=== PATIENT | female | born 1955 | race Caucasian/White ===

== ENCOUNTER 2020-02-20 23:33 | Emergency (ER) | payer MEDICARE, SELFPAY ==
[2020-02-20 23:34] VITALS: BP 107/70; PULSE 87; RESP 16; TEMP 36.4; O2SAT 98
[2020-02-21] VITALS: BP 149/72; PULSE 84; RESP 20
--- NOTE | 2020-02-21 00:14 | PC.NURSE ---
Dr. Houser aware pt Taliaferro score rated Moderate Risk. No new orders given at this time.
[2020-02-21 00:26] LABS: Basophils Percent Auto 0.6 % (0.2-1.2); Eosinophils Absolute Auto 0.2 K/mm3 (0-0.3); Eosinophils Percent Auto 3.1 % (0-4.4); Hematocrit 33.6 % (37.0-47.0); Immature Granulocyte Absolute 0.05 K/mm3 (0.00-0.031); Immature Granulocyte Percent A 0.7 % (0-0.5); Lymphocytes Absolute Auto 1.06 K/mm3 (0.9-3.2); Lymphocytes Percent Auto 15.5 % (18.3-44.2); Mean Corpuscular HGB Conc 32.7 g/dl (32-36); Mean Corpuscular Hemoglobin 28.2 pg (26-34); Mean Corpuscular Volume 86.2 fl (80-100); Monocytes Absolute Auto 0.5 K/mm3 (0.1-0.6); Monocytes Percent Auto 7.9 % (2.6-8.5); Neutrophils Absolute Auto 4.9 K/mm3 (1.3-6.7); Neutrophils Percent Auto 72.2 % (45.5-73.1); Platelet Count Result 200 k/mm3 (150-375); Red Cell Distribution Width 13.8 % (11.5-14.5); White Blood Count 6.8 K/mm3 (4.5-10.0)
--- NOTE | 2020-02-21 00:27 | ED.GENADULT ---
HPI - General Adult General Chief complaint: Abdominal Pain Stated complaint: rectal or vaginal bleeding Time Seen by Provider: 02/20/20 23:42 Source: patient and family Mode of arrival: ambulatory Limitations: no limitations History of Present Illness HPI narrative: This patient is a 64 year old female who presents for evaluation of bleeding from an unknown source. Patient reports she was using the restroom, and she noticed bright red blood dripping down her leg when she stood up. She is unsure of the source of bleeding. She takes Xarelto for a history of PE, and her dosage is 10 mg. She denies abdominal pain, nausea, vomiting. She reports around 8 pm tonight she had an episode of diarrhea but she did not see any blood at that time . Her states he thinks she lost alot of blood. Related Data Allergies Allergy/AdvReac Type Severity Reaction Status Date / Time metoclopramide Allergy Unknown Unknown Verified 12/25/19 12:10 Review of Systems Review of Systems: All systems reviewed & are unremarkable except as noted in HPI and below Constitutional: Constitutional: Denies chills and Denies fever(s) Cardiovascular: Cardiovascular: Denies chest pain Respiratory: Respiratory: Denies cough and Denies dyspnea Gastrointestinal: Gastrointestinal: Denies abdominal pain, Reports diarrhea, Denies nausea and Denies vomiting PMFSH Past Medical History Medical History (Updated 02/21/20 @ 01:21 by Chelsea Houser MD) Anxiety Chronic low back pain with sciatica Essential (primary) hypertension History of pulmonary embolus (PE) Mild episode of recurrent major depressive disorder Mild intermittent asthma without complication Mixed hyperlipidemia Type 2 diabetes mellitus without complications Surgical History Surgical History H/O: hysterectomy Family History Family History Other Diabetes mellitus Family history of alcoholism Family history of arthritis Family history of coronary artery disease Family history of kidney disease Family history of malignant neoplasm Family history of mental disorder Hypertension Social History Social History Smoking status: Never smoker Second hand tobacco smoke exposure: No Alcohol intake: never Exam Const: General: no acute distress and alert Nutritional Appearance: obese Orientation/consciousness: patient oriented x3 HENMT: Head: atraumatic Throat: posterior oropharynx normal Eyes: EOM: EOMs intact bilaterally Chest: Chest palpation & inspection: normal inspection of the chest Resp: Effort & Inspection: normal respiratory effort and no retractions Auscultation: clear to auscultation bilaterally Cardio: Rate: regular rate Rhythm: regular rhythm Heart sounds: no murmurs GI: GI Palp: Yes Soft to palpation, No Tenderness to palpation present (GI), No Guarding due to palpation present (GI) and No Rigid due to palpation Rectal Exam: heme negative stool (brown stool no lucie blood) Other: no rectal blood scene : Other: no bleeding seen in vaginal vault Skin: Other: patient has small ulcerations to inner thighs that may have been source of bleeding, no bleeding currently Neuro: General: patient oriented x3 and moves all extremities Course Reevaluation(s) Reevaluation #1: I have discussed with patient and her that she is not actively bleeding no. No blood found vaginally or rectally. No blood in urine. urine was clear and yellow. I reviewed prior labs and her last hemoglobin was 9 so today she is higher Date: 02/21/20 Time: 01:20 Vital Signs Vital signs: Vital Signs Temperature 97.6 F 02/20/20 23:34 Pulse Rate 87 02/20/20 23:34 Respiratory Rate 16 02/20/20 23:34 Blood Pressure 107/70 02/20/20 23:34 Pulse Oximetry 98 02/20/20 23:34 Te
[2020-02-21 00:38] LABS: Alanine Aminotransferase 16 U/L (4-35); Alkaline Phosphatase 127 U/L (38-126); Anion Gap 8 mmol/L (8-16); Aspartate Amino Transferase 20 U/L (14-36); Bilirubin,Total 0.5 mg/dL (0.2-1.3); Blood Urea Nitrogen 7 mg/dL (7-17); Calcium 8.8 mg/dL (8.4-10.2); Carbon Dioxide 26 mmol/L (22-30); Chloride 96 mmol/L (98-107); Estimated Glomerular Filt Rate > 60; Glucose 94 mg/dL (65-105); Potassium 4.3 mmol/L (3.4-5.0); Sodium 130 mmol/L (137-145)
[2020-02-21 00:47] LABS: INR 1.5; Prothrombin Time 17.9 Seconds (11.1-14.7)
[2020-02-21 00:48] LABS: Partial Thromboplastin Time 33.7 SECONDS (22.3-36.8)
[2020-02-21 01:00] VITALS: BP 133/65; PULSE 82; RESP 18; O2SAT 100
[2020-02-21 01:02] LABS: Add Urine Microscopic? YES; Appearance Urine Clear (Clear); Bilirubin Urine Negative (Negative); Blood Urine 1+ (Negative); Color Urine Straw (Yellow); Glucose Urine UA Negative (Negative); Ketones Urine Negative (Negative); Leukocyte Esterase Ur Negative LEU/UL (Negative); Nitrate Urine Negative (Negative); Protein Urine Negative (Negative); RBC Urine 0-2 /hpf (0-2); Specific Grav Ur 1.005 (1.001-1.035); Squamous Epithelial Cell Urine Rare /hpf (Few); Urobilinogen Urine Negative mg/dL (<2.0); WBC Urine 0-3 /hpf
[2020-02-21 01:30] VITALS: BP 132/65; PULSE 80; RESP 18; O2SAT 100
== END 2020-02-21 01:45 | disposition home or self-care (01) ==
PROVIDERS: Emergency Provider General Practice; PCP Family Medicine
DX: L98.9 Disorder of the skin and subcutaneous tissue, unspecified (principal); Z79.01 Long term (current) use of anticoagulants; D64.9 Anemia, unspecified; I10 Essential (primary) hypertension; J45.20 Mild intermittent asthma, uncomplicated; E78.2 Mixed hyperlipidemia; E11.9 Type 2 diabetes mellitus without complications; F41.9 Anxiety disorder, unspecified; F33.9 Major depressive disorder, recurrent, unspecified; Z86.711 Personal history of pulmonary embolism
CPT/HCPCS: 36415; 51701; 80053; 81001; 85025; 85610; 85730; 99284

== ENCOUNTER 2020-02-22 09:43 | Outpatient (CLI) | payer MEDICARE, SELFPAY ==
--- NOTE | ~2020-02-22 | US_ITS ---
EXAMINATION: US venous doppler [facility] DATE: 02/22/2020 10:59 INDICATION: Left lower limb pain. TECHNIQUE: Grayscale ultrasound images without and with compression and Doppler ultrasound images of the left lower extremity veins were obtained. COMPARISON: Ultrasound 08/29/2014 FINDINGS: The visualized portions of left common femoral vein, profunda (deep) femoral vein, femoral vein, popl iteal vein, posterior tibial veins, and greater saphenous vein outflow are patent. There is reflux in left popliteal vein for 1.9 seconds. IMPRESSION: 1. No deep venous thrombosis. 2. Reflux in left popliteal vein. Reviewed, dictated and finalized at location A.
== END 2020-02-22 09:44 | disposition home or self-care (01) ==
PROVIDERS: PCP Family Medicine; Visit Provider Family Medicine
DX: M79.605 Pain in left leg (principal)
CPT/HCPCS: 93971

== ENCOUNTER 2020-06-05 13:44 | Observation (INO) | payer MEDICARE, SELFPAY ==
[2020-06-05] VITALS (7 sets, daily range): BP systolic 144–166; BP diastolic 66–126; PULSE 70–82; RESP 12–20; TEMP 36.2–36.9; O2SAT 98–100
--- NOTE | ~2020-06-05 | US_ITS ---
EXAMINATION: US venous doppler [facility] DATE: 06/06/2020 10:41 INDICATION: Lower limb weakness TECHNIQUE: Grayscale ultrasound images without and with compression and Doppler ultrasound images of the bilateral lower extremity veins were obtained. COMPARISON: None. FINDINGS: The visualized portions of right common femoral vein, profunda (deep) femoral vein, femoral vein, pop liteal vein, posterior tibial veins, peroneal veins, gastrocnemius vein and greater saphenous vein ou tflow are patent. The visualized portions of left common femoral vein, profunda femoral vein, femoral vein, popliteal v ein, posterior tibial veins, peroneal veins, gastrocnemius vein and greater saphenous vein outflow ar e patent. IMPRESSION: 1. No deep venous thrombosis in either lower limb. Reviewed, dictated and finalized at location B. PATIAL DEVELOPER
--- NOTE | ~2020-06-05 | XR_ITS ---
EXAMINATION: XR ankle RT min 3V, XR tibia fibula RT 2V EXAM DATE: 06/05/2020 14:13 INDICATION: Pain, right ankle pain, lateral swelling, fall. Initial encounter. TECHNIQUE: Right ankle frontal, lateral and oblique projections obtained and reviewed. Frontal and la teral projections right tibia and fibula. Comparison is made to prior examination from 03/01/2019. FINDINGS: The right ankle mortise appears intact. Previously seen distal fibular fracture has healed . There are no acute ankle, tibia or fibula fractures or dislocations identified. There is no subcut aneous gas. There is soft tissue swelling over the ankle anterolaterally. There is knee arthroplast y hardware. Small inferior calcaneal spur. 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 IMPRESSION: 1. Right ankle, tibia fibula exam without acute osseous findings. 2. Soft tissue swelling. Reviewed, dictated and finalized at location A. OWS FILLER IMPRESSION: 1. Right ankle, tibia fibula exam without acute osseous findings. 2. Soft tissue swelling.
--- NOTE | 2020-06-05 13:46 | ED.LOWEXIN ---
HPI - Extremity Injury (Lower) General Chief Complaint: Fall Stated Complaint: RLL Time Seen by Provider: 06/05/20 13:46 History of Present Illness HPI Narrative: 64 yo female w/ h/o htn, DM, morbid obesity presents to the ED for ankle pain. She was standing up from the toilet when her leg bent underneath her and she felt her ankle pop. She was nt able to stand or bear weight weight. She required multiple ambulance crews and PD to get her off the ground. She did not hit her head or sustain any other injuries. Related Data Allergies Allergy/AdvReac Type Severity Reaction Status Date / Time metoclopramide Allergy Unknown Unknown Verified 06/03/20 11:30 Review of Systems Review of Systems: All systems reviewed & are unremarkable except as noted in HPI and below Constitutional: Constitutional: Denies fever(s) and Denies weakness Cardiovascular: Cardiovascular: Denies chest pain Respiratory: Respiratory: Denies dyspnea Gastrointestinal: Gastrointestinal: Denies abdominal pain and Denies nausea Genitourinary: Genitourinary: Denies dysuria Musculoskeletal: Musculoskeletal: Denies back pain Neurologic: Denies confusion, Denies numbness and Denies weakness [facility] Past Medical History Medical History (Updated 06/05/20 @ 17:14 by Marshall Howe MD) Anxiety Chronic low back pain with sciatica Essential (primary) hypertension History of pulmonary embolus (PE) Mild episode of recurrent major depressive disorder Mild intermittent asthma without complication Mixed hyperlipidemia Type 2 diabetes mellitus without complications Surgical History Surgical History H/O: hysterectomy Family History Family History Other Diabetes mellitus Family history of alcoholism Family history of arthritis Family history of coronary artery disease Family history of kidney disease Family history of malignant neoplasm Family history of mental disorder Hypertension Social History Social History Smoking status: Never smoker Second hand tobacco smoke exposure: No Alcohol intake: never Exam Const: General: no acute distress and alert Nutritional Appearance: obese morbidly obese Orientation/consciousness: patient oriented x3 HENMT: Head: normal to inspection Resp: Effort & Inspection: normal respiratory effort Auscultation: clear to auscultation bilaterally Cardio: Rate: regular rate GI: GI Palp: Yes Soft to palpation and No Tenderness to palpation present (GI) Skin: General skin exam: normal color Neuro: General: patient oriented x3, moves all extremities, no focal motor deficits and CN's II-XI intact bilaterally Speech: normal speech Extrem: Other: Tenderness over right lateral malleolus. No swelling or deformity. Mild abrasions to toes on right foot. Course Vital Signs Vital signs: Vital Signs Temperature 36.9 C 06/05/20 13:47 Pulse Rate 79 06/05/20 13:47 Respiratory Rate 14 06/05/20 13:47 Blood Pressure 166/126 H 06/05/20 13:47 Pulse Oximetry 99 06/05/20 13:47 Temperature 36.9 C 06/05/20 13:47 Pulse Rate 79 06/05/20 13:47 Respiratory Rate 14 06/05/20 13:47 Blood Pressure 166/126 H 06/05/20 13:47 Pulse Oximetry 99 06/05/20 13:47 MDM - Extremity Injury (Lower) MDM Narrative Medical decision making narrative: No fracture on x-ray. She failed trial of ambulation despite pain meidcation. Differential Diagnosis Differential diagnosis: Likely ankle sprain and strain and ankle fracture Lab Data Result diagrams: 06/05/20 16:57 06/05/20 16:57 Labs: Lab Results 06/05/20 06/05/20 06/05/20 Range/Units 16:57 16:57 16:57 WBC 6.6 (4.5-10.0) K/mm3 RBC 4.48 (4.2-5.4) M/mm3 Hgb 12.5 (12.0-15.0) g/dL Hct 38.8 (37.0-47.0) % MCV 86.6 (80-100)
[2020-06-05] MEDS: MORPHINE SULFATE (*CRX) 2 MG/ML INJ IV PUSH (15:34)
[2020-06-05 17:06] LABS: Basophils Percent Auto 0.5 % (0.2-1.2); Eosinophils Absolute Auto 0.2 K/mm3 (0-0.3); Eosinophils Percent Auto 2.3 % (0-4.4); Hematocrit 38.8 % (37.0-47.0); Hemoglobin 12.5 g/dL (12.0-15.0); Immature Granulocyte Absolute 0.04 K/mm3 (0.00-0.031); Immature Granulocyte Percent A 0.6 % (0-0.5); Lymphocytes Absolute Auto 0.79 K/mm3 (0.9-3.2); Mean Corpuscular HGB Conc 32.2 g/dl (32-36); Mean Corpuscular Hemoglobin 27.9 pg (26-34); Mean Corpuscular Volume 86.6 fl (80-100); Mean Platelet Volume 8.6 fl (7.4-10.4); Monocytes Absolute Auto 0.4 K/mm3 (0.1-0.6); Monocytes Percent Auto 5.4 % (2.6-8.5); Neutrophils Absolute Auto 5.2 K/mm3 (1.3-6.7); Neutrophils Percent Auto 79.2 % (45.5-73.1); Platelet Count Result 178 k/mm3 (150-375); Red Blood Count 4.48 M/mm3 (4.2-5.4); Red Cell Distribution Width 14.1 % (11.5-14.5); White Blood Count 6.6 K/mm3 (4.5-10.0)
[2020-06-05 17:13] LABS: Add Urine Microscopic? YES; Amorphous Sediment Urine Few; Appearance Urine Cloudy (Clear); Bacteria Urine 4+ /hpf; Bilirubin Urine Negative (Negative); Blood Urine 1+ (Negative); Color Urine Yellow (Yellow); Glucose Urine UA Negative (Negative); Ketones Urine Negative (Negative); Leukocyte Esterase Ur 1+ LEU/UL (Negative); Mucus Urine Rare /lpf; Nitrate Urine Negative (Negative); Protein Urine Negative (Negative); RBC Urine 21-50 /hpf (0-2); Specific Grav Ur 1.006 (1.001-1.035); Squamous Epithelial Cell Urine Few /hpf (Few); Urobilinogen Urine Negative mg/dL (<2.0); WBC Urine 31-50 /hpf
[2020-06-05 17:18] LABS: Alanine Aminotransferase 16 U/L (4-35); Albumin Level 4.1 g/dL (3.5-5.1); Alkaline Phosphatase 141 U/L (38-126); Anion Gap 5 mmol/L (8-16); Aspartate Amino Transferase 21 U/L (14-36); Bilirubin,Total 0.7 mg/dL (0.2-1.3); Blood Urea Nitrogen 12 mg/dL (7-17); Calcium 9.1 mg/dL (8.4-10.2); Carbon Dioxide 26 mmol/L (22-30); Chloride 102 mmol/L (98-107); Estimated CRCL calculation 88 ml/min; Estimated Glomerular Filt Rate > 60; Glucose 99 mg/dL (65-105); Potassium 4.7 mmol/L (3.4-5.0); Sodium 133 mmol/L (137-145)
[2020-06-05 17:34] LABS: INR 1.1; Prothrombin Time 15.1 Seconds (11.1-14.7)
[2020-06-05 17:35] LABS: Partial Thromboplastin Time 24.7 SECONDS (22.3-36.8)
--- NOTE | 2020-06-05 17:53 | PCCCNOTE ---
Care Coordination visited with pt and her to discuss possible need for therapy after observation stay. Gave pt list of SNF facilities that accept [employer] insurance. states that was at [facility] when she broke her leg and they would want to return there if she is unable to return home.
--- NOTE | 2020-06-05 19:00 | ADMGEN ---
This patient, Lorraine Mazariegos, was admitted to Medical Room 248-. Patient/family oriented to hospital policies and general routines including ID bracelet, bed and alarms, visiting hours, pain management, procedures, bathroom and other care routines, personal items, smoking policy, room service/diet, and visiting hours. Information on how to activate the Rapid Response Team has been discussed. Patient/Family are encouraged to report perceived risks to care and to ask questions if they do not understand what they are told or what they should do.
--- NOTE | 2020-06-05 20:29 | PM.IMHP ---
H&P: HPI History of Present Illness Date/Time: 06/05/20 20:29 Chief Complaint: fall with right ankle pain Narrative: Lorraine Mazariegos is a 64 year old female who has had at least 2 falls this past month. The patient is morbidly obese. She lives with her . Yesterday the patient went to see her primary care doctor because she had a feeling of a toenail digging into her skin for the past week. She has been wearing a different type of shoe. She now has a Band-Aid to the right great toe to keep it from rubbing. The patient has multiple old green bruises on the left side of her body including the left elbow and left knee. The patient stated that she just has been having difficulty moving and has been having falls. The patient had difficulty getting out of the bathtub the other day and her tried to help her get out of the tub while she was sitting on a chair our chair and she stated that she had on the side of the tub but then fell on the floor. Today the patient was trying to stand up from getting off the toilet when she said she twisted her right ankle and heard a pop. She currently is not able to ambulate on that right ankle it does not appear to be swollen except maybe a trace. The patient is obese and has difficulty ambulating. She states that she does not want to go into a correction and has a walker at home. Bed bound at home but feels like she is bedbound now. The patient would not be able to use crutches but states that she could probably go home and use her walker. Tibia fibula x-ray was read as right ankle tibia fibula exam without acute osseous findings. Soft tissue swelling. Ankle x-ray was read as right ankle tibia fibula exam without acute osseous findings. Soft tissue swelling. The patient does have a history of having a DVT and PEs in the past and is currently on Xarelto. The patient appears to have a UTI. The patient was admitted for observation on the date of service of 06/05/2020. Review of Systems Review of Systems: All systems reviewed & are unremarkable except as noted in HPI and below Constitutional: Constitutional: Reports as per HPI and Reports no additional constitutional complaints Eyes: Eyes: Reports as per HPI and Reports no additional eye complaints ENT: Reports system reviewed and no additional complaints, except as documented and Reports Normal hearing present Cardiovascular: Cardiovascular: Reports no additional cardiovascular complaints Respiratory: Respiratory: Reports no additional respiratory complaints and Reports no additional respiratory complaints Gastrointestinal: Gastrointestinal: Reports as per HPI and Reports no additional gastrointestinal complaints Musculoskeletal: Musculoskeletal: Reports no additional musculoskeletal complaints Integumentary/Breasts: Skin/Breast: Reports system reviewed and no additional complaints, except as docu and Reports as per HPI Neurologic: Reports system reviewed and no additional complaints, except as documented, Reports as per HPI and Reports Normal hearing present Psychiatric: Psychiatric: Reports no additional psychiatric complaints and Reports as per HPI Endocrine: Endocrine: Reports no additional endocrine complaints Hematologic/Lymphatic: Hematologic/Lymphatic: Reports no additional hematologic/lymphatic complaints Allergic/Immunologic: Allergic/Immunologic: Reports no additional allergic/immunologic complaints [facility] Past Medical History Medical History (Updated 06/05/20 @ 21:03 by Janet Sprague NP) Anxiety Chronic low back pain with sciatica Depression Essential (primary) hypertension History of DVT (deep vein thrombosis) History of pulmonary embolus (PE) Mild episode of recurrent major depressive disorder Mild intermittent asthma without complication Mixed hyperlipidemia Presence of IVC filter Surgical History Surgical History (Updated 06/05/20 @ 20:55 by Janet Sprague NP) H/O bariatric surgery X2 H/O: hystere
[2020-06-05] MEDS: GABAPENTIN 300 MG CAPSULE 600 MG PO (21:16)
[2020-06-05] MEDS: TOLNAFTATE 1% POWDER 45 GM BTL 1 APPLIC TOPICAL (21:16)
[2020-06-06] MEDS: HYDROcodone/acetaminophen (*CRX) 5-325 MG TABLET 1 TAB PO (00:34)
[2020-06-06 05:17] VITALS: BP 135/60; PULSE 75; RESP 16; TEMP 36.2; O2SAT 100
[2020-06-06 05:30] LABS: Basophils Percent Auto 0.3 % (0.2-1.2); Eosinophils Absolute Auto 0.2 K/mm3 (0-0.3); Eosinophils Percent Auto 2.5 % (0-4.4); Hematocrit 35.3 % (37.0-47.0); Hemoglobin 11.2 g/dL (12.0-15.0); Immature Granulocyte Absolute 0.03 K/mm3 (0.00-0.031); Immature Granulocyte Percent A 0.5 % (0-0.5); Lymphocytes Absolute Auto 0.87 K/mm3 (0.9-3.2); Lymphocytes Percent Auto 14.5 % (18.3-44.2); Mean Corpuscular HGB Conc 31.7 g/dl (32-36); Mean Corpuscular Hemoglobin 27.5 pg (26-34); Mean Corpuscular Volume 86.5 fl (80-100); Mean Platelet Volume 8.9 fl (7.4-10.4); Monocytes Absolute Auto 0.5 K/mm3 (0.1-0.6); Monocytes Percent Auto 7.5 % (2.6-8.5); Neutrophils Absolute Auto 4.5 K/mm3 (1.3-6.7); Neutrophils Percent Auto 74.7 % (45.5-73.1); Platelet Count Result 177 k/mm3 (150-375); Red Blood Count 4.08 M/mm3 (4.2-5.4); Red Cell Distribution Width 13.9 % (11.5-14.5)
[2020-06-06 05:56] LABS: Alanine Aminotransferase 15 U/L (4-35); Albumin Level 3.6 g/dL (3.5-5.1); Alkaline Phosphatase 127 U/L (38-126); Anion Gap 5 mmol/L (8-16); Aspartate Amino Transferase 21 U/L (14-36); Bilirubin,Total 0.7 mg/dL (0.2-1.3); Blood Urea Nitrogen 13 mg/dL (7-17); Calcium 8.7 mg/dL (8.4-10.2); Carbon Dioxide 28 mmol/L (22-30); Chloride 102 mmol/L (98-107); Estimated CRCL calculation 88 ml/min; Estimated Glomerular Filt Rate > 60; Glucose 101 mg/dL (65-105); Magnesium 1.7 mg/dL (1.6-2.3); Potassium 3.9 mmol/L (3.4-5.0); Sodium 135 mmol/L (137-145)
[2020-06-06 06:08] LABS: Hemoglobin A1C 5.3 % (<5.7)
[2020-06-06] MEDS: GABAPENTIN 300 MG CAPSULE 600 MG PO (08:13)
[2020-06-06] MEDS: ATORVASTATIN 40 MG TABLET PO (08:14)
[2020-06-06] MEDS: DULoxetine HCL 30 MG CAPSULE.DR 90 MG PO (08:14)
[2020-06-06] MEDS: busPIRone HCL 5 MG TABLET 15 MG PO (08:14)
[2020-06-06] MEDS: lisinopriL 10 MG TABLET 30 MG BY MOUTH (08:14)
[2020-06-06] MEDS: PANTOPRAZOLE 40 MG TABLET PO (08:14)
[2020-06-06] MEDS: RIVAROXABAN 10 MG TABLET PO (08:14)
[2020-06-06] MEDS: risperiDONE 1 MG TABLET 4 MG PO (08:14)
[2020-06-06] MEDS: TOLNAFTATE 1% POWDER 45 GM BTL 1 APPLIC TOPICAL (08:15)
[2020-06-06 09:08] LABS: Glucose Point of Care 120 (65-105)
--- NOTE | 2020-06-06 09:12 | PM.CNOR ---
Assessment and Plan Assessment and plan (1) Right ankle sprain: Code(s): S93.401A - Sprain of unspecified ligament of right ankle, initial encounter <WILLIAM Johnston - Last Filed: 06/06/20 12:58> Status: Acute <WILLIAM Johnston - Last Filed: 06/06/20 12:58> Assessment and Plan: Pleasant [age] year old female patient with a history of morbid obesity, hypertension, depression, anxiety, history of DVT, history of PE was admitted to the hospital 06/05/2020 after multiple falls and complains of right ankle pain. Reviewed rotated radiographs showing no acute bony abnormalities. Spoke with patient's nurse who stated patient is able to ambulate however has trouble standing up off the toilet. Right ankle sprain is self-limited. Patient will need a lace-up ankle brace for comfort while ambulating. PT and OT ordered. Weight barring as tolerated. She may follow up as needed at our office. I spoke with Dr. Davila regarding patient. He examined patient, reviewed imaging, and agrees with assessment and plan. Thank you for the consult. <WILLIAM Johnston - Last Filed: 06/06/20 12:58> Additional Plan Patient seen and examined. High grade ankle sprain lateral and medial. Xrays reviewed. No acute fracture. Mild ankle joint degenerative arthritis. Ok to WBAT. Ankle brace for comfort and support as needed. Discussed fall precautions and expectations/ timeline of healing. Follow up as needed only. <Dawood Davila MD - Last Filed: 06/06/20 16:31> History of Present Illness HPI Consult date: 06/06/20 <WILLIAM Johnston - Last Filed: 06/06/20 12:58> 06/06/20 <Dawood Davila MD - Last Filed: 06/06/20 16:31> Requesting physician: Janet Sprague NP <WILLIAM Johnston - Last Filed: 06/06/20 12:58> Consult reason: other <WILLIAM Johnston - Last Filed: 06/06/20 12:58> Chief complaint: Ankle pain ambulatory dysfunction <WILLIAM Johnston - Last Filed: 06/06/20 12:58> Narrative: [age] year old female patient with a history of morbid obesity, hypertension, depression, anxiety, history of DVT, history of PE was admitted to the hospital 06/05/2020 after multiple falls. Patient states she fell in the bathroom and slipped while getting up off the toilet. She fell down to her bottom and felt a pop in her right ankle. She is unable to get up off the floor on her own. She states a week prior to that she fell in the shower. Pain is located at right ankle in the lateral and medial side. Pain is mild and controlled. Prior to injury she typically walks on her own at home. Her PCP did tell her to start using a walker. Patient states her is planning on putting in a shower in the bathroom. She denies chest pain, shortness of breath, abdominal pain, or numbness and tingling in her toes. She states she has knee pain but this is normal for her. She has a history of TKA bilaterally in late in early . She denies hip pain. <WILLIAM Johnston - Last Filed: 06/06/20 12:58> Review of Systems Review of Systems: All systems reviewed & are unremarkable except as noted in HPI and below <WILLIAM Johnston - Last Filed: 06/06/20 12:58> [facility] Past Medical History Medical History: Medical History Anxiety Chronic low back pain with sciatica Depression Essential (primary) hypertension History of DVT (deep vein thrombosis) History of pulmonary embolus (PE) Mild episode of recurrent major depressive disorder Mild intermittent asthma without complication Mixed hyperlipidemia Presence of IVC filter <WILLIAM Johnston - Last Filed: 06/06/20 12:58> Surgical History Surgical History: Surgical History H/O bariatric surgery X2 H/O: hysterectomy History of carpal tunnel release History of tonsillectomy His
--- NOTE | 2020-06-06 09:30 | PCOTNOTE ---
Attempted OT evaluation. Patient receiving an US at this time. Will continue to attempt.
--- NOTE | 2020-06-06 13:13 | PC.NURSE ---
Brace ordered by WILLIAM Kelley. Called to Systems Integration Manager to obtain brace. Information faxed [phone] 06/06/2020.
[2020-06-06 14:25] VITALS: BP 140/93; PULSE 83; RESP 18; TEMP 36.7; O2SAT 100
--- NOTE | 2020-06-06 14:48 | PM.DS ---
DS: Admitting Diagnosis Admitting Diagnosis Admitting Diagnosis: Right ankle sprain DS: Discharge Diagnosis Discharge Diagnosis (1) Acute right ankle pain: Code(s): M25.571 - Pain in right ankle and joints of right foot Status: Acute Assessment and Plan: Discharge Summary (Date of service 06/06/20): Mrs. Mazariegos is a 64 y.o. female with PMH significant for morbid obesity, hypertension, depression, anxiety, history of DVT/PE on chronic anticoagulation who presented to the hospital 06/05/2020 after multiple falls. She reported that she slipped while getting up off the toilet, falling on her bottom, and felt a pop in her right ankle. She was unable to get up off the floor on her own. Pain was located at right ankle in the lateral and medial side. Prior to injury she typically walks on her own at home but her PCP did tell her to start using a walker. She reported no other injuries or pain. She had no LOC or head trauma. Plain films in the emergency department demonstrated no acute ankle, tibia or fibula fractures or dislocations identified. She was admitted to the hospitalist service with orthopedic surgery consultation because the patient was not able to ambulate in the emergency department due to pain. PT/OT were consulted and she was able to ambulate with a walker and transfer. Pain improved significantly and she requested discharge home. Rehab/SNF was discussed but PT/OT felt she could have home health therapy which was her preference. Orthopedic surgery advised a lace-up ankle brace for comfort with ambulating and weight bearing as tolerated. Fall precautions and expectations/ timeline of healing were discussed. She was no longer requiring inpatient care and discharged on 06/06/20 in hemodynamically stable condition. She did have a small 2mm foot wound with no evidence of infection and already had podiatry follow-up scheduled which she was advised to keep. (2) UTI (urinary tract infection): Code(s): N39.0 - Urinary tract infection, site not specified Status: Acute Assessment and Plan: Ruled out. Urine culture suspicious for UTI. She was treated with IV ceftriaxone and discharged on PO cefdinir. Urine culture demonstrated no growth after discharge so I called and notified the patient to stop taking the antibiotic. (3) Frequent falls: Code(s): R29.6 - Repeated falls Status: Acute (4) Mixed hyperlipidemia: Code(s): E78.2 - Mixed hyperlipidemia Status: Acute (5) Essential (primary) hypertension: Code(s): I10 - Essential (primary) hypertension Status: Acute (6) History of pulmonary embolus (PE): Code(s): Z86.711 - Personal history of pulmonary embolism Status: Acute (7) Anxiety: Code(s): F41.9 - Anxiety disorder, unspecified Status: Acute (8) Depression: Code(s): F32.9 - Major depressive disorder, single episode, unspecified Status: Chronic DS: Summary Hospital Course Reason for hospitalization: Right ankle fracture Hospital Course: As above. Status at Discharge Functional status at discharge: uses cane/walker Overall status at discharge: patient is back to baseline Time Spent with Patient Time attestation: Total time spent providing and/or coordinating discharge services: 50 minutes Exam Narrative: Exam Narrative: Vitals at presentation: Temp Pulse Resp BP Pulse Ox 98.4 F 79 14 166/126 H 99 06/05/20 13:47 06/05/20 13:47 06/05/20 13:47 06/05/20 13:47 06/05/20 13:47 Vitals at discharge: Temp Pulse Resp BP Pulse Ox 98.1 F 83 18 140/93 H 100 06/06/20 14:25 06/06/20 14:25 06/06/20 14:25 06/06/20 14:25 06/06/20 14:25 General: Very pleasant
[2020-06-06 19:17] LABS: SARS-CoV-2 RNA PCR Negative
== END 2020-06-06 17:37 | disposition home health service (06) ==
LOC: ANHED 17:14 → ANH3MED 17:55 → ANH2MED 18:58
PROVIDERS: Family Medicine; Nurse Practitioner; Physician Assistant; Admitting Provider Family Medicine; Emergency Provider Emergency Medicine; PCP Family Medicine; Visit Provider Internal Medicine
DX: M25.571 Pain in right ankle and joints of right foot (principal); M79.89 Other specified soft tissue disorders; Z20.822 Contact with and (suspected) exposure to COVID-19; R30.0 Dysuria; R29.6 Repeated falls; R01.1 Cardiac murmur, unspecified; E66.01 Morbid (severe) obesity due to excess calories; F41.8 Other specified anxiety disorders; E78.2 Mixed hyperlipidemia; E11.9 Type 2 diabetes mellitus without complications; I10 Essential (primary) hypertension; Z79.01 Long term (current) use of anticoagulants; Z86.718 Personal history of other venous thrombosis and embolism; Z86.711 Personal history of pulmonary embolism; Z68.43 Body mass index [BMI] 50.0-59.9, adult
CPT/HCPCS: 36415; 73590; 73610; 80053; 81001; 82728; 82948; 83036; 83735; 84443; 85025; 85610; 85730; 87040; 87086; 87088; 93970; 96360; 96374; 96375; 97161; 97165; 99285; A9270; C9803; G0378; J0696; J2270; U0003; U0005

== ENCOUNTER 2020-07-09 13:23 | Outpatient (CLI) | payer MEDICARE, SELFPAY | END 2020-07-09 13:24 | disposition home or self-care (01) | PROVIDERS: PCP Family Medicine | DX: Z23 Encounter for immunization (principal) | CPT/HCPCS: 0001A; 91300 ==

== ENCOUNTER → 2020-07-21 15:33 | Outpatient (CLI) | payer MEDICARE, SELFPAY ==
--- NOTE | ~2020-07-21 | XR_ITS ---
XR ankle RT min 3V DATE: 07/21/2020 15:56 INDICATION: Chronic ulcer TECHNIQUE: 4 views COMPARISON: 06/05/2020 right ankle 03/01/2019 right ankle FINDINGS: There is a soft tissue concavity along the distal lateral right lower leg which may corresp ond to the report of chronic ulcer. There is soft tissue swelling of the right lower leg and ankle. There is periosteal reaction at the site of a former fracture at the lateral malleolus. The findings may be consistent with a repeat fracture at this site versus osteomyelitis. Clinical correlation is a dvised. There is narrowing of the tibiotalar joint since 06/05/2020; joint infection is not excluded. Plantar calcaneal enthesopathy. Diffuse osteopenia. IMPRESSION: Probable soft tissue ulcer along the distal lateral right lower leg Periosteal reaction at the site of a prior lateral malleolar fracture. Refracture and healing is a co nsideration, but osteomyelitis is included in the differential diagnosis Narrowing of the tibiotalar joint since 06/05/2020; joint infection is not excluded. Reviewed, dictated and finalized at location A. IMPRESSION: Probable soft tissue ulcer along the distal lateral right lower leg Periosteal reaction at the site of a prior lateral malleolar fracture. Refractu re and healing is a consideration, but osteomyelitis is included in the differe ntial diagnosis Narrowing of the tibiotalar joint since 06/05/2020; joint infection is not exclu ded.
== END ==
PROVIDERS: Visit Provider Physician Assistant
DX: L97.909 Non-pressure chronic ulcer of unspecified part of unspecified lower leg with unspecified severity (principal); M79.89 Other specified soft tissue disorders
CPT/HCPCS: 73610

== ENCOUNTER 2020-07-30 13:09 | Outpatient (CLI) | payer MEDICARE, SELFPAY | END 2020-07-30 13:10 | disposition home or self-care (01) | LOC: ANHCOVIDVC 13:09 | DX: Z23 Encounter for immunization (principal) | CPT/HCPCS: 0002A; 91300 ==

== ENCOUNTER → 2020-08-01 12:15 | Outpatient (CLI) | payer MEDICARE, SELFPAY ==
--- NOTE | ~2020-08-01 | MR_ITS ---
EXAMINATION: MR ankle RT wo/w con DATE: 08/01/2020 14:06 INDICATION: Pressure ulcer of the right ankle with open wound. TECHNIQUE: Magnetic resonance imaging (MRI) of the right ankle and distal lower leg was performed wit hout and with 20 mL Multihance intravenous contrast. Sequences included axial, sagittal and coronal T 1-weighted FSE and T2-weighted FS FSE, axial T1-weighted FS FSE and postcontrast axial, sagittal and coronal T1-weighted FS FSE . COMPARISON: Radiographs dated 06/05/2020 and 07/21/2020 FINDINGS: There is marrow edema and enhancement at the lateral malleolus distal to a minimally displaced obliqu e fracture of the distal fibula with medial side of the fracture traversing the cortex near the level of the tibiotalar joint line consistent with a Brady type B fracture. Small amount of callus formati on is evident along the posterior and lateral margins of the fracture, better appreciated on prior ra diographs. No evident cortical erosion or geographic loss of T1 fat signal to suggest osteomyelitis. Soft tissue edema and non masslike enhancement surrounding a deep ulceration along the lateral lower leg located approximately 9 cm proximal to the tip of the lateral malleolus which extends deep to the peroneus longus tendon the superficial margin of which appears exposed at the ulceration. The tendon s however appear normal with no tendon tear. There is prominent increased fluid signal and enhancemen t throughout the distal peroneus brevis longus and brevis muscle bellies consistent with myositis. No nonenhancing myonecrosis or abscess. No tenosynovitis along the more distal peroneus brevis longus a nd brevis tendons. The anterior extensor tendons and the medial sided flexor tendons remain normal. The medial and later al stabilizing ligaments of the ankle appear grossly intact although evaluation is limited by some de gree of motion artifact or blurring on essentially all sequences as well as by the larger field of vi ew of imaging and a standard ankle MRI. Moderate tibiotalar osteoarthritis with posterior predominant nonuniform joint space narrowing with mild subarticular edema at the posterior aspect of the tibial plafond. Physiologic amount of fluid in the tibiotalar and subtalar joint spaces. Moderate-sized plan tar calcaneal spur. IMPRESSION: 1. Myositis of the peroneus longus and brevis muscle bellies centered under a deep skin ulceration at the lateral distal lower leg which appears to extend through the periphery of the muscle to contact the peroneus longus tendon. No associated mild necrosis, abscess or tenosynovitis. 2. Healing Brady type B fracture of the distal right fibula with no findings to suggest osteomyelitis . 3. Moderate tibiotalar osteoarthritis. Reviewed, dictated and finalized at location A. IMPRESSION: 1. Myositis of the peroneus longus and brevis muscle bellies centered under a d eep skin ulceration at the lateral distal lower leg which appears to extend thr ough the periphery of the muscle to contact the peroneus longus tendon. No asso ciated mild necrosis, abscess or tenosynovitis. 2. Healing Brady type B fracture of the distal right fibula with no findings to suggest osteomyelitis. 3. Moderate tibiotalar osteoarthritis.
[2020-08-01 13:14] LABS: Estimated Glomerular Filt Rate 50
== END ==
PROVIDERS: PCP Family Medicine; Visit Provider Physician Assistant
DX: L89.504 Pressure ulcer of unspecified ankle, stage 4 (principal); M19.071 Primary osteoarthritis, right ankle and foot
CPT/HCPCS: 73723; A9577

== ENCOUNTER 2020-08-20 10:34 | Inpatient (IN) | payer MEDICARE, SELFPAY ==
[2020-08-20] VITALS (16 sets, daily range): BP systolic 95–141; BP diastolic 47–116; PULSE 96–164; RESP 14–21; TEMP 36.6–36.9; O2SAT 95–100
--- NOTE | ~2020-08-20 | XR_ITS ---
EXAMINATION: XR chest 2V EXAM DATE: 08/20/2020 11:07 INDICATION: Shortness of breath, fast heart rate 5'3'/370 LBS. Unable to move. TECHNIQUE: Frontal and lateral projections of the chest obtained and reviewed. Comparison is made to prior examination from 07/28/2018. FINDINGS: Interval development of mild cardiomegaly. No confluent consolidation, pneumothorax or pleu ral effusion suspected. Bilateral shoulder osteoarthritis. Epigastric surgical clips. IMPRESSION: Cardiomegaly. Reviewed, dictated and finalized at location A. IMPRESSION: Cardiomegaly.
--- NOTE | 2020-08-20 10:48 | ECG_ITS ---
Measurements Intervals [place] Rate: 147 P: [place]: 0 QRS: -34 QRSD: 110 T: 114 QT: 278 QTc: 435 Interpretive Statements ATRIAL FIBRILLATION WITH RAPID VENTRICULAR RESPONSE LEFT AXIS DEVIATION INTRAVENTRICULAR CONDUCTION DELAY VOLTAGE CRITERIA FOR LVH POOR R WAVE PROGRESSION, ANTERIOR LEADS ST-T WAVE ABNORMALITY IN HIGH LATERAL LEADS- CONSIDER ISCHEMIA BASELINE ARTIFACT- I, III, AVR, AVL, AVF ABNORMAL ECG Electronically Signed On 08-20-2020 11:11:19 CDT by Glenroy Ashraf D.O.
--- NOTE | 2020-08-20 10:56 | ED.ARRPALP ---
HPI - Arrhythmia/Palpitations General Chief Complaint: Arrhythmia/Palpitations Stated Complaint: irregular heart rate Time Seen by Provider: 08/20/20 10:52 Source: RN notes reviewed History of Present Illness HPI narrative: Patient presents to emergency department from home for regular heart rate. Patient states she has had feelings of her heart racing for the past 4 days. She states that home health came to her house today and she is being treated for a wound on her right leg and they recommend she come to the ER secondary to her heart arrhythmia. The patient states she is on Xarelto and believes she has a history of an irregular heart rate and is followed by the heart care group she does note mild shortness of breath. She denies any fevers or chills chest pain abdominal pain nausea vomiting or any other symptoms patient is on Xarelto and took it last night Related Data Home Medications Medication Instructions Recorded Confirmed atorvastatin 40 mg PO DAILY 06/05/20 06/05/20 risperidone 4 mg tablet 4 mg PO BID tablet 07/21/20 Allergies Allergy/AdvReac Type Severity Reaction Status Date / Time metoclopramide Allergy Intermediate Unknown Verified 08/20/20 10:53 Review of Systems Review of Systems: Narrative: Gen.: Denies fevers or chills ENT: Denies congestion Respiratory: Reports shortness of breath CV: Reports heart racing GI: Denies abdominal pain nausea, emesis or diarrhea Musculoskeletal: Denies back pain or muscle pain Neuro: Denies numbness, tingling, weakness or focal weakness Skin: Denies rash Except as documented, all other systems reviewed and negative [facility] Past Medical History Medical History Anxiety Chronic low back pain with sciatica Depression Essential (primary) hypertension History of DVT (deep vein thrombosis) History of pulmonary embolus (PE) Mild episode of recurrent major depressive disorder Mild intermittent asthma without complication Mixed hyperlipidemia Presence of IVC filter Surgical History Surgical History H/O bariatric surgery X2 H/O: hysterectomy History of carpal tunnel release History of tonsillectomy History of total knee replacement (TKR) Bilaterally Hx of cholecystectomy Family History Family History Mother Diabetes mellitus Father Heart disease Sibling Blood clot in vein Other Family history of alcoholism Family history of arthritis Family history of coronary artery disease Family history of kidney disease Family history of malignant neoplasm Family history of mental disorder Hypertension Social History Social History Social History: The patient is and lives with her . She has 3 children. She attempted to smoke when she was a teenager but was less than a pack a cigarettes. The patient is a full code but does not want to live on a ventilator and be a vegetable. If the quality of life is no longer there she does not want to live on a ventilator. Her is a durable power attorney law clerk for healthcare. Second hand tobacco smoke exposure: No Alcohol intake: never Substance use: never Gender identity (if verbalized by the patient): Female Spiritual care concerns: No Exam Narrative: Exam Narrative: APPEARANCE: No acute distress, nontoxic, resting in bed EYES: EOMI HEENT: Normocephalic, atraumatic, OMM RESPIRATORY: No respiratory distress Clear to auscultation bilaterally with no rhonchi wheezing or rales. CARDIOVASCULAR: Irregular and tachycardic without murmurs rubs or gallops. ABDOMINAL: Soft, nontender, nondistended, no rebound or guarding MUSCULOSKELETAl: Moves all extremities. No clubbing, cyanosis or edema. NEURO: Awake and alert. Following commands, speech normal, no focal deficits SKIN::
--- NOTE | 2020-08-20 11:02 | PC.NURSE ---
Pt to XY via stretcher at this time.
[2020-08-20 11:04] LABS: Basophils Percent Auto 0.4 % (0.2-1.2); Eosinophils Absolute Auto 0.2 K/mm3 (0-0.3); Eosinophils Percent Auto 3.8 % (0-4.4); Hematocrit 34.9 % (37.0-47.0); Hemoglobin 11.2 g/dL (12.0-15.0); Immature Granulocyte Absolute 0.02 K/mm3 (0.00-0.031); Immature Granulocyte Percent A 0.4 % (0-0.5); Lymphocytes Absolute Auto 0.88 K/mm3 (0.9-3.2); Lymphocytes Percent Auto 16.9 % (18.3-44.2); Mean Corpuscular HGB Conc 32.1 g/dl (32-36); Mean Corpuscular Hemoglobin 27.5 pg (26-34); Mean Corpuscular Volume 85.5 fl (80-100); Mean Platelet Volume 9.1 fl (7.4-10.4); Monocytes Absolute Auto 0.4 K/mm3 (0.1-0.6); Monocytes Percent Auto 6.9 % (2.6-8.5); Neutrophils Absolute Auto 3.7 K/mm3 (1.3-6.7); Neutrophils Percent Auto 71.6 % (45.5-73.1); Platelet Count Result 179 k/mm3 (150-375); Red Blood Count 4.08 M/mm3 (4.2-5.4); Red Cell Distribution Width 14.8 % (11.5-14.5); White Blood Count 5.2 K/mm3 (4.5-10.0)
--- NOTE | 2020-08-20 11:06 | PC.NURSE ---
Pts at bedside providing report, pt is a poor historian.
[2020-08-20] MEDS: dilTIAZem HCl INJ 25 MG/5 ML VIAL 5 MG IV PUSH (11:09)
[2020-08-20 11:14] LABS: INR 1.3; Prothrombin Time 17.1 Seconds (11.1-14.7)
[2020-08-20 11:15] LABS: Partial Thromboplastin Time 32.6 SECONDS (22.3-36.8)
[2020-08-20 11:24] LABS: Anion Gap 4 mmol/L (8-16); Blood Urea Nitrogen 25 mg/dL (7-17); Calcium 8.2 mg/dL (8.4-10.2); Carbon Dioxide 27 mmol/L (22-30); Chloride 96 mmol/L (98-107); Estimated CRCL calculation 58 ml/min; Estimated Glomerular Filt Rate 41; Glucose 148 mg/dL (65-105); Potassium 4.5 mmol/L (3.4-5.0); Sodium 127 mmol/L (137-145)
--- NOTE | 2020-08-20 11:36 | PC.NURSE ---
Per EDP VORB, diltiazem drip increased from 5 mL/hr to 10 mL/hr
[2020-08-20 11:47] LABS: NT Pro B Type Natriuretic Pept 2600 PG/ML (5-100)
--- NOTE | 2020-08-20 12:00 | PC.NURSE ---
Per EDP VORB, pts Diltiazem drip decreased from 10mL/hr to 5mL/hr at this time
[2020-08-20 12:33] LABS: Troponin I 0.594 ng/mL (0.000-0.034)
--- NOTE | 2020-08-20 14:38 | PM.IMHP ---
H&P: HPI History of Present Illness Date/Time: 08/20/20 14:38 this is a 65-year-old female patient who lives at home with her . On 06/06/2020 with acute ankle pain and urinary tract infection. There was no growth in her urine and her antibiotics was stopped. Today the patient came to the emergency room for a fast heart rate. The patient was not sure if she had atrial fibrillation in the past. But she thought that maybe she had an irregular heartbeat in the past. She has been on Xarelto for PE any DVT she does have IVC filter. The patient has not been feeling well since this past Tuesday. The patient be came very weak on Tuesday and felt like she is going to pass out. The patient was not able to walk. Her helped to get the patient moved on Tuesday. The patient refused to go to the emergency room at that time. She has been feeling that his heart racing for at least 4 days now. She has home health that comes and does her wound dressing to her right lower extremity and when they came they found that her heart rate was fast. The patient already is on Xarelto for the DVTs and PEs. Heart rate was noted to be at least 145. The patient has AFib with RVR and was started on a Cardizem drip. She is currently in the 1 teens. Time. However her troponin is 0.59. Her BNP is 2600. Her creatinine is 1.3. Her sodium is 127 is typically anywhere from 130-138. On the date of service of 08/20/2020. Chief Complaint: Fast heart rate Review of Systems Review of Systems: All systems reviewed & are unremarkable except as noted in HPI and below Constitutional: Constitutional: Reports as per HPI and Reports no additional constitutional complaints Eyes: Eyes: Reports as per HPI and Reports no additional eye complaints ENT: Reports system reviewed and no additional complaints, except as documented and Reports Normal hearing present Cardiovascular: Cardiovascular: Reports no additional cardiovascular complaints Respiratory: Respiratory: Reports no additional respiratory complaints and Reports no additional respiratory complaints Gastrointestinal: Gastrointestinal: Reports as per HPI and Reports no additional gastrointestinal complaints Musculoskeletal: Musculoskeletal: Reports no additional musculoskeletal complaints Integumentary/Breasts: Skin/Breast: Reports system reviewed and no additional complaints, except as docu and Reports as per HPI Neurologic: Reports system reviewed and no additional complaints, except as documented, Reports as per HPI and Reports Normal hearing present Psychiatric: Psychiatric: Reports no additional psychiatric complaints and Reports as per HPI Endocrine: Endocrine: Reports no additional endocrine complaints Hematologic/Lymphatic: Hematologic/Lymphatic: Reports no additional hematologic/lymphatic complaints Allergic/Immunologic: Allergic/Immunologic: Reports no additional allergic/immunologic complaints [facility] Past Medical History Medical History (Updated 08/20/20 @ 15:04 by Janet Sprague NP) Anxiety Chronic low back pain with sciatica Chronic wound of extremity Right lower extremity Depression Essential (primary) hypertension History of DVT (deep vein thrombosis) History of pulmonary embolus (PE) Mild episode of recurrent major depressive disorder Mild intermittent asthma without complication Mixed hyperlipidemia Obstructive sleep apnea Intolerant of his CPAP machine Presence of IVC filter Surgical History Surgical History H/O bariatric surgery X2 H/O: hysterectomy History of carpal tunnel release History of tonsillectomy History of total knee replacement (TKR) Bilaterally Hx of cholecystectomy Family History Family History (Updated 08/20/20 @ 14:58 by Janet Sprague NP) Mother Diabetes mellitus Father Heart disease Family history of coronary artery disease Sibling Blood clot in vein Other Family history of alcoholi
[2020-08-20 14:53] LABS: Glucose Point of Care 94 (65-105)
[2020-08-20 16:56] LABS: Troponin I 0.525 ng/mL (0.000-0.034)
--- NOTE | 2020-08-20 17:26 | PM.CNCAR ---
Assessment and Plan Assessment and plan (1) Atrial fibrillation with rapid ventricular response: Code(s): I48.91 - Unspecified atrial fibrillation Status: Acute Assessment and Plan: Patient with new onset of AFib RVR. Mostly asymptomatic, but may have some mild CHF as she has an elevated BNP. Chronic edema. Has multiple risk factors for this including morbid obesity, sleep apnea noncompliant with CPAP, hypertension, possible diabetes Basically asymptomatic so we will aim for rate control and anticoagulation strategy. Increase Cardizem drip to 10 milligrams/hour If she has low blood pressure problems will switch to IV amiodarone. Echocardiogram in the morning Check TSH Increase Xarelto to: 20 mg daily Hold lisinopril because of low blood pressure. (2) Essential (primary) hypertension: Code(s): I10 - Essential (primary) hypertension Status: Acute Assessment and Plan: Blood pressure well controlled. (3) Dependent edema: Code(s): R60.9 - Edema, unspecified Status: Acute Assessment and Plan: Chronic lower extremity edema, no worse than usual. (4) Obstructive sleep apnea: Code(s): G47.33 - Obstructive sleep apnea (adult) (pediatric) Status: Chronic History of Present Illness History of Present Illness Consult date/time: 08/20/20 17:26 Requesting physician: Janet Sprague NP Consult reason: atrial fibrillation Reason For Visit: AFIB WITH RVR Narrative: Date of service: 08/20/2020 Lorraine Mazariegos is a 65-year-old white female whom we were asked to see at the request of the hospitalist for advice and opinion regarding her new onset AFib RVR. The patient's visitng nurse irregular heartbeats last Tuesday and but the patient refused to go to the hospital as she was afraid of the no visit her policy (?I would be out my mind with no visitors.?) Evaluated her and sent her to the emergency room. She was found to be in AFib RVR and started on a Cardizem drip. Patient denies any sensation of palpitations or shortness of breath but Tuesday coming back from religious she had a ?bad spell? where she felt dizzy, it was hard to be breathe, and she felt ?like I was not really there.? This spell lasted for about 4 hours. There has been no chest pain or discomfort. The patient is currently on a Cardizem 5 milligrams/hour; when she was increased to 10 milligrams/hour in the ER her blood pressure declined so Cardizem was decreased back to 5 milligrams/hour. Heart rate is not well-controlled, 120-130s. She also has a history of morbid obesity, FLORINA not compliant with CPAP, DVT and PEs in 2014 when she was seen by Dr. Jordan. She has been on chronic Xarelto; the dose was recently reduced to 10 mg daily. Chronic edema. Hypertension. She does not think she has diabetes even though she has been told by healthcare professionals that she does; she says she can eat whatever she wants with no elevation of blood sugars. No history of thyroid disease. Review of Systems Constitutional: Constitutional: Reports no additional constitutional complaints Eyes: Eyes: Denies blurry vision ENT: Denies epistaxis and Denies nasal discharge Cardiovascular: Cardiovascular: Denies chest pain, Reports diaphoresis, Reports pedal edema, Reports leg edema, Reports lightheadedness (One episode of lightheadedness) and Denies palpitations Comments: Chronic lower extremity edema; currently ?average.? Respiratory: Respiratory: Denies chest congestion, Denies cough, Denies dyspnea and Reports dyspnea on exertion Gastrointestinal: Gastrointestinal: Denies abdominal pain and Reports hematochezia Comments: Had episode of blood in the toilet bowl in April went to the ER, and again about 2 weeks ago. Genitourinary: Genitourinary: Denies hematuria, Denies dysuria and Denies flank pain Musculoskele
[2020-08-20] MEDS: COLLAGENASE OINT 30 GM TUBE 1 APPLIC TOPICAL (18:10)
[2020-08-20] MEDS: TOLNAFTATE 1% POWDER 45 GM BTL 1 APPLIC TOPICAL ×2 (18:11→20:04)
[2020-08-20] MEDS: GABAPENTIN 300 MG CAPSULE 600 MG PO (18:11)
[2020-08-20 19:24] LABS: Troponin I 0.468 ng/mL (0.000-0.034)
[2020-08-20] MEDS: risperiDONE 1 MG TABLET 4 MG PO (20:04)
[2020-08-20 20:41] LABS: Thyroid Stimulating Hormone Reflex 0.972 uIU/mL (0.465-4.68)
[2020-08-20] MEDS: AMIODARONE 150 MG/D5W 100 ML 150 MG/100 ML BAG 600 MG IV CONT (21:41)
[2020-08-20] MEDS: AMIODARONE 360 MG/D5W 200 ML 360 MG/200 ML BAG 33.33 MG IV CONT (21:51)
[2020-08-20] MEDS: diphenhydrAMINE HCl CAP 25 MG CAPSULE PO (22:07)
[2020-08-21] VITALS (21 sets, daily range): BP systolic 100–142; BP diastolic 49–95; PULSE 53–137; RESP 12–18; TEMP 36.1–36.9; O2SAT 92–100
--- NOTE | 2020-08-21 | ECHO_ITS ---
Patient Info Name: Lorraine Mazariegos Age: 65 years : 1955 Gender: Female Ht: 63 in Wt: 368 lbs BSA: 2.84 m2 HR: 115 bpm BP: 128 / 59 mmHg Technical Quality: Good Exam Date: 08/21/2020 7:51 AM Exam Location: [facility] Patient Status: Inpatient Admit Date: 08/20/2020 Staff Ordering Physician: Janet Sprague NP Live Games Dealer: John Tang RDCS, RT Attending Provider: Brock Salvador MD Referring Physician: Darcie POTTER; Exam Type: CA echo doppler color flow Study Info Indications R06.02 - Shortness of breath Complete two-dimensional, color flow and Doppler transthoracic echocardiogram is performed. Strain analysis performed. Summary 1. Complete two-dimensional, color flow and Doppler transthoracic echocardiogram is performed. 2. Left ventricular systolic function is mildly reduced, estimated at 50%. 3. There is mildly increased left ventricular wall thickness. 4. The left ventricular diastolic function is abnormal. 5. There is mild aortic valve sclerosis. 6. There is mild aortic valve regurgitation. 7. There is mild mitral valve regurgitation. 8. There is moderate mitral valve calcification. 9. There is mild tricuspid valve regurgitation. 10. Moderate pulmonary hypertension, estimated pulmonary arterial systolic pressure is 52 mmHg. Left Ventricle Left ventricular chamber dimension is normal. Left ventricular systolic function is mildly reduced, estimated at 50%. There is mildly increased left ventricular wall thickness. Left ventricular septal wall motion is normal. The left ventricular diastolic function is abnormal. Global longitudinal strain is abnormal at -9 %. Right Ventricle Right ventricular chamber dimension is normal. Right ventricular systolic function is normal. Left Atria Left atrial chamber dimension is normal. Right Atria Right atrial chamber dimension is normal. Atrial Septum Intact interatrial septum visualized by color flow imaging. Aortic Valve The aortic valve is trileaflet. There is mild aortic valve sclerosis. There is no aortic valve stenosis. There is mild aortic valve regurgitation. Pulmonic Valve The pulmonic valve is normal. There is no pulmonic valve stenosis. There is no pulmonic regurgitation. Mitral Valve The mitral valve has normal leaflets. There is no mitral valve stenosis. There is mild mitral valve regurgitation. There is moderate mitral valve calcification. Tricuspid Valve The tricuspid valve leaflets are normal. There is no significant tricuspid valve stenosis. There is mild tricuspid valve regurgitation. Moderate pulmonary hypertension, estimated pulmonary arterial systolic pressure is 52 mmHg. Pericardium/Pleural The pericardium appears normal. There is no pericardial effusion. Inferior Vena Cava Dilated inferior vena cava with <50% collapse upon inspiration consistent with elevated right atrial pressure, 15 mmHg. Aorta The aortic root size at the sinus of Valsalva is normal. The prox ascending aorta size is normal. Left Ventricular Outflow Tract Name Value Normal LVOT 2D LVOT Diameter 2.0 cm LVOT Doppler
[2020-08-21] MEDS: AMIODARONE 360 MG/D5W 200 ML 360 MG/200 ML BAG 16.67 MG IV CONT ×2 (03:18→15:31)
[2020-08-21 04:49] LABS: Basophils Percent Auto 0.2 % (0.2-1.2); Eosinophils Absolute Auto 0.2 K/mm3 (0-0.3); Eosinophils Percent Auto 3.6 % (0-4.4); Hematocrit 29.2 % (37.0-47.0); Hemoglobin 9.5 g/dL (12.0-15.0); Immature Granulocyte Absolute 0.01 K/mm3 (0.00-0.031); Immature Granulocyte Percent A 0.2 % (0-0.5); Lymphocytes Absolute Auto 0.87 K/mm3 (0.9-3.2); Lymphocytes Percent Auto 20.8 % (18.3-44.2); Mean Corpuscular HGB Conc 32.5 g/dl (32-36); Mean Corpuscular Hemoglobin 27.2 pg (26-34); Mean Corpuscular Volume 83.7 fl (80-100); Mean Platelet Volume 9.3 fl (7.4-10.4); Monocytes Absolute Auto 0.3 K/mm3 (0.1-0.6); Monocytes Percent Auto 7.9 % (2.6-8.5); Neutrophils Absolute Auto 2.8 K/mm3 (1.3-6.7); Neutrophils Percent Auto 67.3 % (45.5-73.1); Platelet Count Result 158 k/mm3 (150-375); Red Blood Count 3.49 M/mm3 (4.2-5.4); Red Cell Distribution Width 14.8 % (11.5-14.5); White Blood Count 4.2 K/mm3 (4.5-10.0)
[2020-08-21 05:13] LABS: Anion Gap 3 mmol/L (8-16); Blood Urea Nitrogen 19 mg/dL (7-17); Calcium 8.4 mg/dL (8.4-10.2); Carbon Dioxide 29 mmol/L (22-30); Chloride 98 mmol/L (98-107); Estimated CRCL calculation 68 ml/min; Estimated Glomerular Filt Rate 50; Glucose 103 mg/dL (65-105); Potassium 4.8 mmol/L (3.4-5.0); Sodium 130 mmol/L (137-145)
[2020-08-21] MEDS: COLLAGENASE OINT 30 GM TUBE 1 APPLIC TOPICAL (08:39)
[2020-08-21] MEDS: TOLNAFTATE 1% POWDER 45 GM BTL 1 APPLIC TOPICAL ×3 (08:39→21:36)
[2020-08-21] MEDS: RIVAROXABAN 10 MG TABLET 20 MG PO (08:40)
[2020-08-21] MEDS: risperiDONE 1 MG TABLET 4 MG PO ×2 (08:40→21:36)
[2020-08-21] MEDS: PANTOPRAZOLE 40 MG TABLET PO (08:41)
[2020-08-21] MEDS: GABAPENTIN 300 MG CAPSULE 600 MG PO ×3 (08:42→17:08)
[2020-08-21] MEDS: ATORVASTATIN 40 MG TABLET PO (08:42)
[2020-08-21] MEDS: METOPROLOL TARTRATE 25 MG TABLET PO ×2 (11:17→17:08)
--- NOTE | 2020-08-21 11:40 | PCOTNOTE ---
Attempted OT evaluation, but RN advised to come back later as patient's heart rate is currently high. RN reported that she just gave her some medication for it. Will attempt again this afternoon.
--- NOTE | 2020-08-21 13:29 | PM.IMPN ---
Progress Note: A&P Assessment and Plan (1) Atrial fibrillation with rapid ventricular response: Code(s): I48.91 - Unspecified atrial fibrillation Status: Acute Assessment and Plan: The patient is on a Cardizem drip. Cardiology has been consulted. The patient is already on Xarelto for DVTs and PEs. I thought I ordered an echo the last time that she was admitted but I could not find the results. So I ordered another echo. Patient's heart rate is in the 1 teens at this time. 08/21/20 13:29 patient is 65-year-old female morbidly obese presented emergency department with a complaint palpitation however see denies any history of atrial fibrillation and on Xarelto for anticoagulation for history PE and DVT, patient has a chronic leg wound and was treated by home health and was recommended the patient come to emergency department for further evaluation of her arrhythmia, upon arrival patient was in atrial fibrillation with RVR at the rate of 145 patient was started on diltiazem drip patient was seen by rn mds coordinator plan is to continue monitor and trend her heart rate a chest diltiazem as needed and if by her blood pressure is soft may switch over to amiodarone, patient is a poor historian, patient states is feeling better denies any complaint of chest pain shortness of breath palpitation fever or chills, her TSH is normal, her cardiac echo is normal with ejection fraction of 50%, patient clinically stable, will continue to monitor will have a PT OT evaluate the patient further recommendation to follow. (2) Elevated troponin: Code(s): R77.8 - Other specified abnormalities of plasma proteins Status: Acute Assessment and Plan: Could be related to the AFib with RVR. Will continue to trend. Most likely demand ischemia due to atrial fibrillation with RVR unlikely acute coronary syndrome (3) Chronic wound of extremity: Status: Chronic Assessment and Plan: I did consult wound care services for further evaluation of wound. (4) Obstructive sleep apnea: Code(s): G47.33 - Obstructive sleep apnea (adult) (pediatric) Status: Chronic Assessment and Plan: Patient intolerant of his CPAP (5) Depression: Code(s): F32.9 - Major depressive disorder, single episode, unspecified Status: Chronic Assessment and Plan: Continue with BuSpar (6) Mixed hyperlipidemia: Code(s): E78.2 - Mixed hyperlipidemia Status: Acute Assessment and Plan: Continue with atorvastatin (7) History of pulmonary embolus (PE): Code(s): Z86.711 - Personal history of pulmonary embolism Status: Acute Assessment and Plan: The patient has a IVC filter. Patient has had a history of PE and DVTs. (8) Anxiety: Code(s): F41.9 - Anxiety disorder, unspecified Status: Acute Assessment and Plan: Continue with BuSpar and duloxetine. Or so verify her home medications. Subjective Date/time seen: 08/21/20 13:29 patient is 65-year-old female morbidly obese presented emergency department with a complaint palpitation however see denies any history of atrial fibrillation and on Xarelto for anticoagulation for history PE and DVT, patient has a chronic leg wound and was treated by home health and was recommended the patient come to emergency department for further evaluation of her arrhythmia, upon arrival patient was in atrial fibrillation with RVR at the rate of 145 patient was started on diltiazem drip patient was seen by rn mds coordinator plan is to continue monitor and trend her heart rate a chest diltiazem as needed and if by her blood pressure is soft may switch over to amiodarone, patient is a poor historian, patient states is feeling better denies any complaint of chest pain shortness of breath palpitation fever or chills, her TSH is normal, her cardiac echo is normal with ejection fraction of 50%, patient clinically stable, will continue to monitor will have a PT OT eval
[2020-08-21 15:49] LABS: Hemoglobin A1C 5.7 % (<5.7)
[2020-08-21] MEDS: AMIODARONE 150 MG/D5W 100 ML 150 MG/100 ML BAG 600 MG IV CONT (21:35)
[2020-08-21] MEDS: diphenhydrAMINE HCl CAP 25 MG CAPSULE PO (21:39)
[2020-08-22] VITALS (25 sets, daily range): BP systolic 105–135; BP diastolic 41–76; PULSE 54–120; RESP 18–22; TEMP 36.1–36.6; O2SAT 96–100; BMI 60.8
[2020-08-22] MEDS: METOPROLOL TARTRATE 25 MG TABLET PO ×5 (00:12→23:08)
[2020-08-22] MEDS: AMIODARONE 360 MG/D5W 200 ML 360 MG/200 ML BAG 16.67 MG IV CONT (03:51)
[2020-08-22 08:27] LABS: Hematocrit 30.6 % (37.0-47.0); Hemoglobin 9.9 g/dL (12.0-15.0); Mean Corpuscular HGB Conc 32.4 g/dl (32-36); Mean Corpuscular Hemoglobin 27.5 pg (26-34); Platelet Count Result 146 k/mm3 (150-375); Red Cell Distribution Width 14.9 % (11.5-14.5); White Blood Count 3.7 K/mm3 (4.5-10.0)
[2020-08-22] MEDS: GABAPENTIN 300 MG CAPSULE 600 MG PO ×3 (08:27→17:08)
[2020-08-22] MEDS: ATORVASTATIN 40 MG TABLET PO (08:27)
[2020-08-22] MEDS: PANTOPRAZOLE 40 MG TABLET PO (08:28)
[2020-08-22] MEDS: busPIRone HCL 5 MG TABLET 15 MG PO ×2 (08:28→23:08)
[2020-08-22] MEDS: risperiDONE 1 MG TABLET 4 MG PO ×2 (08:28→20:45)
[2020-08-22] MEDS: RIVAROXABAN 10 MG TABLET 20 MG PO (08:29)
[2020-08-22 08:36] LABS: Anion Gap 3 mmol/L (8-16); Blood Urea Nitrogen 16 mg/dL (7-17); Carbon Dioxide 30 mmol/L (22-30); Chloride 98 mmol/L (98-107); Estimated CRCL calculation 71 ml/min; Estimated Glomerular Filt Rate 55; Glucose 112 mg/dL (65-105); Magnesium 1.7 mg/dL (1.6-2.3); Potassium 5.2 mmol/L (3.4-5.0); Sodium 131 mmol/L (137-145)
--- NOTE | 2020-08-22 09:44 | PM.PNCARD ---
Progress Note: A&P Additional Plan 65-year-old lady with: Atrial fibrillation almost certainly the result of obesity obstructive sleep apnea which is not being treated. Rate control and anticoagulation strategy is being pursued. Today I will shift her from intravenous to oral amiodarone at a dosage of 400 mg q.12 hours. The plan of course will be to taper this either during the hospitalization or obviously as an outpatient subsequent to discharge. Systemic anticoagulation of course is been initiated. Consider discharge over the weekend if her heart rate control is reasonable on this regimen. Wojciech Negron MD [facility] Subjective Date/time seen: Date of service: 08/22/20 09:44 Interval history: 65-year-old white female with: Atrial fibrillation of uncertain chronicity being managed with rate control and anticoagulation. Regimen of metoprolol and amiodarone has been initiated yesterday. Heart rate control is reasonable today. She is hemodynamically stable and appears to be asymptomatic of the arrhythmia otherwise. Likely this is driven by morbid obesity and untreated obstructive sleep apnea. Exam Const: General: comfortable and no acute distress Other: Morbidly obese lady supine in bed watching television appears to be essentially comfortable and free of complaints HENMT: Mouth: Yes moist mucous membranes Eyes: Sclera: sclerae normal Neck: Neck: supple Resp: Other: Breath sounds are clear anteriorly patient was not seated for posterior auscultation Cardio: Rhythm: abnormal rhythm irregularly irregular GI: GI Palp: Yes Soft to palpation Auscultation: normal bowel sounds Extrem: General: normal to inspection Other: Very obese mild bilateral pitting edema Objective Data Vital Signs Vital Signs: Vital Signs - 24 hr 08/21/20 10:00 08/21/20 11:17 08/21/20 12:00 Temperature 36.4 C L Pulse Rate 119 H 137 H 117 H Respiratory Rate 12 Blood Pressure 139/95 H 142/88 H Pulse Oximetry 92 08/21/20 14:00 08/21/20 15:31 08/21/20 16:00 Temperature 36.1 C L Pulse Rate 114 H 100 87 Respiratory Rate 12 Blood Pressure 120/49 L Pulse Oximetry 92 08/21/20 17:08 08/21/20 18:00 08/21/20 19:39 Temperature 36.9 C Pulse Rate 104 H 121 H 88 Respiratory Rate 12 Blood Pressure 127/63 Pulse Oximetry 93 08/21/20 20:00 08/21/20 20:10 08/21/20 21:35 Temperature Pulse Rate 115 H 104 H Respiratory Rate Blood Pressure Pulse Oximetry 93 97 08/21/20 22:00 08/21/20 23:42 08/22/20 00:00 Temperature 36.6 C Pulse Rate 86 111 H 104 H Respiratory Rate 18 Blood Pressure 136/86 Pulse Oximetry 98 98 08/22/20 00:12 08/22/20 02:00 08/22/20 03:31 Temperature Pulse Rate 90 100 92 Respiratory Rate Blood Pressure Pulse Oximetry 08/22/20 03:51 08/22/20 03:59 08/22/20 04:00 Temperature 36.6 C Pulse Rate 92 86 95 Respiratory Rate 20 Blood Pressure 114/76 Pulse Oximetry 96 96 08/22/20 06:00 08/22/20 06:10 Temperature Pulse Rate 107 H 98 Respiratory Rate Blood Pressure Pulse Oximetry Intake/Output Intake/Output: Intake & Output 08/19/20 08/20/20 08/21/20 08/22/20 23:59 23:59 23:59 23:59 Intake Total 1020 520 Output Total 400 1500 400 Balance -400 -480 120 Meds/Results Medications: Active Medications Generic Name Dose Route Start Last Admin Trade Name Freq PRN Reason Stop Dose Admin Hydrocodone Bitart/Acetaminophen 1 tab 08/20/20 16:32 Hydrocodone/Acetaminophen (*Crx) 10-325 Mg Tablet PO Q6H PRN Pain (Scale Score 4-6) Amiodarone HCl 400 mg 08/22/20 09:45 Amiodarone Hcl 200 Mg Tablet PO Q12H JAYDEN Atorvastatin Calcium 40 mg 08/21/20 09:00 08/22/20 08:27 Atorvastatin 40 Mg Tablet PO 40 mg DAILY JAYDEN Administration Buspirone HCl 15 mg 08/20/20 16:32 08/22/20 08:28 Buspirone Hcl 5 Mg Tablet PO 15 mg BID PRN Administration anxiety Collagenase 1 applic
[2020-08-22] MEDS: AMIODARONE HCL 200 MG TABLET 400 MG PO ×2 (10:13→20:45)
[2020-08-22] MEDS: COLLAGENASE OINT 30 GM TUBE 1 APPLIC TOPICAL (12:34)
[2020-08-22] MEDS: TOLNAFTATE 1% POWDER 45 GM BTL 1 APPLIC TOPICAL ×3 (12:34→20:45)
--- NOTE | 2020-08-22 13:37 | PM.IMPN ---
Progress Note: A&P Assessment and Plan (1) Atrial fibrillation with rapid ventricular response: Code(s): I48.91 - Unspecified atrial fibrillation Status: Acute Assessment and Plan: The patient is on a Cardizem drip. Cardiology has been consulted. The patient is already on Xarelto for DVTs and PEs. I thought I ordered an echo the last time that she was admitted but I could not find the results. So I ordered another echo. Patient's heart rate is in the 1 teens at this time. 08/22/20 13:37 08/21 patient is 65-year-old female morbidly obese presented emergency department with a complaint palpitation however see denies any history of atrial fibrillation and on Xarelto for anticoagulation for history PE and DVT, patient has a chronic leg wound and was treated by home health and was recommended the patient come to emergency department for further evaluation of her arrhythmia, upon arrival patient was in atrial fibrillation with RVR at the rate of 145 patient was started on diltiazem drip patient was seen by underwater welder plan is to continue monitor and trend her heart rate a chest diltiazem as needed and if by her blood pressure is soft may switch over to amiodarone, patient is a poor historian, patient states is feeling better denies any complaint of chest pain shortness of breath palpitation fever or chills, her TSH is normal, her cardiac echo is normal with ejection fraction of 50%, patient clinically stable, will continue to monitor will have a PT OT evaluate the patient further recommendation to follow. 08/22 patient with new onset atrial fibrillation was seen by underwater welder and started on amiodarone drip patient rate is trending and today underwater welder switch her over to oral amiodarone 400 mg twice a day and will continue to monitor patient is being anticoagulated with Xarelto, underwater welder suspect her poorly-controlled sleep apnea and morbid obesity is causing atrial fibrillation recommending to closely monitor was sleep apnea, patient has CPAP at home but she has not been using it, will have respiratory therapy place the patient on CPAP with home settings and may titrate as needed. will consult pulmonolgist for further recommendation. (2) Elevated troponin: Code(s): R77.8 - Other specified abnormalities of plasma proteins Status: Acute Assessment and Plan: Could be related to the AFib with RVR. Will continue to trend. Most likely demand ischemia due to atrial fibrillation with RVR unlikely acute coronary syndrome (3) Chronic wound of extremity: Status: Chronic Assessment and Plan: I did consult wound care services for further evaluation of wound. (4) Obstructive sleep apnea: Code(s): G47.33 - Obstructive sleep apnea (adult) (pediatric) Status: Chronic Assessment and Plan: Patient intolerant of his CPAP (5) Depression: Code(s): F32.9 - Major depressive disorder, single episode, unspecified Status: Chronic Assessment and Plan: Continue with BuSpar (6) Mixed hyperlipidemia: Code(s): E78.2 - Mixed hyperlipidemia Status: Acute Assessment and Plan: Continue with atorvastatin (7) History of pulmonary embolus (PE): Code(s): Z86.711 - Personal history of pulmonary embolism Status: Acute Assessment and Plan: The patient has a IVC filter. Patient has had a history of PE and DVTs. (8) Anxiety: Code(s): F41.9 - Anxiety disorder, unspecified Status: Acute Assessment and Plan: Continue with BuSpar and duloxetine. Or so verify her home medications. Subjective Date/time seen: 08/22/20 13:37 08/21 patient is 65-year-old female morbidly obese presented emergency department with a complaint palpitation however see denies any history of atrial fibrillation and on Xarelto for anticoagulation for history PE and DVT, patient has a chronic leg wound and was treated by home health and was recommended the patient co
--- NOTE | 2020-08-22 16:14 | PM.CNPUL ---
Assessment and Plan Assessment and plan (1) Obstructive sleep apnea: Code(s): G47.33 - Obstructive sleep apnea (adult) (pediatric) Status: Chronic Assessment and Plan: Patient carries diagnosis of obstructive sleep apnea since 2004. I do not have any of the sleep studies in my possession. Patient wore her current machine from [id number] and has not worn her CPAP 9 since then. Patient has daytime hypersomnia peripheral edema an elephant an evidence of pulmonary artery hypertension by echocardiogram with an estimated pressure of 52. Patient's bicarb is elevated at 30 and I will check a ABG to assess for hypercarbia. If hypercarbic may require BiPAP for obesity hypoventilation syndrome. Spoke with respiratory and they do not feel home machine is safe to use and will place on hospital machine with full face mask CPAP 9. I do not know if 9 will adequately treat her FLORINA so I will order overnight apnea link on room air to assess for hypoxemia on CPAP 9. Patient will need new CPAP titration as an outpatient. Will follow with you. History of Present Illness History of Present Illness Consult date: 08/22/20 Requesting physician: Penelope Walls MD Reason for consult: obstructive sleep apnea Chief complaint: AFIB WITH RVR Narrative: This is a 65-year-old woman with a history of morbid obesity, obstructive sleep apnea diagnosed in 2004, PEs status post IVC filter and currently on Xarelto depression chronic back pain presented on the hospital on 08/20/2020 with shortness of breath and atrial fibrillation with rapid ventricular response. Patient was treated with IV diltiazem and has been converted to an p.o. amiodarone at this point. Once patient's heart rate improved her breathing status stabilized and she no longer had any shortness of breath. Prior to admission patient denied any fever, chills, rigors, phlegm production, hemoptysis. Patient did state that she has a cough occurring 2 to 3 times a day and this is unchanged for her. Regarding her obstructive sleep apnea the patient and her tell me she was diagnosed in 2004 with a sleep study and she wore her 1st machine for about 5 years. Patient then was given a 2nd machine in 2009 and she still has this machine and the has brought that machine in. The patient does not know her settings but when I turn the machine on it says CPAP 9. Patient wore this current machine from 2009 till 2016 when she had an episode of water but getting blown in her nose and then she stopped wearing the machine because it scared her. When the patient did wear her machine she said she felt better, slept better, woke up more refreshed and had more energy. Currently patient does have daytime hypersomnia her says she snores very loudly and wakes herself up with gasps and she currently sleeps in a recliner. Patient has gained 30 lb in the last 6 months. Patient denies morning headaches. At baseline patient states she can walk only 20 ft but this is because of severe back pain and not because of dyspnea on exertion. Patient has never smoked cigarettes. Patient has it been exposed to secondhand smoke from her father. Patient denies marijuana, vaping, illicit drug use. 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 Patient was admitted 08/20 and had a serum bicarb of 27 and she has never had a high bicarbonate in her previous labs dating back to 10/06/2018 in which her bicarb was 27. Patient had a blood gas on 09/28/2018 that does not show hypercarbia her pH is 7.40/43/76 on room air. Patient had an echocardiogram this admission on 08/20/2020 that demonstrates LV function mildly reduced at 50%, left ventricular diastolic function is abnormal, mild aortic sclerosis, mild aortic regurgitation, mild mitral valve regurgitation moderate mitral valve calcification moderate pulmonary hypertension with an estimated pulmonary arterial systolic
[2020-08-22 18:08] LABS: Base Excess ABG 0.8 mEq/l (+/-2.0); Fractional Inspired Oxygen 21 %; HCO3 ABG 24.9 mEq/l (22.0-26.0); Oxygen Content ABG 14.9 %vol (16.0-22.0); Oxygen Saturation ABG 97.2 % (95.0-100.0); Oxyhemoglobin 95.9 % THb (90.0-100.0); PCO2 ABG 37.9 mmHg (35.0-45.0); PO2 ABG 90.3 mmHg (80.0-100.0); pH ABG 7.435 (7.350-7.450)
[2020-08-22 18:10] LABS: Device ROOM AIR; Site Drawn LEFT BRACHIAL
[2020-08-22] MEDS: diphenhydrAMINE HCl CAP 25 MG CAPSULE PO (20:45)
[2020-08-23] VITALS (11 sets, daily range): BP systolic 116–139; BP diastolic 81–96; PULSE 93–128; RESP 14–20; TEMP 36.1–36.8; O2SAT 96–99
[2020-08-23] MEDS: METOPROLOL TARTRATE 25 MG TABLET PO ×2 (06:09→11:02)
[2020-08-23 06:51] LABS: Anion Gap 2 mmol/L (8-16); Blood Urea Nitrogen 14 mg/dL (7-17); Calcium 9.2 mg/dL (8.4-10.2); Carbon Dioxide 31 mmol/L (22-30); Chloride 96 mmol/L (98-107); Estimated CRCL calculation 71 ml/min; Estimated Glomerular Filt Rate 55; Glucose 121 mg/dL (65-105); Magnesium 1.5 mg/dL (1.6-2.3); Potassium 4.7 mmol/L (3.4-5.0); Sodium 129 mmol/L (137-145)
[2020-08-23] MEDS: RIVAROXABAN 10 MG TABLET 20 MG PO (08:42)
[2020-08-23] MEDS: AMIODARONE HCL 200 MG TABLET 400 MG PO (08:42)
[2020-08-23] MEDS: PANTOPRAZOLE 40 MG TABLET PO (08:42)
[2020-08-23] MEDS: ATORVASTATIN 40 MG TABLET PO (08:43)
[2020-08-23] MEDS: GABAPENTIN 300 MG CAPSULE 600 MG PO (08:43)
[2020-08-23] MEDS: risperiDONE 1 MG TABLET 4 MG PO (08:43)
[2020-08-23] MEDS: COLLAGENASE OINT 30 GM TUBE 1 APPLIC TOPICAL (10:18)
--- NOTE | 2020-08-23 10:53 | PM.PNPUL ---
Progress Note: A&P Assessment and Plan (1) Obstructive sleep apnea: Code(s): G47.33 - Obstructive sleep apnea (adult) (pediatric) Status: Chronic Assessment and Plan: Sleep well last night with 9 cm H20. ABG was normal and no signs of OHS. Needs outpatient CPAP titration study. I will order an outpatient CPAP titration study. f/u in our office after study to dicuss and further manage (2) Atrial fibrillation with rapid ventricular response: Code(s): I48.91 - Unspecified atrial fibrillation Status: Acute Subjective Date/time seen: 08/23/20 10:53 Interval history: Sleep well last night with 9 cm H20. ABG was normal and no signs of OHS. Needs outpatient CPAP titration study. Review of Systems Review of Systems: All systems reviewed & are unremarkable except as noted in HPI and below Exam Const: General: cooperative, healthy appearing and no acute distress; No in distress, lethargic or patient obtunded Nutritional Appearance: obese morbidly obese Orientation/consciousness: oriented to person, oriented to place and oriented to time HENMT: Head: normal to inspection Ears: hearing grossly normal bilaterally Mouth: Yes Normal oral and palatal mucosa present Throat: tonsils absent Eyes: General: appearance normal, both eyes and all related structures Neck: Neck: normal visual inspection Chest: Chest palpation & inspection: normal inspection of the chest Resp: Effort & Inspection: normal respiratory effort, able to speak in complete sentences and no cough Auscultation: clear to auscultation bilaterally, no crackles, no rales, no rhonchi and no wheezes Cardio: Jugular venous distension: no JVD Rhythm: abnormal rhythm GI: Inspection: normal to inspection Skin: General skin exam: normal color Neuro: General: oriented to person, oriented to place and oriented to time Extrem: General: normal to inspection and edema Psych: Appearance: grossly normal Objective Data Vital Signs Vital Signs: Vital Signs - 24 hr 08/22/20 12:00 08/22/20 12:45 08/22/20 14:00 Temperature 36.1 C L Pulse Rate 54 L 115 H 120 H Respiratory Rate 22 H Blood Pressure 110/41 L Pulse Oximetry 100 08/22/20 16:00 08/22/20 17:08 08/22/20 18:00 Temperature 36.1 C L Pulse Rate 107 H 102 H 96 Respiratory Rate 18 Blood Pressure 125/74 Pulse Oximetry 96 08/22/20 20:00 08/22/20 20:45 08/22/20 22:00 Temperature 36.6 C Pulse Rate 120 H 113 H 111 H Respiratory Rate 18 Blood Pressure 133/75 Pulse Oximetry 99 08/22/20 23:07 08/22/20 23:08 08/22/20 23:30 Temperature 36.1 C L Pulse Rate 110 H 109 H 110 H Respiratory Rate 18 18 Blood Pressure 105/55 L Pulse Oximetry 98 98 98 08/22/20 23:45 08/23/20 00:00 08/23/20 02:00 Temperature Pulse Rate 108 H 93 98 Respiratory Rate Blood Pressure Pulse Oximetry 98 08/23/20 04:00 08/23/20 04:20 08/23/20 06:00 Temperature 36.1 C L Pulse Rate 109 H 99 107 H Respiratory Rate 20 Blood Pressure 137/81 Pulse Oximetry 96 97 08/23/20 06:09 08/23/20 08:00 08/23/20 08:42 Temperature 36.4 C L Pulse Rate 107 H 122 H 122 H Respiratory Rate 18 Blood Pressure 139/96 H Pulse Oximetry 98 08/23/20 09:17 Temperature Pulse Rate 128 H Respiratory Rate Blood Pressure Pulse Oximetry Intake/Output Intake/Output: Intake & Output 08/20/20 08/21/20 08/22/20 08/23/20 23:59 23:59 23:59 23:59 Intake Total 1020 1520 640 Output Total 400 2375 751 0342 Balance -400 -480 570 -760 Meds/Results Medications: Active Medications Generic Name Dose Route Start Last Admin Trade Name Freq PRN Reason Stop Dose Admin Hydrocodone Bitart/Acetaminophen 1 tab 08/20/20 16:32 Hydrocodone/Acetaminophen (*Crx) 10-325 Mg Tablet PO Q6H PRN Pain (Scale Score 4-6) Amiodarone HCl 400 mg 08/22/20 09:45 08/23/20 08:42 Amiodarone Hcl 200 Mg Tablet PO 400 mg Q12HR JAYDEN Administration Shan
--- NOTE | 2020-08-23 12:58 | PM.PNCARD ---
Progress Note: A&P Assessment and Plan (1) Atrial fibrillation with rapid ventricular response: Code(s): I48.91 - Unspecified atrial fibrillation Status: Acute Assessment and Plan: Patient with new onset of AFib RVR. Mostly asymptomatic, but may have some mild CHF as she has an elevated BNP. Chronic edema. Has multiple risk factors for this including morbid obesity, sleep apnea noncompliant with CPAP, hypertension, possible diabetes Basically asymptomatic and very sedentary so we will aim for rate control and anticoagulation strategy. Increased Xarelto to: 20 mg daily Held lisinopril because of low blood pressure. Change metoprolol for From 25 mg q.6 hours 2: Metoprolol succinate 100 mg q.d. Tolerating amiodarone 400 mg b.i.d.. Heart rate is adequately controlled for now. Okay for discharge when okay with the hospitalist. Will arrange for outpatient follow-up. (2) Essential (primary) hypertension: Code(s): I10 - Essential (primary) hypertension Status: Acute Assessment and Plan: Blood pressure well controlled. (3) Dependent edema: Code(s): R60.9 - Edema, unspecified Status: Acute Assessment and Plan: Chronic lower extremity edema, no worse than usual. Subjective Date/time seen: 08/23/20 12:58 Interval history: 65-year-old white female with: Atrial fibrillation of uncertain chronicity being managed with rate control and anticoagulation. Regimen of metoprolol and amiodarone has been initiated. Heart rate control is reasonable today. She is hemodynamically stable and appears to be asymptomatic of the arrhythmia otherwise. Likely this is driven by morbid obesity and untreated obstructive sleep apnea. 08/22/2020: IV amiodarone change to p.o. Echo showed EF 50%, LVH, diastolic dysfxn, mild valve dz, moderate pulm HTN. Date of service 08/23/2020: Up in chair, at bedside, no new problems. No shortness of breath, palpitations or nausea. Tolerated CPAP last night. Telemetry shows AFib, heart rate 100-115 beats per minute. Review of Systems Constitutional: Constitutional: Reports fatigue ENT: Denies nasal congestion Cardiovascular: Cardiovascular: Denies chest pain, Reports pedal edema, Reports leg edema and Denies palpitations Respiratory: Respiratory: Denies dyspnea Gastrointestinal: Gastrointestinal: Denies abdominal pain and Denies nausea Genitourinary: Genitourinary: Denies hematuria Musculoskeletal: Musculoskeletal: Reports no additional musculoskeletal complaints Integumentary/Breasts: Skin/Breast: Denies rash Neurologic: Reports system reviewed and no additional complaints, except as documented Psychiatric: Psychiatric: Reports no additional psychiatric complaints Exam Narrative: Exam Narrative: Sitting up in a chair, no distress, has been at the bedside. Const: General: comfortable and no acute distress HENMT: Mouth: Yes moist mucous membranes Eyes: EOM: EOMs intact bilaterally Neck: Neck: supple Resp: Effort & Inspection: normal respiratory effort Auscultation: clear to auscultation bilaterally Cardio: Rhythm: abnormal rhythm irregularly irregular GI: Inspection: distended GI Palp: Yes Soft to palpation Other: Obese abdomen Skin: General skin exam: normal color Wounds: wounds noted (Right lower extremity wound wrapped with clean bandage) Neuro: Cognition (Neuro): normal cognition Speech: normal speech Extrem: General: edema Other: [id number] lower extremity edema Psych: Affect: No normal affect (Flat affect) Objective Data Vital Signs Vital Signs: Vital Signs - 24 hr 08/22/20 14:00 08/22/20 16:00 08/22/20 17:08 Temperature 96.9 F L Pulse Rate 120 H 107 H 102 H Respiratory Rate 18 Blood Pressure 125/74 Pulse Oximetry 96 08/22/20 18:00 08/22/20 20:00 08/22/20 20:45 T
--- NOTE | 2020-08-23 13:35 | PM.DS ---
DS: Admitting Diagnosis Admitting Diagnosis Admitting Diagnosis: Chief Complaint: Fast heart rate DS: Discharge Diagnosis Discharge Diagnosis (1) Atrial fibrillation with rapid ventricular response: Code(s): I48.91 - Unspecified atrial fibrillation Status: Acute Assessment and Plan: The patient is on a Cardizem drip. Cardiology has been consulted. The patient is already on Xarelto for DVTs and PEs. I thought I ordered an echo the last time that she was admitted but I could not find the results. So I ordered another echo. Patient's heart rate is in the 1 teens at this time. 08/22/20 13:37 08/21 patient is 65-year-old female morbidly obese presented emergency department with a complaint palpitation however see denies any history of atrial fibrillation and on Xarelto for anticoagulation for history PE and DVT, patient has a chronic leg wound and was treated by home health and was recommended the patient come to emergency department for further evaluation of her arrhythmia, upon arrival patient was in atrial fibrillation with RVR at the rate of 145 patient was started on diltiazem drip patient was seen by driver recruiter plan is to continue monitor and trend her heart rate a chest diltiazem as needed and if by her blood pressure is soft may switch over to amiodarone, patient is a poor historian, patient states is feeling better denies any complaint of chest pain shortness of breath palpitation fever or chills, her TSH is normal, her cardiac echo is normal with ejection fraction of 50%, patient clinically stable, will continue to monitor will have a PT OT evaluate the patient further recommendation to follow. 08/22 patient with new onset atrial fibrillation was seen by driver recruiter and started on amiodarone drip patient rate is trending and today driver recruiter switch her over to oral amiodarone 400 mg twice a day and will continue to monitor patient is being anticoagulated with Xarelto, driver recruiter suspect her poorly-controlled sleep apnea and morbid obesity is causing atrial fibrillation recommending to closely monitor was sleep apnea, patient has CPAP at home but she has not been using it, will have respiratory therapy place the patient on CPAP with home settings and may titrate as needed. will consult pulmonolgist for further recommendation. (2) Elevated troponin: Code(s): R77.8 - Other specified abnormalities of plasma proteins Status: Acute Assessment and Plan: Could be related to the AFib with RVR. Will continue to trend. Most likely demand ischemia due to atrial fibrillation with RVR unlikely acute coronary syndrome (3) Chronic wound of extremity: Status: Chronic Assessment and Plan: I did consult wound care services for further evaluation of wound. (4) Obstructive sleep apnea: Code(s): G47.33 - Obstructive sleep apnea (adult) (pediatric) Status: Chronic Assessment and Plan: Patient intolerant of his CPAP (5) Depression: Code(s): F32.9 - Major depressive disorder, single episode, unspecified Status: Chronic Assessment and Plan: Continue with BuSpar (6) Mixed hyperlipidemia: Code(s): E78.2 - Mixed hyperlipidemia Status: Acute Assessment and Plan: Continue with atorvastatin (7) History of pulmonary embolus (PE): Code(s): Z86.711 - Personal history of pulmonary embolism Status: Acute Assessment and Plan: The patient has a IVC filter. Patient has had a history of PE and DVTs. (8) Anxiety: Code(s): F41.9 - Anxiety disorder, unspecified Status: Acute Assessment and Plan: Continue with BuSpar and duloxetine. Or so verify her home medications. DS: Summary Hospital Course Reason for hospitalization: this is a 65-year-old female patient who lives at home with her . On 06/06/2020 with acute ankle pain and urinary tract infection. There was no growth in her urine and her antibiotics was stopp
--- NOTE | 2020-08-24 12:47 | ADMGEN ---
This patient, Lorraine Mazariegos, was admitted to IMU Room 207-01 08/20/20 at 1350. Patient/family oriented to hospital policies and general routines including ID bracelet, bed and alarms, visiting hours, pain management, procedures, bathroom and other care routines, personal items, smoking policy, room service/diet, and visiting hours. Information on how to activate the Rapid Response Team has been discussed. Patient/Family are encouraged to report perceived risks to care and to ask questions if they do not understand what they are told or what they should do.
== END 2020-08-23 14:24 | disposition home health service (06) | DRG 309 ==
LOC: ANHED 11:30 → ANHIMU 13:00
PROVIDERS: Internal Medicine Cardiovascular Disease; Internal Medicine Pulmonary Disease; Admitting Provider Internal Medicine; Emergency Provider Emergency Medicine; PCP Family Medicine; Visit Provider Family Medicine
DX: I48.91 Unspecified atrial fibrillation (principal); Z68.44 Body mass index [BMI] 60.0-69.9, adult; I24.8 Other forms of acute ischemic heart disease; L97.919 Non-pressure chronic ulcer of unspecified part of right lower leg with unspecified severity; I10 Essential (primary) hypertension; E78.2 Mixed hyperlipidemia; F41.9 Anxiety disorder, unspecified; F32.9 Major depressive disorder, single episode, unspecified; G47.33 Obstructive sleep apnea (adult) (pediatric); J45.20 Mild intermittent asthma, uncomplicated; Z96.653 Presence of artificial knee joint, bilateral; E66.01 Morbid (severe) obesity due to excess calories; Z86.718 Personal history of other venous thrombosis and embolism; Z86.711 Personal history of pulmonary embolism; Z90.710 Acquired absence of both cervix and uterus; Z90.49 Acquired absence of other specified parts of digestive tract; Z79.01 Long term (current) use of anticoagulants
CPT/HCPCS: 36415; 36600; 71046; 80048; 82805; 82948; 83036; 83735; 83880; 84443; 84484; 85025; 85027; 85610; 85730; 93005; 93306; 94660; 94762; 96365; 96366; 96367; 97110; 97116; 97161; 97165; 97530; 99285; A9270; G0378; J0282

== ENCOUNTER 2020-10-28 07:15 | Outpatient (RCR) | payer MEDICARE, SELFPAY ==
[2020-07-31 11:48] VITALS: BMI 58.6
--- NOTE | 2020-09-02 17:35 | WPDWOUNDNOTE ---
Wound Care Note Date/Time: 09/02/20 17:35 Assessment and Plan Assessment and plan (1) Pressure ulcer of right leg, stage 3: Code(s): L89.893 - Pressure ulcer of other site, stage 3 Status: Acute Additional Plan Continue Santyl and visits to the wound clinic. Dr to see in one month. Exam Narrative: Exam Narrative: Quiet, morbidly obese lady in a wheel chair in the wound center with her . Scheduled visit a month since I first saw her in the office and referred her to the Wound Center. The ulcer is a non diabetic pressure ulcer on the lateral lower leg. No erythema. or drainage. she says she is ambulatory short distances. The ulcer has been treated with Santyl and is full granulated and improved. It measures 1.7 x 1.6 x 0.4 cm. She does not have generalized edema. Skin: Full body images: 1. Extrem: Ankle/foot/toe images: 1.
--- NOTE | 2020-10-28 12:43 | WPDWOUNDNOTE ---
Wound Care Note Date/Time: 10/28/20 12:43 Pt in Wound Center with her . She is morbidly obese with Atrial fibrillation. The ulcer on her right postero-lateral leg below the calf. It is closed today. No pain. She cannot reach it for self care. Cause is not known. Seems to be related to a varicosity. Measures approx 3 cm.and is elevated. Assessment and Plan Assessment and plan (1) Pressure ulcer of right leg, stage 3: Code(s): L89.893 - Pressure ulcer of other site, stage 3 Status: Acute Assessment and Plan: Healed. Will F/U in my office in a month to evaluate the possibility of removing it, to be replaced by a full thickness skin graft.
== END 2020-10-29 23:59 | disposition home or self-care (01) ==
LOC: ANHWOC 07:15
PROVIDERS: PCP Family Medicine; Visit Provider Plastic Surgery
DX: L89.893 Pressure ulcer of other site, stage 3 (principal)
CPT/HCPCS: 99212; 99213; G0463

== ENCOUNTER 2020-11-04 11:23 | Emergency (ER) | payer MEDICARE, SELFPAY ==
[2020-11-04 11:27] VITALS: BP 110/78; PULSE 82; RESP 18; TEMP 36.6; O2SAT 100
--- NOTE | 2020-11-04 11:31 | ECG_ITS ---
Measurements Intervals [place] Rate: 67 P: 32 NE: 260 QRS: -37 QRSD: 117 T: -33 QT: 384 QTc: 408 Interpretive Statements ATRIAL FIBRILLATION LEFT AXIS DEVIATION INTRAVENTRICULAR CONDUCTION DELAY VOLTAGE CRITERIA FOR LVH POOR R WAVE PROGRESSION, ANTERIOR LEADS BASELINE ARTIFACT- I, II, III, AVR, AVL, AVF, V2-V6 ABNORMAL ECG Electronically Signed On 11-04-2020 11:56:29 CDT by Glenroy Ashraf D.O.
--- NOTE | 2020-11-04 11:35 | ED.WOUNDLAC ---
HPI - Wound/Laceration General Chief Complaint: Wound/Laceration Stated Complaint: BLEEDING WOUND R ANKLE Source: family and RN notes reviewed Mode of arrival: EMS Limitations: no limitations History of Present Illness HPI narrative: This is a 65 year old female with history of PE on chronic anticoagulation who presents for evaluation a bleeding right ankle wound. Patient's states patient's wound started bleeding last night but he was able to stop the bleeding. This morning he states patient's wound started bleeding when she went to the restroom today. He was unable to stop bleeding after 15 minutes so he called EMS. EMS applied a bandage and her bleeding has resolved. Patient takes Xarelto for history of pulmonary emboli. She denies any other bleeding issues. She does reports weakness, but she denies chest pain, sob, nausea, vomiting. Related Data Home Medications Medication Instructions Recorded Confirmed atorvastatin 40 mg PO DAILY 06/05/20 08/20/20 diphenhydramine HCl 25 mg PO HS PRN 08/20/20 08/20/20 gabapentin 600 mg PO TID 08/20/20 08/20/20 lisinopril 30 mg PO DAILY 08/20/20 08/20/20 Allergies Allergy/AdvReac Type Severity Reaction Status Date / Time metoclopramide Allergy Intermediate Hives Verified 11/04/20 11:32 Review of Systems Review of Systems: All systems reviewed & are unremarkable except as noted in HPI and below PMFSH Past Medical History Medical History Anxiety Chronic low back pain with sciatica Chronic wound of extremity Right lower extremity Depression Essential (primary) hypertension History of DVT (deep vein thrombosis) 2014 History of pulmonary embolus (PE) 2014 Mild episode of recurrent major depressive disorder Mild intermittent asthma without complication Mixed hyperlipidemia Obstructive sleep apnea Intolerant of his CPAP machine Paroxysmal A-fib Presence of IVC filter Surgical History Surgical History H/O bariatric surgery X2 H/O: hysterectomy History of carpal tunnel release History of tonsillectomy History of total knee replacement (TKR) Bilaterally Hx of cholecystectomy Family History Family History Mother Diabetes mellitus age 51 Father Heart disease of a [place] age 55 Family history of coronary artery disease Sibling Blood clot in vein Other Family history of alcoholism Family history of arthritis Family history of kidney disease Family history of malignant neoplasm Family history of mental disorder Hypertension Social History Social History Social History: The patient is and lives with her . She has 3 children. She attempted to smoke when she was a teenager but was less than a pack a cigarettes. The patient is a full code but does not want to live on a ventilator and be a vegetable. If the quality of life is no longer there she does not want to live on a ventilator. Her is a durable power district attorney for healthcare. Smoking status: Never smoker Second hand tobacco smoke exposure: No Alcohol intake: never Substance use: never Gender identity (if verbalized by the patient): Female Spiritual care concerns: No Exam Const: General: no acute distress and alert Nutritional Appearance: obese Orientation/consciousness: patient oriented x3 Eyes: EOM: EOMs intact bilaterally Resp: Effort & Inspection: normal respiratory effort and no retractions Auscultation: clear to auscultation bilaterally Cardio: Rate: regular rate Rhythm: regular rhythm Heart sounds: no murmurs GI: GI Palp: Yes Soft to palpation, No Tenderness to palpation present (GI) and No Guarding due to palpation present (GI) Auscultation: normal bowel sounds Neuro: General: kam
[2020-11-04 12:06] LABS: Basophils Percent Auto 0.7 % (0.2-1.2); Eosinophils Absolute Auto 0.2 K/mm3 (0-0.3); Eosinophils Percent Auto 4.6 % (0-4.4); Hematocrit 37.8 % (37.0-47.0); Hemoglobin 11.5 g/dL (12.0-15.0); Immature Granulocyte Absolute 0.03 K/mm3 (0.00-0.031); Immature Granulocyte Percent A 0.7 % (0-0.5); Lymphocytes Absolute Auto 0.89 K/mm3 (0.9-3.2); Lymphocytes Percent Auto 19.7 % (18.3-44.2); Mean Corpuscular HGB Conc 30.4 g/dl (32-36); Mean Corpuscular Hemoglobin 25.7 pg (26-34); Mean Corpuscular Volume 84.4 fl (80-100); Mean Platelet Volume 8.7 fl (7.4-10.4); Monocytes Absolute Auto 0.3 K/mm3 (0.1-0.6); Monocytes Percent Auto 6.4 % (2.6-8.5); Neutrophils Absolute Auto 3.1 K/mm3 (1.3-6.7); Neutrophils Percent Auto 67.9 % (45.5-73.1); Platelet Count Result 176 k/mm3 (150-375); Red Blood Count 4.48 M/mm3 (4.2-5.4); Red Cell Distribution Width 15.9 % (11.5-14.5); White Blood Count 4.5 K/mm3 (4.5-10.0)
[2020-11-04 12:17] LABS: Alanine Aminotransferase 12 U/L (4-35); Albumin Level 4.1 g/dL (3.5-5.1); Alkaline Phosphatase 101 U/L (38-126); Anion Gap 6 mmol/L (8-16); Aspartate Amino Transferase 22 U/L (14-36); Bilirubin,Total 0.3 mg/dL (0.2-1.3); Blood Urea Nitrogen 16 mg/dL (7-17); Calcium 9.1 mg/dL (8.4-10.2); Carbon Dioxide 32 mmol/L (22-30); Chloride 100 mmol/L (98-107); Estimated Glomerular Filt Rate 50; Glucose 138 mg/dL (65-105); Potassium 4.8 mmol/L (3.4-5.0); Sodium 138 mmol/L (137-145)
[2020-11-04 12:22] LABS: INR 1.8; Partial Thromboplastin Time 31.9 SECONDS (22.3-36.8); Prothrombin Time 21.7 Seconds (11.1-14.7)
[2020-11-04 13:02] LABS: Add Urine Microscopic? YES; Appearance Urine Turbid (Clear); Bacteria Urine 1+ /hpf; Bilirubin Urine Negative (Negative); Blood Urine 2+ (Negative); Color Urine Yellow (Yellow); Glucose Urine UA Negative (Negative); Ketones Urine Negative (Negative); Leukocyte Esterase Ur 2+ LEU/UL (Negative); Nitrate Urine Negative (Negative); Protein Urine Negative (Negative); Specific Grav Ur 1.005 (1.001-1.035); Squamous Epithelial Cell Urine Occasional /hpf (Few)
[2020-11-04 13:21] VITALS: BP 124/74; PULSE 65; RESP 17; O2SAT 100
[2020-11-04 14:16] VITALS: BP 152/93; PULSE 57; RESP 18; O2SAT 100
== END 2020-11-04 14:17 | disposition home or self-care (01) ==
PROVIDERS: Emergency Provider General Practice; PCP Family Medicine
DX: I83.891 Varicose veins of right lower extremity with other complications (principal); N39.0 Urinary tract infection, site not specified; Z79.01 Long term (current) use of anticoagulants; I48.0 Paroxysmal atrial fibrillation; I10 Essential (primary) hypertension; J45.20 Mild intermittent asthma, uncomplicated; G47.33 Obstructive sleep apnea (adult) (pediatric); E78.2 Mixed hyperlipidemia; F41.9 Anxiety disorder, unspecified; F32.9 Major depressive disorder, single episode, unspecified; M54.40 Lumbago with sciatica, unspecified side; Z86.718 Personal history of other venous thrombosis and embolism; Z86.711 Personal history of pulmonary embolism
CPT/HCPCS: 36415; 80053; 81001; 85025; 85610; 85730; 87077; 87086; 87088; 87186; 93005; 99283

== ENCOUNTER 2020-11-27 01:54 | Day surgery (SDC) | payer MEDICARE, SELFPAY ==
[2020-11-24 13:42] VITALS: BMI 60.0
[2020-11-27] VITALS (7 sets, daily range): BP systolic 135–142; BP diastolic 75–98; PULSE 65–100; RESP 12–18; TEMP 36.4–36.5; O2SAT 94–100; BMI 56.2
--- NOTE | 2020-11-27 09:28 | WPDHPUPDATE1 ---
History and Physical Update Update Date/Time: 11/27/20 09:28 History and Physical has been reviewed, including an updated exam of the patient. There are NO changes in the patient's condition. Risks, benefits, and alternatives have been discussed and questions answered. Patient agrees to proceed with procedure.
--- NOTE | 2020-11-27 10:52 | WPDANESEPPF ---
Anes - Initial Pre Proc Eval Procedure: Operation Date: 11/27/20 12:30 Proposed Procedures p Excision Varicosity Right Lateral Leg with Full Thicknes Skin Graft - Tu Dumont MD Date/Time: 11/27/20 10:52 Surgeon: Tu Dumont MD Pre Op Diagnosis: bleeding vascular lesion right lateral leg Patient Data Age: 65 Gender: F Height: 1.63 m Weight: 158.8 kg Allergies Allergy/AdvReac Type Severity Reaction Status Date / Time metoclopramide Allergy Intermediate Hives Verified 11/27/20 10:49 Home Medications Medication Instructions Recorded Confirmed Type oxybutynin chloride 10 mg 10 mg PO DAILY #90 tablet 02/25/20 11/24/20 Rx tablet,extended release 24 hr nystatin 100,000 unit/gram topical 1 applic TOPICAL BID #60 g 06/03/20 11/24/20 Rx powder atorvastatin 40 mg PO DAILY 06/05/20 11/24/20 History diphenhydramine HCl 25 mg PO HS PRN 08/20/20 11/24/20 History gabapentin 600 mg PO BID 08/20/20 11/24/20 History metoprolol succinate [Toprol XL] 100 mg PO QAM #30 tablet 08/23/20 11/24/20 Rx levothyroxine 25 mcg tablet 25 mcg PO DAILY #90 tablet 10/24/20 11/24/20 Rx risperidone 4 mg tablet 4 mg PO .HS #90 tablet 10/27/20 11/24/20 Rx hydrocodone 10 mg-acetaminophen 1 tablet PO Q6H PRN #100 tablet 11/18/20 11/24/20 Rx 325 mg tablet amiodarone [Pacerone] 200 mg PO Q12HR 11/24/20 11/24/20 History cholecalciferol (vitamin D3) 50 mcg PO DAILY 11/24/20 11/24/20 History docusate sodium [Stool Softener] 100 mg PO HS 11/24/20 11/24/20 History duloxetine 30 mg PO DAILY 11/24/20 11/24/20 History omeprazole 20 mg PO HS 11/24/20 11/24/20 History pediatric mvfwcrts-dera-ame 1 tablet PO DAILY 11/24/20 11/24/20 History [Complete Multivitamin] rivaroxaban [Xarelto] 20 mg PO QPM 11/24/20 11/24/20 History buspirone 15 mg tablet 15 mg PO BID PRN #60 tablet 11/26/20 Rx Patient hx anesthesia problems: none Family hx anesthesia problems: none PMFSH Past Medical History Medical History Anxiety Chronic low back pain with sciatica Chronic wound of extremity Right lower extremity Depression Essential (primary) hypertension History of DVT (deep vein thrombosis) 2014 History of pulmonary embolus (PE) 2014 Mild episode of recurrent major depressive disorder Mild intermittent asthma without complication Mixed hyperlipidemia Obstructive sleep apnea Intolerant of his CPAP machine Paroxysmal A-fib Presence of IVC filter Surgical History Surgical History H/O bariatric surgery X2 H/O: hysterectomy History of carpal tunnel release History of tonsillectomy History of total knee replacement (TKR) Bilaterally Hx of cholecystectomy Family History Family History Mother Diabetes mellitus age 51 Father Heart disease of a [place] age 55 Family history of coronary artery disease Sibling Blood clot in vein Other Family history of alcoholism Family history of arthritis Family history of kidney disease Family history of malignant neoplasm Family history of mental disorder Hypertension Social History Social History Social History: The patient is and lives with her . She has 3 children. She attempted to smoke when she was a teenager but was less than a pack a cigarettes. The patient is a full code but does not want to live on a ventilator and be a vegetable. If the quality of life is no longer there she does not want to live on a ventilator. Her is a durable power corporate associate attorney for healthcare. Smoking status: Never smoker Second hand tobacco smoke exposure: No Alcohol intake: never Substance use: never Living arrangements: with family Gender identity (if verbalized by the patient): Female Spiritual care concerns: No Anes -
--- NOTE | 2020-11-27 12:30 | SUR.PREOP ---
1230- Notified patient and spouse Chi procedure start time will be delayed. Patient and spouse verbalized understanding.
[2020-11-27] MEDS: LIDO 1%/EPINEPHRINE 1:100,000 20 ML VIAL INFILTRATE (13:15)
[2020-11-27] MEDS: LACTATED RINGERS 1,000 ML 30 ML IV CONT ×2 (14:11→14:49)
[2020-11-27] MEDS: ceFAZolin 3 GM/D5W 100 ML 100 ML IVPB (14:41)
--- NOTE | 2020-11-27 15:08 | PM.OP ---
Procedure Note - Brief Procedure Note - Brief Date of procedure: 11/27/20 Pre-op diagnosis: bleeding vascular lesion right lateral leg Post-op diagnosis: same Procedure performed: 3 cm excision of bleeding vathe scabbed neoplasm on the right lateral leg of the patient was marked in the holding area. She was taken to the operating room and placed supine on the operating table. A time-out was held and confirmed. The site was carefully marked for excision and locally infiltrated with 1% lidocaine with epinephrine. The patient was position on her side exposing the site Reyes the full-thickness skin ellipse was taken into the subcutaneous tissue and sent to pathology with a suture marking at 12:00 p.m. which was superior the pathologist at the tissue for over 40 minutes and reported it to be fully excised but she wanted to wait for permanent sections to determine the final diagnosis. the dimensions were transferred to the thigh and a marking was made for the full-thickness graft excision. This was infiltrated with 1% lidocaine with epinephrine. A split graft was harvested with a 15 blade from the thigh. The underlying tissue was discarded. The wound was closed with intradermal oa Vicryl suture without difficulty and a running 5 0 nylon. The graft was further defatted and inset with 5 0 nylon around the periphery and 5 0 nylon interrupted quilting stitches were placed across the middle portion of the graft. A bulky dressing with Mepilex silver sponge to the graft was applied covered with Coban from the ankle to the knee. The donor site was dressed with Xeroform and Kerlix sponges and a Tegaderm The patient tolerated this procedure well. He was discharged from the operating room in stable condition. She will be discharged home with a prescription for oxycodone 5/325 14. And cephalexin 500 mg t.i.d. 15. She was given IV Ancef 2 g preop. Surgeon: Tu Dumont MD
--- NOTE | 2020-11-27 15:13 | SUR.PHASEI ---
Dr. Lee made aware of A-fib. He said patient has a hx of and if rate is controlled to follow-up with furniture stainer. Patient takes amiodarone and xarelto as well.
--- NOTE | 2020-11-27 15:22 | P.OP_ITS ---
Procedure Note - Detailed Date of Procedure 11/27/20 Pre-op Diagnosis bleeding vascular lesion right lateral leg Post-op Diagnosis same Procedure Performed 3 cm bleeding varicosity of the right lateral leg with full-thickness skin graft 10 sq cm Surgeon Tu Dumont MD Russian Language Professor [place] horn make Anesthesia general Findings healed vascular lesion Description of Procedure the site was marked in the patient's right lateral leg in the holding area. She was taken to the operating room and placed supine on the operating table. She required special positioning and support due to her obesity to allow access to her right lateral leg. the site was then prepped and draped usual fashion. The area was locally infiltrated with 1% lidocaine with epinephrine. The full-thickness ellipse was incised through the skin and the tissue was taken out well into the deep subcutaneous tissue for removal. This appeared to be a clump of varicose veins. The specimen is being sent to pathology for permanent evaluation. Peritenon was left over all structures. Graft was harvested from the right thigh as a full-thickness graft was carefully defatted and inset with 5 0 nylon suture and quilting stitches. The donor site was undermined and closed with intradermal 4-0 Vicryl and glue. A gauze Tegaderm bandage was applied there. On the grafted site Mepilex over was applied a bulky bandage and Coban wrap from the ankle to the knee. Estimated Blood Loss 12 Drains No Packing No Pathology yes Complications No immediate complications Condition stable Disposition PACU
== END 2020-11-27 16:25 | disposition home or self-care (01) ==
PROVIDERS: PCP Family Medicine; Visit Provider Plastic Surgery
PROC: (CPT 15220; principal; 2020-11-27 12:30)
DX: M79.89 Other specified soft tissue disorders (principal); I10 Essential (primary) hypertension; I48.0 Paroxysmal atrial fibrillation; F41.8 Other specified anxiety disorders; G47.33 Obstructive sleep apnea (adult) (pediatric); J45.20 Mild intermittent asthma, uncomplicated; Z86.718 Personal history of other venous thrombosis and embolism; Z86.711 Personal history of pulmonary embolism; Z79.01 Long term (current) use of anticoagulants; E66.01 Morbid (severe) obesity due to excess calories; Z68.43 Body mass index [BMI] 50.0-59.9, adult
CPT/HCPCS: 15220; 11403; 88305; A9270; J0690; J2704; J3010; J7120

== ENCOUNTER 2021-01-08 10:02 | Inpatient (IN) | payer MEDICARE, SELFPAY ==
[2021-01-08] VITALS (55 sets, daily range): BP systolic 84–138; BP diastolic 53–89; PULSE 89–135; RESP 13–23; TEMP 36.3–36.7; O2SAT 87–99; BMI 61.7
--- NOTE | ~2021-01-08 | XR_ITS ---
EXAMINATION: XR abdomen obstructive series DATE: 01/09/2021 15:00 INDICATION: Buddy syndrome. TECHNIQUE: Upright and supine views of the abdomen on 5 radiographs were obtained. COMPARISON: CT abdomen and pelvis 01/08/2021 FINDINGS: The colon is distended and predominantly gas-filled. There is contrast in the rectum. The s mall bowel is normal in caliber. No free intraperitoneal gas. There are surgical changes of the stoma ch. There is a right lower quadrant ventral hernia containing nonobstructed bowel. There is a filter in the inferior vena cava. IMPRESSION: 1. Persistently distended colon, consistent with adynamic ileus. 2. Right lower quadrant ventral hernia containing nonobstructed bowel. Reviewed, dictated and finalized at location A.
--- NOTE | ~2021-01-08 | XR_ITS ---
EXAMINATION: XR enema water soluble DATE: 01/08/2021 17:56 INDICATION: Abdominal pain and distention. TECHNIQUE: A catheter was inserted into the patient's rectum. Contrast was infused by gravity. Fluoro scopic spot images were obtained. Fluoroscopy exposure time was 0.1 minutes. The total number of imag es was 8. COMPARISON: CT abdomen and pelvis 01/08/2021 FINDINGS: The rectosigmoid is dilated. No mass or stricture. IMPRESSION: 1. Dilated rectosigmoid, consistent with adynamic ileus. No mass or stricture. Reviewed, dictated and finalized at location A.
--- NOTE | ~2021-01-08 | NM_ITS ---
EXAMINATION: NM darrian stress w perfusion DATE: 01/16/2021 13:05 INDICATION: Abnormal electrocardiogram. Ventricular tachycardia. TECHNIQUE: Rest images were obtained following intravenous administration of 9 mCi Tc99m tetrofosmin (Myoview). The patient was infused intravenously with Lexiscan (regadenoson). Then, 29 mCi Tc99m tetr ofosmin (Myoview) was administered intravenously, and stress images were obtained. Data was reconstru cted into short axis and horizontal and vertical long axis SPECT images. Gated SPECT images were also obtained. COMPARISON: CT abdomen and pelvis 01/08/2021 FINDINGS: There is a small, mild, fixed perfusion defect involving apical septal segment of left vent ricle, consistent with infarct. No reversible component to suggest ischemia. There is no segmental w all motion abnormality. Left ventricular ejection fraction measures 54%. IMPRESSION: 1. Small area of mild infarct involving apical septal segment of left ventricle. 2. Normal left ventricular ejection fraction measuring 54%. Reviewed, dictated and finalized at location A. IMPRESSION: 1. Small area of mild infarct involving apical septal segment of left ventricle . 2. Normal left ventricular ejection fraction measuring 54%.
--- NOTE | ~2021-01-08 | US_ITS ---
EXAMINATION: US venous doppler LE BI EXAM DATE: 01/14/2021 16:54 INDICATION: venous stasis of LE h/o of DVT. TECHNIQUE: Multiple grayscale, color flow and Doppler images of the lower extremity deep venous syste ms bilaterally were obtained and reviewed. Comparison is made to prior examination from 06/06/2020. FINDINGS: Right side: The right common femoral, femoral and profunda veins demonstrate normal color flow, respi ratory variation, augmentation and compressibility. Compressibility, color flow confirmed within the right popliteal, posterior tibial, peroneal, and greater saphenous veins. Left side: The left common femoral, femoral and profunda veins demonstrate normal color flow, respira tory variation, augmentation and compressibility. Compressibility, color flow confirmed within the l eft popliteal, posterior tibial, peroneal, and greater saphenous veins. IMPRESSION: 1. No lower extremity deep venous thrombosis bilaterally. Reviewed, dictated and finalized at location A.
--- NOTE | ~2021-01-08 | XR_ITS ---
EXAMINATION: XR abdomen/kub 1V DATE: 01/13/2021 08:35 INDICATION: Abdominal distention. TECHNIQUE: A supine view of the abdomen on 2 radiographs was obtained. COMPARISON: Abdomen radiographs 01/09/2021 FINDINGS: The colon is distended and predominantly gas-filled. The small bowel is normal in caliber. There is a right lower quadrant ventral hernia containing nonobstructed bowel. There is a filter in t he inferior vena cava. There are surgical clips in left upper quadrant. IMPRESSION: 1. Persistently distended colon, consistent with adynamic ileus. 2. Right lower quadrant ventral hernia containing nonobstructed bowel. Reviewed, dictated and finalized at location A.
--- NOTE | ~2021-01-08 | US_ITS ---
EXAMINATION: US art doppler w press YENNY BLANCA EXAM DATE: 01/15/2021 11:22 INDICATION: cold feet reduced pulses TECHNIQUE: Segmental pressures and plethysmographic and Doppler waveforms of the brachial and lower e xtremity arteries were obtained. Unable to do thigh pressure is due to body habitus. There is no prio r study for comparison. FINDINGS: Right and left brachial artery pressures of 137 mm Hg and 152 mm Hg, respectively, are concordant (no rmal difference <= 30 mmHg). RIGHT LEG: The ankle-brachial index (JUSTUS) is 1.13 (normal >= 0.9-1). The great toe-brachial index (TBI) is 0.79 (normal >= 0.65). The lower extremity ratios, segmental pressure gradients as follows; Dorsalis pedis: 1.05 (159 mmHg). Posterior tibial: 1.13 (171 mmHg). (Normal gradients <= 20-30 mmHg between adjacent levels on the same leg or the same levels on the two legs). Arterial waveforms are biphasic common femoral, monophasic popliteal, significantly diminished monophasic superficial femoral, posterior tibial and dorsalis ped is. LEFT LEG: The ankle-brachial index (JUSTUS) is 1.07 (normal >= 0.9-1). The great toe-brachial index (TBI) is 0.94 (normal >= 0.65). The lower extremity ratios, segmental pressure gradients as follows; Dorsalis pedis: 1.05 (159 mmHg). Posterior tibial: 1.07 (162 mmHg). (Normal gradients <= 20-30 mmHg between adjacent levels on the same leg or the same levels on the two legs). Arterial waveforms are monophasic superficial femoral and p opliteal, otherwise biphasic. IMPRESSION: 1. Right ankle-brachial index 1.13, normal. 2. Left ankle-brachial index 1.07, normal. Reviewed, dictated and finalized at location A.
--- NOTE | ~2021-01-08 | CT_ITS ---
EXAMINATION: CT abdomen pelvis w con EXAM DATE: 01/08/2021 11:06 INDICATION: Abdominal pain, hypotension. TECHNIQUE: Spiral CT of the abdomen and pelvis was performed following intravenous injection of 100 m L Omnipaque 350. Axial, coronal and sagittal images of the abdomen and pelvis were reviewed. The do se-length product (DLP) for this examination was 1577.83 mGy-cm. The exposure was tailored according to patient size (auto mA exposure control), and iterative reconstruction (ASIR) was used as addition al dose reduction technique. Comparison is made to prior examination from 09/03/2014. FINDINGS: Gastroesophageal surgical changes. Cecum and multiple ileal loops are within a large right lower quadrant hernia. There is no evidence of this is causing obstruction. There is severe gaseous d istention up to 11.5 cm of the entire colon, to the rectosigmoid colon which has some loose appearing stool. There is no discrete obstructing sigmoid mass or volvulus. Mild fat stranding surrounding por tions of the colon, consider toxic megacolon. Mesenteric vasculature enhances normally. There is no f ree intraperitoneal gas, pneumatosis intestinalis or portal venous gas. The spleen, adrenal glands and pancreas are unremarkable. There is a 2 cm liver cyst inferiorly. No c alcified cholelithiasis or biliary dilation. Portal and splenic veins are patent. Kidneys enhance s ymmetrically. There is no hydronephrosis. Several small left renal cyst. Left renal cortical scarrin g with calcification. The uterus is not identified and has likely been surgically resected. The [place] dder is unremarkable. There is no retroperitoneal or pelvic lymphadenopathy. There is moderate sca ttered arteriosclerotic disease. Cardiomegaly. The lung bases are unremarkable. There is chronic L5 spondylolysis with 50% vertebral body anterolisthesis L5 on S1. IMPRESSION: 1. Massive gaseous distention of colon without obstructing sigmoid stricture or mass. Consider toxi c megacolon. Recommend baseline KUB. 2. Large right lower quadrant hernia containing cecum and nonobstructed ileum. 3. Chronic L5 spondylolysis, significant anterolisthesis. 4. Other chronic findings. Reviewed, dictated and finalized at location B. IMPRESSION: 1. Massive gaseous distention of colon without obstructing sigmoid stricture o r mass. Consider toxic megacolon. Recommend baseline KUB. 2. Large right lower quadrant hernia containing cecum and nonobstructed ileum. 3. Chronic L5 spondylolysis, significant anterolisthesis. 4. Other chronic findings.
[2021-01-08 10:30] LABS: Basophils Percent Auto 0.4 % (0.2-1.2); Eosinophils Absolute Auto 0.1 K/mm3 (0-0.3); Eosinophils Percent Auto 1.7 % (0-4.4); Hemoglobin 11.1 g/dL (12.0-15.0); Immature Granulocyte Absolute 0.05 K/mm3 (0.00-0.031); Immature Granulocyte Percent A 0.7 % (0-0.5); Lymphocytes Absolute Auto 0.93 K/mm3 (0.9-3.2); Lymphocytes Percent Auto 12.5 % (18.3-44.2); Mean Corpuscular HGB Conc 30.8 g/dl (32-36); Mean Corpuscular Volume 81.1 fl (80-100); Monocytes Absolute Auto 0.5 K/mm3 (0.1-0.6); Monocytes Percent Auto 7.1 % (2.6-8.5); Neutrophils Absolute Auto 5.8 K/mm3 (1.3-6.7); Neutrophils Percent Auto 77.6 % (45.5-73.1); Platelet Count Result 231 k/mm3 (150-375); Red Blood Count 4.44 M/mm3 (4.2-5.4); Red Cell Distribution Width 15.5 % (11.5-14.5); White Blood Count 7.4 K/mm3 (4.5-10.0)
--- NOTE | 2021-01-08 10:40 | PC.NURSE ---
BP reading 84/74. Tachycardiac on ekg monitor tech with rate between 110-125. Hx of a-fib. WILLIAM alex aware.
[2021-01-08] MEDS: SODIUM CHLORIDE 0.9% IV 1,000 ML 999 ML (10:43)
[2021-01-08 10:46] LABS: Alanine Aminotransferase 14 U/L (4-35); Albumin Level 3.6 g/dL (3.5-5.1); Alkaline Phosphatase 124 U/L (38-126); Anion Gap 16 mmol/L (8-16); Aspartate Amino Transferase 21 U/L (14-36); Bilirubin,Total 0.6 mg/dL (0.2-1.3); Blood Urea Nitrogen 19 mg/dL (7-17); Carbon Dioxide 21 mmol/L (22-30); Chloride 94 mmol/L (98-107); Estimated CRCL calculation 68 ml/min; Estimated Glomerular Filt Rate 55; Glucose 171 mg/dL (65-110); Lipase 17 U/L (23-300); Potassium 4.3 mmol/L (3.4-5.0); Sodium 131 mmol/L (137-145)
--- NOTE | 2021-01-08 10:50 | PC.NURSE ---
PA at bedside for pt assessment.
--- NOTE | 2021-01-08 10:56 | PC.NURSE ---
Pt to CT.
[2021-01-08 13:10] LABS: Add Urine Microscopic? YES; Appearance Urine Clear (Clear); Bilirubin Urine Negative (Negative); Blood Urine Negative (Negative); Color Urine Yellow (Yellow); Glucose Urine UA Negative (Negative); Ketones Urine Negative (Negative); Leukocyte Esterase Ur Negative LEU/UL (Negative); Mucus Urine Rare /lpf; Nitrate Urine Negative (Negative); Protein Urine Negative (Negative); Specific Grav Ur 1.025 (1.001-1.035); Squamous Epithelial Cell Urine Rare /hpf (Few); WBC Urine 0-3 /hpf
[2021-01-08 13:10] LABS: Lactic Acid Reflex 1.5 mmol/L (0.7-2.1)
--- NOTE | 2021-01-08 13:23 | ED.ABDPAIN ---
HPI - Abdominal Pain General Chief Complaint: Abdominal Pain <Liyah Wood PA-C - Last Filed: 01/08/21 13:29> Stated Complaint: Abd Pain <Liyah Wood PA-C - Last Filed: 01/08/21 13:29> Time Seen by Provider: 01/08/21 10:29 <Liyah Wood PA-C - Last Filed: 01/08/21 13:29> Source: patient and family () <Liyah Wood PA-C - Last Filed: 01/08/21 13:29> Limitations: dementia <Liyah Wood PA-C - Last Filed: 01/08/21 13:29> History of Present Illness HPI narrative: Patient with history of dementia and gastroplasty presents with chief complaint of swelling to the abdomen and decreased appetite over the past 2 to 3 days. Patient states she is feeling sharp pains all over her abdomen. Patient denies loss of bowel or bladder function. She states that she has had a bowel movement her last one was this morning with firm pellets however her states that there was also a water-like stool that came out as well. The patient has not had fever, chills, nausea, vomiting. Patient had a gastroplasty performed in 1978 and 1981. Patient also has hernias to her abdomen per her . Patient and her state that they have noticed increased size of her abdomen over the past few days. They deny chest pain, shortness of breath. Patient states she has also noted some increased weakness so she has had some difficulty ambulating. <Liyah Wood PA-C - Last Filed: 01/08/21 13:29> Related Data Home Medications: Home Medications Medication Instructions Recorded Confirmed atorvastatin 40 mg PO DAILY 06/05/20 12/22/20 diphenhydramine HCl 25 mg PO HS PRN 08/20/20 11/24/20 gabapentin 600 mg PO BID 08/20/20 12/22/20 Xarelto 20 mg PO QPM 11/24/20 12/22/20 cholecalciferol (vitamin D3) 50 mcg PO DAILY 11/24/20 12/22/20 docusate sodium [Stool Softener] 100 mg PO HS 11/24/20 12/22/20 omeprazole 20 mg PO HS 11/24/20 12/22/20 pediatric yvpvmeeh-hbuf-qzn 1 tablet PO DAILY 11/24/20 12/18/20 diltiazem HCl 120 mg 120 mg PO DAILY 12/18/20 12/22/20 capsule,extended release 24 hr furosemide 20 mg tablet 20 mg PO QAM 12/18/20 12/22/20 metoprolol succinate 100 mg 200 mg PO QAM tablet 12/18/20 12/22/20 tablet,extended release 24 hr duloxetine 30 mg PO BID 12/22/20 12/22/20 risperidone 4 mg PO BID 12/22/20 12/22/20 <Liyah Wood PA-C - Last Filed: 01/08/21 13:29> Allergies/Adverse Reactions: Allergies Allergy/AdvReac Type Severity Reaction Status Date / Time metoclopramide Allergy Intermediate Hives Verified 01/08/21 10:14 <Liyah Wood PA-C - Last Filed: 01/08/21 13:29> Review of Systems Review of Systems: CONSTITUTIONAL: Reports fatigue denies fever, chills, or sweats. EYES: Denies visual changes, redness, or discharge. ENT: Denies rhinorrhea, congestion, sore throat, or otalgia. CARDIOVASCULAR: Denies chest pain, palpitations, or edema. RESPIRATORY: Denies cough or dyspnea. GASTROINTESTINAL: Reports abdominal pain and swelling denies nausea, vomiting, or diarrhea. GENITOURINARY: Denies dysuria or hematuria. SKIN: Denies rash or itching. MUSCULOSKELETAL: Denies back pain, joint pain, or myalgia. NEUROLOGIC: Reports mild weakness with activity denies headache, numbness, dizziness PSYCHIATRIC: Denies anxiety or depression. <Liyah Wood PA-C - Last Filed: 01/08/21 13:29> [facility] Past Medical History Medical History: Medical History Anxiety Chronic low back pain with sciatica Chronic wound of extremity Right lower extremity Depression Essential (primary) hypertension History of DVT (deep vein thrombosis) 2014 History of pulmonary embolus (PE) 2014 Mild episode of recurrent major depressive disorder Mild intermittent asthma without complication Mixed hyperlipidemia Obstructive sleep apnea Intolerant of his CPAP machine Paroxysmal A-fib Presence of IVC filter <Liyah Wood PA-C - Last Filed:
[2021-01-08] MEDS: SODIUM CHLORIDE 0.9% IV 1,000 ML 999 ML IV CONT (14:43)
--- NOTE | 2021-01-08 16:00 | PC.NURSE ---
Brother is taking wedding band home for patient before being admitted. Gold band removed
--- NOTE | 2021-01-08 16:11 | PM.CNGS ---
Assessment and Plan Assessment and plan (1) Gaseous abdominal distention: Code(s): R14.0 - Abdominal distension (gaseous) Status: Acute Assessment and Plan: CT scan reviewed and discussed with the patient and her in detail. Evidence of severe colonic distention to the level of the sigmoid colon. Unclear etiology. No obvious stricture or mass noted on CT. Will proceed with Hypaque enema and recommend GI consultation. Will keep her NPO for now. Continue IV fluids and analgesics. Will follow with serial abdominal exams and imaging. (2) Chronic anticoagulation: Code(s): Z79.01 - rn long term care (current) use of anticoagulants Status: Acute Assessment and Plan: Hold Xarelto in case of need for surgical intervention. (3) Atrial fibrillation: Code(s): I48.91 - Unspecified atrial fibrillation Status: Acute Assessment and Plan: A.Fib RVR in ER. History of paroxysmal a. fib. HR 120's on my exam. (4) Morbid obesity: Code(s): E66.01 - Morbid (severe) obesity due to excess calories Status: Acute Assessment and Plan: Encouraged lifestyle changes and weight management. Discussed the importance of weight loss considering her multiple medical problems and large ventral hernia. We also discussed the consequences of continued weight gain. Should f/u with PCP regarding options after eventual discharge. (5) Severe pulmonary hypertension: Code(s): I27.20 - Pulmonary hypertension, unspecified Status: Acute Assessment and Plan: Noted on echo 08/2020. (6) Right ventricular systolic dysfunction: Code(s): I51.9 - Heart disease, unspecified Status: Acute Assessment and Plan: Noted on echo 08/2020. Followed by Cardiology as an outpatient. (7) Essential hypertension: Code(s): I10 - Essential (primary) hypertension Status: Acute (8) Presence of IVC filter: Code(s): Z95.828 - Presence of other vascular implants and grafts Status: Chronic Assessment and Plan: 2014 (9) Chronic wound of extremity: Status: Chronic Assessment and Plan: Followed by Dr. Dumont and wound care nurses. Could consider wound care consult while inpatient to continue local wound care and considering she had an appointment with them in the next two weeks. (10) Obstructive sleep apnea: Code(s): G47.33 - Obstructive sleep apnea (adult) (pediatric) Status: Chronic (11) Type 2 diabetes mellitus without complications: Code(s): E11.9 - Type 2 diabetes mellitus without complications Status: Acute Additional Plan I have discussed the patient's case and plan of care with Dr. Mays. Thank you for allowing us to see the patient in consultation and we will continue to follow along with you. History of Present Illness Consult details Consult date: 01/08/21 Reason for consult: other (CT findings of severe colonic distention, possible colonic obstruction) Requesting physician: Liyah Wood PA-C Narrative: This is a 65-year-old morbidly obese female with history of multiple medical problems, who presented to the emergency department with complaints of abdominal pain, bloating, and difficulty with urinating and defecating. Her is at the bedside in the ER and was able to help with providing history. She reportedly has a history of dementia and deals with memory loss. She has been feeling bloated and constipated for about a month. The last 3-4 days, she has not been able to have a normal bowel movement and has had difficulty with urinating. She reportedly would sit on the toilet for an hour and would not be able to have a BM. Only stool coming through would be very small amounts of liquid. No obvious blood in stool. Yesterday, she had more difficulty with urination and felt she was not emptying her bladder. No fever or chills. She has developed worsening abdominal distension and generalized abdominal pain ov
--- NOTE | 2021-01-08 16:30 | PM.IMHP ---
H&P: HPI History of Present Illness Date/Time: 01/08/21 16:30 Chief Complaint: Abdominal pain. Narrative: This is a 65-year-old female with atrial fibrillation, hypertension, hyperlipidemia, sleep apnea, and morbid obesity presented to the emergency department earlier today for evaluation of abdominal pain. Over the last couple of days she has had intermittent, diffuse abdominal discomfort that she has a difficult time describing though she goes on to say that occasionally it feels as though she has significant gas and at time she will have sharp shooting pains. Her abdomen has also become increasingly distended the last couple of days and she has not been able to eat or drink much due to feeling so full and distended. She admits to chronic constipation for which she takes Dulcolax each evening though she typically only has a bowel movement every 4 days or so with the last bowel movement being yesterday morning. She describes passing a small amount of firm, pellet-like stool although it sounds like this morning a small amount of water like stool came out as well. CT of the abdomen and pelvis done on arrival to the emergency department showed massive gaseous distention of the colon without obstructing sigmoid stricture or mass. Her vital signs and lab work were not consistent with toxic megacolon, and she has been admitted for consultation with both GI and surgery. At the time my evaluation she has just returned from Radiology after receiving a Hypaque enema. She has been passing a small amount of gas and feels a bit less distended at this time. She denies fever, chills, sweats, vomiting, and dysuria. She is not having any significant pain at this time. Review of Systems Review of Systems: Twelve systems were reviewed with pertinent positives and negatives as per HPI. She denies fever, chills, and sweats. No recent cold or flu symptoms. No known exposure to those positive for COVID 19. Except as documented, all other systems were reviewed and are negative. COUNTS INCLUDE 234 BEDS AT THE [facility] Past Medical History Medical History Anxiety Atrial fibrillation Chronic anticoagulation Chronic low back pain with sciatica Chronic wound of extremity 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 uDmont for quite some time. Status post excision with full-thickness skin graft on 11/27/2020. Deep venous thrombosis (2014) Dementia Depression Essential hypertension Hypothyroidism Mild episode of recurrent major depressive disorder Mild intermittent asthma without complication Mixed hyperlipidemia Morbid obesity Obstructive sleep apnea Intolerant to CPAP. Pulmonary embolism (2014) Right ventricular systolic dysfunction Severe right ventricular enlargement with [id number] systolic dysfunction noted on echocardiogram dated 08/26/2014. Normal LV size and function with an EF of 65 to 70%. Severe pulmonary hypertension RVSP of 66 mmHg on echocardiogram dated 08/26/2014. Surgical History Surgical History History of appendectomy History of bariatric surgery Gastropexy for obesity in 1978 and 1983. History of bilateral knee replacement History of carpal tunnel release History of cholecystectomy History of colonoscopy with polypectomy History of dilation and curettage (1973) History of hysterectomy (1996) History of left breast biopsy History of tonsillectomy History of tubal ligation (1977) Presence of IVC filter Status post full thickness skin graft (11/27/20) Excision 3 cm bleeding varicosity lesion of the right lateral leg with full-thickness skin graft per Dr. Dumont. Family History Family History Mother Diabetes mellitus age 51 Father Heart disease of a [place] age 55 Family history of coronary artery disease Sibling Blood clot in vein Other Family history of alcoh
--- NOTE | 2021-01-08 16:34 | WPDGICN ---
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 I have discussed the case with surgery. Plan to proceed with Gastrografin lower GI. We will try Dulcolax suppositories. If this fails to encourage bowel action then a colonoscopy for decompression will be performed in the morning. 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 (4) Atrial fibrillation: Code(s): I48.91 - Unspecified atrial fibrillation Status: Acute (5) Ventral hernia: Code(s): K43.9 - Ventral hernia without obstruction or gangrene Status: Acute (6) History of colonoscopy with polypectomy: Code(s): Z98.890 - Other specified postprocedural states; Z86.010 - Personal history of colonic polyps Status: Inactive Assessment and Plan: Patient has history of adenomatous colon polyp removed by colonoscopy in 2013. GI Consult Note Consult date/time: 01/08/21 16:34 HPI: Lorraine Mazariegos is a 65 year old female I am asked to see because of colonic distention. Patient reports vague abdominal pain for several months. Over the last 2 days her abdomen became quite distended. She had difficulty having a bowel movement. Because of discomfort she went to the emergency room where a CT scan was performed. Large colon distention was identified with no specific obstruction. She has a large right abdominal hernia that contains her cecum. Past medical history is significant for atrial fibrillation for which she is on chronic anticoagulation. She has a history of prior appendectomy. Has had knee replacements and a cholecystectomy in the past. Review of Systems Review of Systems: All systems reviewed & are unremarkable except as noted in HPI and below [facility] Past Medical History Medical History (Updated 01/08/21 @ 16:38 by Freddy Esqueda MD) Anxiety Atrial fibrillation Chronic anticoagulation Chronic low back pain with sciatica Chronic wound of extremity 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 Dumont for quite some time. Status post excision with full-thickness skin graft on 11/27/2020. Deep venous thrombosis (2014) Dementia Depression Essential hypertension Hypothyroidism Mild episode of recurrent major depressive disorder Mild intermittent asthma without complication Mixed hyperlipidemia Morbid obesity Obstructive sleep apnea Intolerant to CPAP. Pulmonary embolism (2014) Right ventricular systolic dysfunction Severe right ventricular enlargement with [id number] systolic dysfunction noted on echocardiogram dated 08/26/2014. Normal LV size and function with an EF of 65 to 70%. Severe pulmonary hypertension RVSP of 66 mmHg on echocardiogram dated 08/26/2014. Surgical History Surgical History (Updated 01/08/21 @ 16:39 by Freddy Esqueda MD) History of appendectomy History of bariatric surgery Gastropexy for obesity in 1978 and 1983. History of bilateral knee replacement History of carpal tunnel release History of cholecystectomy History of colonoscopy with polypectomy History of dilation and curettage (1973) History of hysterectomy (1996) History of left breast biopsy History of tonsillectomy History of tubal ligation (1977) Presence of IVC filter Status post full thickness skin graft (11/27/20) Excision 3 cm bleeding varicosity lesion of the right lateral leg with full-thickness skin graft per Dr. Dumont. Family History Family His
[2021-01-08] MEDS: BISACODYL 10 MG SUPPOSITORY RECTAL (17:56)
--- NOTE | 2021-01-08 18:05 | PC.NURSE ---
[id number]elli Keith Admission Note: The patient,Lorraine Mazariegos,65 y/o, was given written information regarding hospital policies, unit procedures and contact persons. Patient's smoking status: .
[2021-01-08] MEDS: METOPROLOL TARTRATE INJ 5 MG/5 ML VIAL IV PUSH (23:01)
[2021-01-09] VITALS (14 sets, daily range): BP systolic 103–136; BP diastolic 68–96; PULSE 108–144; RESP 16–22; TEMP 35.6–36.9; O2SAT 97–100
[2021-01-09] MEDS: LEVOTHYROXINE SODIUM INJ 100 MCG/5 ML VIAL 12.5 MCG IV PUSH (05:36)
[2021-01-09] MEDS: METOPROLOL TARTRATE INJ 5 MG/5 ML VIAL IV PUSH (05:36)
[2021-01-09 05:42] LABS: Hematocrit 34.2 % (37.0-47.0); Hemoglobin 10.5 g/dL (12.0-15.0); Mean Corpuscular HGB Conc 30.7 g/dl (32-36); Mean Corpuscular Hemoglobin 25.3 pg (26-34); Mean Corpuscular Volume 82.4 fl (80-100); Mean Platelet Volume 8.7 fl (7.4-10.4); Platelet Count Result 200 k/mm3 (150-375); Red Blood Count 4.15 M/mm3 (4.2-5.4); Red Cell Distribution Width 15.3 % (11.5-14.5); White Blood Count 5.2 K/mm3 (4.5-10.0)
[2021-01-09 05:43] LABS: Anion Gap 11 mmol/L (8-16); Blood Urea Nitrogen 19 mg/dL (7-17); Calcium 8.8 mg/dL (8.4-10.2); Carbon Dioxide 24 mmol/L (22-30); Chloride 100 mmol/L (98-107); Estimated CRCL calculation 72 ml/min; Estimated Glomerular Filt Rate 55; Glucose 125 mg/dL (65-110); Magnesium 1.8 mg/dL (1.6-2.3); Potassium 3.7 mmol/L (3.4-5.0); Sodium 135 mmol/L (137-145)
[2021-01-09] MEDS: DIGOXIN INJ 250 MCG/ML 2 ML AMP (*BKC) 125 MCG IV PUSH (06:27)
[2021-01-09 07:08] LABS: Hemoglobin A1C 6.2 % (<5.7)
--- NOTE | 2021-01-09 07:28 | ECG_ITS ---
Measurements Intervals [place] Rate: 142 P: SD: 0 QRS: -33 QRSD: 108 T: 141 QT: 303 QTc: 467 Interpretive Statements ATRIAL FIBRILLATION WITH RAPID VENTRICULAR RESPONSE LEFT AXIS DEVIATION POOR R WAVE PROGRESSION, ANTERIOR LEADS ST-T WAVE ABNORMALITY IN HIGH LATERAL LEADS- CONSIDER ISCHEMIA ABNORMAL ECG Electronically Signed On 01-09-2021 7:51:04 CDT by Glenroy Ashraf D.O.
[2021-01-09] MEDS: dilTIAZem HCl INJ 25 MG/5 ML VIAL 10 MG IV PUSH (08:20)
--- NOTE | 2021-01-09 09:06 | WPDGIPROGNO ---
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 Gastrografin enema revealed no obstruction last night. Patient is allergic to Reglan. Plan to try dulcolax suppositories. Cleansing enemas may be of some benefit. Patient is less distended today will defer colonoscopy as this likely is going to add more air at this time. Obstructive series should be performed daily. Will try to defer diet for the immediate future. (2) Ventral hernia: Code(s): K43.9 - Ventral hernia without obstruction or gangrene Status: Acute (3) Dilated bowel: Status: Acute Assessment and Plan: Monitor with daily obstructive series. 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 (5) Atrial fibrillation: Code(s): I48.91 - Unspecified atrial fibrillation Status: Acute (6) Morbid obesity: Code(s): E66.01 - Morbid (severe) obesity due to excess calories Status: Acute Subjective Date/time seen: 01/09/21 09:06 Patient alert this morning reports no recent bowel movement. No nausea or vomiting described. She has less abdominal discomfort this morning. Review of Systems Review of Systems: All systems reviewed & are unremarkable except as noted in HPI and below Exam Narrative: Physical exam reveals patient be alert. Vital signs are stable. HEENT exam reveals no icterus. Lungs are clear. Heart without murmur. Abdomen is obese. At significant tympany is noted abdomen much softer today compared to yesterday. Right lower quadrant hernia noted. Extremities without clubbing cyanosis or edema. Objective Data Vital Signs Vital Signs: Vital Signs - 24 hr 01/08/21 10:15 01/08/21 10:21 01/08/21 10:30 Temperature 97.3 F L Pulse Rate 117 H 121 H Respiratory Rate 18 18 21 H Blood Pressure 117/83 Pulse Oximetry 98 01/08/21 10:31 01/08/21 10:32 01/08/21 10:35 Temperature Pulse Rate 108 H 123 H 131 H Respiratory Rate 20 21 H 20 Blood Pressure 85/56 L Pulse Oximetry 01/08/21 10:39 01/08/21 10:45 01/08/21 10:46 Temperature Pulse Rate 114 H 127 H 122 H Respiratory Rate 20 16 15 Blood Pressure 84/74 L 98/64 L Pulse Oximetry 01/08/21 10:47 01/08/21 11:06 01/08/21 11:15 Temperature Pulse Rate 118 H 103 H 112 H Respiratory Rate 19 13 18 Blood Pressure Pulse Oximetry 01/08/21 11:30 01/08/21 11:45 01/08/21 12:00 Temperature Pulse Rate 122 H 96 131 H Respiratory Rate 19 19 18 Blood Pressure Pulse Oximetry 01/08/21 12:15 01/08/21 12:30 01/08/21 12:31 Temperature Pulse Rate 89 108 H 118 H Respiratory Rate 19 18 18 Blood Pressure 113/68 Pulse Oximetry 01/08/21 12:32 01/08/21 12:45 01/08/21 12:47 Temperature Pulse Rate 124 H 111 H 116 H Respiratory Rate 20 19 13 Blood Pressure 114/76 Pulse Oximetry 97 01/08/21 12:49 01/08/21 13:00 01/08/21 13:02 Temperature Pulse Rate 104 H 122 H 123 H Respiratory Rate 15 19 17 Blood Pressure 114/76 Pulse Oximetry 01/08/21 13:14 01/08/21 13:15 01/08/21 13:16 Temperature Pulse Rate 100 109 H 103 H Respiratory Rate 18 16 20 Blood Pressure 116/61 Pulse Oximetry 01/08/21 13:30 01/08/21 13:32 01/08/21 13:55 Temperature Pulse Rate 93 96 118 H Respiratory Rate 19 18 18 Blood Pressure 104/53 L Pulse Oximetry 01/08/21 14:00 01/08/21 14:08 01/08/21 14:09 Temperature Pulse Rate 120 H 104 H 135 H Respiratory Rate 19 20 20 Blood Pressure Pulse Oximetry 98 01/08/21 14:10 01/08/21 14:11 01/08/21 14:15 Temperature Pulse Rate 108 H 111 H 119 H Respiratory Rate 19 21 H 18 Blood Pressure 108/68 Pulse Oximetry 97 95 01/08/21 14:17
--- NOTE | 2021-01-09 09:46 | PM.PNGS ---
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 Status: Acute Assessment and Plan: HE c no obstruction, +bowel fxn, start clears, cont bowel regimen per GI Subjective Subjective Date/Time Seen: 01/09/21 09:46 feels a little better, +BM last night, +flatus Review of Systems Review of Systems: All systems reviewed & are unremarkable except as noted in HPI and below Exam Const: General: cooperative, comfortable and no acute distress Nutritional Appearance: obese Orientation/consciousness: patient oriented x3 Limitations: no limitations Resp: Effort & Inspection: normal respiratory effort Auscultation: diminished lung sounds Cardio: Rate: regular rate Rhythm: regular rhythm GI: Inspection: normal to inspection and distended GI Palp: Yes Soft to palpation, No Tenderness to palpation present (GI) and Yes Hernia present Other: soft, mod dist, NT Objective Data Vital Signs Vital Signs: Vital Signs - 24 hr 01/08/21 10:15 01/08/21 10:21 01/08/21 10:30 Temperature 36.3 C L Pulse Rate 117 H 121 H Respiratory Rate 18 18 21 H Blood Pressure 117/83 Pulse Oximetry 98 01/08/21 10:31 01/08/21 10:32 01/08/21 10:35 Temperature Pulse Rate 108 H 123 H 131 H Respiratory Rate 20 21 H 20 Blood Pressure 85/56 L Pulse Oximetry 01/08/21 10:39 01/08/21 10:45 01/08/21 10:46 Temperature Pulse Rate 114 H 127 H 122 H Respiratory Rate 20 16 15 Blood Pressure 84/74 L 98/64 L Pulse Oximetry 01/08/21 10:47 01/08/21 11:06 01/08/21 11:15 Temperature Pulse Rate 118 H 103 H 112 H Respiratory Rate 19 13 18 Blood Pressure Pulse Oximetry 01/08/21 11:30 01/08/21 11:45 01/08/21 12:00 Temperature Pulse Rate 122 H 96 131 H Respiratory Rate 19 19 18 Blood Pressure Pulse Oximetry 01/08/21 12:15 01/08/21 12:30 01/08/21 12:31 Temperature Pulse Rate 89 108 H 118 H Respiratory Rate 19 18 18 Blood Pressure 113/68 Pulse Oximetry 01/08/21 12:32 01/08/21 12:45 01/08/21 12:47 Temperature Pulse Rate 124 H 111 H 116 H Respiratory Rate 20 19 13 Blood Pressure 114/76 Pulse Oximetry 97 01/08/21 12:49 01/08/21 13:00 01/08/21 13:02 Temperature Pulse Rate 104 H 122 H 123 H Respiratory Rate 15 19 17 Blood Pressure 114/76 Pulse Oximetry 01/08/21 13:14 01/08/21 13:15 01/08/21 13:16 Temperature Pulse Rate 100 109 H 103 H Respiratory Rate 18 16 20 Blood Pressure 116/61 Pulse Oximetry 01/08/21 13:30 01/08/21 13:32 01/08/21 13:55 Temperature Pulse Rate 93 96 118 H Respiratory Rate 19 18 18 Blood Pressure 104/53 L Pulse Oximetry 01/08/21 14:00 01/08/21 14:08 01/08/21 14:09 Temperature Pulse Rate 120 H 104 H 135 H Respiratory Rate 19 20 20 Blood Pressure Pulse Oximetry 98 01/08/21 14:10 01/08/21 14:11 01/08/21 14:15 Temperature Pulse Rate 108 H 111 H 119 H Respiratory Rate 19 21 H 18 Blood Pressure 108/68 Pulse Oximetry 97 95 01/08/21 14:17 01/08/21 14:30 01/08/21 14:31 Temperature Pulse Rate 117 H 99 117 H Respiratory Rate 17 23 H 22 H Blood Pressure 122/77 117/89 Pulse Oximetry 87 L 01/08/21 14:49 01/08/21 15:00 01/08/21 15:02 Temperature Pulse Rate 119 H 117 H 111 H Respiratory Rate 20 18 19 Blood Pressure 116/67 Pulse Oximetry 01/08/21 15:15 01/08/21 15:17 01/08/21 15:18 Temperature Pulse Rate 112 H 108 H 107 H Respiratory Rate 19 16 15 Blood Pressure 106/56 L Pulse Oximetry 01/08/21 15:28 01/08/21 15:30 01/08/21 15:31 Temperature Pulse Rate 120 H 106 H 126 H Respiratory Rate 21 H 18 14 Blood Pressure 121/88 Pulse Oximetry 97 95 01/08/21 15:48 01/08/21 16:00 01/08/21 16:02 Temperature Pulse Rate 110 H 112 H 118 H Respiratory Rate 20 20 18 Blood Pressure 101/83 Pulse Oximetry 99 94 94 01/08/21 16:38 01/08/21 20:00 01/08/21 20:20 Temperature 36.7 C 3
--- NOTE | 2021-01-09 10:19 | PC.NURSE ---
Patient transferred to room 211, in IMU. All belongings were sent with patient.
--- NOTE | 2021-01-09 10:24 | PC.NURSE ---
This patient, Lorraine Mazariegos, was received from [ [facility] ] on 01/09/21 at [facility]. Patient/family oriented to unit policies and routines
[2021-01-09] MEDS: METOPROLOL TARTRATE 50 MG TAB PO ×2 (14:03→21:21)
--- NOTE | 2021-01-09 14:06 | PM.IMPN ---
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 CT showed massive gaseous distension without obstructing stricture or mass. Gastrografin enema yesterday with no obstruction. Appreciate Gastroenterology and General surgery consultation. She had a small liquid stool today. Advanced to clear liquid diet per General surgery. Proceed with daily obstructive series imaging per GI recommendations. Continue with Dulcolax suppositories. (2) Atrial fibrillation: Code(s): I48.91 - Unspecified atrial fibrillation Status: Acute Assessment and Plan: With rapid ventricular response. Rate elevated up to 140s today. She has been moved to IMU and started on Cardizem drip with 10 mg loading dose. Consultation to cardiology, recommendations are appreciated. Continue xarelto (3) Essential hypertension: Code(s): I10 - Essential (primary) hypertension Status: Acute Assessment and Plan: Blood pressures were reviewed and they were initially soft in the emergency department but have remained stable upon admission. Last BP 122/75. Continue to monitor blood pressure trends closely (4) Anemia: Code(s): D64.9 - Anemia, unspecified Status: Acute Assessment and Plan: Hemoglobin and hematocrit are stable on review of prior labs. Continue to monitor (5) Hypothyroidism: Code(s): E03.9 - Hypothyroidism, unspecified Status: Acute Assessment and Plan: TSH is within normal limits. Transition back to p.o. levothyroxine as she is no longer NPO (6) Chronic anticoagulation: Code(s): Z79.01 - superintendent terminal (current) use of anticoagulants Status: Acute Assessment and Plan: Xarelto initially held in the event surgical intervention may be required. Discussed with Dr. haider, general surgeon and will resume Xarelto at this time as no surgery is indicated. (7) Prediabetes: Code(s): R73.03 - Prediabetes Status: Acute Assessment and Plan: A1c is 6.2. She is not on any medications. Will discuss lifestyle changes including diet and exercise and she should follow-up with her PCP. Subjective Date/time seen: 01/09/21 14:06 Interval history: Date of service: 01/09/2021 Lorraine Mazariegos is a 65-year-old female with a history of atrial fibrillation on chronic anticoagulation, hypertension, hypothyroidism, FLORINA, and several other comorbidities who is seen in follow-up for abdominal pain and distension. She is pretty well today. She is still endorsing abdominal cramping which she rates as 6/10. She feels very bloated. She had a small amount of liquid brown stool today. She is passing gas. She denies nausea, vomiting, fever, or chills. She denies shortness of breath, chest pain, or palpitations. Her heart rate has been very elevated today, though she notes she has not noticed this at all and is feeling at her baseline. Denies headache or body aches. No leg pain or swelling. She tolerated clear liquids today with no issues. Denies dizziness or lightheadedness. Review of Systems Review of Systems: All systems reviewed & are unremarkable except as noted in HPI and below Exam Narrative: Ms Mzaariegos is morbidly obese, well-appearing 65-year-old female who is lying supine in bed. She appears comfortable and is in NARD. Neuro: awake, alert and oriented x4, speech clear, no focal neuro deficits noted HEENMT: normocephalic, atraumatic, EOMI, sclerae anicteric, moist oral mucosa Neck: supple, no lymphadenopathy Respiratory: clear to auscultation anteriorly, nonlabored breathing Cardio: Tachycardic, irregular rhythm Abdomen: Obese, distended, normoactive bowel sounds, firm, nontender to palpation. Large hernia in right lower quadrant that is soft but not able to be reduced. Extremities: n
--- NOTE | 2021-01-09 14:06 | PM.CNCAR ---
Assessment and Plan Assessment and plan (1) Atrial fibrillation with rapid ventricular response: Code(s): I48.91 - Unspecified atrial fibrillation Status: Acute Assessment and Plan: Poorly controlled heart rate secondary to acute illness with Buddy syndrome and temporary discontinuation of AV héctor blocking agents. Agree with IV diltiazem up titrate as BP and heart rate permit. Resume oral rate all if able with starting metoprolol 50 mg p.o. q.8 hours. Will transition to oral diltiazem with heart rate better controlled. Resume systemic anticoagulation for stroke risk reduction when okay with surgery and or GI. Patient is hemodynamically stable and asymptomatic from her atrial fibrillation. Electrolytes stable. Monitor renal function. Discussed with the patient who is in agreement with plan of care. Rate control strategy plan of care. Patient is not currently in decompensated heart failure or hemodynamically unstable at this time. Will observe patient's response to therapy with recommendation to follow. (2) Essential (primary) hypertension: Code(s): I10 - Essential (primary) hypertension Status: Acute Assessment and Plan: BP control. Monitor tolerance with AV héctor blocking agents. Monitor volume status. (3) Severe pulmonary hypertension: Code(s): I27.20 - Pulmonary hypertension, unspecified Status: Acute Assessment and Plan: Secondary to morbid obesity, untreated FLORINA. (4) History of pulmonary embolus (PE): Onset Date: 2014 Code(s): Z86.711 - Personal history of pulmonary embolism Status: Acute Assessment and Plan: Resume systemic anticoagulation (5) Obstructive sleep apnea: Code(s): G47.33 - Obstructive sleep apnea (adult) (pediatric) Status: Chronic Assessment and Plan: Reportedly intolerant to CPAP. (6) Morbid obesity: Code(s): E66.01 - Morbid (severe) obesity due to excess calories Status: Acute Assessment and Plan: Lifestyle modification, weight loss reduction in caloric intake. History of Present Illness History of Present Illness Consult date/time: Date of service: 01/09/21 14:06 Cardiology consultation at the request of Kateryna Henderson PA-C for opinion regarding atrial fibrillation with rapid ventricular response. Requesting physician: Kateryna Henderson PA-C Consult reason: atrial fibrillation Reason For Visit: dilated colon Narrative: Patient is a 65-year-old morbidly obese female with past medical history significant for hypertension, dyslipidemia, FLORINA untreated and atrial fibrillation diagnosed August 2020 on Xarelto, diltiazem, and metoprolol as an outpatient who presented 01/08/2021 with worsening abdominal pain progressive over the preceding couple days. Pain was reported as sharp progressive distension unable to eat or drink. CT abdomen pelvis revealed massive gaseous distention of the colon without obstruction. No clear evidence of toxic megacolon for which GI and surgery of both consulted. Clinical concern for Buddy syndrome with recommendations for conservative management including Hypaque enema. Since admission her oral rate control agents have been held and she has now developed atrial fibrillation with rapid ventricular response with heart rates 130s to 150s. Patient is completely unaware of atrial fibrillation. She denies chest pain, shortness of breath, palpitations. She feels better than she did at admission and denies abdominal pain. She was advanced to clear liquid diet today. Anticoagulation has also been held. She was just started on IV diltiazem 5 milligrams/hour continuous infusion yet her rate remains poorly controlled. Review of Systems Review of Systems: All systems reviewed & are unremarkable except as noted in HPI and below Constitutional: Constitutional: Reports as per HPI, Reports no additional constitutional complaints and Reports fatigue Eyes: Eyes: Rep
[2021-01-09] MEDS: RIVAROXABAN 20 MG TABLET PO (17:37)
[2021-01-09] MEDS: TOLNAFTATE 1% POWDER 45 GM BTL 1 APPLIC TOPICAL (21:21)
[2021-01-10] VITALS (19 sets, daily range): BP systolic 129–150; BP diastolic 76–101; PULSE 93–138; RESP 18–20; TEMP 36.1–37; O2SAT 94–99
[2021-01-10 05:45] LABS: Hematocrit 33.2 % (37.0-47.0); Hemoglobin 10.4 g/dL (12.0-15.0); Mean Corpuscular HGB Conc 31.3 g/dl (32-36); Mean Corpuscular Hemoglobin 25.1 pg (26-34); Mean Corpuscular Volume 80.2 fl (80-100); Mean Platelet Volume 9.3 fl (7.4-10.4); Platelet Count Result 209 k/mm3 (150-375); Red Blood Count 4.14 M/mm3 (4.2-5.4); Red Cell Distribution Width 15.3 % (11.5-14.5); White Blood Count 5.9 K/mm3 (4.5-10.0)
[2021-01-10 06:07] LABS: Anion Gap 7 mmol/L (8-16); Blood Urea Nitrogen 16 mg/dL (7-17); Calcium 8.5 mg/dL (8.4-10.2); Carbon Dioxide 24 mmol/L (22-30); Chloride 100 mmol/L (98-107); Estimated CRCL calculation 89 ml/min; Estimated Glomerular Filt Rate > 60; Glucose 129 mg/dL (65-110); Potassium 3.8 mmol/L (3.4-5.0); Sodium 131 mmol/L (137-145)
[2021-01-10] MEDS: LEVOTHYROXINE SODIUM 25 MCG TABLET PO (06:45)
[2021-01-10] MEDS: METOPROLOL TARTRATE 50 MG TAB PO ×3 (06:45→22:17)
[2021-01-10] MEDS: polyethylene glycoL 3350 17 GM POWD.PACK PO (08:33)
[2021-01-10] MEDS: TOLNAFTATE 1% POWDER 45 GM BTL 1 APPLIC TOPICAL ×2 (08:33→20:52)
--- NOTE | 2021-01-10 09:08 | WPDGIPROGNO ---
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 (4) Atrial fibrillation: Code(s): I48.91 - Unspecified atrial fibrillation Status: Acute Assessment and Plan: cardiology on board (5) Chronic anticoagulation: Code(s): Z79.01 - assisted (current) use of anticoagulants Status: Acute Assessment and Plan: Hold anticoagulation for now. (6) Morbid obesity: Code(s): E66.01 - Morbid (severe) obesity due to excess calories Status: Acute Assessment and Plan: eventually will need weight loss Subjective Date/time seen: 01/10/21 09:08 Interval history: she is having liquid stool after miralax, no major changes, denies nausea or vomiting and she is comfortable Review of Systems Review of Systems: All systems reviewed & are unremarkable except as noted in HPI and below Exam Const: General: comfortable and no acute distress Nutritional Appearance: obese morbidly obese HENMT: General nose exam: Normal nares present Eyes: Sclera: sclerae normal Neck: Neck: supple Resp: Auscultation: clear to auscultation bilaterally Cardio: Rate: regular rate GI: Inspection: distended GI Palp: No Tenderness to palpation present (GI) and No Guarding due to palpation present (GI) Percussion: Yes tympanic to percussion Auscultation: abnormal bowel sounds Other: RLQ hernia, no pain, no rebound, morbid obese Skin: General skin exam: no rashes or lesions noted Neuro: Speech: normal speech Motor exam (neuro): Normal motor muscle tone present throughout Extrem: General: normal to inspection Psych: Mental Status: mental status grossly normal Objective Data Vital Signs Vital Signs: Vital Signs - 24 hr 01/09/21 12:00 01/09/21 13:00 01/09/21 14:03 Temperature 98.4 F Pulse Rate 140 H 123 H 119 H Respiratory Rate 22 H Blood Pressure 122/75 Pulse Oximetry 98 01/09/21 16:00 01/09/21 18:00 01/09/21 20:00 Temperature 96.1 F L 97 F L Pulse Rate 121 H 108 H 128 H Respiratory Rate 18 18 Blood Pressure 103/74 136/96 H Pulse Oximetry 100 98 01/09/21 21:21 01/09/21 21:58 01/10/21 00:00 Temperature 97.1 F L Pulse Rate 118 H 116 H 124 H Respiratory Rate 20 Blood Pressure 136/76 Pulse Oximetry 94 01/10/21 02:00 01/10/21 03:05 01/10/21 04:00 Temperature 96.9 F L Pulse Rate 94 121 H 119 H Respiratory Rate 18 Blood Pressure 140/78 Pulse Oximetry 95 01/10/21 06:00 01/10/21 06:45 01/10/21 08:00 Temperature 98.6 F Pulse Rate 128 H 117 H 112 H Respiratory Rate 20 Blood Pressure 136/99 H Pulse Oximetry 96 Intake/Output Intake/Output: Intake & Output 01/07/21 01/08/21 01/09/21 01/10/21 23:59 23:59 23:59 23:59 Intake Total 2050 772 740 Output Total 400 450 Balance 2050 372 290 Meds/Results Medications: Active Medications Generic Name Dose Route Start Last Admin Trade Name Freq PRN Reason Stop Dose Admin Diltiazem HCl 100 mg in 100 mls @ 5 mls/hr 01/09/21 07:45 01/10/21 03:05 Cardizem 100 Mg/D5w 100 Ml IV CONT 5 mg/hr .Q20H JAYDEN 5 mls/hr Administration 5 MG/HR Levothyroxine Sodium 25 mcg 01/10/21 06:30 01/10/21 06:45 Levothyroxine Sodium 25 Mcg Tablet PO 25 mcg DAILY@0630 JAYDEN Administration Metoprolol Tartrate 50 mg 01/09/21 14:00 01/10/21 06:45 Metoprolol Tartrate 50 Mg Tab PO 50 mg Q8HR JAYDEN Administration Polyeth
--- NOTE | 2021-01-10 11:25 | PM.IMPN ---
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 Gastrografin enema yesterday with no obstruction. Appreciate Gastroenterology and General surgery consultation. Full liquid diet. Advance per General surgery and GI. She had a liquid stool today. Continue with MiraLax and Dulcolax suppository p.r.n. (2) Atrial fibrillation: Code(s): I48.91 - Unspecified atrial fibrillation Status: Acute Assessment and Plan: With rapid ventricular response up to 140s. She was moved to IMU and started on Cardizem drip. She is hemodynamically stable. She has been seen in consultation by cardiology. Continue with Cardizem drip and metoprolol tartrate 50 mg p.o. q8h. Better controlled today with HR in the low 100s. Continue xarelto (3) Essential hypertension: Code(s): I10 - Essential (primary) hypertension Status: Acute Assessment and Plan: Blood pressures were reviewed and they were initially soft in the emergency department but have remained stable upon admission. Last BP 136/99. Continue to monitor blood pressure trends closely (4) Anemia: Code(s): D64.9 - Anemia, unspecified Status: Acute Assessment and Plan: Hemoglobin and hematocrit are stable on review of prior labs. Continue to monitor (5) Hypothyroidism: Code(s): E03.9 - Hypothyroidism, unspecified Status: Acute Assessment and Plan: TSH is within normal limits. Continue p.o. levothyroxine (6) Chronic anticoagulation: Code(s): Z79.01 - intermediate (current) use of anticoagulants Status: Acute Assessment and Plan: Xarelto initially held in the event surgical intervention was required. Discussed with surgery and GI and Xarelto has been resumed as no surgery is indicated at this time. (7) Prediabetes: Code(s): R73.03 - Prediabetes Status: Acute Assessment and Plan: A1c is 6.2. She is not on any medications. Continue to discuss lifestyle changes including diet and exercise and she should follow-up with her PCP. Will provide her with glucometer prior to discharge so she can monitor sugars and record for PCP review. She will be educated on how to perform accuchecks. Subjective Date/time seen: 01/10/21 11:25 Interval history: Date of service: 01/10/2021 Lorraine Mazariegos is a 65-year-old female with a history of atrial fibrillation on chronic anticoagulation, hypertension, hypothyroidism, FLORINA, and several other comorbidities who is seen in follow-up for Buddy syndrome. She is doing well today. She endorses bloating but overall feels improvement. Denies abdominal pain or cramping. She is passing flatus and had some liquid stool this morning. She was able to tolerate a full liquid diet this morning. No nausea or vomiting. She denies shortness of breath, chest pain, or palpitations. No dizziness or lightheadedness. No urinary symptoms. She has no additional concerns at this time. She tells me that she is missing her while she is here the hospital. Review of Systems Review of Systems: All systems reviewed & are unremarkable except as noted in HPI and below Exam Narrative: Ms Mazariegos is morbidly obese, well-appearing 65-year-old female who is lying supine in bed. She appears comfortable and is in NARD. Neuro: awake, alert and oriented x4, speech clear, no focal neuro deficits noted HEENMT: normocephalic, atraumatic, EOMI, sclerae anicteric, moist oral mucosa Neck: supple, no lymphadenopathy Respiratory: clear to auscultation anteriorly, nonlabored breathing Cardio: Regular, irregular rhythm Abdomen: Obese, distended, normoactive bowel sounds, soft, nontender to palpation. Large hernia in right lower quadrant that is soft but not able to be reduced.
--- NOTE | 2021-01-10 12:24 | PM.PNCARD ---
Progress Note: A&P Assessment and Plan (1) Persistent atrial fibrillation: Code(s): I48.19 - Other persistent atrial fibrillation Status: Acute Assessment and Plan: Persistent atrial fibrillation, historically with a difficult to control heart rate. Recently transition from amiodarone to metoprolol plus Cardizem as an outpatient. Heart rate is still not well controlled, will increase Cardizem drip to 10 milligrams/hour. Continue p.o. metoprolol. (2) Chronic anticoagulation: Code(s): Z79.01 - [facility] (current) use of anticoagulants Status: Acute Assessment and Plan: Back on Xarelto 20 mg daily. (3) Gaseous abdominal distention: Code(s): R14.0 - Abdominal distension (gaseous) Status: Acute Assessment and Plan: Tolerating clear liquids. Diarrhea. (4) Essential hypertension: Code(s): I10 - Essential (primary) hypertension Status: Acute Assessment and Plan: Blood pressure controlled (5) Severe pulmonary hypertension: Code(s): I27.20 - Pulmonary hypertension, unspecified Status: Acute Assessment and Plan: Moderate to severe pulmonary hypertension due to sleep apnea and morbid obesity. Do not know whether old pulmonary emboli are contributing. (6) History of pulmonary embolus (PE): Onset Date: 2014 Code(s): Z86.711 - Personal history of pulmonary embolism Status: Acute Assessment and Plan: History of PE in 2015, on chronic anticoagulation. (7) Morbid obesity: Code(s): E66.01 - Morbid (severe) obesity due to excess calories Status: Acute Assessment and Plan: Weak and deconditioned as well. (8) Obstructive sleep apnea: Code(s): G47.33 - Obstructive sleep apnea (adult) (pediatric) Status: Chronic Assessment and Plan: Intolerant to CPAP in the past. Subjective Date/time seen: 01/10/21 12:24 Interval history: Follow-up for atrial fibrillation RVR in the setting of Buddy Syndrome and discontinuation of AV héctor blocking agents since being NPO. H/O chronic a fib, severe pulmonary hypertension, morbid obesity, untreated sleep apnea, remote PE. Date of service 01/10/2021: No palpitations, CP. [place] a little wheezy earlier. Not out of bed. Tele = a fib HR Currently taking metoprolol tartrate 50 mg Q 8, and diltiazem drip 5 milligrams/hour. Echo showed EF 50%, pulmonary artery pressure 52 mmHg. Review of Systems Constitutional: Constitutional: Reports fatigue and Reports weakness ENT: Denies epistaxis Cardiovascular: Cardiovascular: Denies chest pain, Denies pedal edema, Denies leg edema and Denies lightheadedness Respiratory: Respiratory: Denies dyspnea, Denies dyspnea on exertion and Reports wheezing Gastrointestinal: Gastrointestinal: Denies abdominal pain, Reports bloating and Reports diarrhea Genitourinary: Genitourinary: Denies hematuria Musculoskeletal: Musculoskeletal: Denies back pain Integumentary/Breasts: Skin/Breast: Denies wounds Neurologic: Reports confusion Comments: Has some baseline memory loss Psychiatric: Psychiatric: Reports no additional psychiatric complaints Exam Narrative: Morbidly obese WF sitting on wet sheets 2nd watery diarrhea. Const: General: comfortable and no acute distress HENMT: General nose exam: no epistaxis Eyes: EOM: EOMs intact bilaterally Neck: Neck: supple Resp: Effort & Inspection: normal respiratory effort Auscultation: clear to auscultation bilaterally Cardio: Rate: tachycardic Rhythm: abnormal rhythm irregularly irregular Heart sounds: no murmurs GI: Inspection: distended GI Palp: Yes Firmness to palpation present (GI) and No Tenderness to palpation present (GI) Au
[2021-01-10] MEDS: RIVAROXABAN 20 MG TABLET PO (16:24)
[2021-01-11] VITALS (21 sets, daily range): BP systolic 108–149; BP diastolic 79–103; PULSE 66–130; RESP 16–20; TEMP 36.3–36.9; O2SAT 94–100
[2021-01-11 05:35] LABS: Mean Corpuscular HGB Conc 31.4 g/dl (32-36); Mean Corpuscular Hemoglobin 24.9 pg (26-34); Mean Corpuscular Volume 79.4 fl (80-100); Mean Platelet Volume 8.7 fl (7.4-10.4); Platelet Count Result 248 k/mm3 (150-375); Red Blood Count 4.41 M/mm3 (4.2-5.4); Red Cell Distribution Width 15.4 % (11.5-14.5); White Blood Count 6.8 K/mm3 (4.5-10.0)
[2021-01-11 05:45] LABS: Anion Gap 6 mmol/L (8-16); Blood Urea Nitrogen 12 mg/dL (7-17); Calcium 8.7 mg/dL (8.4-10.2); Carbon Dioxide 26 mmol/L (22-30); Chloride 100 mmol/L (98-107); Estimated CRCL calculation 101 ml/min; Estimated Glomerular Filt Rate > 60; Glucose 135 mg/dL (65-110); Potassium 3.5 mmol/L (3.4-5.0); Sodium 132 mmol/L (137-145)
[2021-01-11] MEDS: LEVOTHYROXINE SODIUM 25 MCG TABLET PO (06:27)
[2021-01-11] MEDS: METOPROLOL TARTRATE 50 MG TAB PO ×3 (06:27→20:38)
[2021-01-11] MEDS: TOLNAFTATE 1% POWDER 45 GM BTL 1 APPLIC TOPICAL ×2 (09:00→20:38)
--- NOTE | 2021-01-11 09:42 | PM.PNGS ---
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 Status: Acute Assessment and Plan: Continue stimulation per GI recs Would help to get patient up and active more She would be extremely high risk for surgical intervention given her morbid obesity, pulmonary HTN, and large ventral hernia (2) Ventral hernia: Code(s): K43.9 - Ventral hernia without obstruction or gangrene Status: Acute (3) Atrial fibrillation: Code(s): I48.91 - Unspecified atrial fibrillation Status: Acute (4) Morbid obesity: Code(s): E66.01 - Morbid (severe) obesity due to excess calories Status: Acute (5) Severe pulmonary hypertension: Code(s): I27.20 - Pulmonary hypertension, unspecified Status: Acute Subjective Subjective Date/Time Seen: 01/11/21 09:42 Interval history: Patient still distended but no nausea or vomiting. Bowels moving. Not ambulating at all since being admitted. Exam GI: Inspection: distended GI Palp: No Tenderness to palpation present (GI) and No Guarding due to palpation present (GI) Objective Data Vital Signs Vital Signs: Vital Signs - 24 hr 01/10/21 10:00 01/10/21 12:00 01/10/21 14:00 Temperature 37.0 C Pulse Rate 110 H 93 132 H Respiratory Rate 20 Blood Pressure 129/82 Pulse Oximetry 95 01/10/21 15:00 01/10/21 16:00 01/10/21 16:19 Temperature 37.0 C Pulse Rate 118 H 138 H 118 H Respiratory Rate 20 Blood Pressure 150/101 H Pulse Oximetry 99 01/10/21 18:00 01/10/21 19:46 01/10/21 20:00 Temperature 36.1 C L Pulse Rate 125 H 95 105 H Respiratory Rate 20 20 Blood Pressure 136/87 Pulse Oximetry 96 96 01/10/21 22:00 01/10/21 22:17 01/10/21 23:50 Temperature 36.6 C Pulse Rate 117 H 116 H 106 H Respiratory Rate 20 Blood Pressure 134/89 Pulse Oximetry 96 01/11/21 00:00 01/11/21 01:59 01/11/21 02:27 Temperature Pulse Rate 99 105 H 105 H Respiratory Rate 20 Blood Pressure 134/89 Pulse Oximetry 96 01/11/21 04:00 01/11/21 06:00 01/11/21 06:27 Temperature 36.9 C Pulse Rate 127 H 101 H 107 H Respiratory Rate 20 Blood Pressure 108/79 Pulse Oximetry 96 01/11/21 07:52 Temperature 36.4 C Pulse Rate 101 H Respiratory Rate 18 Blood Pressure 127/93 H Pulse Oximetry 96 Intake/Output Intake/Output: Intake & Output 01/08/21 01/09/21 01/10/21 01/11/21 23:59 23:59 23:59 23:59 Intake Total 2050 772 1435 470 Output Total 400 450 700 Balance 2049 372 985 -230 Meds/Results Medications: Active Medications Generic Name Dose Route Start Last Admin Trade Name Freq PRN Reason Stop Dose Admin Bisacodyl 10 mg 01/10/21 09:53 Bisacodyl 10 Mg Suppository RECTAL QAM PRN Constipation Diltiazem HCl 100 mg in 100 mls @ 10 mls/hr 01/09/21 07:45 01/11/21 02:27 Cardizem 100 Mg/D5w 100 Ml IV CONT 10 mg/hr .Q10H JAYDEN 10 mls/hr Administration 10 MG/HR Levothyroxine Sodium 25 mcg 01/10/21 06:30 01/11/21 06:27 Levothyroxine Sodium 25 Mcg Tablet PO 25 mcg DAILY@0630 JAYDEN Administration Metoprolol Tartrate 50 mg 01/09/21 14:00 01/11/21 06:27 Metoprolol Tartrate 50 Mg Tab PO 50 mg Q8HR JAYDEN Administration Polyethylene Glycol 17 gm 01/10/21 09:00 01/10/21 08:33 Polyethylene Glycol 3350 17 Gm Powd.Pack PO 17 gm QAM JAYDEN Administration Rivaroxaban 20 mg 01/09/21 18:00 01/10/21 16:24 Rivaroxaban 20 Mg Tablet PO 20 mg QPM JAYDEN Administration Tolnaftate 1 applic 01/09/21 09:00 01/11/21 09:00 Tolnaftate 1% Powder 45 Gm Btl TOPICAL 1 applic Q12HR JAYDEN Administration Radiology Results: ITS Impressions Abdomen/Pelvis CT 01/08/21 11:12 IMPRESSION: 1. Massive gaseous distention of colon without obstructing sigmoid stricture or mass. Consider toxic megacolon. Recommend baseline KUB. 2. Large right lower quadrant hernia containing cecum and nonobstructe
--- NOTE | 2021-01-11 11:24 | WPDGIPROGNO ---
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 Status: Acute Assessment and Plan: continue with medical management- supp and ok to give miralax as needed, abdomen still distended but no nausea or pain encourage to have liquid diet, still poor appetite surgery on board but will be high risk for surgical intervention given several comorbidities and morbid obesity also needs to be more active and participate with PT (2) Ventral hernia: Code(s): K43.9 - Ventral hernia without obstruction or gangrene Status: Acute Assessment and Plan: no pain, unchanged (3) Dilated bowel: Status: Acute (4) Atrial fibrillation: Code(s): I48.91 - Unspecified atrial fibrillation Status: Acute Assessment and Plan: cardiology on board (5) Chronic anticoagulation: Code(s): Z79.01 - [facility] (current) use of anticoagulants Status: Acute Assessment and Plan: ok to use xarelto, no plan for surgical or endoscopic intervention (6) Morbid obesity: Code(s): E66.01 - Morbid (severe) obesity due to excess calories Status: Acute Assessment and Plan: eventually will need weight loss Subjective Date/time seen: 01/11/21 11:24 Interval history: she is feeling better, RN and patient say that had 3 BM's yesterday and one today, patient requesting to have miralax as needed instead. Still poor appetite but denies abdominal pain or nausea Review of Systems Review of Systems: All systems reviewed & are unremarkable except as noted in HPI and below Exam Const: General: comfortable and no acute distress Nutritional Appearance: obese morbidly obese HENMT: General nose exam: Normal nares present Eyes: Sclera: sclerae normal Neck: Neck: supple Resp: Auscultation: clear to auscultation bilaterally Cardio: Rate: regular rate GI: Inspection: distended GI Palp: No Tenderness to palpation present (GI) and No Guarding due to palpation present (GI) Percussion: Yes tympanic to percussion Auscultation: abnormal bowel sounds Other: large RLQ hernia, no pain, no rebound, morbid obese Skin: General skin exam: no rashes or lesions noted Neuro: Speech: normal speech Motor exam (neuro): Normal motor muscle tone present throughout Extrem: General: normal to inspection Psych: Mental Status: mental status grossly normal Objective Data Vital Signs Vital Signs: Vital Signs - 24 hr 01/10/21 12:00 01/10/21 14:00 01/10/21 15:00 Temperature 98.6 F Pulse Rate 93 132 H 118 H Respiratory Rate 20 Blood Pressure 129/82 Pulse Oximetry 95 01/10/21 16:00 01/10/21 16:19 01/10/21 18:00 Temperature 98.6 F Pulse Rate 138 H 118 H 125 H Respiratory Rate 20 Blood Pressure 150/101 H Pulse Oximetry 99 01/10/21 19:46 01/10/21 20:00 01/10/21 22:00 Temperature 97 F L Pulse Rate 95 105 H 117 H Respiratory Rate 20 20 Blood Pressure 136/87 Pulse Oximetry 96 96 01/10/21 22:17 01/10/21 23:50 01/11/21 00:00 Temperature 98 F Pulse Rate 116 H 106 H 99 Respiratory Rate 20 20 Blood Pressure 134/89 Pulse Oximetry 96 96 01/11/21 01:59 01/11/21 02:27 01/11/21 04:00 Temperature 98.4 F Pulse Rate 105 H 105 H 127 H Respiratory Rate 20 Blood Pressure 134/89 108/79 Pulse Oximetry 96 01/11/21 06:00 01/11/21 06:27 01/11/21 07:52 Temperature 97.6 F Pulse Rate 101 H 107 H 101 H Respiratory Rate 18 Blood Pressure 127/93 H Pulse Oximetry 96 Intake/Output Intake/Output: Intake & Output 01/08/21 01/09/21 01/10/21 01/11/21 23:59 23:59 23:59 23:59 Intake Total 2050 772 1435 470 Output Total 400 450 700 Balance 2050 372 985 -230 Meds/Results Medications: Active Medications Generic Name Dose Route Start Last Admin Trade Name Freq PRN Reason Stop Dose Admin Bisacodyl 10 mg 01/10/21 09:53 Bisacodyl 10 Mg Suppository RECTAL QAM PRN Con
--- NOTE | 2021-01-11 11:25 | PM.PNCARD ---
Progress Note: A&P Assessment and Plan (1) Persistent atrial fibrillation: Code(s): I48.19 - Other persistent atrial fibrillation Status: Acute Assessment and Plan: Persistent atrial fibrillation, historically with a difficult to control heart rate. Recently transitioned from amiodarone to metoprolol plus Cardizem as an outpatient. Heart rate is better on Cardizem drip to 10 milligrams/hour. Will try changing Cardizem to p.o. Continue p.o. metoprolol. Increase the patient's activity. Patient agrees to sit up in a chair (2) Chronic anticoagulation: Code(s): Z79.01 - residential (current) use of anticoagulants Status: Acute Assessment and Plan: Back on Xarelto 20 mg daily. (3) Gaseous abdominal distention: Code(s): R14.0 - Abdominal distension (gaseous) Status: Acute Assessment and Plan: Tolerating clear liquids. Diarrhea. (4) Essential hypertension: Code(s): I10 - Essential (primary) hypertension Status: Acute Assessment and Plan: Blood pressure controlled (5) Severe pulmonary hypertension: Code(s): I27.20 - Pulmonary hypertension, unspecified Status: Acute Assessment and Plan: Moderate to severe pulmonary hypertension due to sleep apnea and morbid obesity. Do not know whether old pulmonary emboli are contributing. (6) History of pulmonary embolus (PE): Onset Date: 2014 Code(s): Z86.711 - Personal history of pulmonary embolism Status: Acute Assessment and Plan: History of PE in 2015, on chronic anticoagulation. (7) Morbid obesity: Code(s): E66.01 - Morbid (severe) obesity due to excess calories Status: Acute Assessment and Plan: Weak and deconditioned as well. (8) Obstructive sleep apnea: Code(s): G47.33 - Obstructive sleep apnea (adult) (pediatric) Status: Chronic Assessment and Plan: Intolerant to CPAP in the past. Subjective Date/time seen: 01/11/21 11:25 Interval history: Follow-up for atrial fibrillation RVR in the setting of Buddy Syndrome and discontinuation of AV héctor blocking agents since being NPO. H/O chronic a fib, severe pulmonary hypertension, morbid obesity, untreated sleep apnea, remote PE. Date of service 01/10/2021: No palpitations, CP. [place] a little wheezy earlier. Not out of bed. Tele = a fib HR Currently taking metoprolol tartrate 50 mg Q 8, and diltiazem drip 5 milligrams/hour. Echo showed EF 50%, pulmonary artery pressure 52 mmHg. Cardizem drip increased to 10 milligrams/hour to control AFib. Date of service 01/11/2021: Not much appetite, no shortness of breath or palpitations. Still with diarrhea. Has not yet been out of bed. Telemetry shows AFib rate 85-110. Review of Systems Constitutional: Constitutional: Reports fatigue and Reports weakness Eyes: Eyes: Reports no additional eye complaints ENT: Denies epistaxis Cardiovascular: Cardiovascular: Denies chest pain, Denies pedal edema, Denies leg edema and Denies lightheadedness Respiratory: Respiratory: Denies cough, Denies dyspnea and Denies dyspnea on exertion Gastrointestinal: Gastrointestinal: Denies abdominal pain, Reports bloating, Reports diarrhea and Reports nausea Genitourinary: Genitourinary: Denies hematuria Musculoskeletal: Musculoskeletal: Denies back pain Integumentary/Breasts: Skin/Breast: Denies rash Neurologic: Reports system reviewed and no additional complaints, except as documented Psychiatric: Psychiatric: Reports no additional psychiatric complaints Exam Narrative: Morbidly obese WF no distress Const: General: comfortable, no acute distress and confusion Orientation/consciousness: confusion HENMT: General n
--- NOTE | 2021-01-11 13:07 | PM.IMPN ---
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 Gastrografin enema yesterday with no obstruction. Appreciate Gastroenterology and General surgery consultation. Full liquid diet. Advance per General surgery and GI. She is having loose stools. Continue with MiraLax and Dulcolax suppository prn. Increase mobility. (2) Atrial fibrillation: Code(s): I48.91 - Unspecified atrial fibrillation Status: Acute Assessment and Plan: With rapid ventricular response up to 140s. She was moved to IMU and started on Cardizem drip. She is hemodynamically stable. She has been seen in consultation by cardiology. Continue with Cardizem drip increased to 10 mg/hr and metoprolol tartrate 50 mg p.o. q8h. Continue xarelto. Appreciate cardiology recommendations. (3) Essential hypertension: Code(s): I10 - Essential (primary) hypertension Status: Acute Assessment and Plan: Blood pressures were reviewed and they were initially soft in the emergency department but have remained stable since admission. Last BP 128/81. Continue to monitor blood pressure trends (4) Anemia: Code(s): D64.9 - Anemia, unspecified Status: Acute Assessment and Plan: Hemoglobin and hematocrit are stable on review of prior labs. Continue to monitor (5) Hypothyroidism: Code(s): E03.9 - Hypothyroidism, unspecified Status: Acute Assessment and Plan: TSH is within normal limits. Continue p.o. 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 Discussed with surgery and GI and Xarelto has been resumed as no surgery is indicated at this time. (7) Prediabetes: Code(s): R73.03 - Prediabetes Status: Acute Assessment and Plan: A1c is 6.2. She is not on any medications. Continue to discuss lifestyle changes including diet and exercise and she should follow-up with her PCP. Will provide her with glucometer prior to discharge so she can monitor sugars and record for PCP review. She will be educated on how to perform accuchecks. Subjective Date/time seen: 01/11/21 13:07 Interval history: Date of service: 01/11/2021 Lorraine Mazariegos is a 65-year-old female with a history of atrial fibrillation on chronic anticoagulation, hypertension, hypothyroidism, FLORINA, and several other comorbidities who is seen in follow-up for Allison syndrome. She is doing well today. She denies abdominal pain. Feels less bloated today. Still with loose stools. No nausea or vomiting. Tolerating full liquids but she has very poor appetite. She feels tired today. She has not been getting up to ambulate and this was encouraged. Review of Systems Review of Systems: All systems reviewed & are unremarkable except as noted in HPI and below Exam Narrative: Ms Mazariegos is morbidly obese, well-appearing 65-year-old female who is lying supine in bed. She appears comfortable and is in NARD. Neuro: awake, alert and oriented x4, speech clear, no focal neuro deficits noted HEENMT: normocephalic, atraumatic, EOMI, sclerae anicteric, moist oral mucosa Neck: supple, no lymphadenopathy Respiratory: clear to auscultation anteriorly, nonlabored breathing Cardio: tachycardic, irregularly irregular rhythm Abdomen: Obese, distended, normoactive bowel sounds, soft, nontender to palpation. Large hernia in right lower quadrant that is soft but not able to be reduced. Extremities: no edema, erythema, or tenderness to palpation, DP pulses 2+ bilaterally. Bunions of bilateral feet left > right Skin: no rashes or lesions, warm and dry Psych: appropriate mood and
[2021-01-11] MEDS: dilTIAZem HCL 30 MG TABLET 90 MG PO ×2 (14:37→20:38)
[2021-01-11] MEDS: RIVAROXABAN 20 MG TABLET PO (18:03)
[2021-01-12] VITALS (17 sets, daily range): BP systolic 127–148; BP diastolic 70–93; PULSE 77–125; RESP 16–24; TEMP 36.3–36.9; O2SAT 97–99
[2021-01-12 05:33] LABS: Hematocrit 36.7 % (37.0-47.0)
[2021-01-12 05:59] LABS: Anion Gap 8 mmol/L (8-16); Blood Urea Nitrogen 13 mg/dL (7-17); Calcium 8.7 mg/dL (8.4-10.2); Carbon Dioxide 23 mmol/L (22-30); Chloride 102 mmol/L (98-107); Estimated CRCL calculation 100 ml/min; Estimated Glomerular Filt Rate > 60; Glucose 123 mg/dL (65-110); Potassium 4.5 mmol/L (3.4-5.0); Sodium 133 mmol/L (137-145)
[2021-01-12] MEDS: LEVOTHYROXINE SODIUM 25 MCG TABLET PO (06:28)
[2021-01-12] MEDS: METOPROLOL TARTRATE 50 MG TAB PO ×2 (06:28→12:29)
[2021-01-12] MEDS: dilTIAZem HCL 30 MG TABLET 90 MG PO ×3 (06:28→22:16)
--- NOTE | 2021-01-12 10:21 | WPDGIPROGNO ---
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 Status: Acute Assessment and Plan: continue with medical management- supp and ok to give miralax as needed- she is having loose stools and thinks that abdomen is less distended will repeat KUB tomorrow poor appetite surgery on board but will be high risk for surgical intervention given several comorbidities and morbid obesity encourage to be more active and participate with PT Dr Esqueda will return tomorrow (2) Ventral hernia: Code(s): K43.9 - Ventral hernia without obstruction or gangrene Status: Acute Assessment and Plan: no pain, unchanged (3) Dilated bowel: Status: Acute Assessment and Plan: medical management kub in am (4) Atrial fibrillation: Code(s): I48.91 - Unspecified atrial fibrillation Status: Acute Assessment and Plan: cardiology on board (5) Chronic anticoagulation: 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 Still poor appetite but denies nausea Review of Systems Review of Systems: All systems reviewed & are unremarkable except as noted in HPI and below Exam Const: General: comfortable and no acute distress Nutritional Appearance: obese morbidly obese HENMT: General nose exam: Normal nares present Eyes: Sclera: sclerae normal Neck: Neck: supple Resp: Auscultation: clear to auscultation bilaterally Cardio: Rhythm: abnormal rhythm irregularly irregular GI: Inspection: distended GI Palp: No Tenderness to palpation present (GI) and No Guarding due to palpation present (GI) Percussion: Yes tympanic to percussion Auscultation: abnormal bowel sounds Other: large RLQ hernia, no pain, no rebound, morbid obese Skin: General skin exam: no rashes or lesions noted Neuro: Speech: normal speech Motor exam (neuro): Normal motor muscle tone present throughout Extrem: General: normal to inspection Psych: Mental Status: mental status grossly normal Objective Data Vital Signs Vital Signs: Vital Signs - 24 hr 01/11/21 11:57 01/11/21 12:00 01/11/21 14:00 Temperature 98.2 F Pulse Rate 66 117 H 110 H Respiratory Rate 20 Blood Pressure 128/81 Pulse Oximetry 94 01/11/21 14:37 01/11/21 16:00 01/11/21 18:00 Temperature 98.5 F Pulse Rate 130 H 111 H 100 Respiratory Rate 18 Blood Pressure 144/103 H Pulse Oximetry 100 01/11/21 19:29 01/11/21 20:00 01/11/21 20:38 Temperature 97.3 F L Pulse Rate 105 H 106 H 123 H Respiratory Rate 18 18 Blood Pressure 133/85 Pulse Oximetry 97 97 01/11/21 22:00 01/11/21 23:42 01/11/21 23:51 Temperature Pulse Rate 112 H 89 89 Respiratory Rate 16 16 Blood Pressure 149/80 H Pulse Oximetry 98 98 01/12/21 00:00 01/12/21 02:00 01/12/21 03:52 Temperature 97.4 F L Pulse Rate 87 84 110 H Respiratory Rate 16 Blood Pressure 129/70 Pulse Oximetry 98 01/12/21 04:00 01/12/21 06:00 01/12/21 06:28 Temperature Pulse Rate 101 H 94 122 H Respiratory Rate 16 Blood Pressure Pulse Oximetry 98 Intake/Output Intake/Output: Intake & Output 01/09/21 01/10/21 01/11/21 01/12/21 23:59 23:59 23:59 23:59 Intake Total 772 1435 1240 300 Output Total 400 450 700 700 Balance 372 985 540 -400 Meds/Results Medications: Active Medications Generic Name Dose Route Start Last Admin Trade Name Freq PRN Reason Stop Dose Admin Bisacodyl 10 mg 01/10/21 09:
--- NOTE | 2021-01-12 10:32 | PM.IMPN ---
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 Gastrografin enema also with no obstruction. Appreciate Gastroenterology and General surgery consultation. Full liquid diet. Advance per General surgery and GI. She is having loose stools. Continue with MiraLax and Dulcolax suppository prn. Increase mobility. Repeat KUB tomorrow. (2) Atrial fibrillation: Code(s): I48.91 - Unspecified atrial fibrillation Status: Acute Assessment and Plan: With rapid ventricular response up to 140s. She was moved to IMU and started on Cardizem drip. She is hemodynamically stable. She has been seen in consultation by cardiology. Cardizem drip has been discontinued and she has been transitioned to PO cardizem 90 mg q8h. Continue metoprolol tartrate 50 mg p.o. q8h. Continue xarelto. Appreciate cardiology recommendations. Monitor on telemetry (3) Essential hypertension: Code(s): I10 - Essential (primary) hypertension Status: Acute Assessment and Plan: Blood pressures were reviewed and they were initially soft in the emergency department but have remained stable since admission. Last BP 129/70. Continue to monitor blood pressure trends with above medications. (4) Anemia: Code(s): D64.9 - Anemia, unspecified Status: Acute Assessment and Plan: Hemoglobin and hematocrit are stable on review of prior labs. Continue to monitor (5) Hypothyroidism: Code(s): E03.9 - Hypothyroidism, unspecified Status: Acute Assessment and Plan: TSH is within normal limits. Continue p.o. 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 Discussed with surgery and GI and Xarelto has been resumed as no surgery is indicated at this time. (7) Prediabetes: Code(s): R73.03 - Prediabetes Status: Acute Assessment and Plan: A1c is 6.2. She is not on any medications. Continue to discuss lifestyle changes including diet and exercise and she should follow-up with her PCP. Will provide her with glucometer prior to discharge so she can monitor sugars and record for PCP review. She will be educated on how to perform accuchecks. Subjective Date/time seen: 01/12/21 10:32 Interval history: Date of service: 01/12/2021 Lorraine Mazariegos is a 65-year-old female with a history of atrial fibrillation on chronic anticoagulation, hypertension, hypothyroidism, FLORINA, and several other comorbidities who is seen in follow-up for Buddy syndrome and atrial fibrillation rapid ventricular response. She is doing pretty well today. She denies abdominal pain or distension. She does report that her abdomen has been ?gurgling? he home today. She had a loose bowel movement this morning. She had a few bites of yogurt this morning, overall seems to still have pretty decreased p.o. intake. Denies nausea, vomiting, fever, chills. She still has not been up from bed but was about to get and walk with therapy using a walker. She is laying completely flat and notes this causes her to feel a little short of breath as she typically does not lay in this position. She has back discomfort if she sits at an incline. She also felt she may be having occasional wheezing but was not able to elaborate on this. Review of Systems Review of Systems: All systems reviewed & are unremarkable except as noted in HPI and below Exam Narrative: Ms Mazariegos is morbidly obese, well-appearing 65-year-old female who is lying supine in bed. She appears comfortable and is in NARD. Neuro: awake, alert and oriented x4, speech clear, no focal neuro deficits note
[2021-01-12] MEDS: TOLNAFTATE 1% POWDER 45 GM BTL 1 APPLIC TOPICAL ×2 (12:30→22:16)
--- NOTE | 2021-01-12 18:02 | PM.PNCARD ---
Progress Note: A&P Assessment and Plan (1) Persistent atrial fibrillation: Code(s): I48.19 - Other persistent atrial fibrillation Status: Acute Assessment and Plan: Persistent atrial fibrillation, historically with a difficult to control heart rate. Recently transitioned from amiodarone to metoprolol plus Cardizem as an outpatient. Reasonable heart rate control with metoprolol and Cardizem but will increase metoprolol a little further because of the V-tach. Increase the patient's activity. Patient agrees to sit up in a chair (2) Nonsustained ventricular tachycardia: Code(s): I47.2 - Ventricular tachycardia Status: Acute Assessment and Plan: Appears worse today. Check potassium and magnesium this afternoon anddaily. Increase metoprolol to 100 mg BID. (3) Chronic anticoagulation: Code(s): Z79.01 - residential (current) use of anticoagulants Status: Acute Assessment and Plan: Back on Xarelto 20 mg daily. (4) Gaseous abdominal distention: Code(s): R14.0 - Abdominal distension (gaseous) Status: Acute Assessment and Plan: Tolerating clear liquids. Diarrhea. (5) Essential hypertension: Code(s): I10 - Essential (primary) hypertension Status: Acute Assessment and Plan: Blood pressure controlled (6) Severe pulmonary hypertension: Code(s): I27.20 - Pulmonary hypertension, unspecified Status: Acute Assessment and Plan: Moderate to severe pulmonary hypertension due to sleep apnea and morbid obesity. Do not know whether old pulmonary emboli are contributing. (7) History of pulmonary embolus (PE): Onset Date: 2014 Code(s): Z86.711 - Personal history of pulmonary embolism Status: Acute Assessment and Plan: History of PE in 2015, on chronic anticoagulation. (8) Morbid obesity: Code(s): E66.01 - Morbid (severe) obesity due to excess calories Status: Acute Assessment and Plan: Weak and deconditioned as well. (9) Obstructive sleep apnea: Code(s): G47.33 - Obstructive sleep apnea (adult) (pediatric) Status: Chronic Assessment and Plan: Intolerant to CPAP in the past. 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 H/O chronic a fib, severe pulmonary hypertension, morbid obesity, untreated sleep apnea, remote PE. 01/10/2021: No palpitations, CP. [place] a little wheezy earlier. Not out of bed. Tele = a fib HR Currently taking metoprolol tartrate 50 mg Q 8, and diltiazem drip 5 milligrams/hour. Echo showed EF 50%, pulmonary artery pressure 52 mmHg. Cardizem drip increased to 10 milligrams/hour to control AFib. 01/11/2021: Not much appetite, no shortness of breath or palpitations. Still with diarrhea. Has not yet been out of bed. Telemetry shows AFib rate 85-110. Changed Cardizem from IV to p.o.. Date of service 01/11/2021: Telemetry is showing AFib rate 70-110 with frequent PVCs and frequent nonsustained V-tach of 3-5 beats. No chest pain or shortness of breath. Still has a lot of diarrhea. The nurses did get her up in a chair today which was quite difficult as the patient cannot bear her weight, needing a lift. Patient hopes she does not need to go to rehab, says she can not walk back and forth to the bathroom by herself. Review of Systems Constitutional: Constitutional: Reports weakness Eyes: Eyes: Reports no additional eye complaints ENT: Denies epistaxis Cardiovascular: Cardiovascular: Denies chest pain, Denies pedal edema, Denies leg e
[2021-01-12] MEDS: RIVAROXABAN 20 MG TABLET PO (18:35)
[2021-01-12 20:05] LABS: Potassium 3.4 mmol/L (3.4-5.0)
[2021-01-12] MEDS: METOPROLOL TARTRATE 50 MG TAB 100 MG PO (22:15)
[2021-01-13] VITALS (19 sets, daily range): BP systolic 120–148; BP diastolic 64–93; PULSE 63–116; RESP 20–24; TEMP 36.4–36.9; O2SAT 90–100
[2021-01-13 05:07] LABS: Hematocrit 41.1 % (37.0-47.0); Hemoglobin 12.7 g/dL (12.0-15.0)
[2021-01-13 05:19] LABS: Anion Gap 7 mmol/L (8-16); Blood Urea Nitrogen 11 mg/dL (7-17); Calcium 9.1 mg/dL (8.4-10.2); Carbon Dioxide 27 mmol/L (22-30); Chloride 102 mmol/L (98-107); Estimated CRCL calculation 87 ml/min; Estimated Glomerular Filt Rate > 60; Glucose 126 mg/dL (65-110); Magnesium 2.1 mg/dL (1.6-2.3); Potassium 3.6 mmol/L (3.4-5.0); Sodium 136 mmol/L (137-145)
[2021-01-13] MEDS: dilTIAZem HCL 30 MG TABLET 90 MG PO ×3 (06:32→20:53)
[2021-01-13] MEDS: LEVOTHYROXINE SODIUM 25 MCG TABLET PO (06:33)
--- NOTE | 2021-01-13 07:22 | WPDGIPROGNO ---
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 Okay to continue the MiraLax. Dulcolax suppositories will continue. Appears to be improving clinically. Increasing her activity would probably help bowel function. She has very limited mobility and will need physical therapy. (2) Dilated bowel: Status: Acute Assessment and Plan: Patient with dilated bowel on previous x-rays. Repeat KUB today. Follow with intermittent x-rays. (3) Ventral hernia: Code(s): K43.9 - Ventral hernia without obstruction or gangrene Status: Acute Assessment and Plan: Very large ventral hernia. Surgery following. She would be high risk because of her obesity. 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 (6) Morbid obesity: Code(s): E66.01 - Morbid (severe) obesity due to excess calories Status: Acute Assessment and Plan: Weight loss will need to be addressed. She is encouraged to monitor weight as therapy progresses. Subjective Date/time seen: 01/13/21 07:22 Patient alert comfortable lying in bed. His only been out of bed once during hospital stay. States she is passing loose stools. Tolerating liquid diet. Review of Systems Review of Systems: All systems reviewed & are unremarkable except as noted in HPI and below Exam Narrative: On physical exam patient is alert comfortable at rest vital signs are stable. Lying in bed. Lungs are clear. Abdomen is obese. Softer than when last exam in. Bowel sounds are present. Large hernia evident. Objective Data Vital Signs Vital Signs: Vital Signs - 24 hr 01/12/21 08:00 01/12/21 10:00 01/12/21 12:00 Temperature 97.8 F Pulse Rate 82 83 100 Respiratory Rate 20 Blood Pressure 144/93 H Pulse Oximetry 99 01/12/21 12:29 01/12/21 14:00 01/12/21 16:00 Temperature 98.4 F Pulse Rate 125 H 101 H 93 Respiratory Rate 24 H Blood Pressure 132/84 Pulse Oximetry 97 01/12/21 18:00 01/12/21 20:00 01/12/21 22:00 Temperature 97.8 F Pulse Rate 83 107 H 114 H Respiratory Rate 20 Blood Pressure 127/83 Pulse Oximetry 97 01/12/21 22:15 01/12/21 23:37 01/13/21 00:00 Temperature 97.6 F Pulse Rate 114 H 107 H 68 Respiratory Rate 20 20 Blood Pressure 148/84 H Pulse Oximetry 97 97 01/13/21 02:00 01/13/21 04:00 Temperature 97.8 F Pulse Rate 68 78 Respiratory Rate 20 Blood Pressure 120/76 Pulse Oximetry 96 Intake/Output Intake/Output: Intake & Output 01/10/21 01/11/21 01/12/21 01/13/21 23:59 23:59 23:59 23:59 Intake Total 1435 1240 1160 Output Total 303 628 5462 400 Balance 985 540 -640 -400 Meds/Results Medications: Active Medications Generic Name Dose Route Start Last Admin Trade Name Freq PRN Reason Stop Dose Admin Bisacodyl 10 mg 01/10/21 09:53 Bisacodyl 10 Mg Suppository RECTAL QAM PRN Constipation Diltiazem HCl 90 mg 01/11/21 14:00 01/13/21 06:32 Diltiazem Hcl 30 Mg Tablet PO 90 mg Q8HR JAYDEN Administration Levothyroxine Sodium 25 mcg 01/10/21 06:30 01/13/21 06:33 Levothyroxine Sodium 25 Mcg Tablet PO 25 mcg DAILY@0630 JAYDEN Administration Metoprolol Tartrate 100 mg 01/12/21 21:00 01/12/21 22:15 Metoprolol Tartrate 50 Mg Tab PO 100 mg Q12HR JAYDEN Administration Polyethylene Glycol 17 gm 01/11/21 11:24 Polyethylene Glycol 3350 17 Gm Powd.Pack PO QAM PRN Constipation Rivaroxaban 20 mg 01/09/21 18:00 01/12/21 18:35 Rivaroxaban 20 Mg Tablet PO 20 mg QPM JAYDEN Administration Tolnaftate 1 applic 01/09/21 0
[2021-01-13] MEDS: METOPROLOL TARTRATE 50 MG TAB 100 MG PO ×2 (09:31→20:52)
[2021-01-13] MEDS: TOLNAFTATE 1% POWDER 45 GM BTL 1 APPLIC TOPICAL ×2 (09:32→20:52)
--- NOTE | 2021-01-13 13:03 | PM.PNGS ---
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 Status: Acute Assessment and Plan: slowly improving, cont bowel reg per GI, ADAT (2) Ventral hernia: Code(s): K43.9 - Ventral hernia without obstruction or gangrene Status: Acute Assessment and Plan: non obstructing, given multiple comorbid conditions pt is poor surgical candidate Subjective Subjective Date/Time Seen: 01/13/21 13:03 feels ok, no pain, +bowel fxn, still distended although improved, raul FLD Review of Systems Review of Systems: All systems reviewed & are unremarkable except as noted in HPI and below Exam Const: General: cooperative, comfortable and no acute distress Nutritional Appearance: obese Orientation/consciousness: patient oriented x3 Resp: Effort & Inspection: normal respiratory effort Auscultation: diminished lung sounds Cardio: Rate: regular rate Rhythm: regular rhythm GI: Inspection: normal to inspection, distended and incision GI Palp: Yes Soft to palpation, No Tenderness to palpation present (GI) and Yes Hernia present Other: soft, mod dist, NT, large RLQ incisional hernia Objective Data Vital Signs Vital Signs: Vital Signs - 24 hr 01/12/21 14:00 01/12/21 16:00 01/12/21 18:00 Temperature 36.9 C Pulse Rate 101 H 93 83 Respiratory Rate 24 H Blood Pressure 132/84 Pulse Oximetry 97 01/12/21 20:00 01/12/21 22:00 01/12/21 22:15 Temperature 36.6 C Pulse Rate 107 H 114 H 114 H Respiratory Rate 20 Blood Pressure 127/83 Pulse Oximetry 97 01/12/21 23:37 01/13/21 00:00 01/13/21 02:00 Temperature 36.4 C Pulse Rate 107 H 68 68 Respiratory Rate 20 20 Blood Pressure 148/84 H Pulse Oximetry 97 97 01/13/21 04:00 01/13/21 06:00 01/13/21 08:00 Temperature 36.6 C Pulse Rate 78 90 85 Respiratory Rate 20 Blood Pressure 120/76 Pulse Oximetry 96 01/13/21 08:36 01/13/21 09:03 01/13/21 09:31 Temperature 36.8 C Pulse Rate 114 H 100 Respiratory Rate 24 H Blood Pressure 141/86 H Pulse Oximetry 98 90 01/13/21 10:00 01/13/21 12:28 Temperature 36.9 C Pulse Rate 93 79 Respiratory Rate 22 H Blood Pressure 148/88 H Pulse Oximetry 100 Intake/Output Intake/Output: Intake & Output 01/10/21 01/11/21 01/12/21 01/13/21 23:59 23:59 23:59 23:59 Intake Total 1435 1240 1160 120 Output Total 572 417 3719 400 Balance 985 540 -640 -280 Meds/Results Medications: Active Medications Generic Name Dose Route Start Last Admin Trade Name Freq PRN Reason Stop Dose Admin Bisacodyl 10 mg 01/10/21 09:53 Bisacodyl 10 Mg Suppository RECTAL QAM PRN Constipation Diltiazem HCl 90 mg 01/11/21 14:00 01/13/21 06:32 Diltiazem Hcl 30 Mg Tablet PO 90 mg Q8HR JAYDEN Administration Levothyroxine Sodium 25 mcg 01/10/21 06:30 01/13/21 06:33 Levothyroxine Sodium 25 Mcg Tablet PO 25 mcg DAILY@0630 JAYDEN Administration Metoprolol Tartrate 100 mg 01/12/21 21:00 01/13/21 09:31 Metoprolol Tartrate 50 Mg Tab PO 100 mg Q12HR JAYDEN Administration Polyethylene Glycol 17 gm 01/11/21 11:24 Polyethylene Glycol 3350 17 Gm Powd.Pack PO QAM PRN Constipation Rivaroxaban 20 mg 01/09/21 18:00 01/12/21 18:35 Rivaroxaban 20 Mg Tablet PO 20 mg QPM JAYDEN Administration Tolnaftate 1 applic 01/09/21 09:00 01/13/21 09:32 Tolnaftate 1% Powder 45 Gm Btl TOPICAL 1 applic Q12HR JAYDEN Administration Radiology Results: ITS Impressions Abdomen/Pelvis CT 01/08/21 11:12 IMPRESSION: 1. Massive gaseous distention of colon without obstructing sigmoid stricture or mass. Consider toxic megacolon. Recommend baseline KUB. 2. Large right lower quadrant hernia containing cecum and nonobstructed ileum. 3. Chronic L5 spondylolysis, significant anterolisthesis. 4. Other chronic findings. Enema w/Water Soluble 01/08/21 17:58 IMPRESSION: 1. Dilated rectosig
--- NOTE | 2021-01-13 17:16 | PM.IMPN ---
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 Gastrografin enema also with no obstruction. Appreciate Gastroenterology and General surgery consultation. Full liquid diet. Advance per General surgery and GI. She is having loose stools. Continue with MiraLax and Dulcolax suppository prn. Increase mobility. Repeat KUB today with persistently dilated colon consistent with adynamic ileus potassium 3.6 will give 40 of potassium Magnesium is 2.1 adequate (2) Atrial fibrillation: Code(s): I48.91 - Unspecified atrial fibrillation Status: Acute Assessment and Plan: With rapid ventricular response up to 140s. She was moved to IMU and started on Cardizem drip. She is hemodynamically stable. She has been seen in consultation by cardiology. Cardizem drip has been discontinued and she has been transitioned to PO cardizem 90 mg q8h. Continue metoprolol tartrate 50 mg p.o. q8h. Continue xarelto. Appreciate cardiology recommendations. Monitor on telemetry (3) Essential hypertension: Code(s): I10 - Essential (primary) hypertension Status: Acute Assessment and Plan: Blood pressures were reviewed and they were initially soft in the emergency department but have remained stable since admission. Last BP 129/70. Continue to monitor blood pressure trends with above medications. (4) Anemia: Code(s): D64.9 - Anemia, unspecified Status: Acute Assessment and Plan: Hemoglobin and hematocrit are stable on review of prior labs. Continue to monitor (5) Hypothyroidism: Code(s): E03.9 - Hypothyroidism, unspecified Status: Acute Assessment and Plan: TSH is within normal limits. Continue p.o. 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 Discussed with surgery and GI and Xarelto has been resumed as no surgery is indicated at this time. (7) Prediabetes: Code(s): R73.03 - Prediabetes Status: Acute Assessment and Plan: A1c is 6.2. She is not on any medications. Continue to discuss lifestyle changes including diet and exercise and she should follow-up with her PCP. Will provide her with glucometer prior to discharge so she can monitor sugars and record for PCP review. She will be educated on how to perform accuchecks. Subjective Date/time seen: 01/13/21 17:16 Interval history: feels okay. Still feels a little bloated but much better. She denies any abdominal pain no nausea vomiting tolerating full liquid diet. Review of Systems Review of Systems: All systems reviewed & are unremarkable except as noted in HPI and below Exam Narrative: General comfortable not in acute distress Neuro: awake, alert and oriented x4, speech clear, no focal neuro deficits noted HEENMT: normocephalic, atraumatic, EOMI, sclerae anicteric, moist oral mucosa Neck: supple, no lymphadenopathy Respiratory: clear to auscultation bilaterally without crackes, rhonchi, or wheezes, nonlabored breathing Cardio: regular rate, irregularly irregular rhythm Abdomen: Obese, distended, normoactive bowel sounds, soft, nontender to palpation. Large hernia in right lower quadrant that is soft but not able to be reduced. Extremities: no edema, erythema, or tenderness to palpation, DP pulses 2+ bilaterally. Bunions of bilateral feet left > right Skin: no rashes or lesions, warm and dry Psych: appropriate mood and affect, judgment and insight intact Objective Data Vital Signs Vital Signs: Vital Signs - 24 hr 01/12/21 18:00 01/12/21 20:00 01/12/21 22:00 Temperature 97.8 F Pulse Rate 83 107 H 114
--- NOTE | 2021-01-13 17:31 | PM.PNCARD ---
Progress Note: A&P Assessment and Plan (1) Persistent atrial fibrillation: Code(s): I48.19 - Other persistent atrial fibrillation Status: Acute Assessment and Plan: Persistent atrial fibrillation, historically with a difficult to control heart rate. Good heart rate control with metoprolol 100 mg b.i.d. and Cardizem 90 mg q8H, but will reduce the cardizem a bit 2nd to the pauses, to 180 mg qd tmr. (2) Nonsustained ventricular tachycardia: Code(s): I47.2 - Ventricular tachycardia Status: Acute Assessment and Plan: Borderline hypokalemic, will add Kcl 20 mEq daily. Check potassium and magnesium daily. Increase metoprolol to 100 mg BID. 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 (4) Gaseous abdominal distention: Code(s): R14.0 - Abdominal distension (gaseous) Status: Acute Assessment and Plan: Tolerating liquids. Diarrhea. (5) Essential hypertension: Code(s): I10 - Essential (primary) hypertension Status: Acute Assessment and Plan: Blood pressure controlled (6) Severe pulmonary hypertension: Code(s): I27.20 - Pulmonary hypertension, unspecified Status: Acute Assessment and Plan: Moderate to severe pulmonary hypertension due to sleep apnea and morbid obesity. Do not know whether old pulmonary emboli are contributing. (7) History of pulmonary embolus (PE): Onset Date: 2014 Code(s): Z86.711 - Personal history of pulmonary embolism Status: Acute Assessment and Plan: History of PE in 2015, on chronic anticoagulation. (8) Morbid obesity: Code(s): E66.01 - Morbid (severe) obesity due to excess calories Status: Acute Assessment and Plan: Weak and deconditioned as well. (9) Obstructive sleep apnea: Code(s): G47.33 - Obstructive sleep apnea (adult) (pediatric) Status: Chronic Assessment and Plan: Intolerant to CPAP in the past. Subjective Date/time seen: 01/13/21 17:31 Interval history: Follow-up for atrial fibrillation RVR in the setting of [place] Syndrome and discontinuation of AV héctor blocking agents since being NPO. H/O chronic a fib, severe pulmonary hypertension, morbid obesity, untreated sleep apnea, remote PE. 01/10/2021: No palpitations, CP. [place] a little wheezy earlier. Not out of bed. Tele = a fib HR Currently taking metoprolol tartrate 50 mg Q 8, and diltiazem drip 5 milligrams/hour. Echo showed EF 50%, pulmonary artery pressure 52 mmHg. Cardizem drip increased to 10 milligrams/hour to control AFib. 01/11/2021: Not much appetite, no shortness of breath or palpitations. Still with diarrhea. Has not yet been out of bed. Telemetry shows AFib rate 85-110. Changed Cardizem from IV to p.o.. 01/12/2021: Telemetry is showing AFib rate 70-110 with frequent PVCs and frequent nonsustained V-tach of 3-5 beats. No chest pain or shortness of breath. Still has a lot of diarrhea. The nurses did get her up in a chair today which was quite difficult as the patient cannot bear her weight, needing a lift. Patient hopes she does not need to go to rehab, says she can not walk back and forth to the bathroom by herself. Increase metoprolol from 50 mg q.8 hours to: 100 mg b.i.d.. Date of service 01/13/2021: Up in a chair, tolerating liquids, mild abdominal pain at times. No shortness of breath or chest pain. Telemetry shows AFib rate controlled, 70-110 but some pauses of 2.2-2.5 seconds. Continues to have some PVCs and nonsustained V-tach of 3-5 beats. Review of Systems Constitutional
[2021-01-13] MEDS: POTASSIUM CHLORIDE 20 MEQ PACKET (FOR LIQUID) 40 MEQ PO (17:51)
[2021-01-13] MEDS: RIVAROXABAN 20 MG TABLET PO (17:51)
[2021-01-14] VITALS (15 sets, daily range): BP systolic 132–145; BP diastolic 75–93; PULSE 68–123; RESP 18–22; TEMP 36.3–36.8; O2SAT 96–100
[2021-01-14 05:35] LABS: Anion Gap 6 mmol/L (8-16); Blood Urea Nitrogen 11 mg/dL (7-17); Calcium 8.7 mg/dL (8.4-10.2); Carbon Dioxide 25 mmol/L (22-30); Chloride 103 mmol/L (98-107); Estimated CRCL calculation 87 ml/min; Estimated Glomerular Filt Rate > 60; Glucose 124 mg/dL (65-110); Magnesium 1.9 mg/dL (1.6-2.3); Potassium 3.8 mmol/L (3.4-5.0); Sodium 134 mmol/L (137-145)
[2021-01-14 06:06] LABS: Basophils Absolute Auto 0.1 K/mm3 (0.0-0.1); Basophils Percent Auto 0.9 % (0.2-1.2); Eosinophils Absolute Auto 0.4 K/mm3 (0-0.3); Eosinophils Percent Auto 4.4 % (0-4.4); Hematocrit 37.5 % (37.0-47.0); Hemoglobin 11.6 g/dL (12.0-15.0); Immature Granulocyte Absolute 0.16 K/mm3 (0.00-0.031); Lymphocytes Absolute Auto 1.09 K/mm3 (0.9-3.2); Lymphocytes Percent Auto 13.6 % (18.3-44.2); Mean Corpuscular HGB Conc 30.9 g/dl (32-36); Mean Corpuscular Hemoglobin 24.5 pg (26-34); Mean Corpuscular Volume 79.1 fl (80-100); Mean Platelet Volume 8.8 fl (7.4-10.4); Monocytes Absolute Auto 0.6 K/mm3 (0.1-0.6); Monocytes Percent Auto 7.8 % (2.6-8.5); Neutrophils Absolute Auto 5.7 K/mm3 (1.3-6.7); Neutrophils Percent Auto 71.3 % (45.5-73.1); Platelet Count Result 269 k/mm3 (150-375); Red Blood Count 4.74 M/mm3 (4.2-5.4); Red Cell Distribution Width 15.5 % (11.5-14.5)
[2021-01-14] MEDS: LEVOTHYROXINE SODIUM 25 MCG TABLET PO (06:13)
[2021-01-14] MEDS: POTASSIUM CHLORIDE 20 MEQ TABLET.ER PO (09:21)
[2021-01-14] MEDS: dilTIAZem HCL CD 180 MG CAP.ER.24H PO (09:22)
[2021-01-14] MEDS: METOPROLOL TARTRATE 50 MG TAB 100 MG PO ×2 (09:23→20:56)
[2021-01-14] MEDS: TOLNAFTATE 1% POWDER 45 GM BTL 1 APPLIC TOPICAL ×2 (09:24→20:58)
--- NOTE | 2021-01-14 10:31 | PM.PNGS ---
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 Status: Acute Assessment and Plan: better, cont current bowel reg, soft diet (2) Ventral hernia: Code(s): K43.9 - Ventral hernia without obstruction or gangrene Status: Acute Assessment and Plan: exam improved, no s/s obstruction Subjective Subjective Date/Time Seen: 01/14/21 10:31 feels good, large BM overnight, no pain Review of Systems Review of Systems: All systems reviewed & are unremarkable except as noted in HPI and below Exam Const: General: cooperative, comfortable and no acute distress Nutritional Appearance: obese Orientation/consciousness: patient oriented x3 Resp: Effort & Inspection: normal respiratory effort Auscultation: diminished lung sounds Cardio: Rate: regular rate Rhythm: regular rhythm GI: Inspection: distended and incision GI Palp: Yes Soft to palpation, No Tenderness to palpation present (GI) and No Guarding due to palpation present (GI) Other: soft, decreased dist, NT Objective Data Vital Signs Vital Signs: Vital Signs - 24 hr 01/13/21 12:00 01/13/21 12:28 01/13/21 14:00 Temperature 36.9 C Pulse Rate 76 79 102 H Respiratory Rate 22 H Blood Pressure 148/88 H Pulse Oximetry 100 01/13/21 16:00 01/13/21 17:07 01/13/21 18:00 Temperature 36.8 C Pulse Rate 88 63 90 Respiratory Rate 22 H Blood Pressure 132/79 Pulse Oximetry 99 01/13/21 20:00 01/13/21 20:52 01/13/21 22:00 Temperature 36.4 C Pulse Rate 90 84 95 Respiratory Rate 20 Blood Pressure 142/93 H Pulse Oximetry 97 01/13/21 23:45 01/14/21 00:00 01/14/21 02:00 Temperature 36.4 C Pulse Rate 90 79 86 Respiratory Rate 20 20 Blood Pressure 140/64 Pulse Oximetry 97 97 01/14/21 04:00 01/14/21 06:00 01/14/21 08:46 Temperature 36.6 C 36.6 C Pulse Rate 81 91 123 H Respiratory Rate 18 21 H Blood Pressure 141/93 H 145/88 H Pulse Oximetry 96 98 01/14/21 09:23 Temperature Pulse Rate 95 Respiratory Rate Blood Pressure Pulse Oximetry Intake/Output Intake/Output: Intake & Output 01/11/21 01/12/21 01/13/21 01/14/21 23:59 23:59 23:59 23:59 Intake Total 1240 1160 740 200 Output Total 700 1800 700 600 Balance 540 -640 40 -400 Meds/Results Medications: Active Medications Generic Name Dose Route Start Last Admin Trade Name Freq PRN Reason Stop Dose Admin Bisacodyl 10 mg 01/10/21 09:53 Bisacodyl 10 Mg Suppository RECTAL QAM PRN Constipation Diltiazem HCl 180 mg 01/14/21 09:00 01/14/21 09:22 Diltiazem Hcl Cd 180 Mg Cap.Er.24h PO 180 mg QAM JAYDEN Administration Levothyroxine Sodium 25 mcg 01/10/21 06:30 01/14/21 06:13 Levothyroxine Sodium 25 Mcg Tablet PO 25 mcg DAILY@0630 JAYDEN Administration Metoprolol Tartrate 100 mg 01/12/21 21:00 01/14/21 09:23 Metoprolol Tartrate 50 Mg Tab PO 100 mg Q12HR JAYDEN Administration Polyethylene Glycol 17 gm 01/11/21 11:24 Polyethylene Glycol 3350 17 Gm Powd.Pack PO QAM PRN Constipation Potassium Chloride 20 meq 01/14/21 08:00 01/14/21 09:21 Potassium Chloride 20 Meq Tablet.Er PO 20 meq DAILY@0800 JAYDEN Administration Rivaroxaban 20 mg 01/09/21 18:00 01/13/21 17:51 Rivaroxaban 20 Mg Tablet PO 20 mg QPM JAYDEN Administration Tolnaftate 1 applic 01/09/21 09:00 01/14/21 09:24 Tolnaftate 1% Powder 45 Gm Btl TOPICAL 1 applic Q12HR JAYDEN Administration Radiology Results: ITS Impressions Abdomen/Pelvis CT 01/08/21 11:12 IMPRESSION: 1. Massive gaseous distention of colon without obstructing sigmoid stricture or mass. Consider toxic megacolon. Recommend baseline KUB. 2. Large right lower quadrant hernia containing cecum and nonobstructed ileum. 3. Chronic L5 spondylolysis, significant anterolisthesis. 4. Other chronic findings. Enema w/Water Soluble 01/08/21 17:58 IMPRESSION: 1. Dila
--- NOTE | 2021-01-14 11:14 | PM.IMPN ---
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 Continue p.o. 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 Gastrografin enema also with no obstruction. Appreciate Gastroenterology and General surgery consultation. Full liquid diet. Advance per General surgery and GI. She is having loose stools. Continue with MiraLax and Dulcolax suppository prn. Increase mobility. Repeat KUB today with persistently dilated colon consistent with adynamic ileus potassium 3.6 will give 40 of potassium Magnesium is 2.1 adequate With rapid ventricular response up to 140s. She was moved to IMU and started on Cardizem drip. She is hemodynamically stable. She has been seen in consultation by cardiology. Cardizem drip has been discontinued and she has been transitioned to PO cardizem 90 mg q8h. Continue metoprolol tartrate 50 mg p.o. q8h. Continue xarelto. Appreciate cardiology recommendations. Monitor on telemetry Blood pressures were reviewed and they were initially soft in the emergency department but have remained stable since admission. Last BP 129/70. Continue to monitor blood pressure trends with above medications. Hemoglobin and hematocrit are stable on review of prior labs. Continue to monitor Xarelto initially held in the event surgical intervention was required. Discussed with surgery and GI and Xarelto has been resumed as no surgery is indicated at this time. A1c is 6.2. She is not on any medications. Continue to discuss lifestyle changes including diet and exercise and she should follow-up with her PCP. Will provide her with glucometer prior to discharge so she can monitor sugars and record for PCP review. She will be educated on how to perform accuchecks. 01/15/12 [place] syndrome is resolving patient has been placed on soft and bite size diet by surgery Heart rate now controlled, cardiology following Lab values reviewed Blood pressure near goal feet purple today and cool to touch LE US ordered arterial and venous in light of h/o DVT Continue supportive therapy Anticipate discharge soon Subjective Date/time seen: 01/14/21 11:14 Patient doing okay sitting up in recliner she reports last BM yesterday is passing gas is tolerating food would like to go home but is not feeling ready yet. Exam Narrative: General comfortable not in acute distress Neuro: awake, alert and oriented x3, speech clear, no focal neuro deficits noted HEENMT: normocephalic, atraumatic, EOMI, sclera anicteric, moist oral mucosa Respiratory: clear to auscultation bilaterally without crackes, rhonchi, or wheezes, nonlabored breathing Cardio: regular rate, irregularly irregular rhythm Abdomen: Obese, distended, normoactive bowel sounds, soft, nontender to palpation. Large hernia in right lower quadrant that is soft And reducible Extremities: no edema, erythema, or tenderness to palpation, toes appear to be dusky in color and feet cool to touch Bunions of bilateral feet left > right Skin: no rashes or lesions, warm and dry Psych: appropriate mood and affect, judgment and insight intact Objective Data Vital Signs Vital Signs: Vital Signs - 24 hr 01/13/21 12:00 01/13/21 12:28 01/13/21 14:00 [place]
--- NOTE | 2021-01-14 11:52 | WPDGIPROGNO ---
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 It appears as though Buddy syndrome is improving. Will start daily laxative use. Advance diet as tolerated. Agree with increasing mobility. His this likely contributes to good bowel function. (2) Dilated bowel: Status: Acute Assessment and Plan: Bowel less dilated on follow-up exams. Continue daily laxative use. (3) Ventral hernia: Code(s): K43.9 - Ventral hernia without obstruction or gangrene Status: Acute Assessment and Plan: Surgery following because of the hernia. She appears to be at high surgical risk given her morbid obesity. (4) Persistent atrial fibrillation: Code(s): I48.19 - Other persistent atrial fibrillation Status: Acute (5) Anxiety: Code(s): F41.9 - Anxiety disorder, unspecified Status: Acute Subjective Date/time seen: 01/14/21 11:52 Patient alert appears anxious this morning. Reports she had a bowel movement yesterday. Abdomen is less distended and more comfortable. Review of Systems Review of Systems: All systems reviewed & are unremarkable except as noted in HPI and below Exam Narrative: On physical exam patient is morbidly obese. Lungs are clear. Heart without murmur. Abdomen soft large right ventral hernia evident. Bowel sounds are present no tenderness less tympany today. Objective Data Vital Signs Vital Signs: Vital Signs - 24 hr 01/13/21 12:00 01/13/21 12:28 01/13/21 14:00 Temperature 98.4 F Pulse Rate 76 79 102 H Respiratory Rate 22 H Blood Pressure 148/88 H Pulse Oximetry 100 01/13/21 16:00 01/13/21 17:07 01/13/21 18:00 Temperature 98.2 F Pulse Rate 88 63 90 Respiratory Rate 22 H Blood Pressure 132/79 Pulse Oximetry 99 01/13/21 20:00 01/13/21 20:52 01/13/21 22:00 Temperature 97.6 F Pulse Rate 90 84 95 Respiratory Rate 20 Blood Pressure 142/93 H Pulse Oximetry 97 01/13/21 23:45 01/14/21 00:00 01/14/21 02:00 Temperature 97.6 F Pulse Rate 90 79 86 Respiratory Rate 20 20 Blood Pressure 140/64 Pulse Oximetry 97 97 01/14/21 04:00 01/14/21 06:00 01/14/21 08:46 Temperature 97.8 F 97.8 F Pulse Rate 81 91 123 H Respiratory Rate 18 21 H Blood Pressure 141/93 H 145/88 H Pulse Oximetry 96 98 01/14/21 09:23 Temperature Pulse Rate 95 Respiratory Rate Blood Pressure Pulse Oximetry Intake/Output Intake/Output: Intake & Output 01/11/21 01/12/21 01/13/21 01/14/21 23:59 23:59 23:59 23:59 Intake Total 1240 1160 740 200 Output Total 700 1800 700 600 Balance 540 -640 40 -400 Meds/Results Medications: Active Medications Generic Name Dose Route Start Last Admin Trade Name Freq PRN Reason Stop Dose Admin Bisacodyl 10 mg 01/10/21 09:53 Bisacodyl 10 Mg Suppository RECTAL QAM PRN Constipation Diltiazem HCl 180 mg 01/14/21 09:00 01/14/21 09:22 Diltiazem Hcl Cd 180 Mg Cap.Er.24h PO 180 mg QAM JAYDEN Administration Levothyroxine Sodium 25 mcg 01/10/21 06:30 01/14/21 06:13 Levothyroxine Sodium 25 Mcg Tablet PO 25 mcg DAILY@0630 JAYDEN Administration Metoprolol Tartrate 100 mg 01/12/21 21:00 01/14/21 09:23 Metoprolol Tartrate 50 Mg Tab PO 100 mg Q12HR JAYDEN Administration Polyethylene Glycol 17 gm 01/11/21 11:24 Polyethylene Glycol 3350 17 Gm Powd.Pack PO QAM PRN Constipation Potassium Chloride 20 meq 01/14/21 08:00 01/14/21 09:21 Potassium Chloride 20 Meq Tablet.Er PO 20 meq DAILY@0800 JAYDEN Administration Rivaroxaban 20 mg 01/09/21 18:00 01/13/21 17:51 Rivaroxaban 20 Mg Tablet PO 20 mg QPM JAYDEN Administration Tolnaftate 1 applic 01/09/21 09:00 01/14/21 09:24 Tolnaftate 1% Powder 45 Gm Btl TOPICAL 1 applic Q12HR JAYDEN Administration Radiology Results: ITS Impres
--- NOTE | 2021-01-14 16:51 | PM.PNCARD ---
Progress Note: A&P Assessment and Plan (1) Persistent atrial fibrillation: Code(s): I48.19 - Other persistent atrial fibrillation Status: Acute Assessment and Plan: Persistent atrial fibrillation, historically with a difficult to control heart rate. Reasonable heart rate control with metoprolol 100 mg b.i.d. and Cardizem 180 mg daily. (2) Nonsustained ventricular tachycardia: Code(s): I47.2 - Ventricular tachycardia Status: Acute Assessment and Plan: Added Kcl 20 mEq daily 4 borderline hypokalemia. EF is 50% so low risk for sustained ventricular tachycardia. VT is asymptomatic.. Check potassium and magnesium daily. Increased metoprolol to 100 mg BID. 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 (4) Gaseous abdominal distention: Code(s): R14.0 - Abdominal distension (gaseous) Status: Acute Assessment and Plan: Tolerating solids now. Does appear improved with less bloating. (5) Essential hypertension: Code(s): I10 - Essential (primary) hypertension Status: Acute Assessment and Plan: Blood pressure controlled (6) Severe pulmonary hypertension: Code(s): I27.20 - Pulmonary hypertension, unspecified Status: Acute Assessment and Plan: Moderate to severe pulmonary hypertension due to sleep apnea and morbid obesity. Do not know whether old pulmonary emboli are contributing. (7) History of pulmonary embolus (PE): Onset Date: 2014 Code(s): Z86.711 - Personal history of pulmonary embolism Status: Acute Assessment and Plan: History of PE in 2015, on chronic anticoagulation. (8) Morbid obesity: Code(s): E66.01 - Morbid (severe) obesity due to excess calories Status: Acute Assessment and Plan: Weak and deconditioned as well. (9) Obstructive sleep apnea: Code(s): G47.33 - Obstructive sleep apnea (adult) (pediatric) Status: Chronic Assessment and Plan: Intolerant to CPAP in the past. Subjective Date/time seen: 01/14/21 16:51 Interval history: Follow-up for atrial fibrillation RVR in the setting of Buddy Syndrome and discontinuation of AV héctor blocking agents since being NPO. H/O chronic a fib, severe pulmonary hypertension, morbid obesity, untreated sleep apnea, remote PE. 01/10/2021: No palpitations, CP. [place] a little wheezy earlier. Not out of bed. Tele = a fib HR Currently taking metoprolol tartrate 50 mg Q 8, and diltiazem drip 5 milligrams/hour. Echo showed EF 50%, pulmonary artery pressure 52 mmHg. Cardizem drip increased to 10 milligrams/hour to control AFib. 01/11/2021: Not much appetite, no shortness of breath or palpitations. Still with diarrhea. Has not yet been out of bed. Telemetry shows AFib rate 85-110. Changed Cardizem from IV to p.o.. 01/12/2021: Telemetry is showing AFib rate 70-110 with frequent PVCs and frequent nonsustained V-tach of 3-5 beats. No chest pain or shortness of breath. Still has a lot of diarrhea. The nurses did get her up in a chair today which was quite difficult as the patient cannot bear her weight, needing a lift. Patient hopes she does not need to go to rehab, says she can not walk back and forth to the bathroom by herself. Increase metoprolol from 50 mg q.8 hours to: 100 mg b.i.d.. Date of service 01/13/2021: Up in a chair, tolerating liquids, mild abdominal pain at times. No shortness of breath or chest pain. Telemetry shows AFib rate controlled, 70-110 but some pauses of 2.2-2.5 seconds. Continues to have some PVCs and nonsustained V-t
[2021-01-14] MEDS: RIVAROXABAN 20 MG TABLET PO (18:12)
[2021-01-14] MEDS: AMIODARONE 150 MG/D5W 100 ML 150 MG/100 ML BAG 600 MG IV CONT (20:49)
[2021-01-14 20:54] LABS: Anion Gap 7 mmol/L (8-16); Blood Urea Nitrogen 14 mg/dL (7-17); Carbon Dioxide 27 mmol/L (22-30); Chloride 100 mmol/L (98-107); Estimated CRCL calculation 71 ml/min; Estimated Glomerular Filt Rate 55; Glucose 133 mg/dL (65-110); Magnesium 1.8 mg/dL (1.6-2.3); Potassium 3.9 mmol/L (3.4-5.0); Sodium 134 mmol/L (137-145)
[2021-01-14] MEDS: AMIODARONE 360 MG/D5W 200 ML 360 MG/200 ML BAG 33.33 MG IV CONT (20:56)
[2021-01-14] MEDS: MAGNESIUM SULF 1 GM/D5W 100 ML 1 GM/100 ML BAG IVPB (22:38)
[2021-01-15] VITALS (21 sets, daily range): BP systolic 123–148; BP diastolic 71–99; PULSE 66–118; RESP 18–24; TEMP 36.6–37.1; O2SAT 96–100; BMI 60.1
[2021-01-15] MEDS: AMIODARONE 360 MG/D5W 200 ML 360 MG/200 ML BAG 16.67 MG IV CONT ×2 (04:20→16:36)
[2021-01-15] MEDS: LEVOTHYROXINE SODIUM 25 MCG TABLET PO (05:37)
[2021-01-15 06:10] LABS: Basophils Absolute Auto 0.1 K/mm3 (0.0-0.1); Basophils Percent Auto 0.7 % (0.2-1.2); Eosinophils Absolute Auto 0.3 K/mm3 (0-0.3); Eosinophils Percent Auto 4.2 % (0-4.4); Hematocrit 36.4 % (37.0-47.0); Hemoglobin 11.2 g/dL (12.0-15.0); Immature Granulocyte Percent A 2.7 % (0-0.5); Lymphocytes Absolute Auto 1.28 K/mm3 (0.9-3.2); Lymphocytes Percent Auto 17.4 % (18.3-44.2); Mean Corpuscular HGB Conc 30.8 g/dl (32-36); Mean Corpuscular Hemoglobin 24.8 pg (26-34); Mean Corpuscular Volume 80.7 fl (80-100); Mean Platelet Volume 8.8 fl (7.4-10.4); Monocytes Absolute Auto 0.5 K/mm3 (0.1-0.6); Monocytes Percent Auto 6.4 % (2.6-8.5); Neutrophils Percent Auto 68.6 % (45.5-73.1); Platelet Count Result 242 k/mm3 (150-375); Red Blood Count 4.51 M/mm3 (4.2-5.4); Red Cell Distribution Width 15.7 % (11.5-14.5); White Blood Count 7.3 K/mm3 (4.5-10.0)
[2021-01-15 06:53] LABS: Anion Gap 6 mmol/L (8-16); Blood Urea Nitrogen 13 mg/dL (7-17); Calcium 8.9 mg/dL (8.4-10.2); Carbon Dioxide 27 mmol/L (22-30); Chloride 100 mmol/L (98-107); Estimated CRCL calculation 78 ml/min; Estimated Glomerular Filt Rate > 60; Glucose 130 mg/dL (65-110); Magnesium 2.1 mg/dL (1.6-2.3); Potassium 4.1 mmol/L (3.4-5.0); Sodium 133 mmol/L (137-145)
--- NOTE | 2021-01-15 08:56 | PM.PNGS ---
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 Status: Acute Assessment and Plan: resolving, raul diet, +bowel fxn, exam improved, no acute surgical issues, will sign off, call c ?s, issues (2) Ventral hernia: Code(s): K43.9 - Ventral hernia without obstruction or gangrene Status: Acute Assessment and Plan: poor surgical candidate, large hernia not causing any acute issues Subjective Subjective Date/Time Seen: 01/15/21 08:56 feels better today, reports BMs are normalizing, raul soft diet Review of Systems Review of Systems: All systems reviewed & are unremarkable except as noted in HPI and below Exam Const: General: cooperative, no acute distress, alert, awake and Physically active Nutritional Appearance: obese Orientation/consciousness: patient oriented x3 Resp: Effort & Inspection: normal respiratory effort Auscultation: diminished lung sounds Cardio: Rate: regular rate Rhythm: regular rhythm GI: Inspection: normal to inspection, distended and incision GI Palp: Yes Soft to palpation, No Tenderness to palpation present (GI), No Guarding due to palpation present (GI) and No Rigid due to palpation Other: soft, decreased dist, NT, RLQ hernia reducible Objective Data Vital Signs Vital Signs: Vital Signs - 24 hr 01/14/21 09:23 01/14/21 12:00 01/14/21 12:20 Temperature 36.3 C L Pulse Rate 95 83 74 Respiratory Rate 22 H Blood Pressure 142/91 H Pulse Oximetry 99 01/14/21 16:58 01/14/21 20:00 01/14/21 20:49 Temperature 36.8 C 36.7 C Pulse Rate 68 123 H 120 H Respiratory Rate 20 18 Blood Pressure 132/85 144/75 H Pulse Oximetry 99 96 01/14/21 20:56 01/14/21 22:00 01/14/21 23:46 Temperature 36.6 C Pulse Rate 118 H 97 96 Respiratory Rate 20 Blood Pressure 134/89 Pulse Oximetry 100 01/15/21 00:00 01/15/21 02:00 01/15/21 04:00 Temperature 36.6 C Pulse Rate 78 92 92 Respiratory Rate 20 20 Blood Pressure 148/88 H Pulse Oximetry 100 97 01/15/21 04:20 01/15/21 06:00 Temperature Pulse Rate 88 109 H Respiratory Rate Blood Pressure Pulse Oximetry Intake/Output Intake/Output: Intake & Output 01/12/21 01/13/21 01/14/21 01/15/21 23:59 23:59 23:59 23:59 Intake Total 1160 740 860 300 Output Total 1800 745 888 7442 Balance -640 46 -02 -0455 Meds/Results Medications: Active Medications Generic Name Dose Route Start Last Admin Trade Name Freq PRN Reason Stop Dose Admin Bisacodyl 10 mg 01/10/21 09:53 Bisacodyl 10 Mg Suppository RECTAL QAM PRN Constipation Diltiazem HCl 180 mg 01/14/21 09:00 01/14/21 09:22 Diltiazem Hcl Cd 180 Mg Cap.Er.24h PO 180 mg QAM JAYDEN Administration Levothyroxine Sodium 25 mcg 01/10/21 06:30 01/15/21 05:37 Levothyroxine Sodium 25 Mcg Tablet PO 25 mcg DAILY@0630 JAYDEN Administration Metoprolol Tartrate 100 mg 01/12/21 21:00 01/14/21 20:56 Metoprolol Tartrate 50 Mg Tab PO 100 mg Q12HR JAYDEN Administration Polyethylene Glycol 17 gm 01/11/21 11:24 Polyethylene Glycol 3350 17 Gm Powd.Pack PO QAM PRN Constipation Polyethylene Glycol 17 gm 01/15/21 09:00 Polyethylene Glycol 3350 17 Gm Powd.Pack PO QAM JAYDEN Potassium Chloride 20 meq 01/14/21 08:00 01/14/21 09:21 Potassium Chloride 20 Meq Tablet.Er PO 20 meq DAILY@0800 JAYDEN Administration Rivaroxaban 20 mg 01/09/21 18:00 01/14/21 18:12 Rivaroxaban 20 Mg Tablet PO 20 mg QPM JAYDEN Administration Tolnaftate 1 applic 01/09/21 09:00 01/14/21 20:58 Tolnaftate 1% Powder 45 Gm Btl TOPICAL 1 applic Q12HR JAYDEN Administration Radiology Results: ITS Impressions Abdomen/Pelvis CT 01/08/21 11:12 IMPRESSION: 1. Massive gaseous distention of colon without obstructing sigmoid stricture or mass. Consider toxic megacolon. Recommend baseline KUB. 2. Large right lower quadrant hernia containing cecum
[2021-01-15] MEDS: polyethylene glycoL 3350 17 GM POWD.PACK PO (09:39)
[2021-01-15] MEDS: METOPROLOL TARTRATE 50 MG TAB 100 MG PO ×2 (09:39→21:13)
[2021-01-15] MEDS: POTASSIUM CHLORIDE 20 MEQ TABLET.ER PO (09:40)
[2021-01-15] MEDS: dilTIAZem HCL CD 180 MG CAP.ER.24H PO (09:40)
[2021-01-15] MEDS: TOLNAFTATE 1% POWDER 45 GM BTL 1 APPLIC TOPICAL ×2 (09:41→21:14)
--- NOTE | 2021-01-15 11:46 | WPDGIPROGNO ---
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 Suggest laxatives on a routine basis. Ambulation as tolerated. No additional GI workup necessary. (2) Ventral hernia: Code(s): K43.9 - Ventral hernia without obstruction or gangrene Status: Acute Assessment and Plan: Ventral hernia noted this is quite large. Currently causing no problems. Surgery is aware and following. She would be a very high surgical risk for repair of this lesion. (3) Persistent atrial fibrillation: Code(s): I48.19 - Other persistent atrial fibrillation Status: Acute Subjective Date/time seen: 01/15/21 11:46 patient improving. Tolerating diet. Passing stools. Starting to ambulate with assistance. Review of Systems Review of Systems: All systems reviewed & are unremarkable except as noted in HPI and below Exam Narrative: On exam patient is alert comfortable at rest. Sitting in chair. HEENT exam reveals no icterus. Lungs are clear. Heart without murmur. Abdomen obese soft nontender large ventral hernia evident. Objective Data Vital Signs Vital Signs: Vital Signs - 24 hr 01/14/21 12:00 01/14/21 12:20 01/14/21 16:58 Temperature 97.4 F L 98.3 F Pulse Rate 83 74 68 Respiratory Rate 22 H 20 Blood Pressure 142/91 H 132/85 Pulse Oximetry 99 99 01/14/21 20:00 01/14/21 20:49 01/14/21 20:56 Temperature 98.0 F Pulse Rate 123 H 120 H 118 H Respiratory Rate 18 Blood Pressure 144/75 H Pulse Oximetry 96 01/14/21 22:00 01/14/21 23:46 01/15/21 00:00 Temperature 97.8 F Pulse Rate 97 96 78 Respiratory Rate 20 20 Blood Pressure 134/89 Pulse Oximetry 100 100 01/15/21 02:00 01/15/21 04:00 01/15/21 04:20 Temperature 97.8 F Pulse Rate 92 92 88 Respiratory Rate 20 Blood Pressure 148/88 H Pulse Oximetry 97 01/15/21 06:00 01/15/21 09:39 Temperature 97.8 F Pulse Rate 109 H 66 Respiratory Rate 20 Blood Pressure 137/87 Pulse Oximetry 99 Intake/Output Intake/Output: Intake & Output 01/12/21 01/13/21 01/14/21 01/15/21 23:59 23:59 23:59 23:59 Intake Total 1160 740 860 540 Output Total 1800 478 403 5988 Balance -640 05 -38 -168 Meds/Results Medications: Active Medications Generic Name Dose Route Start Last Admin Trade Name Freq PRN Reason Stop Dose Admin Bisacodyl 10 mg 01/10/21 09:53 Bisacodyl 10 Mg Suppository RECTAL QAM PRN Constipation Diltiazem HCl 180 mg 01/14/21 09:00 01/15/21 09:40 Diltiazem Hcl Cd 180 Mg Cap.Er.24h PO 180 mg QAM JAYDEN Administration Levothyroxine Sodium 25 mcg 01/10/21 06:30 01/15/21 05:37 Levothyroxine Sodium 25 Mcg Tablet PO 25 mcg DAILY@0630 JAYDEN Administration Metoprolol Tartrate 100 mg 01/12/21 21:00 01/15/21 09:39 Metoprolol Tartrate 50 Mg Tab PO 100 mg Q12HR JAYDEN Administration Polyethylene Glycol 17 gm 01/11/21 11:24 Polyethylene Glycol 3350 17 Gm Powd.Pack PO QAM PRN Constipation Polyethylene Glycol 17 gm 01/15/21 09:00 01/15/21 09:39 Polyethylene Glycol 3350 17 Gm Powd.Pack PO 17 gm QAM JAYDEN Administration Potassium Chloride 20 meq 01/14/21 08:00 01/15/21 09:40 Potassium Chloride 20 Meq Tablet.Er PO 20 meq DAILY@0800 JAYDEN Administration Rivaroxaban 20 mg 01/09/21 18:00 01/14/21 18:12 Rivaroxaban 20 Mg Tablet PO 20 mg QPM JAYDEN Administration Tolnaftate 1 applic 01/09/21 09:00 01/15/21 09:41 Tolnaftate 1% Powder 45 Gm Btl TOPICAL 1 applic Q12HR JAYDEN Administration Radiology Results: ITS Impressions Abdomen/Pelvis CT 01/08/21 11:12 IMPRESSION: 1. Massive gaseous distention of colon without obstructing sigmoid stricture or mass. Consider toxic megacolon. Recommend baseline KUB. 2. Large right lower quadrant hernia containing cecum and nonobstructed ileum. 3. Ch
--- NOTE | 2021-01-15 13:12 | PM.IMPN ---
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 Continue p.o. 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 Gastrografin enema also with no obstruction. Appreciate Gastroenterology and General surgery consultation. Full liquid diet. Advance per General surgery and GI. She is having loose stools. Continue with MiraLax and Dulcolax suppository prn. Increase mobility. Repeat KUB today with persistently dilated colon consistent with adynamic ileus potassium 3.6 will give 40 of potassium Magnesium is 2.1 adequate With rapid ventricular response up to 140s. She was moved to IMU and started on Cardizem drip. She is hemodynamically stable. She has been seen in consultation by cardiology. Cardizem drip has been discontinued and she has been transitioned to PO cardizem 90 mg q8h. Continue metoprolol tartrate 50 mg p.o. q8h. Continue xarelto. Appreciate cardiology recommendations. Monitor on telemetry Blood pressures were reviewed and they were initially soft in the emergency department but have remained stable since admission. Last BP 129/70. Continue to monitor blood pressure trends with above medications. Hemoglobin and hematocrit are stable on review of prior labs. Continue to monitor Xarelto initially held in the event surgical intervention was required. Discussed with surgery and GI and Xarelto has been resumed as no surgery is indicated at this time. A1c is 6.2. She is not on any medications. Continue to discuss lifestyle changes including diet and exercise and she should follow-up with her PCP. Will provide her with glucometer prior to discharge so she can monitor sugars and record for PCP review. She will be educated on how to perform accuchecks. 01/14/21 [place] syndrome is resolving patient has been placed on soft and bite size diet by surgery Heart rate now controlled, cardiology following Lab values reviewed Blood pressure near goal feet purple today and cool to touch LE US ordered arterial and venous in light of h/o DVT Continue supportive therapy Anticipate discharge soon 01/15/2021 Appears to be doing better Tolerating food Ambulating with assistance Patient with normal ankle-brachial index and venous Doppler ultrasound Anticipate discharge home with home health care in 24-48 hours Subjective Date/time seen: 01/15/21 13:12 Patient doing okay reports a strong desire to go home. She is advised that she is not cleared by all services for discharge home yet however it will likely be soon. No BM today positive flatus tolerating ground diet up to chair and ambulated. Exam Narrative: General comfortable not in acute distress morbidly obese Neuro: awake, alert and oriented x3, speech clear, no focal neuro deficits noted HEENMT: normocephalic, atraumatic, EOMI, sclera anicteric, moist oral mucosa Respiratory: clear to auscultation bilaterally without crackes, rhonchi, or wheezes, nonlabored breathing Cardio: irregularly irregular rhythm Abdomen: Obese, distended, normoactive bowel sounds, soft, nontender to palpation. Large hernia in right lower quadrant that is soft And reducible Extremities: no edema, erythema, or tenderness to palpation, bilateral lower extrem
--- NOTE | 2021-01-15 15:36 | PM.PNCARD ---
Progress Note: A&P Assessment and Plan (1) Persistent atrial fibrillation: Code(s): I48.19 - Other persistent atrial fibrillation Status: Acute Assessment and Plan: Persistent atrial fibrillation, historically with a difficult to control heart rate. Reasonable heart rate control with metoprolol 100 mg b.i.d. and Cardizem 180 mg daily. (2) Nonsustained ventricular tachycardia: Code(s): I47.2 - Ventricular tachycardia Status: Acute Assessment and Plan: Added Kcl 20 mEq daily 4 borderline hypokalemia. Required amio bolus and drip last evening d/t increased frequency of VT. Remains asymptomatic with VT Repeat echo to assess EF. Recommend lexiscan nuclear stress test tomorrow. Check potassium and magnesium daily. Increased metoprolol to 100 mg BID. (3) Chronic anticoagulation: Code(s): Z79.01 - [facility] (current) use of anticoagulants Status: Acute Assessment and Plan: Back on Xarelto 20 mg daily. (4) Gaseous abdominal distention: Code(s): R14.0 - Abdominal distension (gaseous) Status: Acute Assessment and Plan: Tolerating solids now. Does appear improved with less bloating. (5) Essential hypertension: Code(s): I10 - Essential (primary) hypertension Status: Acute Assessment and Plan: Blood pressure controlled (6) Severe pulmonary hypertension: Code(s): I27.20 - Pulmonary hypertension, unspecified Status: Acute Assessment and Plan: Moderate to severe pulmonary hypertension due to sleep apnea and morbid obesity. Do not know whether old pulmonary emboli are contributing. (7) History of pulmonary embolus (PE): Onset Date: 2014 Code(s): Z86.711 - Personal history of pulmonary embolism Status: Acute Assessment and Plan: History of PE in 2015, on chronic anticoagulation. (8) Morbid obesity: Code(s): E66.01 - Morbid (severe) obesity due to excess calories Status: Acute Assessment and Plan: Weak and deconditioned as well. (9) Obstructive sleep apnea: Code(s): G47.33 - Obstructive sleep apnea (adult) (pediatric) Status: Chronic Assessment and Plan: Intolerant to CPAP in the past. Subjective Date/time seen: 01/15/21 15:36 Interval history: Follow-up for atrial fibrillation RVR in the setting of [place] Syndrome and discontinuation of AV héctor blocking agents since being NPO. H/O chronic a fib, severe pulmonary hypertension, morbid obesity, untreated sleep apnea, remote PE. 01/10/2021: No palpitations, CP. [place] a little wheezy earlier. Not out of bed. Tele = a fib HR Currently taking metoprolol tartrate 50 mg Q 8, and diltiazem drip 5 milligrams/hour. Echo showed EF 50%, pulmonary artery pressure 52 mmHg. Cardizem drip increased to 10 milligrams/hour to control AFib. 01/11/2021: Not much appetite, no shortness of breath or palpitations. Still with diarrhea. Has not yet been out of bed. Telemetry shows AFib rate 85-110. Changed Cardizem from IV to p.o.. 01/12/2021: Telemetry is showing AFib rate 70-110 with frequent PVCs and frequent nonsustained V-tach of 3-5 beats. No chest pain or shortness of breath. Still has a lot of diarrhea. The nurses did get her up in a chair today which was quite difficult as the patient cannot bear her weight, needing a lift. Patient hopes she does not need to go to rehab, says she can not walk back and forth to the bathroom by herself. Increase metoprolol from 50 mg q.8 hours to: 100 mg b.i.d.. Date of service 01/13/2021: Up in a chair, tolerating liquids, mild abdominal pain at times. No shortness of breath or chest pain. Telemetry shows AFib rate controll
--- NOTE | 2021-01-15 15:57 | PC.NURSE ---
On 01/15/21, the student, [Tameka ], provided care and completed [facility] documentation on this patient. I have reviewed the student's documentation and agree with the findings.
[2021-01-15] MEDS: SILVERGEL (ELTA) 45 ML 1 APPLIC TOPICAL (16:35)
[2021-01-15] MEDS: RIVAROXABAN 20 MG TABLET PO (17:59)
[2021-01-16] VITALS (16 sets, daily range): BP systolic 115–148; BP diastolic 81–96; PULSE 80–120; RESP 18–22; TEMP 36.4–36.8; O2SAT 97–100
--- NOTE | 2021-01-16 | EST_ITS ---
Patient Info Name: Lorraine Mazariegos Age: 65 years : 1955 Gender: Female Ht: 63 in Wt: 339 lbs BSA: 2.72 m2 Exam Date: 01/16/2021 11:37 AM Exam Location: [facility] Stress Patient Status: Inpatient Admit Date: 01/08/2021 Staff Ordering Physician: Tania Cote Attending Provider: Penelope Walls MD Exercise Technologist: Sandi Mohr RDCS Exercise Physician: Wojciech Negron MD Exam Type: CA stress darrian w NM Study Info Indications I47.2 - Ventricular tachycardia A regadenoson stress test was performed. Summary 1. Atrial fibrillation with rapid ventricular response, left axis deviation and poor R-wave progression. 2. No abnormal ST/T wave changes with exercise. 3. Persistent atrial fibrillation. 4. Clinically and electrocardiographically unremarkable Lexiscan stress test. 5. Myocardial perfusion imaging exam to be reported by Radiology with attention to significant obesity. Protocol: Lexiscan Stress ECG Details Stage: REST Duration (min): 4 min : 48 sec HR (bpm): 109 SBP (mmHg): --- DBP (mmHg): --- Stage: REST Duration (min): 7 min : 46 sec HR (bpm): 112 SBP (mmHg): 147 DBP (mmHg): 99 Stage: REST Duration (min): 10 min : 26 sec HR (bpm): 101 SBP (mmHg): 147 DBP (mmHg): 99 Stage: STAGE 1 Duration (min): 0 min : 59 sec HR (bpm): 120 SBP (mmHg): 167 DBP (mmHg): 100 Stage: RECOVERY Duration (min): 1 min : 0 sec HR (bpm): 114 SBP (mmHg): 158 DBP (mmHg): 98 Stage: RECOVERY Duration (min): 2 min : 0 sec HR (bpm): 109 SBP (mmHg): 158 DBP (mmHg): 98 Stage: RECOVERY Duration (min): 3 min : 0 sec HR (bpm): 110 SBP (mmHg): 166 DBP (mmHg): 99 Stage: RECOVERY Duration (min): 3 min : 14 sec HR (bpm): 113 SBP (mmHg): 166 DBP (mmHg): 99 Rest HR: 101 bpm Peak HR: 127 bpm Rest Sys BP: 147 mmHg Peak Sys BP: 167 mmHg Max Pred HR: 153 bpm % Max Pred HR: 83 % Target HR: 130 bpm Max RPP: 21,209 bpm*mmHg BP Response: Normal blood pressure response Termination Reason: Completed protocol Cardiac Symptoms: None Total Time: 1 min : 0 sec Rest Kiran BP: 99 mmHg Peak Kiran BP: 100 mmHg Total Dose: 0.4 mg Resting ECG Atrial fibrillation with rapid ventricular response, left axis deviation and poor R-wave progression. Stress ECG No abnormal ST/T wave changes with exercise. Arrhythmias Persistent atrial fibrillation. Report Signatures
--- NOTE | 2021-01-16 | ECHO_ITS ---
Patient Info Name: Lorraine Mazariegos Age: 65 years : 1955 Gender: Female Ht: 63 in Wt: 339 lbs BSA: 2.72 m2 HR: 129 bpm BP: 142 / 91 mmHg Heart Rhythm: Atrial Fibrillation Exam Date: 01/16/2021 8:43 AM Exam Location: [facility] Patient Status: Inpatient Admit Date: 01/08/2021 Staff Ordering Physician: Tania Cote Digital Media Associate: John Tang RDCS, RT Attending Provider: Penelope Walls MD Referring Physician: Kera FERRER; Exam Type: CA echo doppler color flow Study Info Indications I47.2 - Ventricular tachycardia Complete two-dimensional, color flow and Doppler transthoracic echocardiogram is performed. Summary 1. Complete two-dimensional, color flow and Doppler transthoracic echocardiogram is performed. 2. Technically challenging exam because of patient obesity. 3. Normal left ventricular systolic function with no obvious wall motion abnormalities. 4. Significantly calcified mitral valve annular. 5. Mild MR. 6. Sclerotic aortic valve which is not significantly stenotic. 7. No significant TR jet seen, as such difficult to comment on pulmonary artery pressure. Report Signatures
[2021-01-16 05:13] LABS: Basophils Absolute Auto 0.1 K/mm3 (0.0-0.1); Basophils Percent Auto 0.6 % (0.2-1.2); Eosinophils Absolute Auto 0.3 K/mm3 (0-0.3); Eosinophils Percent Auto 3.5 % (0-4.4); Hematocrit 36.3 % (37.0-47.0); Hemoglobin 11.2 g/dL (12.0-15.0); Immature Granulocyte Absolute 0.27 K/mm3 (0.00-0.031); Immature Granulocyte Percent A 3.5 % (0-0.5); Lymphocytes Absolute Auto 1.27 K/mm3 (0.9-3.2); Lymphocytes Percent Auto 16.3 % (18.3-44.2); Mean Corpuscular HGB Conc 30.9 g/dl (32-36); Mean Corpuscular Hemoglobin 24.9 pg (26-34); Mean Corpuscular Volume 80.7 fl (80-100); Mean Platelet Volume 8.7 fl (7.4-10.4); Monocytes Absolute Auto 0.6 K/mm3 (0.1-0.6); Monocytes Percent Auto 7.7 % (2.6-8.5); Neutrophils Absolute Auto 5.3 K/mm3 (1.3-6.7); Neutrophils Percent Auto 68.4 % (45.5-73.1); Platelet Count Result 252 k/mm3 (150-375); Red Cell Distribution Width 15.9 % (11.5-14.5); White Blood Count 7.8 K/mm3 (4.5-10.0)
[2021-01-16 05:24] LABS: Alanine Aminotransferase 13 U/L (4-35); Albumin Level 3.4 g/dL (3.5-5.1); Alkaline Phosphatase 119 U/L (38-126); Anion Gap 6 mmol/L (8-16); Aspartate Amino Transferase 17 U/L (14-36); Bilirubin,Total 0.5 mg/dL (0.2-1.3); Blood Urea Nitrogen 11 mg/dL (7-17); Calcium 8.7 mg/dL (8.4-10.2); Carbon Dioxide 27 mmol/L (22-30); Chloride 101 mmol/L (98-107); Estimated CRCL calculation 87 ml/min; Estimated Glomerular Filt Rate > 60; Glucose 130 mg/dL (65-110); Magnesium 1.9 mg/dL (1.6-2.3); Potassium 4.1 mmol/L (3.4-5.0); Sodium 134 mmol/L (137-145)
[2021-01-16] MEDS: LEVOTHYROXINE SODIUM 25 MCG TABLET PO (05:39)
[2021-01-16] MEDS: METOPROLOL TARTRATE 50 MG TAB 100 MG PO (08:35)
[2021-01-16] MEDS: dilTIAZem HCL CD 180 MG CAP.ER.24H PO (08:36)
[2021-01-16] MEDS: POTASSIUM CHLORIDE 20 MEQ TABLET.ER PO (08:37)
[2021-01-16] MEDS: polyethylene glycoL 3350 17 GM POWD.PACK PO (08:37)
--- NOTE | 2021-01-16 10:59 | PCPTNOTE ---
Attempted to see patient for PT, however unable due to patient out of room for testing.
--- NOTE | 2021-01-16 17:04 | PM.PNCARD ---
Progress Note: A&P Assessment and Plan (1) Persistent atrial fibrillation: Code(s): I48.19 - Other persistent atrial fibrillation Status: Acute Assessment and Plan: Persistent atrial fibrillation, historically with a difficult to control heart rate. Rate control strategy with Cardizem 180 mg daily and metoprolol. Increased to 125mg b.i.d today to hopefully achieve better rate control. (2) Nonsustained ventricular tachycardia: Code(s): I47.2 - Ventricular tachycardia Status: Acute Assessment and Plan: Added Kcl 20 mEq daily 4 borderline hypokalemia. Required amio bolus and drip on 01/15 d/t increased frequency of VT. Remains asymptomatic with VT. Now off amiodarone. Continues to have frequent, short runs of NSVT Check potassium and magnesium daily. Increased metoprolol to 125 mg BID. Lexiscan stress test did not show any evidence of reversible ischemia. Fixed defect. (3) Chronic anticoagulation: Code(s): Z79.01 - long-term (current) use of anticoagulants Status: Acute Assessment and Plan: Back on Xarelto 20 mg daily. (4) Gaseous abdominal distention: Code(s): R14.0 - Abdominal distension (gaseous) Status: Acute Assessment and Plan: Tolerating solids now. Does appear improved with less bloating. (5) Essential hypertension: Code(s): I10 - Essential (primary) hypertension Status: Acute Assessment and Plan: Blood pressure controlled (6) Severe pulmonary hypertension: Code(s): I27.20 - Pulmonary hypertension, unspecified Status: Acute Assessment and Plan: Moderate to severe pulmonary hypertension due to sleep apnea and morbid obesity. Do not know whether old pulmonary emboli are contributing. (7) History of pulmonary embolus (PE): Onset Date: 2014 Code(s): Z86.711 - Personal history of pulmonary embolism Status: Acute Assessment and Plan: History of PE in 2015, on chronic anticoagulation. (8) Morbid obesity: Code(s): E66.01 - Morbid (severe) obesity due to excess calories Status: Acute Assessment and Plan: Weak and deconditioned as well. (9) Obstructive sleep apnea: Code(s): G47.33 - Obstructive sleep apnea (adult) (pediatric) Status: Chronic Assessment and Plan: Intolerant to CPAP in the past. Subjective Date/time seen: 01/16/21 17:04 Interval history: Follow-up for atrial fibrillation RVR in the setting of [place] Syndrome and discontinuation of AV héctor blocking agents since being NPO. H/O chronic a fib, severe pulmonary hypertension, morbid obesity, untreated sleep apnea, remote PE. 01/10/2021: No palpitations, CP. [place] a little wheezy earlier. Not out of bed. Tele = a fib HR Currently taking metoprolol tartrate 50 mg Q 8, and diltiazem drip 5 milligrams/hour. Echo showed EF 50%, pulmonary artery pressure 52 mmHg. Cardizem drip increased to 10 milligrams/hour to control AFib. 01/11/2021: Not much appetite, no shortness of breath or palpitations. Still with diarrhea. Has not yet been out of bed. Telemetry shows AFib rate 85-110. Changed Cardizem from IV to p.o.. 01/12/2021: Telemetry is showing AFib rate 70-110 with frequent PVCs and frequent nonsustained V-tach of 3-5 beats. No chest pain or shortness of breath. Still has a lot of diarrhea. The nurses did get her up in a chair today which was quite difficult as the patient cannot bear her weight, needing a lift. Patient hopes she does not need to go to rehab, says she can not walk back and forth to the bathroom by herself. Increase metoprolol from 50 mg q.8 hours to: 100 mg b.i.d.. Date of service 01/13/2021: Up in a chair,
[2021-01-16] MEDS: TOLNAFTATE 1% POWDER 45 GM BTL 1 APPLIC TOPICAL ×2 (17:22→21:01)
[2021-01-16] MEDS: SILVERGEL (ELTA) 45 ML 1 APPLIC TOPICAL (17:22)
[2021-01-16] MEDS: RIVAROXABAN 20 MG TABLET PO (17:22)
--- NOTE | 2021-01-16 18:20 | PM.IMPN ---
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 Continue p.o. 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 Gastrografin enema also with no obstruction. Appreciate Gastroenterology and General surgery consultation. Full liquid diet. Advance per General surgery and GI. She is having loose stools. Continue with MiraLax and Dulcolax suppository prn. Increase mobility. Repeat KUB today with persistently dilated colon consistent with adynamic ileus potassium 3.6 will give 40 of potassium Magnesium is 2.1 adequate With rapid ventricular response up to 140s. She was moved to IMU and started on Cardizem drip. She is hemodynamically stable. She has been seen in consultation by cardiology. Cardizem drip has been discontinued and she has been transitioned to PO cardizem 90 mg q8h. Continue metoprolol tartrate 50 mg p.o. q8h. Continue xarelto. Appreciate cardiology recommendations. Monitor on telemetry Blood pressures were reviewed and they were initially soft in the emergency department but have remained stable since admission. Last BP 129/70. Continue to monitor blood pressure trends with above medications. Hemoglobin and hematocrit are stable on review of prior labs. Continue to monitor Xarelto initially held in the event surgical intervention was required. Discussed with surgery and GI and Xarelto has been resumed as no surgery is indicated at this time. A1c is 6.2. She is not on any medications. Continue to discuss lifestyle changes including diet and exercise and she should follow-up with her PCP. Will provide her with glucometer prior to discharge so she can monitor sugars and record for PCP review. She will be educated on how to perform accuchecks. 01/14/21 Buddy syndrome is resolving patient has been placed on soft and bite size diet by surgery Heart rate now controlled, cardiology following Lab values reviewed Blood pressure near goal feet purple today and cool to touch LE US ordered arterial and venous in light of h/o DVT Continue supportive therapy Anticipate discharge soon 01/15/2021 Appears to be doing better Tolerating food Ambulating with assistance Patient with normal ankle-brachial index and venous Doppler ultrasound Anticipate discharge home with home health care in 24-48 hours 01/16/21 per cardio Persistent atrial fibrillation, historically with a difficult to control heart rate. Cardizem 180 mg daily and metoprolol. Increased to 125mg b.i.d today to hopefully achieve better rate control. lexiscan w perfusion defect remain hospitalized for improved rate control cardiology recs appreciated Subjective Date/time seen: 01/16/21 18:20 doing ok no complaints wants to go home Exam Narrative: General comfortable not in acute distress morbidly obese Neuro: awake, alert and oriented x3, speech clear, no focal neuro deficits noted HEENMT: normocephalic, atraumatic, EOMI, sclera anicteric, moist oral mucosa Respiratory: clear to auscultation bilaterally without crackes, rhonchi, or wheezes, nonlabored breathing Cardio: irregularly irregular rhythm Abdomen: Obese, distended, normoactive bowel sounds, soft, nontender to palpation. Large hernia in right lower q
[2021-01-16] MEDS: METOPROLOL TARTRATE 25 MG TABLET 125 MG PO (20:55)
[2021-01-17] VITALS (9 sets, daily range): BP systolic 122–149; BP diastolic 73–102; PULSE 77–115; RESP 13–22; TEMP 36.7–36.9; O2SAT 97–100
--- NOTE | 2021-01-17 03:55 | PC.NURSE ---
This patient, Lorraine Mazariegos, was received from [[facility] ] on 01/17/21 at 0330. Patient/family oriented to unit policies and routines. Received report from DERRICK Ugarte
[2021-01-17] MEDS: LEVOTHYROXINE SODIUM 25 MCG TABLET PO (06:11)
[2021-01-17] MEDS: METOPROLOL TARTRATE 25 MG TABLET 125 MG PO (08:14)
[2021-01-17] MEDS: dilTIAZem HCL CD 180 MG CAP.ER.24H PO (08:15)
[2021-01-17] MEDS: polyethylene glycoL 3350 17 GM POWD.PACK PO (08:15)
[2021-01-17] MEDS: POTASSIUM CHLORIDE 20 MEQ TABLET.ER PO (08:15)
[2021-01-17] MEDS: SILVERGEL (ELTA) 45 ML 1 APPLIC TOPICAL (08:16)
[2021-01-17] MEDS: TOLNAFTATE 1% POWDER 45 GM BTL 1 APPLIC TOPICAL (08:16)
--- NOTE | 2021-01-17 10:16 | WPDGIPROGNO ---
Progress Note: A&P Assessment and Plan (1) Ventral hernia: Code(s): K43.9 - Ventral hernia without obstruction or gangrene Status: Acute Assessment and Plan: Ventral hernia quite large but clinically no obstruction. Surgery is seen patient. Will defer management to surgical service. She has significant surgical risk and current says conservative therapy is appropriate. (2) Dilated bowel: Status: Acute Assessment and Plan: Dilated bowel has improved with laxatives. (3) [place]'s syndrome: Code(s): K59.81 - Buddy syndrome Status: Acute Assessment and Plan: Buddy syndrome appears resolved. Plan to maintain patient laxatives on a daily basis. (4) Chronic anticoagulation: Code(s): Z79.01 - skilled nursing (current) use of anticoagulants Status: Acute Assessment and Plan: No contraindication to anticoagulation at present if necessary via GI service. (5) Persistent atrial fibrillation: Code(s): I48.19 - Other persistent atrial fibrillation Status: Acute Assessment and Plan: Cardiac dysrhythmia atrial fibrillation and possible runs of V-tach have kept patient in the hospital will defer this to primary care cardiology service. Subjective Date/time seen: 01/17/21 10:16 Patient remains hospitalized. Currently tolerating diet. Nursing service is getting patient out of bed with increased ambulation. She reports having had bowel movements. Remains in the hospital because of cardiac dysrhythmia. Currently anxious to go home. Review of Systems Review of Systems: All systems reviewed & are unremarkable except as noted in HPI and below Exam Narrative: Physical exam reveals patient be alert. Currently sit in a bedside chair. Vital signs stable. HEENT exam reveals no icterus. Lungs are clear to auscultation and percussion. Heart is without murmur. Abdomen is obese. Large ventral hernia evident. Bowel sounds are present. Extremities without cyanosis or edema. Objective Data Vital Signs Vital Signs: Vital Signs - 24 hr 01/16/21 12:00 01/16/21 14:00 01/16/21 16:00 Temperature 97.9 F 98.2 F Pulse Rate 106 H 83 107 H Respiratory Rate 18 20 Blood Pressure 134/88 135/82 Pulse Oximetry 100 100 01/16/21 18:00 01/16/21 20:00 01/16/21 20:55 Temperature 97.9 F Pulse Rate 100 120 H 115 H Respiratory Rate 22 H Blood Pressure 141/91 H Pulse Oximetry 99 01/16/21 22:00 01/16/21 23:41 01/17/21 00:00 Temperature 97.5 F L Pulse Rate 95 80 99 Respiratory Rate 22 H Blood Pressure 148/96 H Pulse Oximetry 100 100 01/17/21 03:40 01/17/21 06:00 01/17/21 08:00 Temperature 98.1 F 98.4 F Pulse Rate 92 103 H 103 H Respiratory Rate 22 H 18 Blood Pressure 122/78 149/73 H Pulse Oximetry 98 97 01/17/21 08:14 01/17/21 08:15 01/17/21 10:00 Temperature Pulse Rate 115 H 103 H 77 Respiratory Rate Blood Pressure Pulse Oximetry Intake/Output Intake/Output: Intake & Output 01/14/21 01/15/21 01/16/21 01/17/21 23:59 23:59 23:59 23:59 Intake Total 860 1240 1000 360 Output Total 875 8598 300 625 [facility] [phone] Meds/Results Medications: Active Medications Generic Name Dose Route Start Last Admin Trade Name Freq PRN Reason Stop Dose Admin Bisacodyl 10 mg 01/10/21 09:53 Bisacodyl 10 Mg Suppository RECTAL QAM PRN Constipation Diltiazem HCl 180 mg 01/14/21 09:00 01/17/21 08:15 Diltiazem Hcl Cd 180 Mg Cap.Er.24h PO 180 mg QAM JAYDEN Administration Levothyroxine Sodium 25 mcg 01/10/21 06:30 01/17/21 06:11 Levothyroxine Sodium 25 Mcg Tablet PO 25 mcg DAILY@0630 JAYDEN Administration Metoprolol Tartrate 125 mg 01/16/21 21:00 01/17/21 08:14 Metoprolol Tartrate 25 Mg Tablet PO 125 mg Q12HR JAYDEN Administration Polyethylene Glycol 17 gm 01/11/21 11:24 Polyethylene Glycol 3350 17 Gm Powd.Pack PO QAM PRN Constipation P
--- NOTE | 2021-01-17 13:45 | PM.PNCARD ---
Progress Note: A&P Assessment and Plan (1) Persistent atrial fibrillation: Code(s): I48.19 - Other persistent atrial fibrillation Status: Acute Assessment and Plan: Persistent atrial fibrillation, historically with a difficult to control heart rate fair control generally in the 90s at rest up to the 120 to 130s with activity.. Rate control strategy with Cardizem 180 mg daily and metoprolol. At discharge, increased metoprolol tartrate to 150mg b.i.d. Check BMP in one week. Resume Lasix 20 mg daily and continue potassium chloride supplementation. Stable at this time. Follow-up with Dr. Rome as outpatient in 2 weeks in our office. Call Tuesday morning for appointment. (2) Nonsustained ventricular tachycardia: Code(s): I47.2 - Ventricular tachycardia Status: Acute Assessment and Plan: Added Kcl 20 mEq daily 4 borderline hypokalemia. Required amio bolus and drip on 01/15 d/t increased frequency of VT. Remains asymptomatic with VT. Now off amiodarone. No recurrent nonsustained or sustained VT. Check potassium and magnesium daily. Increase metoprolol to 150 mg p.o. b.i.d.. Lexiscan stress test did not show any evidence of reversible ischemia. Fixed defect. EF preserved without wall motion abnormality. 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 (4) Gaseous abdominal distention: Code(s): R14.0 - Abdominal distension (gaseous) Status: Acute Assessment and Plan: Tolerating solids now. Does appear improved with less bloating. (5) Essential hypertension: Code(s): I10 - Essential (primary) hypertension Status: Acute Assessment and Plan: Blood pressure controlled (6) Severe pulmonary hypertension: Code(s): I27.20 - Pulmonary hypertension, unspecified Status: Acute Assessment and Plan: Moderate to severe pulmonary hypertension due to sleep apnea and morbid obesity. Do not know whether old pulmonary emboli are contributing. (7) History of pulmonary embolus (PE): Onset Date: 2014 Code(s): Z86.711 - Personal history of pulmonary embolism Status: Acute Assessment and Plan: History of PE in 2015, on chronic anticoagulation. (8) Morbid obesity: Code(s): E66.01 - Morbid (severe) obesity due to excess calories Status: Acute Assessment and Plan: Weak and deconditioned as well. (9) Obstructive sleep apnea: Code(s): G47.33 - Obstructive sleep apnea (adult) (pediatric) Status: Chronic Assessment and Plan: Intolerant to CPAP in the past. Subjective Date/time seen: Date of service: 01/17/21 13:45 Follow-up for atrial fibrillation with rapid ventricular response No complaints overnight. No recurrent nonsustained or sustained ventricular tachycardia on telemetry. AFib persists with variable heart rate more rapid when active 120 to 130s generally in the 90s at rest. Denies palpitation, dizziness, lightheadedness. No significant chest pain. Patient wants to be discharged home. Review of Systems Review of Systems: All systems reviewed & are unremarkable except as noted in HPI and below Constitutional: Constitutional: Reports as per HPI, Reports no additional constitutional complaints and Denies weakness Eyes: Eyes: Reports as per HPI and Reports no additional eye complaints ENT: Reports system reviewed and no additional complaints, except as documented, Reports as per HPI, Denies epistaxis and Denies nasal congestion Cardiovascular: Cardiovascular: Reports as per HPI, Reports no additional cardiovascular
--- NOTE | 2021-01-17 13:59 | PM.DS ---
DS: Admitting Diagnosis Discharge Date 01/17/21 Admitting Diagnosis (1) Abdominal pain: Code(s): R10.9 - Unspecified abdominal pain Status: Acute Assessment and Plan: (2) Gaseous abdominal distention: Code(s): R14.0 - Abdominal distension (gaseous) Status: Acute Assessment and Plan: (3) Atrial fibrillation: Code(s): I48.91 - Unspecified atrial fibrillation Status: Acute Assessment and Plan: (4) Essential hypertension: Code(s): I10 - Essential (primary) hypertension Status: Acute Assessment and Plan: (5) Anemia: Code(s): D64.9 - Anemia, unspecified Status: Acute Assessment and Plan: (6) Hypothyroidism: Code(s): E03.9 - Hypothyroidism, unspecified Status: Acute Assessment and Plan: (7) Chronic anticoagulation: Code(s): 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 Continue p.o. levothyroxine (6) Chronic anticoagulation: Code(s): Z79.01 - alf (current) use of anticoagulants Status: Acute (7) Prediabetes: Code(s): R73.03 - Prediabetes Status: Acute DS: Summary Hospital Course Reason for hospitalization: Abdominal Pain Hospital Course: 01/08/21 Related to gaseous distension of the colon, etiology of which is not entirely clear. No obvious obstruction noted on CT. She has just returned from a Hypaque enema with results pending. IV Ofirmev available if needed. She received 2 L of normal saline emergency department in at this time I will hold on scheduling any further fluids to avoid over-hydration. As detailed above. GI and surgery have been consulted and their recommendations are appreciated. Continue NPO status. Rates are currently in the low 100s at the time my evaluation. As she is NPO her diltiazem and metoprolol are currently on hold. For now I will schedule IV Lopressor 5 mg q.6 hours for rate control. Xarelto on hold in case of need for surgical intervention. Blood pressures were reviewed and they were initially soft in the emergency department however that may very well have been due to cuff size and placement. Blood pressures have been stable since that time. Monitor closely as she is NPO. Hemoglobin and hematocrit are stable and will be monitored. Levothyroxine will be changed to IV while NPO. Xarelto currently on hold in case there is need for surgical intervention 01/09/21 Findings consistent with pseudo-obstruction. CT showed massive gaseous distension without obstructing stricture or mass. Gastrografin enema yesterday with no obstruction. Appreciate Gastroenterology and General surgery consultation. She had a small liquid stool today. Advanced to clear liquid diet per General surgery. Proceed with daily obstructive series imaging per GI recommendations. Continue with Dulcolax suppositories. With rapid ventricular response. Rate elevated up to 140s today. She has been moved to IMU and started on Cardizem drip with 10 mg loading dose. Consultation to cardiology, recommendations are appreciated. Continue xarelto Blood pressures were reviewed and they were initially soft in the emergency department but have remained stable upon admission. Last BP 122/75. Continue to monitor blood pressure trends closely Hemoglobin and hematocrit are stable on review of
--- NOTE | 2021-01-17 14:41 | PC.NURSE ---
Pt requested that I call her to go over discharge papers because she feels she wont understand them . to be called, Winifred MEZA to verify.
== END 2021-01-17 15:30 | disposition home health service (06) | DRG 392 ==
LOC: ANHED 15:04 → ANH3MED 16:41 → ANHIMU 01-09 13:00 → ANHCPC 01-17 10:43 → ANH3MED 01-19 15:32 → ANHCPC 01-19 15:32 → ANHIMU 01-19 15:32
PROVIDERS: Internal Medicine; Internal Medicine Cardiovascular Disease; Physician Assistant; Admitting Provider Family Medicine; Emergency Provider Emergency Medicine; PCP Family Medicine; Visit Provider Hospitalist
DX: K59.81 Ogilvie syndrome (principal); Z68.43 Body mass index [BMI] 50.0-59.9, adult; I48.19 Other persistent atrial fibrillation; I47.2 Ventricular tachycardia; I49.3 Ventricular premature depolarization; D64.9 Anemia, unspecified; I10 Essential (primary) hypertension; R14.0 Abdominal distension (gaseous); E03.9 Hypothyroidism, unspecified; R73.03 Prediabetes; F03.90 Unspecified dementia, unspecified severity, without behavioral disturbance, psychotic disturbance, mood disturbance, and anxiety; F41.9 Anxiety disorder, unspecified; E78.2 Mixed hyperlipidemia; G47.33 Obstructive sleep apnea (adult) (pediatric); J45.20 Mild intermittent asthma, uncomplicated; K43.9 Ventral hernia without obstruction or gangrene; F32.9 Major depressive disorder, single episode, unspecified; L89.899 Pressure ulcer of other site, unspecified stage; I51.9 Heart disease, unspecified; I27.20 Pulmonary hypertension, unspecified; E66.01 Morbid (severe) obesity due to excess calories; Z96.653 Presence of artificial knee joint, bilateral; Z86.718 Personal history of other venous thrombosis and embolism; Z79.01 Long term (current) use of anticoagulants; Z86.711 Personal history of pulmonary embolism; Z90.710 Acquired absence of both cervix and uterus; Z90.49 Acquired absence of other specified parts of digestive tract; Z98.84 Bariatric surgery status; Z95.828 Presence of other vascular implants and grafts
CPT/HCPCS: 36415; 51701; 74018; 74019; 74177; 74270; 78452; 80048; 80053; 81001; 83036; 83605; 83690; 83735; 84132; 84443; 85014; 85018; 85025; 85027; 87040; 93005; 93017; 93306; 93923; 93970; 96361; 96365; 97110; 97116; 97162; 97165; 97530; 99285; A9270; A9502; J0282; J1160; J2543; J2785; J3475; J7030; Q9967

== ENCOUNTER 2021-01-23 14:21 | Emergency (ER) | payer MEDICARE, SELFPAY ==
[2021-01-23] VITALS (7 sets, daily range): BP systolic 107–134; BP diastolic 73–113; PULSE 76–96; RESP 15–20; TEMP 36.8; O2SAT 96–99
--- NOTE | ~2021-01-23 | XR_ITS ---
EXAMINATION: XR chest 1V portable INDICATION: Generalized weakness, hypertension TECHNIQUE: Portable AP chest at 1601 hours COMPARISON: 08/20/2020 FINDINGS: The lungs are free of acute opacities. There is no pleural effusion or pneumothorax. The ia rdia mediastinal silhouette is normal for technique. 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 Surgical clips are noted in the left upper quadrant. IMPRESSION: 1. No acute cardiopulmonary abnormality. Reviewed, dictated and finalized at location A.
--- NOTE | ~2021-01-23 | CT_ITS ---
EXAMINATION: CT brain wo con DATE: 01/23/2021 17:28 INDICATION: Abnormal arm movement. Paresis. TECHNIQUE: Computed tomography (CT) of the head was performed without intravenous contrast. The mA wa s adjusted according to patient size. Iterative reconstruction technique was employed. Exam dose: 60 5.33 mGy-cm total exam DLP. COMPARISON: 04/10/2017 CT brain FINDINGS: Bilateral carotid siphon internal carotid artery calcifications. No intracranial mass lesion or hemor rhage or cerebrovascular accident. No midline shift or mass effect. Normal ventricular size. No subdu ral or epidural hematoma. No fracture or interval bone destruction of the cranial vault. Stable small lucency of the mid fronta l bone, unchanged since 04/10/2017. Bilateral hyperostosis frontalis interna. Included paranasal sinuses and mastoid air cells are normally developed and aerated. IMPRESSION: No acute intracranial abnormality or significant change since 04/10/2017 Reviewed, dictated and finalized at Location [facility]. Reviewed, dictated and finalized at location A.
--- NOTE | 2021-01-23 14:33 | ECG_ITS ---
Measurements Intervals [place] Rate: 83 P: MI: 0 QRS: -60 QRSD: 118 T: 121 QT: 355 QTc: 417 Interpretive Statements ATRIAL FIBRILLATION LEFT AXIS DEVIATION INTRAVENTRICULAR CONDUCTION DELAY LEFT VENTRICULAR HYPERTROPHY WITH ST-T CHANGE CANNOT RULE OUT SEPTAL INFARCT, AGE INDETERMINATE BASELINE ARTIFACT- I, II, III, AVR, AVL, AVF, V1, V3-V6 ABNORMAL ECG Electronically Signed On 01-23-2021 15:53:56 CDT by Glenroy Ashraf D.O.
--- NOTE | 2021-01-23 16:12 | ED.GENADULT ---
HPI - General Adult General Chief complaint: Weakness Stated complaint: low blood pressure Time Seen by Provider: 01/23/21 15:26 Source: patient, RN notes reviewed and old records reviewed Mode of arrival: EMS Limitations: dementia History of Present Illness HPI narrative: This is 65 year old female with multiple medical problems who presents for evaluation of possible low blood pressure. Patient was released from the hospital a few days ago . Her states today she was having difficulty pulling her pants up because she is having abnormal limb jerking. He states she has had this intermittently for at least 1 year. He also states they were unable to filler picker patient's pulse ox on her finger and they were told her blood pressure was low. He reports her blood pressure was 80s. Patient denies any complaints. She denies chest pain, shortness of breath, abdominal pain, nausea, vomiting. She reports having normal bowel movement today. Related Data Home Medications Medication Instructions Recorded Confirmed atorvastatin 40 mg PO DAILY 06/05/20 01/08/21 diphenhydramine HCl 25 mg PO HS PRN 08/20/20 01/08/21 gabapentin 600 mg PO BID 08/20/20 01/08/21 Xarelto 20 mg PO QPM 11/24/20 01/08/21 cholecalciferol (vitamin D3) 50 mcg PO DAILY 11/24/20 01/08/21 docusate sodium [Stool Softener] 100 mg PO HS PRN 11/24/20 01/08/21 omeprazole 20 mg PO HS 11/24/20 01/08/21 pediatric itgwodon-fvrm-krx 1 tablet PO DAILY 11/24/20 01/08/21 furosemide 20 mg tablet 20 mg PO QAM 12/18/20 01/08/21 duloxetine 60 mg PO DAILY 12/22/20 01/08/21 risperidone 4 mg PO HS 12/22/20 01/08/21 Allergies Allergy/AdvReac Type Severity Reaction Status Date / Time metoclopramide Allergy Intermediate Hives Verified 01/08/21 10:14 Review of Systems Review of Systems: All systems reviewed & are unremarkable except as noted in HPI and below PMFSH Past Medical History Medical History (Updated 01/23/21 @ 18:22 by Chelsea Houser MD) Anxiety Atrial fibrillation Chronic anticoagulation Chronic low back pain with sciatica Chronic wound of extremity 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 Dumont for quite some time. Status post excision with full-thickness skin graft on 11/27/2020. Deep venous thrombosis (2014) Dementia Depression Essential hypertension Hypothyroidism Mild episode of recurrent major depressive disorder Mild intermittent asthma without complication Mixed hyperlipidemia Morbid obesity Obstructive sleep apnea Intolerant to CPAP. Persistent atrial fibrillation Pulmonary embolism (2014) Right ventricular systolic dysfunction Severe right ventricular enlargement with ysdk-sh-cgwsogcu systolic dysfunction noted on echocardiogram dated 08/26/2014. Normal LV size and function with an EF of 65 to 70%. Severe pulmonary hypertension RVSP of 66 mmHg on echocardiogram dated 08/26/2014. Surgical History Surgical History History of appendectomy History of bariatric surgery Gastropexy for obesity in 1978 and 1983. History of bilateral knee replacement History of carpal tunnel release History of cholecystectomy History of colonoscopy with polypectomy History of dilation and curettage (1973) History of hysterectomy (1996) History of left breast biopsy History of tonsillectomy History of tubal ligation (1977) Presence of IVC filter Status post full thickness skin graft (11/27/20) Excision 3 cm bleeding varicosity lesion of the right lateral leg with full-thickness skin graft per Dr. Dumont. Family History Family History Mother Diabetes mellitus age 51 Father Heart disease of a CT age 55 Family history of coronary artery disease Sibling Blood clot in vein Other Family history of alcoholism Family history of arthritis Family history of kidney disease Family history of malignant ne
[2021-01-23 16:36] LABS: Basophils Percent Auto 0.4 % (0.2-1.2); Eosinophils Absolute Auto 0.2 K/mm3 (0-0.3); Eosinophils Percent Auto 2.7 % (0-4.4); Hematocrit 37.8 % (37.0-47.0); Hemoglobin 11.1 g/dL (12.0-15.0); Immature Granulocyte Absolute 0.05 K/mm3 (0.00-0.031); Immature Granulocyte Percent A 0.7 % (0-0.5); Lymphocytes Absolute Auto 1.25 K/mm3 (0.9-3.2); Lymphocytes Percent Auto 16.8 % (18.3-44.2); Mean Corpuscular HGB Conc 29.4 g/dl (32-36); Mean Corpuscular Hemoglobin 24.5 pg (26-34); Mean Corpuscular Volume 83.4 fl (80-100); Monocytes Absolute Auto 0.5 K/mm3 (0.1-0.6); Monocytes Percent Auto 6.6 % (2.6-8.5); Neutrophils Absolute Auto 5.4 K/mm3 (1.3-6.7); Neutrophils Percent Auto 72.8 % (45.5-73.1); Platelet Count Result 246 k/mm3 (150-375); Red Blood Count 4.53 M/mm3 (4.2-5.4); Red Cell Distribution Width 16.3 % (11.5-14.5); White Blood Count 7.4 K/mm3 (4.5-10.0)
[2021-01-23 16:48] LABS: Lactic Acid Reflex 1.1 mmol/L (0.7-2.1)
[2021-01-23 16:50] LABS: Alanine Aminotransferase 11 U/L (4-35); Albumin Level 3.5 g/dL (3.5-5.1); Alkaline Phosphatase 127 U/L (38-126); Anion Gap 5 mmol/L (8-16); Aspartate Amino Transferase 28 U/L (14-36); Bilirubin,Total 0.4 mg/dL (0.2-1.3); Blood Urea Nitrogen 15 mg/dL (7-17); Calcium 8.7 mg/dL (8.4-10.2); Carbon Dioxide 30 mmol/L (22-30); Chloride 100 mmol/L (98-107); Estimated CRCL calculation 71 ml/min; Estimated Glomerular Filt Rate 55; Glucose 99 mg/dL (65-110); Potassium 4.3 mmol/L (3.4-5.0); Sodium 135 mmol/L (137-145)
[2021-01-23 16:50] LABS: Add Urine Microscopic? NO; Appearance Urine Clear (Clear); Bilirubin Urine Negative (Negative); Blood Urine Negative (Negative); Color Urine Yellow (Yellow); Glucose Urine UA Negative (Negative); Ketones Urine Negative (Negative); Leukocyte Esterase Ur Negative LEU/UL (Negative); Nitrate Urine Negative (Negative); Protein Urine Negative (Negative); Specific Grav Ur 1.009 (1.001-1.035); Urobilinogen Urine Negative mg/dL (<2.0)
[2021-01-23 16:53] LABS: INR 1.7; Partial Thromboplastin Time 33.2 SECONDS (22.3-36.8); Prothrombin Time 19.7 Seconds (11.1-14.7)
[2021-01-23 17:12] LABS: Hypochromasia 1+ (NORMAL); Ovalocytes 1+ (NORMAL); Platelet Estimate Adequate (Adequate)
== END 2021-01-23 18:52 | disposition home or self-care (01) ==
PROVIDERS: Emergency Provider General Practice; PCP Family Medicine
DX: I48.20 Chronic atrial fibrillation, unspecified (principal); F41.9 Anxiety disorder, unspecified; F03.90 Unspecified dementia, unspecified severity, without behavioral disturbance, psychotic disturbance, mood disturbance, and anxiety; F32.9 Major depressive disorder, single episode, unspecified; I10 Essential (primary) hypertension; E03.9 Hypothyroidism, unspecified; E78.2 Mixed hyperlipidemia; E66.01 Morbid (severe) obesity due to excess calories; G47.33 Obstructive sleep apnea (adult) (pediatric); Z86.718 Personal history of other venous thrombosis and embolism; Z79.01 Long term (current) use of anticoagulants; Z86.711 Personal history of pulmonary embolism; Z90.89 Acquired absence of other organs; Z98.84 Bariatric surgery status; Z90.49 Acquired absence of other specified parts of digestive tract; Z90.710 Acquired absence of both cervix and uterus; Z98.51 Tubal ligation status
CPT/HCPCS: 36415; 70450; 71045; 80053; 81003; 83605; 83735; 85025; 85610; 85730; 93005; 99284

== ENCOUNTER 2021-01-26 07:12 | Outpatient (RCR) | payer MEDICARE, SELFPAY ==
--- NOTE | 2021-02-23 12:40 | PCWOUND ---
WOCN NOTE Patient's spouse left voicemail to cancel appointment due to patient's inability to get into a car.
== END 2021-03-22 23:59 | disposition home or self-care (01) ==
LOC: ANHWOC 07:12
PROVIDERS: PCP Family Medicine; Visit Provider Plastic Surgery
DX: Z48.817 Encounter for surgical aftercare following surgery on the skin and subcutaneous tissue (principal); Z94.5 Skin transplant status
CPT/HCPCS: 99212; 99213; G0463

== ENCOUNTER 2021-01-28 12:36 | Observation (INO) | payer MEDICARE, SELFPAY ==
--- NOTE | ~2021-01-28 | XR_ITS ---
EXAMINATION: XR abdomen/kub 1V DATE: 01/29/2021 01:59 INDICATION: Abdominal distention. TECHNIQUE: A supine view of the abdomen on 2 radiographs was obtained. COMPARISON: CT abdomen and pelvis 01/08/2021 FINDINGS: There is gaseous distention of the colon. There is a ventral hernia in right lower quadrant containing bowel. The small bowel is normal in caliber. There are surgical clips in the area of the stomach. There is a filter in the inferior vena cava. IMPRESSION: 1. Persistently distended colon, consistent with adynamic ileus. 2. Right lower quadrant ventral hernia containing bowel. Reviewed, dictated and finalized at location A.
[2021-01-28 12:39] VITALS: BP 103/84; PULSE 79; RESP 20; TEMP 36.1; O2SAT 99
--- NOTE | 2021-01-28 13:21 | ECG_ITS ---
Measurements Intervals [place] Rate: 82 P: MN: 0 QRS: -33 QRSD: 117 T: 66 QT: 378 QTc: 442 Interpretive Statements ATRIAL FIBRILLATION LEFT AXIS DEVIATION INTRAVENTRICULAR CONDUCTION DELAY DELAYED PRECORDIAL R/S TRANSITION BORDERLINE ST-T WAVE ABNORMALITY- HIGH LATERAL LEADS BASELINE ARTIFACT- I, II, III, AVR, AVL, AVF ABNORMAL ECG Electronically Signed On 01-28-2021 13:45:49 CDT by Glenroy Ashraf D.O.
[2021-01-28 14:04] LABS: Basophils Percent Auto 0.3 % (0.2-1.2); Eosinophils Absolute Auto 0.1 K/mm3 (0-0.3); Eosinophils Percent Auto 1.3 % (0-4.4); Hematocrit 38.4 % (37.0-47.0); Hemoglobin 11.6 g/dL (12.0-15.0); Immature Granulocyte Absolute 0.04 K/mm3 (0.00-0.031); Immature Granulocyte Percent A 0.6 % (0-0.5); Lymphocytes Absolute Auto 0.76 K/mm3 (0.9-3.2); Lymphocytes Percent Auto 11.2 % (18.3-44.2); Mean Corpuscular HGB Conc 30.2 g/dl (32-36); Mean Corpuscular Volume 82.8 fl (80-100); Monocytes Absolute Auto 0.4 K/mm3 (0.1-0.6); Monocytes Percent Auto 5.7 % (2.6-8.5); Neutrophils Absolute Auto 5.5 K/mm3 (1.3-6.7); Neutrophils Percent Auto 80.9 % (45.5-73.1); Platelet Count Result 207 k/mm3 (150-375); Red Blood Count 4.64 M/mm3 (4.2-5.4); White Blood Count 6.8 K/mm3 (4.5-10.0)
[2021-01-28 14:19] LABS: Alanine Aminotransferase 11 U/L (4-35); Albumin Level 4.2 g/dL (3.5-5.1); Alkaline Phosphatase 160 U/L (38-126); Anion Gap 10 mmol/L (8-16); Aspartate Amino Transferase 15 U/L (14-36); Bilirubin,Total 0.6 mg/dL (0.2-1.3); Blood Urea Nitrogen 14 mg/dL (7-17); Calcium 9.6 mg/dL (8.4-10.2); Carbon Dioxide 30 mmol/L (22-30); Chloride 99 mmol/L (98-107); Estimated CRCL calculation 71 ml/min; Estimated Glomerular Filt Rate 55; Glucose 124 mg/dL (65-110); Potassium 4.6 mmol/L (3.4-5.0); Sodium 139 mmol/L (137-145)
[2021-01-28 14:53] LABS: Add Urine Microscopic? YES; Appearance Urine Cloudy (Clear); Bacteria Urine Trace /hpf; Bilirubin Urine Negative (Negative); Blood Urine 3+ (Negative); Color Urine Yellow (Yellow); Glucose Urine UA Negative (Negative); Ketones Urine Negative (Negative); Leukocyte Esterase Ur 3+ LEU/UL (Negative); Mucus Urine Rare /lpf; Nitrate Urine Positive (Negative); Protein Urine 1+ mg/dL (Negative); Specific Grav Ur 1.006 (1.001-1.035); Urobilinogen Urine Negative mg/dL (<2.0); WBC Urine >75 /hpf
--- NOTE | 2021-01-28 15:08 | PCCCNOTE ---
Patient requesting information regarding temporary SNF placement and Home Health. Pt not being admitted. Provided general information. Provided information about requesting Home Health referral from primary physician
--- NOTE | 2021-01-28 16:13 | ED.GENADULT ---
HPI - General Adult General Chief complaint: Weakness <JIM Roca Last Filed: 01/28/21 16:19> Stated complaint: WEAKNESS,TWITCHING <JIM Roca Last Filed: 01/28/21 16:19> Time Seen by Provider: 01/28/21 13:12 <JIM Roca Last Filed: 01/28/21 16:19> Source: patient and RN notes reviewed <JIM Roca Last Filed: 01/28/21 16:19> Mode of arrival: ambulatory <JIM Roca Last Filed: 01/28/21 16:19> Limitations: no limitations <JIM Roca Last Filed: 01/28/21 16:19> History of Present Illness HPI narrative: Patient is a 65-year-old who presents to emergency department for evaluation of weakness and tremors patient has had similar occurrences in the past she lives at home with her the on arrival notes that he is unable to care for her that she can get around minimally patient uses a walker but has had progressively more difficulty with getting around and performing daily activities attributed to weakness patient on arrival denying any pain denies injury or trauma <JIM Roca Last Filed: 01/28/21 16:19> Related Data Home medications: Home Medications Medication Instructions Recorded Confirmed atorvastatin 40 mg PO DAILY 06/05/20 01/08/21 diphenhydramine HCl 25 mg PO HS PRN 08/20/20 01/08/21 gabapentin 600 mg PO BID 08/20/20 01/08/21 Xarelto 20 mg PO QPM 11/24/20 01/08/21 cholecalciferol (vitamin D3) 50 mcg PO DAILY 11/24/20 01/08/21 docusate sodium [Stool Softener] 100 mg PO HS PRN 11/24/20 01/08/21 omeprazole 20 mg PO HS 11/24/20 01/08/21 pediatric jpgxuoxd-ufhx-mcz 1 tablet PO DAILY 11/24/20 01/08/21 furosemide 20 mg tablet 20 mg PO QAM 12/18/20 01/08/21 duloxetine 60 mg PO DAILY 12/22/20 01/08/21 risperidone 4 mg PO HS 12/22/20 01/08/21 <Lenny Coelho PA-C - Last Filed: 01/28/21 16:19> Allergies/adverse reactions: Allergies Allergy/AdvReac Type Severity Reaction Status Date / Time metoclopramide Allergy Intermediate Hives Verified 01/08/21 10:14 <Lenny Coelho PA-C - Last Filed: 01/28/21 16:19> Review of Systems Review of Systems: All systems reviewed & are unremarkable except as noted in HPI and below <Lenny Coelho PA-C - Last Filed: 01/28/21 16:19> [facility] Past Medical History Medical History: Medical History Anxiety Atrial fibrillation Chronic anticoagulation Chronic low back pain with sciatica Chronic wound of extremity 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 Dumont for quite some time. Status post excision with full-thickness skin graft on 11/27/2020. Deep venous thrombosis (2014) Dementia Depression Essential hypertension Hypothyroidism Mild episode of recurrent major depressive disorder Mild intermittent asthma without complication Mixed hyperlipidemia Morbid obesity Obstructive sleep apnea Intolerant to CPAP. Persistent atrial fibrillation Pulmonary embolism (2014) Right ventricular systolic dysfunction Severe right ventricular enlargement with lnjz-fe-wxrhuurv systolic dysfunction noted on echocardiogram dated 08/26/2014. Normal LV size and function with an EF of 65 to 70%. Severe pulmonary hypertension RVSP of 66 mmHg on echocardiogram dated 08/26/2014. <Lenny Coelho PA-C - Last Filed: 01/28/21 16:19> Surgical History Surgical History: Surgical History History of appendectomy History of bariatric surgery Gastropexy for obesity in 1978 and 1983. History of bilateral knee replacement History of carpal tunnel release History of cholecystectomy History of colonoscopy with polypectomy History of dilation and curettage (1973) History of hysterectomy (1996) History of left breast biopsy History of tonsillectomy History of tubal ligation (1977) Presence of IVC filter Status pos
[2021-01-28 17:02] VITALS: BP 132/90; PULSE 86; RESP 15; O2SAT 99
--- NOTE | 2021-01-28 17:48 | PCCCNOTE ---
Possible SNF placement. Clinicals faxed to [facility] per patient's request. Informed of 14 day isolation period.
--- NOTE | 2021-01-28 19:30 | PM.IMHP ---
H&P: HPI History of Present Illness Date/Time: 01/28/21 19:30 Chief Complaint: Weakness. Narrative: This is a pleasant 65-year-old female with atrial fibrillation long-term anticoagulation, hypertension, hyperlipidemia, sleep apnea, and morbid obesity presented to the emergency department earlier today via EMS from home with reports of weakness. She is known to myself and the hospitalist service with a recent admission between 01/08 and 01/17/2021 at which time she presented with abdominal pain found to have gaseous distension of the colon presumed to be Buddy syndrome. She was seen in consultation by both GI and surgery regarding Carson syndrome and a large ventral hernia with recommendations to continue daily laxative use and supportive care she is a poor surgical candidate. With regards to her bowels she had less distension was having several stools a day with improvement in her abdominal pain by day of discharge. She was also seen in consultation by [facility] cardiology as she was having runs of nonsustained ventricular tachycardia requiring amiodarone bolus and drip for a period of time and her metoprolol was eventually increased. She has remained in persistent atrial fibrillation. Lexiscan stress showed no evidence of reversible ischemia and a fixed defect. The patient was anxious to return home and declined rehab placement and she was reportedly ambulating with a walker on discharge. Unfortunately she has gotten progressively more weak and she is having difficulties getting up and about. She has been having frequent watery, brown loose stools which she attributes to the MiraLax that she has been taking daily though she has noticed the last day or so that she has not had as much in the way of output. She has been feeling lightheaded when standing up and does not feel safe ambulating, and fact [facility] sent her to the emergency department several days ago and today due to low blood pressures. The patient now realizes that she needs extra help and believes that she will probably need rehab before returning home. Currently she has no complaints. She has no significant abdominal pain but she believes that her abdomen is once again distended. Appetite has been okay. She denies nausea and vomiting. She has not had fever, chills, or sweats. No dysuria but she has had some frequency and incontinence. Review of Systems Review of Systems: Twelve systems were reviewed with pertinent positives and negatives as per HPI. She denies cold and flu symptoms. No sick contacts. No known exposure to COVID-19. She does not use her CPAP at nighttime. She reports hypersomnolence and falls asleep frequently during the day. At time she has snoring respirations volume talking to her although she is awake it seems that her the size of her neck causes obstruction even while awake. She has short-term memory loss and reportedly has been diagnosed with dementia. She has not had palpitations or pleuritic pain. Except as documented, all other systems were reviewed and are negative. [facility] Past Medical History Medical History (Updated 01/29/21 @ 01:32 by Ilda Rodgers PA-C) Abnormal stress test (01/2021) Lexiscan stress showed no reversible ischemia and a fixed defect. 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 Dumont for quite some time. Status post excision with full-thickness skin graft on 11/27/2020. Deep venous thrombosis (2014) Dementia Depression Essential hypertension Hypothyroidism Mild episode of recurrent major depressive disorder Mild intermittent asthma without complication Mixed hyperlipidemia Morbid obesity Obstructive sleep apnea Intolerant to CPAP. Persistent atrial fibrillation Prediabetes Hemoglobin A1c was 6.2% on 01/09/2021. Pulmonary embolism (2014) Right ventricular systolic dysfunction Severe right ventricular enlargeme
--- NOTE | 2021-01-28 20:20 | ADMGEN ---
This patient, Lorraine Mazariegos, was admitted to Medical Room 347-. Patient/family oriented to hospital policies and general routines including ID bracelet, bed and alarms, visiting hours, pain management, procedures, bathroom and other care routines, personal items, smoking policy, room service/diet, and visiting hours. Information on how to activate the Rapid Response Team has been discussed. Patient/Family are encouraged to report perceived risks to care and to ask questions if they do not understand what they are told or what they should do.
[2021-01-28] MEDS: LACTATED RINGERS 1,000 ML 75 ML IV CONT (20:52)
[2021-01-28] MEDS: FAMOTIDINE 20 MG/2 ML VIAL IV PUSH (20:53)
[2021-01-28 21:39] VITALS: BP 104/84; PULSE 75; RESP 18; TEMP 36.2; O2SAT 100; BMI 58.5
[2021-01-29 05:02] VITALS: BP 135/90; PULSE 74; RESP 18; TEMP 36.5; O2SAT 92
[2021-01-29] MEDS: LEVOTHYROXINE SODIUM 25 MCG TABLET PO (05:58)
[2021-01-29 07:03] LABS: Hematocrit 35.6 % (37.0-47.0); Hemoglobin 10.8 g/dL (12.0-15.0); Mean Corpuscular HGB Conc 30.3 g/dl (32-36); Mean Corpuscular Hemoglobin 24.8 pg (26-34); Mean Corpuscular Volume 81.8 fl (80-100); Mean Platelet Volume 9.1 fl (7.4-10.4); Platelet Count Result 190 k/mm3 (150-375); Red Blood Count 4.35 M/mm3 (4.2-5.4); Red Cell Distribution Width 15.9 % (11.5-14.5); White Blood Count 5.5 K/mm3 (4.5-10.0)
[2021-01-29 07:14] LABS: Anion Gap 11 mmol/L (8-16); Blood Urea Nitrogen 12 mg/dL (7-17); Calcium 8.7 mg/dL (8.4-10.2); Carbon Dioxide 25 mmol/L (22-30); Chloride 100 mmol/L (98-107); Estimated CRCL calculation 86 ml/min; Estimated Glomerular Filt Rate > 60; Glucose 112 mg/dL (65-110); Potassium 3.8 mmol/L (3.4-5.0); Sodium 136 mmol/L (137-145)
[2021-01-29] MEDS: busPIRone HCL 5 MG TABLET 15 MG PO (08:20)
[2021-01-29] MEDS: DULoxetine HCL 30 MG CAPSULE.DR 60 MG PO (08:20)
[2021-01-29] MEDS: dilTIAZem HCL CD 180 MG CAP.ER.24H PO (08:20)
[2021-01-29] MEDS: CHOLECALCIFEROL 1,000 UNITS TABLET 2000 UNITS PO (08:20)
[2021-01-29] MEDS: PANTOPRAZOLE 40 MG TABLET PO (08:20)
[2021-01-29 08:21] VITALS: PULSE 87
[2021-01-29] MEDS: ATORVASTATIN 40 MG TABLET PO (08:21)
[2021-01-29] MEDS: GABAPENTIN 300 MG CAPSULE 600 MG PO ×2 (08:21→17:01)
[2021-01-29] MEDS: METOPROLOL TARTRATE 50 MG TAB 150 MG PO ×2 (08:21→21:27)
[2021-01-29] MEDS: TOLNAFTATE 1% POWDER 45 GM BTL 1 APPLIC TOPICAL ×2 (08:21→21:29)
[2021-01-29] MEDS: FUROSEMIDE 20 MG TABLET PO (08:21)
[2021-01-29] MEDS: POTASSIUM CHLORIDE 20 MEQ TABLET.ER PO (08:21)
[2021-01-29] MEDS: MULTIVITS W-FE,MIN CHEWABLE TABLET 1 TABLET PO (08:21)
[2021-01-29] MEDS: HYDROcodone/acetaminophen (*CRX) 10-325 MG TABLET 1 TAB PO (08:52)
[2021-01-29] MEDS: FAMOTIDINE 20 MG/2 ML VIAL IV PUSH ×2 (10:11→21:27)
[2021-01-29 15:08] VITALS: BP 124/89; PULSE 84; RESP 16; TEMP 36.4; O2SAT 100
[2021-01-29] MEDS: RIVAROXABAN 20 MG TABLET PO (17:01)
--- NOTE | 2021-01-29 17:12 | PM.IMPN ---
Progress Note: A&P Assessment and Plan (1) Generalized weakness: Code(s): R53.1 - Weakness Status: Acute Assessment and Plan: Secondary to deconditioning, morbid obesity, recent hospitalization, and urinary tract infection. PT/OT consulted. rehab placement if not intermediate. (2) Urinary tract infection: Code(s): N39.0 - Urinary tract infection, site not specified Status: Acute Assessment and Plan: Continue ceftriaxone urine culture grew Gram-negative bacilli Will wait for sensitivities Continue ceftriaxone (3) Abdominal distension: Code(s): R14.0 - Abdominal distension (gaseous) Status: Acute Assessment and Plan: Abdomen once again seems distended with high-pitched tinkling bowel sounds. KUB 1. Persistently distended colon, consistent with adynamic ileus. 2. Right lower quadrant ventral hernia containing bowel. Continue MiraLax. PT OT (4) Persistent atrial fibrillation: Code(s): I48.19 - Other persistent atrial fibrillation Status: Acute Assessment and Plan: Rate controlled. Continue metoprolol. Trend heart rate Adjust medications as needed (5) Chronic anticoagulation: Code(s): Z79.01 - longterm (current) use of anticoagulants Status: Acute Assessment and Plan: Continue Xarelto for stroke prophylaxis given atrial fibrillation. (6) Morbid obesity: Code(s): E66.01 - Morbid (severe) obesity due to excess calories Status: Acute Assessment and Plan: BMI is 60 Patient needs lifestyle modifications with education Dietitian consult Education about diet choices Time Spent With Patient Time with patient: Greater than 35 minutes Subjective Date/time seen: 01/29/21 17:12 Interval history: Patient is a 65-year-old female past medical history of anxiety, hyperlipidemia, GERD, hypertension who presented to the ED with increased weakness. Patient states that she feels good today she does feels weak and in her knees mostly. She also complained that she is able to sleep better however she is having these dreams that wake her up and she can not fall back asleep. She denies chest pain, shortness of breath, nausea, vomiting, fevers, sweats, chills. Review of Systems Review of Systems: All systems reviewed & are unremarkable except as noted in HPI and below Exam Const: General: cooperative, healthy appearing, comfortable, no acute distress, well developed, alert, awake and ill appearing Nutritional Appearance: well nourished, obese and overweight Orientation/consciousness: oriented to person, oriented to place, oriented to time and patient oriented x3 Limitations: no limitations HENMT: Head: normal to inspection Ears: hearing grossly normal bilaterally General nose exam: Normal external nose present Mouth: Yes Normal oral and palatal mucosa present, Yes lip normal and Yes tongue normal Teeth and gingiva: abnormal tooth and associated gingiva and poor dentition Eyes: General: appearance normal, both eyes and all related structures Neck: Neck: normal visual inspection, full ROM, trachea midline and supple Chest: Chest palpation & inspection: normal inspection of the chest Resp: Effort & Inspection: normal respiratory effort and able to speak in complete sentences Auscultation: clear to auscultation bilaterally Cardio: Jugular venous distension: no JVD Rate: regular rate Rhythm: regular rhythm Heart sounds: S1 normal heart sound present and S2 normal heart sound present Peripheral pulses: Peripheral pulses 2+ throughout GI: Inspection: normal to inspection GI Palp: Yes Soft to palpation and No Tenderness to palpation present (GI) Auscultation: normal bowel sounds Skin: General skin exam: normal color and no rashes or lesions noted Lesions: no lesions Rashes: no rashes Trauma: no lacerations or abrasions Wounds: no wounds Hair: normal Nails: normal Neuro:
[2021-01-29 20:59] VITALS: BP 130/90; PULSE 103; RESP 14; TEMP 36.5; O2SAT 97
[2021-01-29 21:27] VITALS: PULSE 101
[2021-01-29] MEDS: risperiDONE 1 MG TABLET 4 MG PO (21:27)
[2021-01-30] VITALS (8 sets, daily range): BP systolic 123–138; BP diastolic 77–91; PULSE 77–106; RESP 18–22; TEMP 36.6–36.7; O2SAT 95–100
[2021-01-30] MEDS: LEVOTHYROXINE SODIUM 25 MCG TABLET PO (05:34)
[2021-01-30 06:27] LABS: Basophils Percent Auto 0.7 % (0.2-1.2); Eosinophils Absolute Auto 0.2 K/mm3 (0-0.3); Eosinophils Percent Auto 3.6 % (0-4.4); Hematocrit 39.5 % (37.0-47.0); Hemoglobin 11.9 g/dL (12.0-15.0); Immature Granulocyte Absolute 0.04 K/mm3 (0.00-0.031); Immature Granulocyte Percent A 0.7 % (0-0.5); Lymphocytes Absolute Auto 1.12 K/mm3 (0.9-3.2); Lymphocytes Percent Auto 20.1 % (18.3-44.2); Mean Corpuscular HGB Conc 30.1 g/dl (32-36); Mean Corpuscular Hemoglobin 25.1 pg (26-34); Mean Corpuscular Volume 83.3 fl (80-100); Mean Platelet Volume 8.9 fl (7.4-10.4); Monocytes Absolute Auto 0.4 K/mm3 (0.1-0.6); Monocytes Percent Auto 6.3 % (2.6-8.5); Neutrophils Absolute Auto 3.8 K/mm3 (1.3-6.7); Neutrophils Percent Auto 68.6 % (45.5-73.1); Platelet Count Result 201 k/mm3 (150-375); Red Blood Count 4.74 M/mm3 (4.2-5.4); Red Cell Distribution Width 16.2 % (11.5-14.5); White Blood Count 5.6 K/mm3 (4.5-10.0)
[2021-01-30 06:54] LABS: Alanine Aminotransferase 15 U/L (4-35); Albumin Level 4.2 g/dL (3.5-5.1); Alkaline Phosphatase 159 U/L (38-126); Anion Gap 13 mmol/L (8-16); Aspartate Amino Transferase 17 U/L (14-36); Bilirubin,Total 0.6 mg/dL (0.2-1.3); Blood Urea Nitrogen 10 mg/dL (7-17); Calcium 9.5 mg/dL (8.4-10.2); Carbon Dioxide 28 mmol/L (22-30); Chloride 98 mmol/L (98-107); Estimated CRCL calculation 86 ml/min; Estimated Glomerular Filt Rate > 60; Glucose 118 mg/dL (65-110); Potassium 3.6 mmol/L (3.4-5.0); Sodium 139 mmol/L (137-145)
[2021-01-30] MEDS: POTASSIUM CHLORIDE 20 MEQ TABLET.ER PO (09:11)
[2021-01-30] MEDS: FUROSEMIDE 20 MG TABLET PO (09:11)
[2021-01-30] MEDS: ATORVASTATIN 40 MG TABLET PO (09:11)
[2021-01-30] MEDS: PANTOPRAZOLE 40 MG TABLET PO (09:11)
[2021-01-30] MEDS: busPIRone HCL 5 MG TABLET 15 MG PO (09:11)
[2021-01-30] MEDS: GABAPENTIN 300 MG CAPSULE 600 MG PO ×2 (09:11→17:06)
[2021-01-30] MEDS: MULTIVITS W-FE,MIN CHEWABLE TABLET 1 TABLET PO (09:11)
[2021-01-30] MEDS: DULoxetine HCL 30 MG CAPSULE.DR 60 MG PO (09:12)
[2021-01-30] MEDS: CHOLECALCIFEROL 1,000 UNITS TABLET 2000 UNITS PO (09:12)
[2021-01-30] MEDS: TOLNAFTATE 1% POWDER 45 GM BTL 1 APPLIC TOPICAL ×2 (09:12→20:18)
[2021-01-30] MEDS: dilTIAZem HCL CD 180 MG CAP.ER.24H PO (09:12)
[2021-01-30] MEDS: METOPROLOL TARTRATE 50 MG TAB 150 MG PO ×2 (09:12→20:17)
[2021-01-30] MEDS: ALBUTEROL SULFATE NEB 2.5 MG/0.5 ML INH INHALATION ×2 (10:44→21:04)
--- NOTE | 2021-01-30 10:45 | PCDIET ---
Dietitian consult for morbid obesity. Spoke with WILLIAM Giles today. Patient is not alert. Education not appropriate today. RD will try again for education when appropriate.
[2021-01-30 10:57] LABS: Alveolar/Arterial O2 Gradient 23.8 mmHg; Base Excess ABG 2.7 mEq/l (+/-2.0); Fractional Inspired Oxygen 21 %; HCO3 ABG 26.8 mEq/l (22.0-26.0); Oxygen Content ABG 15.5 %vol (16.0-22.0); Oxygen Saturation ABG 96.1 % (95.0-100.0); PCO2 ABG 39.6 mmHg (35.0-45.0); PO2 ABG 78.5 mmHg (80.0-100.0); PO2 FiO2 Ratio Arterial Blood 3.74 %; Total Hemoglobin 11.7 g/dL (12.0-18.0); pH ABG 7.449 (7.350-7.450)
[2021-01-30 10:58] LABS: Device ROOM AIR; Modified Allen's Test Pass; Site Drawn LEFT RADIAL
--- NOTE | 2021-01-30 14:26 | P.PNIM_ITS ---
Progress Note: A&P Assessment and Plan (1) Generalized weakness: Code(s): R53.1 - Weakness Status: Acute Assessment and Plan: * Secondary to deconditioning, morbid obesity, recent hospitalization, and urinary tract infection. * PT/OT consulted. * rehab placement if not longterm. (2) Urinary tract infection: Code(s): N39.0 - Urinary tract infection, site not specified Status: Acute Assessment and Plan: * Continue ceftriaxone * urine culture grew Org 1 = Klebsiella pnemoniae, Org 2 = Pseudomonas aeruginosa * Monitor output * Bladder scan x1 (3) Abdominal distension: Code(s): R14.0 - Abdominal distension (gaseous) Status: Acute Assessment and Plan: * Abdomen once again seems distended with high-pitched tinkling bowel sounds. * KUB 1. Persistently distended colon, consistent with adynamic ileus. 2. Right lower quadrant ventral hernia containing bowel. * Continue MiraLax. * Bisacodyl suppository x1 * PT OT (4) Persistent atrial fibrillation: Code(s): I48.19 - Other persistent atrial fibrillation Status: Acute Assessment and Plan: * Rate controlled. * Continue metoprolol. * Trend heart rate * Adjust medications as needed (5) Chronic anticoagulation: Code(s): Z79.01 - alf (current) use of anticoagulants Status: Acute Assessment and Plan: * Continue Xarelto for stroke prophylaxis given atrial fibrillation. (6) Morbid obesity: Code(s): E66.01 - Morbid (severe) obesity due to excess calories Status: Acute Assessment and Plan: * BMI is 60 * Patient needs lifestyle modifications with education * Dietitian consult * Education about diet choices (7) Discharge planning issues: Code(s): Z02.9 - Encounter for administrative examinations, unspecified Status: Acute Assessment and Plan: * Patient needs a rehab * Insurance authorization pending * Patient was to [facility] * Acceptance to [facility] pending. Time Spent With Patient Time with patient: Greater than 35 minutes Subjective Date/time seen: 01/30/21 14:26 Interval history: Patient is a 65-year-old female who presented to the ED with increased weakness. Patient seems a little bit more drowsy and fatigued today with audible wheezes. She states that she is just tired and that she has not slept all night. She has no complaints of chest pain, shortness of breath nausea, vomiting, diarrhea, sweats, fevers, chills. Patient also denies abdominal pain even though her stomach is distended. ABGs were drawn which were normal across the board. Will give patient suppository. Review of Systems Review of Systems: All systems reviewed & are unremarkable except as noted in HPI and below Exam Const: General: cooperative, healthy appearing, comfortable, no acute distress, well developed, alert, awake, lethargic and tired appearing Nutritional Appearance: well nourished, obese and overweight Orientation/consciousness: oriented to person, oriented to place, oriented to time and patient oriented x3 Limitations: no limitations HENMT: Head: normal to inspection Ears: hearing grossly normal bilaterally General nose exam: Normal external nose present Mouth: Yes Normal oral and palatal mucosa present, Yes lip normal and Yes tongue normal Teeth and gingiva: abnormal tooth and associated gingiva and poor dentition
--- NOTE | 2021-01-30 14:26 | PM.IMPN ---
Progress Note: A&P Assessment and Plan (1) Generalized weakness: Code(s): R53.1 - Weakness Status: Acute Assessment and Plan: Secondary to deconditioning, morbid obesity, recent hospitalization, and urinary tract infection. PT/OT consulted. rehab placement if not [facility]. (2) Urinary tract infection: Code(s): N39.0 - Urinary tract infection, site not specified Status: Acute Assessment and Plan: Continue ceftriaxone urine culture grew Org 1 = Klebsiella pnemoniae, Org 2 = Pseudomonas aeruginosa Monitor output Bladder scan x1 (3) Abdominal distension: Code(s): R14.0 - Abdominal distension (gaseous) Status: Acute Assessment and Plan: Abdomen once again seems distended with high-pitched tinkling bowel sounds. KUB 1. Persistently distended colon, consistent with adynamic ileus. 2. Right lower quadrant ventral hernia containing bowel. Continue MiraLax. Bisacodyl suppository x1 PT OT (4) Persistent atrial fibrillation: Code(s): I48.19 - Other persistent atrial fibrillation Status: Acute Assessment and Plan: Rate controlled. Continue metoprolol. 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 (6) Morbid obesity: Code(s): E66.01 - Morbid (severe) obesity due to excess calories Status: Acute Assessment and Plan: BMI is 60 Patient needs lifestyle modifications with education Dietitian consult Education about diet choices (7) Discharge planning issues: Code(s): Z02.9 - Encounter for administrative examinations, unspecified Status: Acute Assessment and Plan: Patient needs a rehab Insurance authorization pending Patient was to [facility] Acceptance to [facility] pending. Time Spent With Patient Time with patient: Greater than 35 minutes Subjective Date/time seen: 01/30/21 14:26 Interval history: Patient is a 65-year-old female who presented to the ED with increased weakness. Patient seems a little bit more drowsy and fatigued today with audible wheezes. She states that she is just tired and that she has not slept all night. She has no complaints of chest pain, shortness of breath nausea, vomiting, diarrhea, sweats, fevers, chills. Patient also denies abdominal pain even though her stomach is distended. ABGs were drawn which were normal across the board. Will give patient suppository. Review of Systems Review of Systems: All systems reviewed & are unremarkable except as noted in HPI and below Exam Const: General: cooperative, healthy appearing, comfortable, no acute distress, well developed, alert, awake, lethargic and tired appearing Nutritional Appearance: well nourished, obese and overweight Orientation/consciousness: oriented to person, oriented to place, oriented to time and patient oriented x3 Limitations: no limitations HENMT: Head: normal to inspection Ears: hearing grossly normal bilaterally General nose exam: Normal external nose present Mouth: Yes Normal oral and palatal mucosa present, Yes lip normal and Yes tongue normal Teeth and gingiva: abnormal tooth and associated gingiva and poor dentition Eyes: General: appearance normal, both eyes and all related structures Neck: Neck: normal visual inspection, full ROM, trachea midline and supple Chest: Chest palpation & inspection: normal inspection of the chest Resp: Effort & Inspection: normal respiratory effort and able to speak in complete sentences Auscultation: clear to auscultation bilaterally Cardio: Jugular venous distension: no JVD Rate: regular rate Rhythm: regular rhythm Heart sounds: S1 normal heart sound present and S2 normal heart sound pr
[2021-01-30] MEDS: BISACODYL 10 MG SUPPOSITORY RECTAL (17:05)
[2021-01-30] MEDS: RIVAROXABAN 20 MG TABLET PO (17:06)
[2021-01-30] MEDS: SILVERGEL (ELTA) 45 ML 1 APPLIC TOPICAL (19:25)
[2021-01-30] MEDS: risperiDONE 1 MG TABLET 4 MG PO (20:17)
[2021-01-31 05:18] VITALS: BP 125/78; PULSE 98; RESP 20; TEMP 36.8; O2SAT 98
[2021-01-31 05:58] LABS: Basophils Percent Auto 0.4 % (0.2-1.2); Eosinophils Absolute Auto 0.2 K/mm3 (0-0.3); Eosinophils Percent Auto 3.8 % (0-4.4); Hematocrit 34.4 % (37.0-47.0); Hemoglobin 10.7 g/dL (12.0-15.0); Immature Granulocyte Absolute 0.04 K/mm3 (0.00-0.031); Immature Granulocyte Percent A 0.8 % (0-0.5); Lymphocytes Absolute Auto 0.84 K/mm3 (0.9-3.2); Lymphocytes Percent Auto 17.6 % (18.3-44.2); Mean Corpuscular HGB Conc 31.1 g/dl (32-36); Mean Corpuscular Hemoglobin 24.5 pg (26-34); Mean Corpuscular Volume 78.7 fl (80-100); Mean Platelet Volume 8.7 fl (7.4-10.4); Monocytes Absolute Auto 0.4 K/mm3 (0.1-0.6); Monocytes Percent Auto 8.6 % (2.6-8.5); Neutrophils Absolute Auto 3.3 K/mm3 (1.3-6.7); Neutrophils Percent Auto 68.8 % (45.5-73.1); Platelet Count Result 195 k/mm3 (150-375); Red Blood Count 4.37 M/mm3 (4.2-5.4); Red Cell Distribution Width 16.2 % (11.5-14.5); White Blood Count 4.8 K/mm3 (4.5-10.0)
[2021-01-31 06:13] LABS: Alanine Aminotransferase 10 U/L (4-35); Albumin Level 3.4 g/dL (3.5-5.1); Alkaline Phosphatase 124 U/L (38-126); Anion Gap 7 mmol/L (8-16); Aspartate Amino Transferase 15 U/L (14-36); Bilirubin,Total 0.5 mg/dL (0.2-1.3); Blood Urea Nitrogen 10 mg/dL (7-17); Calcium 8.8 mg/dL (8.4-10.2); Carbon Dioxide 29 mmol/L (22-30); Chloride 101 mmol/L (98-107); Estimated CRCL calculation 77 ml/min; Estimated Glomerular Filt Rate > 60; Glucose 128 mg/dL (65-110); Magnesium 1.7 mg/dL (1.6-2.3); Potassium 3.6 mmol/L (3.4-5.0); Sodium 137 mmol/L (137-145)
[2021-01-31] MEDS: LEVOTHYROXINE SODIUM 25 MCG TABLET PO (06:13)
[2021-01-31 09:12] VITALS: PULSE 98
[2021-01-31] MEDS: POTASSIUM CHLORIDE 20 MEQ TABLET.ER PO (09:12)
[2021-01-31] MEDS: dilTIAZem HCL CD 180 MG CAP.ER.24H PO (09:12)
[2021-01-31] MEDS: MULTIVITS W-FE,MIN CHEWABLE TABLET 1 TABLET PO (09:12)
[2021-01-31] MEDS: CHOLECALCIFEROL 1,000 UNITS TABLET 2000 UNITS PO (09:12)
[2021-01-31] MEDS: FUROSEMIDE 20 MG TABLET PO (09:12)
[2021-01-31] MEDS: busPIRone HCL 5 MG TABLET 15 MG PO (09:12)
[2021-01-31] MEDS: PANTOPRAZOLE 40 MG TABLET PO (09:12)
[2021-01-31] MEDS: DULoxetine HCL 30 MG CAPSULE.DR 60 MG PO (09:12)
[2021-01-31] MEDS: METOPROLOL TARTRATE 50 MG TAB 150 MG PO ×2 (09:12→20:43)
[2021-01-31] MEDS: ATORVASTATIN 40 MG TABLET PO (09:12)
[2021-01-31] MEDS: GABAPENTIN 300 MG CAPSULE 600 MG PO ×2 (09:12→17:36)
[2021-01-31] MEDS: TOLNAFTATE 1% POWDER 45 GM BTL 1 APPLIC TOPICAL ×2 (09:13→20:44)
[2021-01-31] MEDS: SILVERGEL (ELTA) 45 ML 1 APPLIC TOPICAL (09:13)
--- NOTE | 2021-01-31 12:58 | P.PNIM_ITS ---
Progress Note: A&P Assessment and Plan (1) Generalized weakness: Code(s): R53.1 - Weakness Status: Acute Assessment and Plan: * Secondary to deconditioning, morbid obesity, recent hospitalization, and urinary tract infection. * PT/OT consulted. * rehab placement if not [facility] * [facility] accepted, waiting for insurance auth * Probably DC tuesday (2) Urinary tract infection: Code(s): N39.0 - Urinary tract infection, site not specified Status: Acute Assessment and Plan: * Continue ceftriaxone * urine culture grew Org 1 = Klebsiella pnemoniae, Org 2 = Pseudomonas aeruginosa * Monitor output * Bladder scan x1 (3) Abdominal distension: Code(s): R14.0 - Abdominal distension (gaseous) Status: Acute Assessment and Plan: * Abdomen once again seems distended with high-pitched tinkling bowel sounds. * KUB 1. Persistently distended colon, consistent with adynamic ileus. 2. Right lower quadrant ventral hernia containing bowel. * Continue MiraLax. * Bisacodyl suppository x1 * PT OT (4) Persistent atrial fibrillation: Code(s): I48.19 - Other persistent atrial fibrillation Status: Acute Assessment and Plan: * Rate controlled. * Continue metoprolol. 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 (6) Morbid obesity: Code(s): E66.01 - Morbid (severe) obesity due to excess calories Status: Acute Assessment and Plan: * BMI is 60 * Patient needs lifestyle modifications with education * Dietitian consult * Education about diet choices (7) Discharge planning issues: Code(s): Z02.9 - Encounter for administrative examinations, unspecified Status: Acute Assessment and Plan: * Patient needs a rehab * Insurance authorization pending * Patient was to [facility] * Acceptance to [facility] pending. Subjective Date/time seen: 01/31/21 12:15 Review of Systems Review of Systems: All systems reviewed & are unremarkable except as noted in HPI and below Exam Const: General: cooperative, healthy appearing, comfortable, no acute distress, well developed, alert, awake, lethargic and tired appearing Nutritional Appearance: well nourished, obese and overweight Orientation/consciousness: oriented to person, oriented to place, oriented to time, patient oriented x3 and lethargic Limitations: no limitations HENMT: Head: normal to inspection Ears: hearing grossly normal bilaterally General nose exam: Normal external nose present Mouth: Yes Normal oral and palatal mucosa present, Yes lip normal and Yes tongue normal Teeth and gingiva: abnormal tooth and associated gingiva and poor dentition Eyes: General: appearance normal, both eyes and all related structures Neck: Neck: normal visual inspection, full ROM, trachea midline and supple Chest: Chest palpation & inspection: normal inspection of the chest Resp: Effort & Inspection: normal respiratory effort and able to speak in complete sentences Auscultation: clear to auscultation bilaterally Cardio: Jugular venous distension: no JVD Rate: regular rate Rhythm: regular rhythm Heart sounds: S1 nor
--- NOTE | 2021-01-31 12:58 | PM.IMPN ---
Progress Note: A&P Assessment and Plan (1) Generalized weakness: Code(s): R53.1 - Weakness Status: Acute Assessment and Plan: Secondary to deconditioning, morbid obesity, recent hospitalization, and urinary tract infection. PT/OT consulted. rehab placement if not halfway [facility] accepted, waiting for insurance auth Probably DC tuesday (2) Urinary tract infection: Code(s): N39.0 - Urinary tract infection, site not specified Status: Acute Assessment and Plan: Continue ceftriaxone urine culture grew Org 1 = Klebsiella pnemoniae, Org 2 = Pseudomonas aeruginosa Monitor output Bladder scan x1 (3) Abdominal distension: Code(s): R14.0 - Abdominal distension (gaseous) Status: Acute Assessment and Plan: Abdomen once again seems distended with high-pitched tinkling bowel sounds. KUB 1. Persistently distended colon, consistent with adynamic ileus. 2. Right lower quadrant ventral hernia containing bowel. Continue MiraLax. Bisacodyl suppository x1 PT OT (4) Persistent atrial fibrillation: Code(s): I48.19 - Other persistent atrial fibrillation Status: Acute Assessment and Plan: Rate controlled. Continue metoprolol. 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 (6) Morbid obesity: Code(s): E66.01 - Morbid (severe) obesity due to excess calories Status: Acute Assessment and Plan: BMI is 60 Patient needs lifestyle modifications with education Dietitian consult Education about diet choices (7) Discharge planning issues: Code(s): Z02.9 - Encounter for administrative examinations, unspecified Status: Acute Assessment and Plan: Patient needs a rehab Insurance authorization pending Patient was to [facility] Acceptance to [facility] pending. Subjective Date/time seen: 01/31/21 12:15 Review of Systems Review of Systems: All systems reviewed & are unremarkable except as noted in HPI and below Exam Const: General: cooperative, healthy appearing, comfortable, no acute distress, well developed, alert, awake, lethargic and tired appearing Nutritional Appearance: well nourished, obese and overweight Orientation/consciousness: oriented to person, oriented to place, oriented to time, patient oriented x3 and lethargic Limitations: no limitations HENMT: Head: normal to inspection Ears: hearing grossly normal bilaterally General nose exam: Normal external nose present Mouth: Yes Normal oral and palatal mucosa present, Yes lip normal and Yes tongue normal Teeth and gingiva: abnormal tooth and associated gingiva and poor dentition Eyes: General: appearance normal, both eyes and all related structures Neck: Neck: normal visual inspection, full ROM, trachea midline and supple Chest: Chest palpation & inspection: normal inspection of the chest Resp: Effort & Inspection: normal respiratory effort and able to speak in complete sentences Auscultation: clear to auscultation bilaterally Cardio: Jugular venous distension: no JVD Rate: regular rate Rhythm: regular rhythm Heart sounds: S1 normal heart sound present and S2 normal heart sound present Peripheral pulses: Peripheral pulses 2+ throughout GI: Inspection: normal to inspection Auscultation: normal bowel sounds Skin: General skin exam: normal color and no rashes or lesions noted Lesions: no lesions Rashes: no rashes Trauma: no lacerations or abrasions Wounds: no wounds Hair: normal Nails: normal Neuro: General: oriented to person, oriented to place, oriented to time, patient oriented x3, moves all extremities and Normal light touch and pain sensation Speech: normal speech G
[2021-01-31 14:00] VITALS: PULSE 90; RESP 20; TEMP 36.1; O2SAT 99
[2021-01-31] MEDS: RIVAROXABAN 20 MG TABLET PO (17:36)
[2021-01-31 20:43] VITALS: PULSE 68
[2021-01-31] MEDS: risperiDONE 1 MG TABLET 4 MG PO (20:44)
[2021-01-31 21:02] VITALS: BP 132/81; PULSE 68; RESP 18; TEMP 37; O2SAT 100
[2021-02-01 05:59] LABS: Basophils Percent Auto 0.6 % (0.2-1.2); Eosinophils Absolute Auto 0.2 K/mm3 (0-0.3); Eosinophils Percent Auto 4.4 % (0-4.4); Hematocrit 35.1 % (37.0-47.0); Hemoglobin 10.9 g/dL (12.0-15.0); Immature Granulocyte Absolute 0.03 K/mm3 (0.00-0.031); Immature Granulocyte Percent A 0.6 % (0-0.5); Lymphocytes Absolute Auto 1.37 K/mm3 (0.9-3.2); Lymphocytes Percent Auto 27.4 % (18.3-44.2); Mean Corpuscular HGB Conc 31.1 g/dl (32-36); Mean Corpuscular Hemoglobin 24.4 pg (26-34); Mean Corpuscular Volume 78.7 fl (80-100); Mean Platelet Volume 8.9 fl (7.4-10.4); Monocytes Absolute Auto 0.5 K/mm3 (0.1-0.6); Monocytes Percent Auto 9.2 % (2.6-8.5); Neutrophils Absolute Auto 2.9 K/mm3 (1.3-6.7); Neutrophils Percent Auto 57.8 % (45.5-73.1); Platelet Count Result 196 k/mm3 (150-375); Red Blood Count 4.46 M/mm3 (4.2-5.4); Red Cell Distribution Width 16.2 % (11.5-14.5)
[2021-02-01 06:00] VITALS: BP 112/80; PULSE 60; RESP 20; TEMP 36.9; O2SAT 98
[2021-02-01 06:12] LABS: Alanine Aminotransferase 9 U/L (4-35); Albumin Level 3.3 g/dL (3.5-5.1); Alkaline Phosphatase 123 U/L (38-126); Anion Gap 8 mmol/L (8-16); Aspartate Amino Transferase 13 U/L (14-36); Bilirubin,Total 0.3 mg/dL (0.2-1.3); Blood Urea Nitrogen 13 mg/dL (7-17); Calcium 9.1 mg/dL (8.4-10.2); Carbon Dioxide 27 mmol/L (22-30); Chloride 101 mmol/L (98-107); Estimated CRCL calculation 70 ml/min; Estimated Glomerular Filt Rate 55; Glucose 122 mg/dL (65-110); Magnesium 1.8 mg/dL (1.6-2.3); Potassium 3.4 mmol/L (3.4-5.0); Sodium 136 mmol/L (137-145)
[2021-02-01] MEDS: LEVOTHYROXINE SODIUM 25 MCG TABLET PO (06:26)
[2021-02-01 08:54] VITALS: PULSE 78
[2021-02-01] MEDS: GABAPENTIN 300 MG CAPSULE 600 MG PO ×2 (08:54→17:56)
[2021-02-01] MEDS: METOPROLOL TARTRATE 50 MG TAB 150 MG PO ×2 (08:54→21:30)
[2021-02-01] MEDS: busPIRone HCL 5 MG TABLET 15 MG PO (08:54)
[2021-02-01] MEDS: CHOLECALCIFEROL 1,000 UNITS TABLET 2000 UNITS PO (08:54)
[2021-02-01] MEDS: ATORVASTATIN 40 MG TABLET PO (08:54)
[2021-02-01] MEDS: FUROSEMIDE 20 MG TABLET PO (08:54)
[2021-02-01] MEDS: dilTIAZem HCL CD 180 MG CAP.ER.24H PO (08:54)
[2021-02-01] MEDS: MULTIVITS W-FE,MIN CHEWABLE TABLET 1 TABLET PO (08:54)
[2021-02-01] MEDS: POTASSIUM CHLORIDE 20 MEQ TABLET.ER PO (08:54)
[2021-02-01] MEDS: PANTOPRAZOLE 40 MG TABLET PO (08:54)
[2021-02-01] MEDS: DULoxetine HCL 30 MG CAPSULE.DR 60 MG PO (08:54)
[2021-02-01] MEDS: SILVERGEL (ELTA) 45 ML 1 APPLIC TOPICAL (09:39)
[2021-02-01] MEDS: TOLNAFTATE 1% POWDER 45 GM BTL 1 APPLIC TOPICAL ×2 (09:39→21:31)
--- NOTE | 2021-02-01 13:26 | P.PNIM_ITS ---
Progress Note: A&P Assessment and Plan (1) Generalized weakness: Code(s): R53.1 - Weakness Status: Acute Assessment and Plan: * Secondary to deconditioning, morbid obesity, recent hospitalization, and urinary tract infection. * PT/OT consulted. * rehab placement if not senior living * [facility] accepted, waiting for insurance auth * Probably DC tuesday (2) Urinary tract infection: Code(s): N39.0 - Urinary tract infection, site not specified Status: Acute Assessment and Plan: * Continue ceftriaxone day 4 * urine culture grew Org 1 = Klebsiella pnemoniae, Org 2 = Pseudomonas aeruginosa * Monitor output * Bladder scan x1 (3) Abdominal distension: Code(s): R14.0 - Abdominal distension (gaseous) Status: Acute Assessment and Plan: * Seems to be resolved at this time * Abdomen once again seems distended with high-pitched tinkling bowel sounds. * KUB 1. Persistently distended colon, consistent with adynamic ileus. 2. Right lower quadrant ventral hernia containing bowel. * Continue MiraLax. * Bisacodyl suppository x1 * PT OT (4) Persistent atrial fibrillation: Code(s): I48.19 - Other persistent atrial fibrillation Status: Acute Assessment and Plan: * Rate controlled. * Continue metoprolol. * Trend heart rate * Adjust medications as needed (5) Chronic anticoagulation: Code(s): Z79.01 - alf (current) use of anticoagulants Status: Acute Assessment and Plan: * Continue Xarelto for stroke prophylaxis given atrial fibrillation. (6) Morbid obesity: Code(s): E66.01 - Morbid (severe) obesity due to excess calories Status: Acute Assessment and Plan: * BMI is 60 * Patient needs lifestyle modifications with education * Dietitian consult * Education about diet choices (7) Discharge planning issues: Code(s): Z02.9 - Encounter for administrative examinations, unspecified Status: Acute Assessment and Plan: * Patient needs a rehab * Insurance authorization pending * Patient was to [facility] * Acceptance to [facility] pending. Time Spent With Patient Time with patient: Greater than 35 minutes Subjective Date/time seen: 02/01/21 13:26 Interval history: Patient is a 65-year-old woman who is here for increased weakness. Patient looks good again today. She is sitting in the chair eating her lunch. Patient has no complaints currently. Abdomen is soft and round with no pain nausea or vomiting. Patient denies chest pain, shortness of breath, fevers, sweats, chills. Insurance authorization has not been through [facility]. Patient will probably be discharged tomorrow. Review of Systems Review of Systems: All systems reviewed & are unremarkable except as noted in HPI and below Exam Const: General: cooperative, healthy appearing, comfortable, no acute distress, well developed, alert, awake and Physically active Nutritional Appearance: well nourished, obese and overweight Orientation/consciousness: oriented to person, oriented to place, oriented to time and patient oriented x3 Limitations: no limitations HENMT: Head: normal to inspection Ears: hearing grossly normal bilaterally General nose exam: Normal external nose present Mouth: Yes Normal oral and palatal mucosa present, Yes lip normal and Yes tongue normal Teeth and gingiva: abnormal tooth and associated gingiva and poo
--- NOTE | 2021-02-01 13:26 | PM.IMPN ---
Progress Note: A&P Assessment and Plan (1) Generalized weakness: Code(s): R53.1 - Weakness Status: Acute Assessment and Plan: Secondary to deconditioning, morbid obesity, recent hospitalization, and urinary tract infection. PT/OT consulted. rehab placement if not snf [facility] accepted, waiting for insurance auth Probably DC tuesday (2) Urinary tract infection: Code(s): N39.0 - Urinary tract infection, site not specified Status: Acute Assessment and Plan: Continue ceftriaxone day 4 urine culture grew Org 1 = Klebsiella pnemoniae, Org 2 = Pseudomonas aeruginosa Monitor output Bladder scan x1 (3) Abdominal distension: Code(s): R14.0 - Abdominal distension (gaseous) Status: Acute Assessment and Plan: Seems to be resolved at this time Abdomen once again seems distended with high-pitched tinkling bowel sounds. KUB 1. Persistently distended colon, consistent with adynamic ileus. 2. Right lower quadrant ventral hernia containing bowel. Continue MiraLax. Bisacodyl suppository x1 PT OT (4) Persistent atrial fibrillation: Code(s): I48.19 - Other persistent atrial fibrillation Status: Acute Assessment and Plan: Rate controlled. Continue metoprolol. 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 (6) Morbid obesity: Code(s): E66.01 - Morbid (severe) obesity due to excess calories Status: Acute Assessment and Plan: BMI is 60 Patient needs lifestyle modifications with education Dietitian consult Education about diet choices (7) Discharge planning issues: Code(s): Z02.9 - Encounter for administrative examinations, unspecified Status: Acute Assessment and Plan: Patient needs a rehab Insurance authorization pending Patient was to [facility] Acceptance to [facility] pending. Time Spent With Patient Time with patient: Greater than 35 minutes Subjective Date/time seen: 02/01/21 13:26 Interval history: Patient is a 65-year-old woman who is here for increased weakness. Patient looks good again today. She is sitting in the chair eating her lunch. Patient has no complaints currently. Abdomen is soft and round with no pain nausea or vomiting. Patient denies chest pain, shortness of breath, fevers, sweats, chills. Insurance authorization has not been through [facility]. Patient will probably be discharged tomorrow. Review of Systems Review of Systems: All systems reviewed & are unremarkable except as noted in HPI and below Exam Const: General: cooperative, healthy appearing, comfortable, no acute distress, well developed, alert, awake and Physically active Nutritional Appearance: well nourished, obese and overweight Orientation/consciousness: oriented to person, oriented to place, oriented to time and patient oriented x3 Limitations: no limitations HENMT: Head: normal to inspection Ears: hearing grossly normal bilaterally General nose exam: Normal external nose present Mouth: Yes Normal oral and palatal mucosa present, Yes lip normal and Yes tongue normal Teeth and gingiva: abnormal tooth and associated gingiva and poor dentition Eyes: General: appearance normal, both eyes and all related structures Neck: Neck: normal visual inspection, full ROM, trachea midline and supple Chest: Chest palpation & inspection: normal inspection of the chest Resp: Effort & Inspection: normal respiratory effort and able to speak in complete sentences Auscultation: clear to auscultation bilaterally Cardio: Jugular venous distension: no JVD Rate: regular rate Rhythm: regular rhythm Heart sounds: S1 normal heart sound present and S2 normal
[2021-02-01 14:00] VITALS: BP 107/69; PULSE 72; RESP 22; TEMP 35.1; O2SAT 99
[2021-02-01] MEDS: BISACODYL 10 MG SUPPOSITORY RECTAL (17:56)
[2021-02-01] MEDS: RIVAROXABAN 20 MG TABLET PO (17:56)
[2021-02-01 20:45] VITALS: BP 117/81; PULSE 107; RESP 18; TEMP 36.9; O2SAT 100
[2021-02-01 21:30] VITALS: PULSE 107
[2021-02-01] MEDS: risperiDONE 1 MG TABLET 4 MG PO (21:31)
[2021-02-02 06:00] VITALS: BP 135/84; PULSE 83; RESP 18; TEMP 36.9; O2SAT 98
[2021-02-02] MEDS: LEVOTHYROXINE SODIUM 25 MCG TABLET PO (06:22)
[2021-02-02] MEDS: POTASSIUM CHLORIDE 20 MEQ TABLET.ER PO (08:42)
[2021-02-02] MEDS: ATORVASTATIN 40 MG TABLET PO (08:42)
[2021-02-02 08:43] VITALS: PULSE 92
[2021-02-02] MEDS: DULoxetine HCL 30 MG CAPSULE.DR 60 MG PO (08:43)
[2021-02-02] MEDS: FUROSEMIDE 20 MG TABLET PO (08:43)
[2021-02-02] MEDS: CHOLECALCIFEROL 1,000 UNITS TABLET 2000 UNITS PO (08:43)
[2021-02-02] MEDS: METOPROLOL TARTRATE 50 MG TAB 150 MG PO ×2 (08:43→20:29)
[2021-02-02] MEDS: MULTIVITS W-FE,MIN CHEWABLE TABLET 1 TABLET PO (08:43)
[2021-02-02] MEDS: dilTIAZem HCL CD 180 MG CAP.ER.24H PO (08:43)
[2021-02-02] MEDS: PANTOPRAZOLE 40 MG TABLET PO (08:43)
[2021-02-02] MEDS: GABAPENTIN 300 MG CAPSULE 600 MG PO ×2 (08:43→16:22)
[2021-02-02] MEDS: TOLNAFTATE 1% POWDER 45 GM BTL 1 APPLIC TOPICAL ×2 (09:00→20:30)
[2021-02-02] MEDS: HYDROcodone/acetaminophen (*CRX) 10-325 MG TABLET 1 TAB PO (09:01)
[2021-02-02] MEDS: SILVERGEL (ELTA) 45 ML 1 APPLIC TOPICAL (09:01)
--- NOTE | 2021-02-02 11:48 | PCDIET ---
Nutrition consult for obesity. See Nutritional Teaching Intervention. Thank you for the consult.
--- NOTE | 2021-02-02 16:19 | P.PNIM_ITS ---
Progress Note: A&P Assessment and Plan (1) Generalized weakness: Code(s): R53.1 - Weakness Status: Acute Assessment and Plan: * Secondary to deconditioning, morbid obesity, recent hospitalization, and urinary tract infection. * PT/OT consulted. * rehab placement if not nursing home * [facility] accepted rehab was approved by insurance company after peer to peer (2) Urinary tract infection: Code(s): N39.0 - Urinary tract infection, site not specified Status: Acute Assessment and Plan: * Continue ceftriaxone day 5 * urine culture grew Org 1 = Klebsiella pnemoniae, Org 2 = Pseudomonas aeruginosa * Susceptibilities show ceftriaxone is okay for Klebsiella however it does not cover the Pseudomonas * patient will need 3 days of levofloxacillin for dual coverage. * Monitor output * Bladder scan x1 (3) Abdominal distension: Code(s): R14.0 - Abdominal distension (gaseous) Status: Acute Assessment and Plan: * Seems to be resolved at this time * Abdomen once again seems distended with high-pitched tinkling bowel sounds. * KUB 1. Persistently distended colon, consistent with adynamic ileus. 2. Right lower quadrant ventral hernia containing bowel. * Continue MiraLax. * Bisacodyl suppository x1 * PT OT (4) Persistent atrial fibrillation: Code(s): I48.19 - Other persistent atrial fibrillation Status: Acute Assessment and Plan: * Rate controlled. * Continue metoprolol. 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 (6) Morbid obesity: Code(s): E66.01 - Morbid (severe) obesity due to excess calories Status: Acute Assessment and Plan: * BMI is 60 * Patient needs lifestyle modifications with education * Dietitian consult * Education about diet choices (7) Discharge planning issues: Code(s): Z02.9 - Encounter for administrative examinations, unspecified Status: Acute Assessment and Plan: * Patient needs a rehab * Insurance authorization approved * Patient was to [facility] * [facility] Accepted patient * awaiting [facility] to except the insurance authorization Subjective Date/time seen: 02/02/21 16:19 Interval history: Patient is a 65-year-old female who is here for UTI and generalized weakness. Patient has been awaiting discharge and has been on IV Rocephin the past 5 days. Patient was noted to have Pseudomonas aeruginosa and Klebsiella pneumonia in her cultures. Patient has no signs or symptoms of UTI at this time. Patient denies fevers sweats or chills. Patient also denies nausea, vomiting, abdominal pain or any other symptoms. Patient is also aware when she has to urinate and has been able to walk to the bathroom when she has to go. This patient has been dischargeable for couple days. Had appeared a peer to peer with the insurance company that has agreed to let the patient go to rehab for 1 week and will follow-up after. Did follow-up with the patient and let her know that she needs to work really hard in rehab which she agreed and said she understood. If patient was unable to discharge today it is due to [facility] who is claiming they did not get the insurance authorization. Review of Sy
--- NOTE | 2021-02-02 16:19 | PM.IMPN ---
Progress Note: A&P Assessment and Plan (1) Generalized weakness: Code(s): R53.1 - Weakness Status: Acute Assessment and Plan: Secondary to deconditioning, morbid obesity, recent hospitalization, and urinary tract infection. PT/OT consulted. rehab placement if not [facility] accepted rehab was approved by insurance company after peer to peer (2) Urinary tract infection: Code(s): N39.0 - Urinary tract infection, site not specified Status: Acute Assessment and Plan: Continue ceftriaxone day 5 urine culture grew Org 1 = Klebsiella pnemoniae, Org 2 = Pseudomonas aeruginosa Susceptibilities show ceftriaxone is okay for Klebsiella however it does not cover the Pseudomonas patient will need 3 days of levofloxacillin for dual coverage. Monitor output Bladder scan x1 (3) Abdominal distension: Code(s): R14.0 - Abdominal distension (gaseous) Status: Acute Assessment and Plan: Seems to be resolved at this time Abdomen once again seems distended with high-pitched tinkling bowel sounds. KUB 1. Persistently distended colon, consistent with adynamic ileus. 2. Right lower quadrant ventral hernia containing bowel. Continue MiraLax. Bisacodyl suppository x1 PT OT (4) Persistent atrial fibrillation: Code(s): I48.19 - Other persistent atrial fibrillation Status: Acute Assessment and Plan: Rate controlled. Continue metoprolol. Trend heart rate Adjust medications as needed (5) Chronic anticoagulation: Code(s): Z79.01 - half-way (current) use of anticoagulants Status: Acute Assessment and Plan: Continue Xarelto for stroke prophylaxis given atrial fibrillation. (6) Morbid obesity: Code(s): E66.01 - Morbid (severe) obesity due to excess calories Status: Acute Assessment and Plan: BMI is 60 Patient needs lifestyle modifications with education Dietitian consult Education about diet choices (7) Discharge planning issues: Code(s): Z02.9 - Encounter for administrative examinations, unspecified Status: Acute Assessment and Plan: Patient needs a rehab Insurance authorization approved Patient was to [facility] Accepted patient awaiting [facility] to except the insurance authorization Subjective Date/time seen: 02/02/21 16:19 Interval history: Patient is a 65-year-old female who is here for UTI and generalized weakness. Patient has been awaiting discharge and has been on IV Rocephin the past 5 days. Patient was noted to have Pseudomonas aeruginosa and Klebsiella pneumonia in her cultures. Patient has no signs or symptoms of UTI at this time. Patient denies fevers sweats or chills. Patient also denies nausea, vomiting, abdominal pain or any other symptoms. Patient is also aware when she has to urinate and has been able to walk to the bathroom when she has to go. This patient has been dischargeable for couple days. Had appeared a peer to peer with the insurance company that has agreed to let the patient go to rehab for 1 week and will follow-up after. Did follow-up with the patient and let her know that she needs to work really hard in rehab which she agreed and said she understood. If patient was unable to discharge today it is due to [facility] who is claiming they did not get the insurance authorization. Review of Systems Review of Systems: All systems reviewed & are unremarkable except as noted in HPI and below Exam Const: General: cooperative, healthy appearing, comfortable, no acute distress, well developed, alert, awake and Physically active Nutritional Appearance: well nourished, obese and overweight Orientation/consciousness: oriented to person, oriented to place, oriented to time and patient oriented x3 Limitations: no limitations HENMT: Head: normal to inspection
[2021-02-02 16:24] VITALS: BP 96/51; PULSE 76; RESP 16; TEMP 36.5; O2SAT 100
[2021-02-02] MEDS: RIVAROXABAN 20 MG TABLET PO (17:11)
[2021-02-02 20:00] VITALS: PULSE 68; RESP 16; O2SAT 100
[2021-02-02 20:29] VITALS: PULSE 68
[2021-02-02] MEDS: risperiDONE 1 MG TABLET 4 MG PO (20:29)
[2021-02-02 21:03] VITALS: BP 126/68; PULSE 68; RESP 16; TEMP 36.4; O2SAT 100
[2021-02-03 06:00] VITALS: BP 111/67; PULSE 65; RESP 18; TEMP 36.4; O2SAT 98
[2021-02-03] MEDS: LEVOTHYROXINE SODIUM 25 MCG TABLET PO (06:00)
--- NOTE | 2021-02-03 07:59 | PM.DS ---
DS: Admitting Diagnosis Discharge Date date of service 02/02/2021 at 1500 Admitting Diagnosis UTI and weakness DS: Discharge Diagnosis Discharge Diagnosis (1) Generalized weakness: Code(s): R53.1 - Weakness Status: Acute Assessment and Plan: Secondary to deconditioning, morbid obesity, recent hospitalization, and urinary tract infection. PT/OT consulted. rehab placement if not [facility] accepted, waiting for insurance auth Probably DC tuesday rehab was approved by insurance company after peer to peer (2) Urinary tract infection: Code(s): N39.0 - Urinary tract infection, site not specified Status: Acute Assessment and Plan: Continue ceftriaxone day 4 urine culture grew Org 1 = Klebsiella pnemoniae, Org 2 = Pseudomonas aeruginosa Monitor output Bladder scan x1 (3) Abdominal distension: Code(s): R14.0 - Abdominal distension (gaseous) Status: Acute Assessment and Plan: Seems to be resolved at this time Abdomen once again seems distended with high-pitched tinkling bowel sounds. KUB 1. Persistently distended colon, consistent with adynamic ileus. 2. Right lower quadrant ventral hernia containing bowel. Continue MiraLax. Bisacodyl suppository x1 PT OT (4) Persistent atrial fibrillation: Code(s): I48.19 - Other persistent atrial fibrillation Status: Acute Assessment and Plan: Rate controlled. Continue metoprolol. 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 (6) Morbid obesity: Code(s): E66.01 - Morbid (severe) obesity due to excess calories Status: Acute Assessment and Plan: BMI is 60 Patient needs lifestyle modifications with education Dietitian consult Education about diet choices (7) Discharge planning issues: Code(s): Z02.9 - Encounter for administrative examinations, unspecified Status: Acute Assessment and Plan: Patient needs a rehab Insurance authorization pending Patient was to [facility] Acceptance to [facility] pending. DS: Summary Hospital Course Hospital Course: patient is a 65-year-old female with past medical history chronic AFib, hypertension, and frequent UTIs who presented to the ED after recent admission for generalized weakness and a UTI. Patient has been treated with IV Rocephin for five days. urine culture showed Klebsiella pneumonia and Pseudomonas aeruginosa. Patient will need 3 days of levofloxacin upon discharge due to the Cipro not being susceptible to Pseudomonas. Labs have been stable throughout the visit with a white count of 5-6. Chemistries also remained stable throughout the visit with a discharging BUN and creatinine 13 and 1 along with all electrolytes sodium 136, potassium 3.4, chloride 101, magnesium 1.8. Patient has been doing really well since Tuesday however authorization from insurance has been delayed. Patient at admission was incontinent and is doing better and is able to tell when she has to go to the bathroom. She has no true symptomatology at this time. She also has been able to walk to the bathroom and get on the toilet she just needs help getting back and forth when it comes to getting up off the chair or bed or toilet to her transfer. Abdominal distension was also been a very small problem however patient denies and has denied abdominal pain, nausea, vomiting, constipation, diarrhea and this was treated with PRN laxatives. However patient has been diagnosed with a pseudo ilius. Patient is eager to get to rehab today she states she feels great and has no complaints. Abdomen seems a bit distended, treat with laxatives. Status at Discharge Functional status at d
--- NOTE | 2021-02-03 07:59 | P.DS_ITS ---
DS: Admitting Diagnosis Discharge Date date of service 02/02/2021 at 1500 Admitting Diagnosis UTI and weakness DS: Discharge Diagnosis Discharge Diagnosis (1) Generalized weakness: Code(s): R53.1 - Weakness Status: Acute Assessment and Plan: * Secondary to deconditioning, morbid obesity, recent hospitalization, and urinary tract infection. * PT/OT consulted. * rehab placement if not group home * [facility] accepted, waiting for insurance auth * Probably DC tuesday rehab was approved by insurance company after peer to peer (2) Urinary tract infection: Code(s): N39.0 - Urinary tract infection, site not specified Status: Acute Assessment and Plan: * Continue ceftriaxone day 4 * urine culture grew Org 1 = Klebsiella pnemoniae, Org 2 = Pseudomonas aeruginosa * Monitor output * Bladder scan x1 (3) Abdominal distension: Code(s): R14.0 - Abdominal distension (gaseous) Status: Acute Assessment and Plan: * Seems to be resolved at this time * Abdomen once again seems distended with high-pitched tinkling bowel sounds. * KUB 1. Persistently distended colon, consistent with adynamic ileus. 2. Right lower quadrant ventral hernia containing bowel. * Continue MiraLax. * Bisacodyl suppository x1 * PT OT (4) Persistent atrial fibrillation: Code(s): I48.19 - Other persistent atrial fibrillation Status: Acute Assessment and Plan: * Rate controlled. * Continue metoprolol. 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 (6) Morbid obesity: Code(s): E66.01 - Morbid (severe) obesity due to excess calories Status: Acute Assessment and Plan: * BMI is 60 * Patient needs lifestyle modifications with education * Dietitian consult * Education about diet choices (7) Discharge planning issues: Code(s): Z02.9 - Encounter for administrative examinations, unspecified Status: Acute Assessment and Plan: * Patient needs a rehab * Insurance authorization pending * Patient was to [facility] * Acceptance to [facility] pending. DS: Summary Hospital Course Hospital Course: patient is a 65-year-old female with past medical history chronic AFib, hypertension, and frequent UTIs who presented to the ED after recent admission for generalized weakness and a UTI. Patient has been treated with IV Rocephin for five days. urine culture showed Klebsiella pneumonia and Pseudomonas aeruginosa. Patient will need 3 days of levofloxacin upon discharge due to the Cipro not being susceptible to Pseudomonas. Labs have been stable throughout the visit with a white count of 5-6. Chemistries also remained stable throughout the visit with a discharging BUN and creatinine 13 and 1 along with all electrolytes sodium 136, potassium 3.4, chloride 101, magnesium 1.8. Patient has been doing really well since Tuesday however authorization from insurance has been delayed. Patient at admission was incontinent and is doing better and is able to tell when she has to go to the bathroom. She has no true symptomatology at this time. She also has been able to walk to the bathroom and get on the toilet she just needs help getting back and forth when it comes to getting up off the chair or bed or toilet to her
[2021-02-03] MEDS: levoFLOXacin 250 MG TABLET PO (09:04)
[2021-02-03] MEDS: DULoxetine HCL 30 MG CAPSULE.DR 60 MG PO (09:04)
[2021-02-03] MEDS: GABAPENTIN 300 MG CAPSULE 600 MG PO (09:05)
[2021-02-03] MEDS: FUROSEMIDE 20 MG TABLET PO (09:06)
[2021-02-03] MEDS: ATORVASTATIN 40 MG TABLET PO (09:06)
[2021-02-03] MEDS: MULTIVITS W-FE,MIN CHEWABLE TABLET 1 TABLET PO (09:06)
[2021-02-03] MEDS: PANTOPRAZOLE 40 MG TABLET PO (09:06)
[2021-02-03] MEDS: POTASSIUM CHLORIDE 20 MEQ TABLET.ER PO (09:06)
[2021-02-03] MEDS: busPIRone HCL 5 MG TABLET 15 MG PO (09:06)
[2021-02-03 09:07] VITALS: PULSE 65
[2021-02-03] MEDS: dilTIAZem HCL CD 180 MG CAP.ER.24H PO (09:07)
[2021-02-03] MEDS: CHOLECALCIFEROL 1,000 UNITS TABLET 2000 UNITS PO (09:07)
[2021-02-03] MEDS: METOPROLOL TARTRATE 50 MG TAB 150 MG PO (09:07)
[2021-02-03 11:21] LABS: EDCOVIDSCREEN Negative (Negative)
[2021-02-03] MEDS: SILVERGEL (ELTA) 45 ML 1 APPLIC TOPICAL (12:04)
[2021-02-03] MEDS: TOLNAFTATE 1% POWDER 45 GM BTL 1 APPLIC TOPICAL (12:04)
== END 2021-02-03 13:04 ==
LOC: ANHED 16:19 → ANH3MED 19:02
PROVIDERS: Emergency Medicine Emergency Medical Services; Nurse Practitioner; Physician Assistant; Admitting Provider Internal Medicine; Emergency Provider General Practice; PCP Family Medicine; Visit Provider Physician Assistant
DX: N39.0 Urinary tract infection, site not specified (principal); B96.1 Klebsiella pneumoniae [K. pneumoniae] as the cause of diseases classified elsewhere; B96.5 Pseudomonas (aeruginosa) (mallei) (pseudomallei) as the cause of diseases classified elsewhere; R53.1 Weakness; R14.0 Abdominal distension (gaseous); E66.01 Morbid (severe) obesity due to excess calories; E78.5 Hyperlipidemia, unspecified; F41.9 Anxiety disorder, unspecified; I48.19 Other persistent atrial fibrillation; I10 Essential (primary) hypertension; K21.9 Gastro-esophageal reflux disease without esophagitis; K43.9 Ventral hernia without obstruction or gangrene; Z20.822 Contact with and (suspected) exposure to COVID-19; Z79.01 Long term (current) use of anticoagulants; Z68.43 Body mass index [BMI] 50.0-59.9, adult
CPT/HCPCS: 36415; 36600; 74018; 80048; 80053; 81001; 82805; 83735; 85025; 85027; 87077; 87086; 87186; 87426; 93005; 94640; 94762; 96361; 96365; 96366; 96375; 96376; 97110; 97161; 97165; 97530; 97535; 99285; A9270; C9803; G0378; J0696; J7120

== ENCOUNTER 2021-02-19 13:45 | Outpatient (NON) | payer MEDICARE, SELFPAY ==
[2021-02-19 15:38] LABS: Add Urine Microscopic? YES; Appearance Urine Clear (Clear); Bilirubin Urine Negative (Negative); Blood Urine Negative (Negative); Color Urine Yellow (Yellow); Glucose Urine UA Negative (Negative); Ketones Urine Negative (Negative); Leukocyte Esterase Ur Trace LEU/UL (Negative); Mucus Urine Rare /lpf; Nitrate Urine Negative (Negative); Protein Urine Negative (Negative); Specific Grav Ur 1.008 (1.001-1.035); Squamous Epithelial Cell Urine Rare /hpf (Few); Urobilinogen Urine Negative mg/dL (<2.0)
== END 2021-02-19 13:46 | disposition home or self-care (01) ==
PROVIDERS: PCP Family Medicine; Visit Provider Physician Assistant
DX: N39.0 Urinary tract infection, site not specified (principal)
CPT/HCPCS: 81001

== ENCOUNTER 2021-02-24 14:16 | Outpatient (NON) | payer MEDICARE, SELFPAY | END 2021-02-24 14:17 | disposition home or self-care (01) | PROVIDERS: PCP Family Medicine; Visit Provider Family Medicine | DX: R39.9 Unspecified symptoms and signs involving the genitourinary system (principal) | CPT/HCPCS: 87077; 87086; 87088; 87186 ==

== ENCOUNTER 2021-02-25 09:17 | Inpatient (IN) | payer MEDICARE, SELFPAY ==
--- NOTE | ~2021-02-25 | CT_ITS ---
EXAMINATION: CT brain wo con DATE: 02/25/2021 10:41 INDICATION: Trauma with increasing weakness post fall TECHNIQUE: Computed tomography (CT) of the head was performed without intravenous contrast. Sagittal and coronal reconstructions were performed. The mA was adjusted according to patient size. Iterative reconstruction technique was employed. The dose-length product was 605.33 mGy-cm. COMPARISON: head CT dated 01/23/2021 FINDINGS: No fracture. No acute intracranial hemorrhage, acute infarction or abnormal extra axial fluid collect ion. Ventricles are normal and symmetric. No mass/mass effect. Mucous retention cyst in the left maxi llary sinus. The orbits, paranasal sinuses and mastoid air cells are normal. Intracranial calcified c erebral atherosclerosis is noted. IMPRESSION: 1. No fracture or acute intracranial process. Reviewed, dictated and finalized at location A.
--- NOTE | ~2021-02-25 | XR_ITS ---
EXAMINATION: XR chest 1V portable DATE: 02/25/2021 09:53 INDICATION: Generalized body weakness. TECHNIQUE: A single frontal view of the chest was obtained on 2 radiographs. COMPARISON: Chest single view 01/23/2021, 08/26/2014, CT abdomen and pelvis 01/08/2021 FINDINGS: There is no pneumonia, pleural effusion, or pneumothorax. Cardiomegaly is noted. There are surgical clips in the area of the stomach. There is a sclerotic lesion in proximal left humerus that is stable from 08/26/2014, likely an enchondroma or osteonecrosis. IMPRESSION: 1. Cardiomegaly. Reviewed, dictated and finalized at location A. IMPRESSION: 1. Cardiomegaly.
[2021-02-25 09:21] VITALS: BP 105/76; PULSE 93; RESP 15; TEMP 36.8; O2SAT 96
--- NOTE | 2021-02-25 09:38 | ECG_ITS ---
Measurements Intervals Mcdougal Rate: 81 P: NC: 0 QRS: -32 QRSD: 107 T: 35 QT: 403 QTc: 470 Interpretive Statements ATRIAL FIBRILLATION LEFT AXIS DEVIATION LEFT VENTRICULAR HYPERTROPHY WITH ST-T CHANGE POOR R WAVE PROGRESSION, ANTERIOR LEADS BORDERLINE ST-T WAVE ABNORMALITY- INF/HIGH LAT LEADS BASELINE ARTIFACT- I, II, III, AVR, AVL, AVF, V1-V6 ABNORMAL ECG Electronically Signed On 02-25-2021 10:09:20 CDT by Glenroy Ashraf D.O.
[2021-02-25 10:20] LABS: Basophils Percent Auto 0.5 % (0.2-1.2); Eosinophils Absolute Auto 0.2 K/mm3 (0-0.3); Eosinophils Percent Auto 3.1 % (0-4.4); Hematocrit 37.7 % (37.0-47.0); Hemoglobin 11.8 g/dL (12.0-15.0); Immature Granulocyte Absolute 0.03 K/mm3 (0.00-0.031); Immature Granulocyte Percent A 0.5 % (0-0.5); Lymphocytes Absolute Auto 0.66 K/mm3 (0.9-3.2); Lymphocytes Percent Auto 10.9 % (18.3-44.2); Mean Corpuscular HGB Conc 31.3 g/dl (32-36); Mean Corpuscular Hemoglobin 24.9 pg (26-34); Mean Corpuscular Volume 79.5 fl (80-100); Mean Platelet Volume 9.4 fl (7.4-10.4); Monocytes Absolute Auto 0.4 K/mm3 (0.1-0.6); Monocytes Percent Auto 6.4 % (2.6-8.5); Neutrophils Absolute Auto 4.8 K/mm3 (1.3-6.7); Neutrophils Percent Auto 78.6 % (45.5-73.1); Platelet Count Result 191 k/mm3 (150-375); Red Blood Count 4.74 M/mm3 (4.2-5.4); Red Cell Distribution Width 17.4 % (11.5-14.5); White Blood Count 6.1 K/mm3 (4.5-10.0)
[2021-02-25 10:35] LABS: Lactic Acid Reflex 1.9 mmol/L (0.7-2.1)
[2021-02-25 10:36] LABS: Alanine Aminotransferase 14 U/L (4-35); Albumin Level 3.9 g/dL (3.5-5.1); Alkaline Phosphatase 123 U/L (38-126); Anion Gap 10 mmol/L (8-16); Aspartate Amino Transferase 17 U/L (14-36); Bilirubin,Total 0.7 mg/dL (0.2-1.3); Blood Urea Nitrogen 16 mg/dL (7-17); Calcium 9.3 mg/dL (8.4-10.2); Carbon Dioxide 29 mmol/L (22-30); Chloride 96 mmol/L (98-107); Estimated CRCL calculation 66 ml/min; Estimated Glomerular Filt Rate 55; Glucose 146 mg/dL (65-110); Magnesium 1.8 mg/dL (1.6-2.3); Potassium 4.3 mmol/L (3.4-5.0); Sodium 135 mmol/L (137-145)
[2021-02-25 10:40] LABS: INR 2.3; Prothrombin Time 24.7 Seconds (11.1-14.7)
[2021-02-25 10:41] LABS: Partial Thromboplastin Time 37.6 SECONDS (22.3-36.8)
[2021-02-25 10:45] LABS: NT Pro B Type Natriuretic Pept 3540 pg/mL (5-100)
[2021-02-25 11:00] VITALS: BP 110/87; PULSE 88; RESP 17; O2SAT 100
[2021-02-25 11:10] LABS: Add Urine Microscopic? YES; Appearance Urine Cloudy (Clear); Bilirubin Urine Negative (Negative); Blood Urine 2+ (Negative); Color Urine Amber (Yellow); Glucose Urine UA Negative (Negative); Ketones Urine Negative (Negative); Leukocyte Esterase Ur 3+ LEU/UL (Negative); Nitrate Urine Positive (Negative); Protein Urine 1+ mg/dL (Negative); Specific Grav Ur 1.012 (1.001-1.035); Urobilinogen Urine Negative mg/dL (<2.0); WBC Urine >75 /hpf
--- NOTE | 2021-02-25 11:31 | PC.NURSE ---
Pt is a difficult to obtain IV access. Contacted Maya to come to pts room
[2021-02-25] MEDS: FUROSEMIDE INJ 40 MG/4 ML VIAL IV PUSH (11:49)
[2021-02-25 13:00] VITALS: BP 164/96; PULSE 87; RESP 18; O2SAT 96
--- NOTE | 2021-02-25 13:27 | ED.GENADULT ---
HPI - General Adult General Chief complaint: Weakness <JIM Roca Last Filed: 02/25/21 13:32> Stated complaint: WEAK KNEES <JIM Roca Last Filed: 02/25/21 13:32> Source: patient, family, EMS, RN notes reviewed and old records reviewed <JIM Roca Last Filed: 02/25/21 13:32> Mode of arrival: EMS <JIM Roca Last Filed: 02/25/21 13:32> Limitations: no limitations <JIM Roca Last Filed: 02/25/21 13:32> History of Present Illness HPI narrative: Patient is a 65-year-old female who presents to emergency department for evaluation of having fallen out of her chair today was unable to get up EMS presented brought her in due to her weakness and inability to care for herself she had recently been placed in half-way has returned home but is unable to care for herself her lives with her and cares for her but also has comorbidities. Patient presents morbidly obese she has no complaints upon arrival denies hitting her head syncope loss of consciousness notes that she has been compliant with her medication <JIM Roca Last Filed: 02/25/21 13:32> Related Data Home medications: Home Medications Medication Instructions Recorded Confirmed atorvastatin 40 mg PO DAILY 06/05/20 01/28/21 diphenhydramine HCl 25 mg PO HS PRN 08/20/20 01/28/21 gabapentin 600 mg PO BID 08/20/20 01/28/21 Xarelto 20 mg PO QPM 11/24/20 01/28/21 cholecalciferol (vitamin D3) 50 mcg PO DAILY 11/24/20 01/28/21 docusate sodium [Stool Softener] 100 mg PO HS PRN 11/24/20 01/28/21 omeprazole 20 mg PO DAILY 11/24/20 01/28/21 pediatric [id number]-raws-obx 1 tablet PO DAILY 11/24/20 01/28/21 furosemide 20 mg tablet 20 mg PO QAM 12/18/20 01/28/21 duloxetine 60 mg PO DAILY 12/22/20 01/28/21 risperidone 4 mg PO HS 12/22/20 01/28/21 <Lenny Coelho PA-C - Last Filed: 02/25/21 13:32> Allergies/adverse reactions: Allergies Allergy/AdvReac Type Severity Reaction Status Date / Time metoclopramide Allergy Intermediate Hives Verified 01/28/21 20:56 <Lenny Coelho PA-C - Last Filed: 02/25/21 13:32> Review of Systems Review of Systems: All systems reviewed & are unremarkable except as noted in HPI and below <Lenyn Coelho PA-C - Last Filed: 02/25/21 13:32> [facility] Past Medical History Medical History: Medical History Abnormal stress test (01/2021) Lexiscan stress showed no reversible ischemia and a fixed defect. 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 Dumont for quite some time. Status post excision with full-thickness skin graft on 11/27/2020. Deep venous thrombosis (2014) Dementia Depression Essential hypertension Hypothyroidism Mild episode of recurrent major depressive disorder Mild intermittent asthma without complication Mixed hyperlipidemia Morbid obesity Obstructive sleep apnea Intolerant to CPAP. Persistent atrial fibrillation Prediabetes Hemoglobin A1c was 6.2% on 01/09/2021. Pulmonary embolism (2014) Right ventricular systolic dysfunction Severe right ventricular enlargement with [id number] systolic dysfunction noted on echocardiogram dated 08/26/2014. Normal LV size and function with an EF of 65 to 70%. Severe pulmonary hypertension RVSP of 66 mmHg on echocardiogram dated 08/26/2014. <Lenny Coelho PA-C - Last Filed: 02/25/21 13:32> Surgical History Surgical History: Surgical History History of appendectomy History of bariatric surgery Gastropexy for obesity in 1978 and 1983. History of bilateral knee replacement History of carpal tunnel release History of cholecystectomy History of colonoscopy with polypectomy History of dilation and curet
--- NOTE | 2021-02-25 14:00 | PM.IMHP ---
H&P: HPI History of Present Illness Date/Time: 02/25/21 14:00 Chief Complaint: Weakness. Narrative: This is a 65-year-old female with atrial fibrillation on long-term anticoagulation, hypertension, hyperlipidemia, sleep apnea, and morbid obesity presented to the emergency department earlier today via EMS from home with reports of weakness. She is known to myself and the hospitalist service with 2 recent admissions last month, most recently with generalized weakness attributed to underlying urinary tract infection as well chronic debility. She was discharged to [facility] for rehab on 02/03/2021 and they discharged her home on 02/13/2021. The patient and her appealed her discharge and an forestry contractor did a peer to peer review of her chart and agreed that she would benefit from continued rehabilitation although that has not yet been arranged as reportedly they are having difficulties approving it through her insurance. Her is her primary data management engineer as she is pretty dependent on him for most activities of daily living. This morning she had to use the restroom and she used her lift chair in order to position herself near her Rollator however she was unable to stand and she essentially rolled onto the floor. Even with her 's help she was unable to get herself up and the fire department was called for lift assist. Due to ongoing struggles at home she came in today for evaluation. Lorraine tells me that she has pretty significant pain in her knees and she believes that is what is causing her to not be able to stand however she is very weak and has difficulties even raising her leg an inch off the bed. During our conversation, she would frequently fall asleep and her tells me this is not unusual for her. For instance Lorraine will fall asleep while on the toilet for upwards of 2 hours. A couple of days ago she was in her shower chair, fast asleep with the hand-held shower head laying on her chest. She has little appetite but denies nausea and vomiting. She endorses mild dysuria and incontinence however it sounds like she really just has difficulties getting up to going to the bathroom. In fact she frequently urinates or defecates on the floor and her has to mop that up several times a day. Review of Systems Review of Systems: 12 systems were reviewed. No fever, chills, or sweats. She denies cough. I am not certain she has been officially diagnosed with dementia however her believes she does have it as she is confused 60% of the time. She is supposed to have a sleep study at some point in time however she has not been able to get an appointment with Dr. Ritter until March. As of this time she is not currently using CPAP she does snore quite heavily but denies PND. She is hypersomnolent and falls asleep with everyday activities as detailed above. No chest pain or shortness of breath. Except as document, other systems were reviewed and are negative. [facility] Past Medical History Medical History Abnormal stress test (01/2021) Lexiscan stress showed no reversible ischemia and a fixed defect. 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 Dumont for quite some time. Status post excision with full-thickness skin graft on 11/27/2020. Deep venous thrombosis (2014) Dementia Depression Essential hypertension Hypothyroidism Mild episode of recurrent major depressive disorder Mild intermittent asthma without complication Mixed hyperlipidemia Morbid obesity Obstructive sleep apnea Intolerant to CPAP. Persistent atrial fibrillation Prediabetes Hemoglobin A1c was 6.2% on 01/09/2021. Pulmonary embolism (2014) Right ventricular systolic dysfunction Severe right ventricular enlargement with [id number] systolic dysfunction noted on echo
[2021-02-25 17:00] VITALS: BMI 64.1
[2021-02-25 19:21] LABS: Alveolar/Arterial O2 Gradient 23.9 mmHg; Base Excess ABG 5.7 mEq/l (+/-2.0); Carboxyhemoglobin 0.3 % THb (0-2.0); Device ROOM AIR; Fractional Inspired Oxygen 21 %; HCO3 ABG 29.4 mEq/l (22.0-26.0); Methemoglobin ABG 0.3 %THb (0-1.5); Modified Allen's Test Pass; Oxygen Content ABG 16.1 %vol (16.0-22.0); Oxygen Saturation ABG 96.4 % (95.0-100.0); Oxyhemoglobin 94.5 % THb (90.0-100.0); PCO2 ABG 39.7 mmHg (35.0-45.0); PO2 ABG 78.3 mmHg (80.0-100.0); PO2 FiO2 Ratio Arterial Blood 3.73 %; Reduced Hemoglobin 4.9 %THb (0-5.0); Site Drawn RIGHT RADIAL; Total Hemoglobin 12.1 g/dL (12.0-18.0); pH ABG 7.488 (7.350-7.450)
[2021-02-25 22:00] VITALS: BP 118/69; PULSE 62; RESP 20; TEMP 36.6; O2SAT 90
[2021-02-26 06:00] VITALS: BP 115/77; PULSE 73; RESP 20; TEMP 36.4; O2SAT 96
[2021-02-26 06:35] LABS: Basophils Percent Auto 0.3 % (0.2-1.2); Eosinophils Absolute Auto 0.3 K/mm3 (0-0.3); Eosinophils Percent Auto 3.8 % (0-4.4); Hematocrit 37.3 % (37.0-47.0); Hemoglobin 11.7 g/dL (12.0-15.0); Immature Granulocyte Absolute 0.05 K/mm3 (0.00-0.031); Immature Granulocyte Percent A 0.7 % (0-0.5); Lymphocytes Absolute Auto 1.25 K/mm3 (0.9-3.2); Lymphocytes Percent Auto 18.4 % (18.3-44.2); Mean Corpuscular HGB Conc 31.4 g/dl (32-36); Mean Corpuscular Hemoglobin 24.8 pg (26-34); Mean Corpuscular Volume 79.2 fl (80-100); Mean Platelet Volume 9.3 fl (7.4-10.4); Monocytes Absolute Auto 0.6 K/mm3 (0.1-0.6); Monocytes Percent Auto 8.4 % (2.6-8.5); Neutrophils Absolute Auto 4.6 K/mm3 (1.3-6.7); Neutrophils Percent Auto 68.4 % (45.5-73.1); Platelet Count Result 196 k/mm3 (150-375); Red Blood Count 4.71 M/mm3 (4.2-5.4); Red Cell Distribution Width 17.7 % (11.5-14.5); White Blood Count 6.8 K/mm3 (4.5-10.0)
[2021-02-26 06:50] LABS: Alanine Aminotransferase 13 U/L (4-35); Albumin Level 3.7 g/dL (3.5-5.1); Alkaline Phosphatase 125 U/L (38-126); Anion Gap 6 mmol/L (8-16); Aspartate Amino Transferase 17 U/L (14-36); Bilirubin,Total 0.6 mg/dL (0.2-1.3); Blood Urea Nitrogen 14 mg/dL (7-17); Calcium 9.3 mg/dL (8.4-10.2); Carbon Dioxide 32 mmol/L (22-30); Chloride 96 mmol/L (98-107); Estimated CRCL calculation 66 ml/min; Estimated Glomerular Filt Rate 55; Glucose 128 mg/dL (65-110); Magnesium 1.8 mg/dL (1.6-2.3); Potassium 4.3 mmol/L (3.4-5.0); Sodium 134 mmol/L (137-145)
--- NOTE | 2021-02-26 08:33 | PCPTNOTE ---
attempted PT evaluation ~ 820, nursing was with pt, cleaning her and doing wound care for her leg. unable to perform PT evaluation at this time.
[2021-02-26 10:05] VITALS: BMI 10.0
[2021-02-26 14:00] VITALS: BP 137/91; PULSE 85; RESP 16; TEMP 36; O2SAT 98
--- NOTE | 2021-02-26 15:31 | PM.IMPN ---
Progress Note: A&P Assessment and Plan (1) Generalized weakness: Code(s): R53.1 - Weakness Status: Acute (2) Fall: Code(s): W19.XXXA - Unspecified fall, initial encounter Status: Acute (3) Debility: Code(s): R53.81 - Other malaise Status: Acute (4) Morbid obesity: Code(s): E66.01 - Morbid (severe) obesity due to excess calories Status: Acute (5) Essential hypertension: Code(s): I10 - Essential (primary) hypertension Status: Acute (6) Chronic wound of extremity: Status: Chronic (7) Persistent atrial fibrillation: Code(s): I48.19 - Other persistent atrial fibrillation Status: Acute (8) Chronic anticoagulation: Code(s): Z79.01 - correction (current) use of anticoagulants Status: Acute (9) Obstructive sleep apnea: Code(s): G47.33 - Obstructive sleep apnea (adult) (pediatric) Status: Chronic (10) Urinary tract infection: Code(s): N39.0 - Urinary tract infection, site not specified Status: Acute (11) Delirium: Code(s): R41.0 - Disorientation, unspecified Status: Acute Additional Plan 02/25/21 Patient presents to the hospital once again for evaluation of generalized weakness after a fall with inability to get herself up. Her is her primary plaster lather and she is dependent on most activities of daily living. It is my understanding that she was participating and progressing in rehab at [facility] though she was discharged after about 10 days. This was appealed by the patient and her and the independent review felt that she should have a longer stay in rehab however I am not certain her insurance company is on board with that at this time. PT/OT consulted. We will also asked the care coordinators to meet with the patient and her regarding options. It does not sound as though she wants [facility] care, rather rehabilitation at a longterm facility. Patient has hypersomnolence, likely due to untreated sleep apnea, and this may very well be causing some of her confusion as well. Check ABG to ensure she is not retaining CO2. Fall precautions will be initiated. If she continues to have falls, we may need to consider holding her Xarelto. Her blood pressures were reviewed and they have been stable. Estimate home medications will be reviewed and resumed as appropriate. She has been started on ceftriaxone, pending urine culture. 02/26/21 Pt confused today, likely delirium secondary to UTI. No focal neurological deficits. CT head negative. ABG no CO2 retention. Will continue ceftriaxone pending urine culture sensitivities. Will continue to monitor mental status. No fever, tachycardia, or leukocytosis. Subjective Date/time seen: 02/26/21 15:31 This is a 65-year-old female with atrial fibrillation on long-term anticoagulation, hypertension, hyperlipidemia, sleep apnea, and morbid obesity admitted to the hospital yesterday for weakness and uti. She is A/Ox4 but seems confused with tangential speech and thoughts such as my job, my interview, was going to go to my marriage thing, been having attacks, called for reservation, honeymoon for weekend, didnt get it, calling back. No offical diagnosis of dementia but notes she is confused 60% of the time. Pt has no complaints currently. Denies pain. Review of Systems Review of Systems: Unreliable historian but reports the following: General: Denies fevers, chills Eyes: Denies vision changes ENT: Denies nasal congestion or sore throat Respiratory: Denies cough or shortness of breath Cardiovascular: Denies chest pain, palpitations Gastrointestinal: Denies abdominal pain, vomiting, or diarrhea Genitourinary: Denies dysuria Musculoskeletal: Denies back pain Neurological: Denies headache, paraesthesias Integumentary: Denies rash Psychiatric: Denies SI/HI Exam Narrative: General: Chronically ill-appearin
[2021-02-26] MEDS: SILVERGEL (ELTA) 45 ML 1 APPLIC TOPICAL (15:53)
[2021-02-26] MEDS: TOLNAFTATE 1% POWDER 45 GM BTL 1 APPLIC TOPICAL ×2 (15:53→21:06)
[2021-02-26] MEDS: ACETAMINOPHEN 500 MG TABLET 1000 MG PO (17:34)
[2021-02-26 22:00] VITALS: BP 145/90; PULSE 52; RESP 20; TEMP 36.3; O2SAT 97
[2021-02-27] MEDS: ACETAMINOPHEN 500 MG TABLET 1000 MG PO ×4 (00:17→17:50)
[2021-02-27 06:00] VITALS: BP 135/75; PULSE 75; RESP 16; TEMP 36.4; O2SAT 95
[2021-02-27 06:21] LABS: Basophils Percent Auto 0.6 % (0.2-1.2); Eosinophils Absolute Auto 0.3 K/mm3 (0-0.3); Hematocrit 35.5 % (37.0-47.0); Hemoglobin 11.3 g/dL (12.0-15.0); Immature Granulocyte Absolute 0.03 K/mm3 (0.00-0.031); Immature Granulocyte Percent A 0.5 % (0-0.5); Lymphocytes Absolute Auto 1.32 K/mm3 (0.9-3.2); Lymphocytes Percent Auto 21.2 % (18.3-44.2); Mean Corpuscular HGB Conc 31.8 g/dl (32-36); Mean Corpuscular Hemoglobin 24.4 pg (26-34); Mean Corpuscular Volume 76.5 fl (80-100); Mean Platelet Volume 9.3 fl (7.4-10.4); Monocytes Absolute Auto 0.6 K/mm3 (0.1-0.6); Monocytes Percent Auto 9.5 % (2.6-8.5); Neutrophils Percent Auto 64.2 % (45.5-73.1); Platelet Count Result 194 k/mm3 (150-375); Red Blood Count 4.64 M/mm3 (4.2-5.4); Red Cell Distribution Width 17.7 % (11.5-14.5); White Blood Count 6.2 K/mm3 (4.5-10.0)
[2021-02-27 06:25] LABS: Anion Gap 10 mmol/L (8-16); Blood Urea Nitrogen 13 mg/dL (7-17); Carbon Dioxide 30 mmol/L (22-30); Chloride 95 mmol/L (98-107); Estimated CRCL calculation 73 ml/min; Estimated Glomerular Filt Rate > 60; Glucose 112 mg/dL (65-110); Potassium 3.6 mmol/L (3.4-5.0); Sodium 135 mmol/L (137-145)
[2021-02-27 08:00] VITALS: O2SAT 98
[2021-02-27] MEDS: SILVERGEL (ELTA) 45 ML 1 APPLIC TOPICAL (08:49)
[2021-02-27] MEDS: TOLNAFTATE 1% POWDER 45 GM BTL 1 APPLIC TOPICAL ×2 (08:49→22:08)
[2021-02-27 10:56] VITALS: BMI 10.0
--- NOTE | 2021-02-27 13:57 | PM.IMPN ---
Progress Note: A&P Assessment and Plan (1) Generalized weakness: Code(s): R53.1 - Weakness Status: Acute (2) Fall: Code(s): W19.XXXA - Unspecified fall, initial encounter Status: Acute (3) Debility: Code(s): R53.81 - Other malaise Status: Acute (4) Morbid obesity: Code(s): E66.01 - Morbid (severe) obesity due to excess calories Status: Acute (5) Essential hypertension: Code(s): I10 - Essential (primary) hypertension Status: Acute Assessment and Plan: stable, continue home meds (6) Chronic wound of extremity: Status: Chronic Assessment and Plan: Wound care consult (7) Persistent atrial fibrillation: Code(s): I48.19 - Other persistent atrial fibrillation Status: Acute Assessment and Plan: continue home meds (8) Chronic anticoagulation: Code(s): Z79.01 - handle bender (current) use of anticoagulants Status: Acute Assessment and Plan: continue home meds (9) Obstructive sleep apnea: Code(s): G47.33 - Obstructive sleep apnea (adult) (pediatric) Status: Chronic (10) Urinary tract infection: Code(s): N39.0 - Urinary tract infection, site not specified Status: Acute Assessment and Plan: continue rocephin pending urine culture (11) Delirium: Code(s): R41.0 - Disorientation, unspecified Status: Acute Assessment and Plan: likely secondary to UTI, improved Additional Plan 02/25/21 Patient presents to the hospital once again for evaluation of generalized weakness after a fall with inability to get herself up. 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 It is my understanding that she was participating and progressing in rehab at [facility] though she was discharged after about 10 days. This was appealed by the patient and her and the independent review felt that she should have a longer stay in rehab however I am not certain her insurance company is on board with that at this time. PT/OT consulted. We will also asked the care coordinators to meet with the patient and her regarding options. It does not sound as though she wants [facility] care, [facility]. Patient has hypersomnolence, likely due to untreated sleep apnea, and this may very well be causing some of her confusion as well. Check ABG to ensure she is not retaining CO2. Fall precautions will be initiated. If she continues to have falls, we may need to consider holding her Xarelto. Her blood pressures were reviewed and they have been stable. Estimate home medications will be reviewed and resumed as appropriate. She has been started on ceftriaxone, pending urine culture. 02/26/21 Pt confused today, likely delirium secondary to UTI. No focal neurological deficits. CT head negative. ABG no CO2 retention. Will continue ceftriaxone pending urine culture sensitivities. Will continue to monitor mental status. No fever, tachycardia, or leukocytosis. 02/27/21 Pt less confused today. Still A/Ox4 but speech is clear and sensical today. Continue IV abx for UTI. Care coordination is working on setting up transfer to rehab facility. Apparently she was not supposed to be discharged from the most recent facility so this is in process of being corrected. Vitals have remained stable. Subjective Date/time seen: 02/27/21 13:57 This is a 65-year-old female with atrial fibrillation on long-term anticoagulation, hypertension, hyperlipidemia, sleep apnea, and morbid obesity admitted to the hospital for weakness and uti. She is A/Ox4 today. No apparent confusion or tangential speech today. She has no complaints currently. She denies pain anywhere. No cp, sob, N/V, ab pain, fever. Review of Systems Review of Systems: General: Denies fevers, chills Eyes: Denies v
[2021-02-27 14:13] VITALS: BP 131/76; PULSE 76; RESP 14; TEMP 36.8; O2SAT 97
[2021-02-27] MEDS: GABAPENTIN 300 MG CAPSULE 600 MG PO (17:50)
[2021-02-27] MEDS: RIVAROXABAN 20 MG TABLET PO (17:50)
[2021-02-27 20:40] VITALS: PULSE 64; RESP 20; O2SAT 96
[2021-02-27 22:00] VITALS: BP 109/66; PULSE 62; RESP 20; TEMP 36.4; O2SAT 96
[2021-02-27 22:07] VITALS: PULSE 64
[2021-02-27] MEDS: METOPROLOL TARTRATE 50 MG TAB 150 MG PO (22:07)
[2021-02-27] MEDS: risperiDONE 1 MG TABLET 4 MG PO (22:09)
[2021-02-28] VITALS (8 sets, daily range): BP systolic 119–136; BP diastolic 61–86; PULSE 74–90; RESP 15–18; TEMP 35.9–37.3; O2SAT 94–100
[2021-02-28] MEDS: ACETAMINOPHEN 500 MG TABLET 1000 MG PO ×3 (06:18→17:31)
[2021-02-28] MEDS: LEVOTHYROXINE SODIUM 25 MCG TABLET PO (06:20)
[2021-02-28 06:48] LABS: Basophils Percent Auto 0.6 % (0.2-1.2); Eosinophils Absolute Auto 0.3 K/mm3 (0-0.3); Eosinophils Percent Auto 6.3 % (0-4.4); Hematocrit 38.5 % (37.0-47.0); Hemoglobin 11.9 g/dL (12.0-15.0); Immature Granulocyte Absolute 0.03 K/mm3 (0.00-0.031); Immature Granulocyte Percent A 0.6 % (0-0.5); Lymphocytes Absolute Auto 1.26 K/mm3 (0.9-3.2); Lymphocytes Percent Auto 23.2 % (18.3-44.2); Mean Corpuscular HGB Conc 30.9 g/dl (32-36); Mean Corpuscular Hemoglobin 23.9 pg (26-34); Mean Corpuscular Volume 77.5 fl (80-100); Mean Platelet Volume 9.6 fl (7.4-10.4); Monocytes Absolute Auto 0.5 K/mm3 (0.1-0.6); Monocytes Percent Auto 8.3 % (2.6-8.5); Neutrophils Absolute Auto 3.3 K/mm3 (1.3-6.7); Platelet Count Result 187 k/mm3 (150-375); Red Blood Count 4.97 M/mm3 (4.2-5.4); Red Cell Distribution Width 17.9 % (11.5-14.5); White Blood Count 5.4 K/mm3 (4.5-10.0)
[2021-02-28 07:02] LABS: Anion Gap 5 mmol/L (8-16); Blood Urea Nitrogen 15 mg/dL (7-17); Calcium 8.9 mg/dL (8.4-10.2); Carbon Dioxide 32 mmol/L (22-30); Chloride 98 mmol/L (98-107); Estimated CRCL calculation 60 ml/min; Estimated Glomerular Filt Rate 50; Glucose 106 mg/dL (65-110); Potassium 3.6 mmol/L (3.4-5.0); Sodium 135 mmol/L (137-145)
[2021-02-28] MEDS: PANTOPRAZOLE 40 MG TABLET PO (08:47)
[2021-02-28] MEDS: CHOLECALCIFEROL 1,000 UNITS TABLET 2000 UNITS PO (08:47)
[2021-02-28] MEDS: ATORVASTATIN 40 MG TABLET PO (08:47)
[2021-02-28] MEDS: POTASSIUM CHLORIDE 20 MEQ TABLET.ER PO (08:47)
[2021-02-28] MEDS: GABAPENTIN 300 MG CAPSULE 600 MG PO ×2 (08:48→17:30)
[2021-02-28] MEDS: DULoxetine HCL 60 MG CAPSULE.DR PO (08:48)
[2021-02-28] MEDS: FUROSEMIDE 20 MG TABLET PO (08:48)
[2021-02-28] MEDS: ERTAPENEM 1 GM/NS 50 ML 1 GM/50 ML BAG IVPB (08:48)
[2021-02-28] MEDS: dilTIAZem HCL CD 180 MG CAP.ER.24H PO (08:48)
[2021-02-28] MEDS: METOPROLOL TARTRATE 50 MG TAB 150 MG PO ×2 (08:49→21:05)
[2021-02-28] MEDS: SILVERGEL (ELTA) 45 ML 1 APPLIC TOPICAL (08:49)
[2021-02-28] MEDS: TOLNAFTATE 1% POWDER 45 GM BTL 1 APPLIC TOPICAL ×2 (08:50→21:06)
--- NOTE | 2021-02-28 13:34 | PM.IMPN ---
Progress Note: A&P Assessment and Plan (1) Generalized weakness: Code(s): R53.1 - Weakness Status: Acute (2) Fall: Code(s): W19.XXXA - Unspecified fall, initial encounter Status: Acute (3) Debility: Code(s): R53.81 - Other malaise Status: Acute (4) Morbid obesity: Code(s): E66.01 - Morbid (severe) obesity due to excess calories Status: Acute (5) Essential hypertension: Code(s): I10 - Essential (primary) hypertension Status: Acute Assessment and Plan: stable, continue home meds (6) Chronic wound of extremity: Status: Chronic Assessment and Plan: Wound care consult (7) Persistent atrial fibrillation: Code(s): I48.19 - Other persistent atrial fibrillation Status: Acute Assessment and Plan: continue home meds (8) Chronic anticoagulation: Code(s): Z79.01 - keno terminal operator (current) use of anticoagulants Status: Acute Assessment and Plan: continue home meds (9) Obstructive sleep apnea: Code(s): G47.33 - Obstructive sleep apnea (adult) (pediatric) Status: Chronic (10) Urinary tract infection: Code(s): N39.0 - Urinary tract infection, site not specified Status: Acute Assessment and Plan: continue rocephin pending urine culture (11) Delirium: Code(s): R41.0 - Disorientation, unspecified Status: Acute Assessment and Plan: likely secondary to UTI, improved Additional Plan 02/25/21 Patient presents to the hospital once again for evaluation of generalized weakness after a fall with inability to get herself up. 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 It is my understanding that she was participating and progressing in rehab at [facility] though she was discharged after about 10 days. This was appealed by the patient and her and the independent review felt that she should have a longer stay in rehab however I am not certain her insurance company is on board with that at this time. PT/OT consulted. We will also asked the care coordinators to meet with the patient and her regarding options. It does not sound as though she wants care home care, rather rehabilitation at a [facility] facility. Patient has hypersomnolence, likely due to untreated sleep apnea, and this may very well be causing some of her confusion as well. Check ABG to ensure she is not retaining CO2. Fall precautions will be initiated. If she continues to have falls, we may need to consider holding her Xarelto. Her blood pressures were reviewed and they have been stable. Estimate home medications will be reviewed and resumed as appropriate. She has been started on ceftriaxone, pending urine culture. 02/26/21 Pt confused today, likely delirium secondary to UTI. No focal neurological deficits. CT head negative. ABG no CO2 retention. Will continue ceftriaxone pending urine culture sensitivities. Will continue to monitor mental status. No fever, tachycardia, or leukocytosis. 02/27/21 Pt less confused today. Still A/Ox4 but speech is clear and sensical today. Continue IV abx for UTI. Care coordination is working on setting up transfer to rehab facility. Apparently she was not supposed to be discharged from the most recent facility so this is in process of being corrected. Vitals have remained stable. 02/28/21 Continues to be A/Ox4 today without apparent confusion. IV abx were switched to Ertapenem as her urine culture grew ESBL. Preliminary blood cultures negative. No fevers or leukocytosis. Per care coordination patient's insurance denied rehab claim so peer to peer will be completed as she is too weak and deconditioned to care for herself at home. Subjective Date/time seen: 02/28/21 13:34 This is a 65-year-old female with atrial fibrillation on long-term anticoagulation, hyper
[2021-02-28] MEDS: RIVAROXABAN 20 MG TABLET PO (17:31)
[2021-02-28] MEDS: risperiDONE 1 MG TABLET 4 MG PO (21:06)
[2021-03-01] VITALS (7 sets, daily range): BP systolic 94–126; BP diastolic 52–78; PULSE 59–84; RESP 14–18; TEMP 36.1–37; O2SAT 96–100
[2021-03-01] MEDS: ACETAMINOPHEN 500 MG TABLET 1000 MG PO ×3 (06:04→17:02)
[2021-03-01] MEDS: LEVOTHYROXINE SODIUM 25 MCG TABLET PO (06:05)
[2021-03-01 06:32] LABS: Anion Gap 8 mmol/L (8-16); Blood Urea Nitrogen 17 mg/dL (7-17); Calcium 8.8 mg/dL (8.4-10.2); Carbon Dioxide 31 mmol/L (22-30); Chloride 100 mmol/L (98-107); Estimated CRCL calculation 64 ml/min; Estimated Glomerular Filt Rate 55; Glucose 96 mg/dL (65-110); Potassium 3.9 mmol/L (3.4-5.0); Sodium 139 mmol/L (137-145)
[2021-03-01 06:33] LABS: Hematocrit 38.5 % (37.0-47.0); Hemoglobin 11.8 g/dL (12.0-15.0); Mean Corpuscular HGB Conc 30.6 g/dl (32-36); Mean Corpuscular Hemoglobin 23.9 pg (26-34); Mean Corpuscular Volume 78.1 fl (80-100); Mean Platelet Volume 9.6 fl (7.4-10.4); Platelet Count Result 174 k/mm3 (150-375); Red Blood Count 4.93 M/mm3 (4.2-5.4); Red Cell Distribution Width 18.1 % (11.5-14.5); White Blood Count 5.2 K/mm3 (4.5-10.0)
[2021-03-01] MEDS: DULoxetine HCL 60 MG CAPSULE.DR PO (08:07)
[2021-03-01] MEDS: GABAPENTIN 300 MG CAPSULE 600 MG PO ×2 (08:07→17:01)
[2021-03-01] MEDS: METOPROLOL TARTRATE 50 MG TAB 150 MG PO ×2 (08:07→20:44)
[2021-03-01] MEDS: FUROSEMIDE 20 MG TABLET PO (08:08)
[2021-03-01] MEDS: CHOLECALCIFEROL 1,000 UNITS TABLET 2000 UNITS PO (08:08)
[2021-03-01] MEDS: PANTOPRAZOLE 40 MG TABLET PO (08:08)
[2021-03-01] MEDS: ATORVASTATIN 40 MG TABLET PO (08:08)
[2021-03-01] MEDS: POTASSIUM CHLORIDE 20 MEQ TABLET.ER PO (08:08)
[2021-03-01] MEDS: dilTIAZem HCL CD 180 MG CAP.ER.24H PO (08:08)
[2021-03-01] MEDS: ERTAPENEM 1 GM/NS 50 ML 1 GM/50 ML BAG IVPB (08:09)
[2021-03-01] MEDS: TOLNAFTATE 1% POWDER 45 GM BTL 1 APPLIC TOPICAL ×2 (08:10→20:44)
[2021-03-01] MEDS: SILVERGEL (ELTA) 45 ML 1 APPLIC TOPICAL (08:10)
--- NOTE | 2021-03-01 13:38 | PM.IMPN ---
Progress Note: A&P Assessment and Plan (1) Generalized weakness: Code(s): R53.1 - Weakness Status: Acute (2) Fall: Code(s): W19.XXXA - Unspecified fall, initial encounter Status: Acute (3) Debility: Code(s): R53.81 - Other malaise Status: Acute (4) Morbid obesity: Code(s): E66.01 - Morbid (severe) obesity due to excess calories Status: Acute (5) Essential hypertension: Code(s): I10 - Essential (primary) hypertension Status: Acute Assessment and Plan: stable, continue home meds (6) Chronic wound of extremity: Status: Chronic Assessment and Plan: Wound care consult (7) Persistent atrial fibrillation: Code(s): I48.19 - Other persistent atrial fibrillation Status: Acute Assessment and Plan: continue home meds (8) Chronic anticoagulation: Code(s): Z79.01 - prison (current) use of anticoagulants Status: Acute Assessment and Plan: continue home meds (9) Obstructive sleep apnea: Code(s): G47.33 - Obstructive sleep apnea (adult) (pediatric) Status: Chronic (10) Urinary tract infection: Code(s): N39.0 - Urinary tract infection, site not specified Status: Acute Assessment and Plan: continue rocephin pending urine culture (11) Delirium: Code(s): R41.0 - Disorientation, unspecified Status: Acute Assessment and Plan: likely secondary to UTI, improved (12) Discharge planning issues: Code(s): Z02.9 - Encounter for administrative examinations, unspecified Status: Acute Additional Plan 02/25/21 Patient presents to the hospital once again for evaluation of generalized weakness after a fall with inability to get herself up. Her is her primary rn interventional and she is dependent on most activities of daily living. It is my understanding that she was participating and progressing in rehab at [facility] though she was discharged after about 10 days. This was appealed by the patient and her and the independent review felt that she should have a longer stay in rehab however I am not certain her insurance company is on board with that at this time. PT/OT consulted. We will also asked the care coordinators to meet with the patient and her regarding options. It does not sound as though she wants care home care, rather rehabilitation at a half-way facility. Patient has hypersomnolence, likely due to untreated sleep apnea, and this may very well be causing some of her confusion as well. Check ABG to ensure she is not retaining CO2. Fall precautions will be initiated. If she continues to have falls, we may need to consider holding her Xarelto. Her blood pressures were reviewed and they have been stable. Estimate home medications will be reviewed and resumed as appropriate. She has been started on ceftriaxone, pending urine culture. 02/26/21 Pt confused today, likely delirium secondary to UTI. No focal neurological deficits. CT head negative. ABG no CO2 retention. Will continue ceftriaxone pending urine culture sensitivities. Will continue to monitor mental status. No fever, tachycardia, or leukocytosis. 02/27/21 Pt less confused today. Still A/Ox4 but speech is clear and sensical today. Continue IV abx for UTI. Care coordination is working on setting up transfer to rehab facility. Apparently she was not supposed to be discharged from the most recent facility so this is in process of being corrected. Vitals have remained stable. 02/28/21 Continues to be A/Ox4 today without apparent confusion. IV abx were switched to Ertapenem as her urine culture grew ESBL. Preliminary blood cultures negative. No fevers or leukocytosis. Per care coordination patient's insurance denied rehab claim so peer to peer will be completed as she is too weak and deconditioned to care for herself at home. 03/01/21
[2021-03-01] MEDS: RIVAROXABAN 20 MG TABLET PO (17:01)
[2021-03-01] MEDS: risperiDONE 1 MG TABLET 4 MG PO (20:44)
[2021-03-02] MEDS: ACETAMINOPHEN 500 MG TABLET 1000 MG PO ×3 (01:00→11:03)
[2021-03-02 05:33] VITALS: BP 126/79; PULSE 78; RESP 20; TEMP 36.1; O2SAT 98
[2021-03-02] MEDS: LEVOTHYROXINE SODIUM 25 MCG TABLET PO (05:46)
[2021-03-02 06:48] LABS: Hematocrit 37.8 % (37.0-47.0); Hemoglobin 11.8 g/dL (12.0-15.0); Mean Corpuscular HGB Conc 31.2 g/dl (32-36); Mean Corpuscular Hemoglobin 24.3 pg (26-34); Mean Corpuscular Volume 77.9 fl (80-100); Mean Platelet Volume 9.5 fl (7.4-10.4); Platelet Count Result 188 k/mm3 (150-375); Red Blood Count 4.85 M/mm3 (4.2-5.4); White Blood Count 4.6 K/mm3 (4.5-10.0)
[2021-03-02 07:33] LABS: Anion Gap 6 mmol/L (8-16); Blood Urea Nitrogen 17 mg/dL (7-17); Calcium 8.6 mg/dL (8.4-10.2); Carbon Dioxide 31 mmol/L (22-30); Chloride 99 mmol/L (98-107); Estimated CRCL calculation 71 ml/min; Estimated Glomerular Filt Rate > 60; Glucose 103 mg/dL (65-110); Potassium 3.9 mmol/L (3.4-5.0); Sodium 136 mmol/L (137-145)
[2021-03-02 08:43] VITALS: PULSE 78
[2021-03-02] MEDS: GABAPENTIN 300 MG CAPSULE 600 MG PO ×2 (08:43→16:42)
[2021-03-02] MEDS: METOPROLOL TARTRATE 50 MG TAB 150 MG PO (08:43)
[2021-03-02] MEDS: POTASSIUM CHLORIDE 20 MEQ TABLET.ER PO (08:43)
[2021-03-02] MEDS: ATORVASTATIN 40 MG TABLET PO (08:45)
[2021-03-02] MEDS: FUROSEMIDE 20 MG TABLET PO (08:45)
[2021-03-02] MEDS: DULoxetine HCL 60 MG CAPSULE.DR PO (08:45)
[2021-03-02] MEDS: CHOLECALCIFEROL 1,000 UNITS TABLET 2000 UNITS PO (08:45)
[2021-03-02] MEDS: PANTOPRAZOLE 40 MG TABLET PO (08:45)
[2021-03-02] MEDS: dilTIAZem HCL CD 180 MG CAP.ER.24H PO (08:45)
[2021-03-02] MEDS: ERTAPENEM 1 GM/NS 50 ML 1 GM/50 ML BAG IVPB (08:46)
[2021-03-02] MEDS: SILVERGEL (ELTA) 45 ML 1 APPLIC TOPICAL (08:46)
[2021-03-02] MEDS: TOLNAFTATE 1% POWDER 45 GM BTL 1 APPLIC TOPICAL (08:46)
--- NOTE | 2021-03-02 12:04 | PM.IMPN ---
Progress Note: A&P Assessment and Plan (1) Generalized weakness: Code(s): R53.1 - Weakness Status: Acute (2) Debility: Code(s): R53.81 - Other malaise Status: Acute (3) Morbid obesity: Code(s): E66.01 - Morbid (severe) obesity due to excess calories Status: Acute (4) Essential hypertension: Code(s): I10 - Essential (primary) hypertension Status: Acute Assessment and Plan: stable, continue home meds (5) Chronic wound of extremity: Status: Chronic Assessment and Plan: Wound care consult (6) Persistent atrial fibrillation: Code(s): I48.19 - Other persistent atrial fibrillation Status: Acute Assessment and Plan: continue home meds (7) Chronic anticoagulation: Code(s): Z79.01 - custodial (current) use of anticoagulants Status: Acute Assessment and Plan: continue home meds (8) Urinary tract infection: Code(s): N39.0 - Urinary tract infection, site not specified Status: Acute Assessment and Plan: continue rocephin pending urine culture (9) Delirium: Code(s): R41.0 - Disorientation, unspecified Status: Acute Assessment and Plan: likely secondary to UTI, improved (10) Discharge planning issues: Code(s): Z02.9 - Encounter for administrative examinations, unspecified Status: Acute Additional Plan 02/25/21 Patient presents to the hospital once again for evaluation of generalized weakness after a fall with inability to get herself up. Her is her primary licensed psychiatric technician and she is dependent on most activities of daily living. It is my understanding that she was participating and progressing in rehab at [facility] though she was discharged after about 10 days. This was appealed by the patient and her and the independent review felt that she should have a longer stay in rehab however I am not certain her insurance company is on board with that at this time. PT/OT consulted. We will also asked the care coordinators to meet with the patient and her regarding options. It does not sound as though she wants usp care, rather rehabilitation at a correction facility. Patient has hypersomnolence, likely due to untreated sleep apnea, and this may very well be causing some of her confusion as well. Check ABG to ensure she is not retaining CO2. Fall precautions will be initiated. If she continues to have falls, we may need to consider holding her Xarelto. Her blood pressures were reviewed and they have been stable. Estimate home medications will be reviewed and resumed as appropriate. She has been started on ceftriaxone, pending urine culture. 02/26/21 Pt confused today, likely delirium secondary to UTI. No focal neurological deficits. CT head negative. ABG no CO2 retention. Will continue ceftriaxone pending urine culture sensitivities. Will continue to monitor mental status. No fever, tachycardia, or leukocytosis. 02/27/21 Pt less confused today. Still A/Ox4 but speech is clear and sensical today. Continue IV abx for UTI. Care coordination is working on setting up transfer to rehab facility. Apparently she was not supposed to be discharged from the most recent facility so this is in process of being corrected. Vitals have remained stable. 02/28/21 Continues to be A/Ox4 today without apparent confusion. IV abx were switched to Ertapenem as her urine culture grew ESBL. Preliminary blood cultures negative. No fevers or leukocytosis. Per care coordination patient's insurance denied rehab claim so peer to peer will be completed as she is too weak and deconditioned to care for herself at home. 03/01/21 Today is day 2 of Ertapenem. Clinically stable. Still working on placement. 03/02/21 Day 3 Ertapenem. Blood cultures negative. Peer to peer today hopefully to work on placement. Subjective Date/time
[2021-03-02] MEDS: LIDOCAINE HCL 1% LOCAL INJ 2 ML AMPUL 5 ML INFILTRATE (14:40)
[2021-03-02 15:20] VITALS: BP 130/81; PULSE 76; RESP 14; TEMP 36.7; O2SAT 98
--- NOTE | 2021-03-02 15:50 | PM.DS ---
DS: Admitting Diagnosis Discharge Date 03/02/21 Admitting Diagnosis UTI, acute metabolic encephalopathy DS: Discharge Diagnosis Discharge Diagnosis (1) Generalized weakness: Code(s): R53.1 - Weakness Status: Acute Assessment and Plan: chronic weakness, deconditioning (2) Debility: Code(s): R53.81 - Other malaise Status: Acute Assessment and Plan: chronic weakness, deconditioning (3) Morbid obesity: Code(s): E66.01 - Morbid (severe) obesity due to excess calories Status: Acute Assessment and Plan: chronic weakness, deconditioning (4) Essential hypertension: Code(s): I10 - Essential (primary) hypertension Status: Acute Assessment and Plan: stable, continued home meds (5) Chronic wound of extremity: Status: Chronic Assessment and Plan: Wound care consult -- she is seen regularly by our team on an outpatient basis. She is at her baseline with no signs of infection. had failed skin graft RLE after she picked it off. (6) Persistent atrial fibrillation: Code(s): I48.19 - Other persistent atrial fibrillation Status: Acute Assessment and Plan: continue home meds (7) Chronic anticoagulation: Code(s): Z79.01 - FDC (current) use of anticoagulants Status: Acute Assessment and Plan: continue home meds (8) Urinary tract infection: Code(s): N39.0 - Urinary tract infection, site not specified Status: Acute Assessment and Plan: Rocephin was switched to Ertapenem when culture resulted. She has had three doses here. Midline was placed to continue abx at her facility. (9) Delirium: Code(s): R41.0 - Disorientation, unspecified Status: Acute Assessment and Plan: likely secondary to UTI, resolved (10) Discharge planning issues: Code(s): Z02.9 - Encounter for administrative examinations, unspecified Status: Acute Assessment and Plan: Peer to peer completed by Dr. Salvador, appeal was won. She is going to [facility]. DS: Summary Hospital Course Reason for hospitalization: This is a 65-year-old female with atrial fibrillation on long-term anticoagulation, hypertension, hyperlipidemia, sleep apnea, and morbid obesity admitted to the hospital for weakness and uti. Please see HPI for further details. Hospital Course: 02/25/21 Patient presents to the hospital once again for evaluation of generalized weakness after a fall with inability to get herself up. 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 It is my understanding that she was participating and progressing in rehab at [facility] though she was discharged after about 10 days. This was appealed by the patient and her and the independent review felt that she should have a longer stay in rehab however I am not certain her insurance company is on board with that at this time. PT/OT consulted. We will also asked the care coordinators to meet with the patient and her regarding options. It does not sound as though she wants intermediate care, rather rehabilitation at a residential facility. Patient has hypersomnolence, likely due to untreated sleep apnea, and this may very well be causing some of her confusion as well. Check ABG to ensure she is not retaining CO2. Fall precautions will be initiated. If she continues to have falls, we may need to consider holding her Xarelto. Her blood pressures were reviewed and they have been stable. Estimate home medications will be reviewed and resumed as appropriate. She has been started on ceftriaxone, pending urine culture. 02/26/21 Pt confused today, likely delirium secondary to UTI. No focal neurological deficits. CT head negative. ABG no CO2 retention. Will continue ceftriaxone pending urine culture sensitivities. Will continue to monitor
[2021-03-02] MEDS: RIVAROXABAN 20 MG TABLET PO (16:42)
[2021-03-02 17:00] LABS: EDCOVIDSCREEN Negative (Negative)
== END 2021-03-02 17:34 | DRG 689 ==
LOC: ANHED 13:32 → ANH3MEDSUR 15:09
PROVIDERS: Emergency Medicine Emergency Medical Services; Physician Assistant; Admitting Provider Hospitalist; Emergency Provider General Practice; PCP Family Medicine; Visit Provider Internal Medicine
DX: N39.0 Urinary tract infection, site not specified (principal); L89.893 Pressure ulcer of other site, stage 3; I48.19 Other persistent atrial fibrillation; Z68.44 Body mass index [BMI] 60.0-69.9, adult; E66.01 Morbid (severe) obesity due to excess calories; Z16.12 Extended spectrum beta lactamase (ESBL) resistance; W07.XXXA Fall from chair, initial encounter; R41.0 Disorientation, unspecified; R53.1 Weakness; R53.81 Other malaise; I10 Essential (primary) hypertension; G47.33 Obstructive sleep apnea (adult) (pediatric); F03.90 Unspecified dementia, unspecified severity, without behavioral disturbance, psychotic disturbance, mood disturbance, and anxiety; I27.20 Pulmonary hypertension, unspecified; E78.2 Mixed hyperlipidemia; E03.9 Hypothyroidism, unspecified; Z79.01 Long term (current) use of anticoagulants; Z79.899 Other long term (current) drug therapy; Z86.711 Personal history of pulmonary embolism; Z86.718 Personal history of other venous thrombosis and embolism
CPT/HCPCS: 36415; 36569; 36600; 51701; 70450; 71045; 80048; 80053; 81001; 82375; 82805; 83050; 83605; 83735; 83880; 84443; 85025; 85027; 85610; 85730; 87040; 87077; 87086; 87088; 87186; 87426; 93005; 96365; 96375; 97110; 97116; 97162; 97165; 97530; 97535; 99285; A9270; C1751; C9803; G0378; J0696; J1335; J1940

== ENCOUNTER 2021-09-15 13:26 | Emergency (ER) | payer MEDICARE, SELFPAY ==
--- NOTE | ~2021-09-15 | CT_ITS ---
EXAMINATION: CT cervical spine wo con DATE: 09/15/2021 13:57 INDICATION: Fall. Occipital head injury. Neck pain. TECHNIQUE: Computed tomography (CT) of the cervical spine was performed without intravenous contrast. Automated exposure control and iterative reconstruction technique were employed. Exam dose: 536.89 mGy-cm total exam DLP. COMPARISON: None FINDINGS: There is reversal cervical curvature which may be due to muscle spasm. C1 and C2 are normally aligned and the odontoid process is intact. No fracture or dislocation or lock ed facet or prevertebral soft tissue swelling. There is moderate degenerative disc disease and minimal anterolisthesis at C4-5. There is severe degenerative disc disease at C5-6 and C6-7. IMPRESSION: Reversal cervical curvature Multilevel degenerative disc disease No fracture, dislocation or locked facet Reviewed, dictated and finalized at [facility]. Reviewed, dictated and finalized at [facility].
--- NOTE | ~2021-09-15 | CT_ITS ---
EXAMINATION: CT brain wo con DATE: 09/15/2021 13:56 INDICATION: Fall. Occipital injury, pain. Patient on blood thinners. TECHNIQUE: Computed tomography (CT) of the head was performed without intravenous contrast. The mA wa s adjusted according to patient size. Iterative reconstruction technique was employed. Exam dose: 60 5.33 mGy-cm total exam DLP. COMPARISON: 02/25/2021 CT brain FINDINGS: Examination is mildly limited by motion artifact. Bilateral carotid siphon internal carotid artery calcifications. There is nonspecific diminished attenuation of the cerebral white matter, likely due to chronic small vessel ischemic changes. No intracranial mass lesion or hemorrhage or cerebrovascular accident is evident. Mild cerebellar and cerebral volume loss. Normal ventricular size. The orbits are unremarkable. No fracture or bone destruction of the cranial vault. Bilateral hyperostosis frontalis interna. Included paranasal sinuses and the mastoid air cells are normally developed and aerated. IMPRESSION: No acute intracranial finding or skull fracture Reviewed, dictated and finalized at [facility]. Reviewed, dictated and finalized at [facility].
[2021-09-15 13:29] VITALS: BP 132/80; PULSE 83; RESP 12; TEMP 36.6; O2SAT 99
--- NOTE | 2021-09-15 13:48 | ED.FALL ---
HPI - Fall General Chief Complaint: Fall Stated Complaint: fall Time Seen by Provider: 09/15/21 13:30 Source: patient History of Present Illness HPI Narrative: Patient presents after a fall. Patient reports she was walking out of her house and tripped on the porch fell backwards and struck her head. Reports she is on Xarelto. Since she is on blood thinner she was transferred ER for evaluation. Patient has no complaints at this time. Denies any headache she denies any focal numbness or weakness denies any changes in vision or hearing. Denies any prodrome prior to the fall such as chest pain shortness of breath or lightheadedness. She denies any extremity pain chest pain back pain or neck pain. Related Data Home Medications Medication Instructions Recorded Confirmed diphenhydramine HCl 25 mg PO HS PRN 08/20/20 03/27/21 cholecalciferol (vitamin D3) 50 mcg PO DAILY 11/24/20 03/27/21 docusate sodium [Stool Softener] 100 mg PO HS PRN 11/24/20 03/27/21 omeprazole 20 mg PO DAILY 11/24/20 03/27/21 pediatric [id number]-blya-zol 1 tablet PO DAILY 11/24/20 03/27/21 furosemide 20 mg tablet 20 mg PO QAM 12/18/20 03/27/21 risperidone 4 mg PO HS 12/22/20 03/27/21 lactulose 10 gram/15 mL oral 10 g PO DAILY 03/27/21 03/27/21 solution lactulose 20 gram/30 mL oral 20 g PO DAILY ml 03/27/21 03/27/21 solution Allergies Allergy/AdvReac Type Severity Reaction Status Date / Time metoclopramide Allergy Intermediate Hives Verified 09/15/21 13:38 Review of Systems Review of Systems: CONSTITUTIONAL: Denies fever, chills, or sweats. EYES: Denies visual changes, redness, or discharge. ENT: Denies rhinorrhea, congestion, sore throat, or otalgia. CARDIOVASCULAR: Denies chest pain, palpitations, or edema. RESPIRATORY: Denies cough or dyspnea. GASTROINTESTINAL: Denies abdominal pain, nausea, vomiting, or diarrhea. GENITOURINARY: Denies dysuria or hematuria. SKIN: Denies rash or itching. MUSCULOSKELETAL: Denies back pain, joint pain, or myalgia. NEUROLOGIC: Denies headache, numbness, dizziness, or weakness. PSYCHIATRIC: Denies anxiety or depression. All systems reviewed & are unremarkable except as noted in HPI and below PMFSH Past Medical History Medical History Abnormal stress test (01/2021) Lexiscan stress showed no reversible ischemia and a fixed defect. 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 Dumont for quite some time. Status post excision with full-thickness skin graft on 11/27/2020. Deep venous thrombosis (2014) Dementia Depression Essential hypertension Hypothyroidism Mild episode of recurrent major depressive disorder Mild intermittent asthma without complication Mixed hyperlipidemia Morbid obesity Obstructive sleep apnea (~2004) Intolerant to CPAP. Persistent atrial fibrillation Prediabetes Hemoglobin A1c was 6.2% on 01/09/2021. Pulmonary embolism (2014) Pulmonary hypertension Right ventricular systolic dysfunction Severe right ventricular enlargement with [id number] systolic dysfunction noted on echocardiogram dated 08/26/2014. Normal LV size and function with an EF of 65 to 70%. Severe pulmonary hypertension RVSP of 66 mmHg on echocardiogram dated 08/26/2014. Surgical History Surgical History History of appendectomy History of bariatric surgery Gastropexy for obesity in 1978 and 1983. History of bilateral knee replacement History of carpal tunnel release History of cholecystectomy History of colonoscopy with polypectomy History of dilation and curettage (1973) History of hysterectomy (1996) History of left breast biopsy History of tonsillectomy History of tubal ligation (1977) Presence of IVC filter Status post full thickness skin graft (11/27/20) Excision 3 cm bleedin
== END 2021-09-15 15:07 | disposition home or self-care (01) ==
PROVIDERS: Emergency Provider Emergency Medicine; PCP Family Medicine
DX: S09.90XA Unspecified injury of head, initial encounter (principal); I48.19 Other persistent atrial fibrillation; F03.90 Unspecified dementia, unspecified severity, without behavioral disturbance, psychotic disturbance, mood disturbance, and anxiety; I10 Essential (primary) hypertension; E03.9 Hypothyroidism, unspecified; E78.2 Mixed hyperlipidemia; J45.20 Mild intermittent asthma, uncomplicated; I27.20 Pulmonary hypertension, unspecified; E66.01 Morbid (severe) obesity due to excess calories; Z68.43 Body mass index [BMI] 50.0-59.9, adult; Z86.718 Personal history of other venous thrombosis and embolism; Z86.711 Personal history of pulmonary embolism; Z98.84 Bariatric surgery status; Z96.653 Presence of artificial knee joint, bilateral; Z79.01 Long term (current) use of anticoagulants; W01.0XXA Fall on same level from slipping, tripping and stumbling without subsequent striking against object, initial encounter
CPT/HCPCS: 70450; 72125; 99284

== ENCOUNTER 2021-12-21 12:38 | Inpatient (IN) | payer MEDICARE, SELFPAY ==
[2021-12-21] VITALS (7 sets, daily range): BP systolic 97–132; BP diastolic 63–88; PULSE 60–112; RESP 15–22; TEMP 36.9–39.6; O2SAT 95–99; BMI 56.1
--- NOTE | ~2021-12-21 | CT_ITS ---
EXAMINATION: CT abdomen pelvis wo/w con DATE: 12/24/2021 13:21 INDICATION: Bacteremia. TECHNIQUE: Computed tomography (CT) of the abdomen and pelvis was performed without and with 100 mL O mnipaque 350 intravenous contrast. Automated exposure control and iterative reconstruction technique were employed. The dose-length product was 2510.17 mGy-cm. COMPARISON: CT abdomen and pelvis 12/23/2021 FINDINGS: The visualized portions of the lung bases demonstrate mild atelectasis. No pleural effusion . Cardiomegaly is noted. There are coronary artery calcifications. No pericardial effusion. There is a small sliding hiatal hernia. There are surgical changes of the stomach. There is a 2.0 cm cyst in t he liver. There is a chronic 9 mm low-attenuation mass in the spleen, likely a cyst, hemangioma, or g ranulomatous disease. There is a 6 mm hyperenhancing mass in the spleen, likely a benign mass such as a hemangioma. The pancreas and adrenal glands are normal. There is cortical thinning of the kidneys. There are cysts in the kidneys measuring up to 1.7 cm on the left. There is a parenchymal calcificat ion in left kidney. The colon is distended, consistent with adynamic ileus. There is a right-sided ve ntral hernia containing nonobstructed small bowel and right colon. There are changes of appendectomy. There is a filter in the infrarenal inferior vena cava. There are no pathologically enlarged lymph n odes. There is no free intraperitoneal fluid. The bladder is distended. There are chronic bilateral L 5 pars defects. There is 14 mm anterolisthesis of L5 on S1. There is moderate thoracic spondylosis. T here is mild chronic height loss of multiple vertebral bodies. There is severe lower lumbar spondylos is. IMPRESSION: 1. Ventral hernia containing nonobstructed small bowel and right colon. 2. Distended colon, consistent with adynamic ileus. Reviewed, dictated and finalized at location A.
--- NOTE | ~2021-12-21 | CT_ITS ---
EXAMINATION: CT abdomen pelvis wo con DATE: 12/23/2021 17:44 INDICATION: Bacteremia. TECHNIQUE: Computed tomography (CT) of the abdomen and pelvis was performed without intravenous contr ast. Automated exposure control and iterative reconstruction technique were employed. The dose-length product was 1601.61 mGy-cm. COMPARISON: CT abdomen and pelvis 01/07/2021 FINDINGS: The visualized portions of the lung bases and is a mild atelectasis. No pleural effusion. C ardiomegaly is noted. There are coronary artery calcifications. No pericardial effusion. There are garcia rgical changes of the stomach. There is a 2.0 cm cyst in the liver. The spleen, pancreas, and adrenal glands are normal. There is a parenchymal calcification in left kidney. There are cysts in the kidne ys measuring up to 1.8 cm on the left. There is a 9 mm hemorrhagic cyst in right kidney. There is a f ilter in infrarenal inferior vena cava. The colon is distended, consistent with adynamic ileus. There is a hernia in right lower quadrant containing nonobstructed small bowel and right colon. There are changes of appendectomy. There are no pathologically enlarged lymph nodes. There is no free intraperi toneal fluid. There is mild chronic height loss of multiple vertebral bodies. There are chronic bilat eral L5 pars defects. There is 14 mm anterolisthesis of L5 on S1. There is moderate thoracic. There i s severe lower lumbar spondylosis. IMPRESSION: 1. Ventral hernia containing nonobstructed small bowel and right colon. 2. Distended colon, consistent with adynamic ileus. Reviewed, dictated and finalized at location A.
--- NOTE | ~2021-12-21 | US_ITS ---
EXAMINATION: US venous doppler [facility] DATE: 12/21/2021 18:31 INDICATION: Lower limb pain and swelling. TECHNIQUE: Grayscale ultrasound images without and with compression and Doppler ultrasound images of the bilateral lower extremity veins were obtained. COMPARISON: Ultrasound 01/14/2021 FINDINGS: The visualized portions of right common femoral vein, profunda (deep) femoral vein, femoral vein, pop liteal vein, peroneal veins, posterior tibial veins, and greater saphenous vein outflow are patent. Sensitivity is decreased by obesity. The visualized portions of left common femoral vein, profunda fe moral vein, popliteal vein, and greater saphenous vein outflow are patent. IMPRESSION: 1. No deep venous thrombosis. Reviewed, dictated and finalized at location A.
--- NOTE | ~2021-12-21 | XR_ITS ---
EXAMINATION: XR chest PICC line INDICATION: PICC insertion TECHNIQUE: Portable AP chest at 1002 hours COMPARISON: 12/21/2021 FINDINGS: A left upper showed a PICC ends with its tip at the proximal superior vena cava. Cardiomega ly is noted. The lungs are free of acute opacities. No pleural effusion or pneumothorax. There is adv anced osteoarthritis of the glenohumeral joints. IMPRESSION: 1. Left upper extremity PICC ending with its tip in the proximal superior vena cava. Reviewed, dictated and finalized at location B.
--- NOTE | ~2021-12-21 | XR_ITS ---
EXAMINATION: XR abdomen obstructive series DATE: 12/24/2021 11:11 INDICATION: Ileus TECHNIQUE: Frontal supine and upright views of the abdomen were obtained. COMPARISON: CT dated 12/23/2021 FINDINGS: Prominent gaseous distention of the colon extending to the rectum with a small amount of scattered st ool with no dilated gas-filled loops of bowel to suggest small bowel obstruction. Stool-filled segmen t of bowel within a right lower quadrant ventral hernia which projects over the region of the right h ip and which on prior CT corresponds to a portion of the cecum and distal ileum. No free intraperiton eal gas. Postoperative changes of the stomach in the epigastric region Visualized lung bases are mary ellen r. Cardiomegaly. IMPRESSION: 1. Persistent prominent diffuse gaseous distention of the colon consistent with an ileus. 2. Persistent bowel within a right lower quadrant ventral hernia. 3. Cardiomegaly. Reviewed, dictated and finalized at location A. IMPRESSION: 1. Persistent prominent diffuse gaseous distention of the colon consistent wit h an ileus. 2. Persistent bowel within a right lower quadrant ventral hernia. 3. Cardiomegaly.
--- NOTE | ~2021-12-21 | US_ITS ---
US art doppler w press LE BI INDICATION: Blue cold toes. TECHNIQUE: Segmental pressures and plethysmographic and Doppler waveforms of the brachial and lower e xtremity arteries were obtained. COMPARISON: None. FINDINGS: Left brachial artery pressure measures 10 8 mmHg. Right brachial artery pressure could not be obtaine d due to patient inability to tolerate pressure. The right ankle-brachial index (JUSTUS) is 1.13 (normal >= 0.9-1.0). The right great toe-brachial index (TBI) is 0.56 (normal >= 0.60). The left JUSTUS is 1.18. The left TBI is 0.29. IMPRESSION: 1. Normal bilateral ankle-brachial indices. 2: Diminished bilateral toe brachial indices, mild on the right and moderate on the left, consistent with peripheral arterial disease. Reviewed, dictated and finalized at location B. IMPRESSION: 1. Normal bilateral ankle-brachial indices. 2: Diminished bilateral toe brachial indices, mild on the right and moderate o n the left, consistent with peripheral arterial disease.
--- NOTE | ~2021-12-21 | XR_ITS ---
EXAMINATION: XR chest 1V portable 12/21/2021 13:39 INDICATION: Weakness. PROCEDURE: AP portable chest COMPARISON: Comparison to multiple prior studies sequentially, with oldest reviewed study dated 07/28. FINDINGS: The lungs are clear. The cardiomediastinal silhouette is enlarged. There are no pleural ef fusions. There is no pneumothorax suspected. IMPRESSION: 1: NO ACUTE CARDIOPULMONARY DISEASE. Reviewed, dictated and finalized at location B.
--- NOTE | 2021-12-21 12:42 | ECG_ITS ---
Measurements Intervals Leslie Rate: 82 P: AL: 0 QRS: -39 QRSD: 110 T: 24 QT: 351 QTc: 411 Interpretive Statements ATRIAL FIBRILLATION LEFT AXIS DEVIATION [QRS AXIS < -30] MINIMAL VOLTAGE CRITERIA FOR LVH, CONSIDER NORMAL VARIANT [MEETS CRITERIA IN ONE OF: R(aVL), S(V1), R(V5), R(V5/V6)+S(V1)] POSSIBLE ANTERIOR MYOCARDIAL INFARCTION , OF INDETERMINATE AGE [30 ms Q WAVE IN V3/V4, OR R < 0.2 mV IN V4] ABNORMAL ECG COMPARED TO ECG 02/25/2021 10:02:36 NO SIGNIFICANT CHANGES Electronically Signed On 12-22-2021 8:44:37 CDT by Colton Brooks M.D.
[2021-12-21] MEDS: SODIUM CHLORIDE 0.9% IV 1,000 ML 999 ML IV CONT (13:13)
[2021-12-21 13:26] LABS: Basophils Percent Auto 0.3 % (0.2-1.2); Eosinophils Percent Auto 0.2 % (0-4.4); Hematocrit 45.1 % (37.0-47.0); Hemoglobin 14.4 g/dL (12.0-15.0); Immature Granulocyte Absolute 0.07 K/mm3 (0.00-0.031); Immature Granulocyte Percent A 0.6 % (0-0.5); Lymphocytes Absolute Auto 0.68 K/mm3 (0.9-3.2); Lymphocytes Percent Auto 5.6 % (18.3-44.2); Mean Corpuscular HGB Conc 31.9 g/dl (32-36); Mean Corpuscular Hemoglobin 27.4 pg (26-34); Mean Corpuscular Volume 85.7 fl (80-100); Mean Platelet Volume 8.7 fl (7.4-10.4); Monocytes Absolute Auto 0.5 K/mm3 (0.1-0.6); Monocytes Percent Auto 4.3 % (2.6-8.5); Neutrophils Absolute Auto 10.7 K/mm3 (1.3-6.7); Platelet Count Result 229 k/mm3 (150-375); Red Blood Count 5.26 M/mm3 (4.2-5.4); Red Cell Distribution Width 15.8 % (11.5-14.5)
[2021-12-21 13:28] LABS: Appearance Urine Slightly Cloudy (Clear); Bilirubin Urine Negative (Negative); Color Urine Yellow (Yellow); Glucose Urine UA Negative (Negative); Ketones Urine Negative (Negative); Leukocyte Esterase Ur Trace LEU/UL (Negative); Nitrate Urine Positive (Negative); Protein Urine Negative (Negative); Specific Grav Ur 1.015 (1.001-1.035); pH Urine 5.5 (5.0-9.0)
[2021-12-21 13:32] LABS: Bacteria Urine Trace /hpf; Mucus Urine Rare /lpf
[2021-12-21 13:34] LABS: Add Urine Microscopic? YES; Blood Urine Trace-Intact (Negative)
[2021-12-21 13:38] LABS: Lactic Acid Reflex 1.9 mmol/L (0.7-2.0)
[2021-12-21 13:39] LABS: INR 3.1; Prothrombin Time 30.6 Seconds (11.1-14.7)
[2021-12-21 13:41] LABS: Alanine Aminotransferase 17 U/L (6-35); Albumin Level 4.2 g/dL (3.5-5.1); Alkaline Phosphatase 126 U/L (38-126); Anion Gap 10 mmol/L (8-16); Aspartate Amino Transferase 16 U/L (14-36); Blood Urea Nitrogen 22 mg/dL (7-17); CRP 7.1 mg/dL (<1.0); Calcium 8.5 mg/dL (8.4-10.2); Carbon Dioxide 30 mmol/L (22-30); Chloride 90 mmol/L (98-107); Estimated CRCL calculation 67 ml/min; Estimated Glomerular Filt Rate 55; Glucose 174 mg/dL (65-110); Potassium 4.6 mmol/L (3.4-5.0); Sodium 130 mmol/L (137-145)
--- NOTE | 2021-12-21 14:10 | ED.WEAKNESS ---
HPI - Weakness General Chief complaint: Weakness Stated complaint: weakness Time Seen by Provider: 12/21/21 12:40 History of Present Illness HPI Narrative: Patient is a 66-year-old female who presents ER with weakness. Patient used the restroom this morning and then sat down in her chair. After that she was too weak to stand up. She is able to lift her legs up off of the bed. Denies any lateralizing weakness. No slurred speech. Denies urinary frequency urgency or dysuria. No recent diarrhea. Patient found to be febrile upon arrival here. No known sick contacts. Lives at home with her . She does have what appears to be a candidal infection of the skin in the groin bilaterally. Related Data Home Medications Medication Instructions Recorded Confirmed pediatric buarwnfs-eizb-gzw 1 tablet PO DAILY 11/24/20 12/21/21 atorvastatin 40 mg tablet 40 mg PO HS 12/21/21 12/21/21 duloxetine 60 mg capsule,delayed 60 mg PO 1200 12/21/21 12/21/21 release Allergies Allergy/AdvReac Type Severity Reaction Status Date / Time metoclopramide Allergy Intermediate Hives Verified 12/21/21 18:59 Review of Systems Review of Systems: All systems reviewed & are unremarkable except as noted in HPI and below Constitutional: Constitutional: Denies chills, Reports fatigue, Reports fever(s) and Reports weakness ENT: Denies nasal congestion and Denies sore throat Cardiovascular: Cardiovascular: Denies chest pain, Denies rapid heart rate and Denies radiating jaw, neck or arm pain Respiratory: Respiratory: Denies cough Gastrointestinal: Gastrointestinal: Denies abdominal pain, Denies nausea and Denies vomiting Integumentary/Breasts: Skin/Breast: Reports erythema and Reports rash Neurologic: Denies headache(s), Denies focal weakness and Denies numbness PMFSH Past Medical History Medical History Abnormal stress test (01/2021) Lexiscan stress showed no reversible ischemia and a fixed defect. Anxiety Atrial fibrillation Chronic anticoagulation Chronic constipation Chronic low back pain with sciatica Chronic wound of extremity 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 Dumont for quite some time. Status post excision with full-thickness skin graft on 11/27/2020. Deep venous thrombosis (2014) Dementia Depression Essential hypertension Gastroesophageal reflux Hypothyroidism Mild episode of recurrent major depressive disorder Mild intermittent asthma without complication Mixed hyperlipidemia Morbid obesity Obstructive sleep apnea (~2004) Intolerant to CPAP. Persistent atrial fibrillation Prediabetes Hemoglobin A1c was 6.2% on 01/09/2021. Pulmonary embolism (2014) Pulmonary hypertension Right ventricular systolic dysfunction Severe right ventricular enlargement with [id number]-[id number] systolic dysfunction noted on echocardiogram dated 08/26/2014. Normal LV size and function with an EF of 65 to 70%. Severe pulmonary hypertension RVSP of 66 mmHg on echocardiogram dated 08/26/2014. Surgical History Surgical History History of appendectomy History of bariatric surgery Gastropexy for obesity in 1978 and 1983. History of bilateral knee replacement History of carpal tunnel release History of cholecystectomy History of colonoscopy with polypectomy History of dilation and curettage (1973) History of hysterectomy (1996) History of left breast biopsy History of tonsillectomy History of tubal ligation (1977) Presence of IVC filter Status post full thickness skin graft (11/27/20) Excision 3 cm bleeding varicosity lesion of the right lateral leg with full-thickness skin graft per Dr. Dumont. Family History Family History Mother Diabetes mellitus age 51 Family history of kidney disease Family history of mental disorder Father Heart disease
[2021-12-21 14:55] LABS: SARS-CoV-2 RNA PCR Negative
--- NOTE | 2021-12-21 17:19 | PM.IMHP ---
H&P: HPI History of Present Illness Date/Time: 12/21/21 17:19 Chief Complaint: Weakness Narrative: this is a 66-year-old female patient who lives at home with her . The patient is Not diabetic but her sugar was in the 170s today.. The patient came to the emergency room for complaints of weakness. The patient use restroom this morning and then sat in the chair. She was too weak to stand up. The patient has been in rehab before but got come home the day before Thanksgiving last year. The patient was able to lift her legs off the bed. She has no unifocal weakness. The patient has a dry right heel that is cracked and she has redness to her right lower extremity. She also has a candidal infection to her growing. The right lower extremity is red and warm. However all of her toes on bilateral feet are cool and bluish colored. She has a very weak pulse. She stated that she has some feeling to her low lower extremities. She has no pain in her feet. She denies any previous arterial insufficiency. She has had a history of having DVTs and PEs and is on Xarelto. Venous Doppler was performed today and was negative for a DVT. Her right leg is red and swollen. Her white count was noted to be 12.0. Sodium is 130. Blood sugar 174. Possible UTI. The patient was started on Ancef. She is COVID negative. The patient is being admitted for observation status on the date of service of 12/21/2021. Review of Systems Review of Systems: See HPI All systems reviewed & are unremarkable except as noted in HPI and below Constitutional: Constitutional: Reports as per HPI and Reports no additional constitutional complaints Eyes: Eyes: Reports as per HPI and Reports no additional eye complaints ENT: Reports system reviewed and no additional complaints, except as documented and Reports Normal hearing present Cardiovascular: Cardiovascular: Reports no additional cardiovascular complaints Respiratory: Respiratory: Reports no additional respiratory complaints and Reports no additional respiratory complaints Gastrointestinal: Gastrointestinal: Reports as per HPI and Reports no additional gastrointestinal complaints Musculoskeletal: Musculoskeletal: Reports no additional musculoskeletal complaints Integumentary/Breasts: Skin/Breast: Reports system reviewed and no additional complaints, except as docu and Reports as per HPI Neurologic: Reports system reviewed and no additional complaints, except as documented, Reports as per HPI and Reports Normal hearing present Psychiatric: Psychiatric: Reports no additional psychiatric complaints and Reports as per HPI Endocrine: Endocrine: Reports no additional endocrine complaints Hematologic/Lymphatic: Hematologic/Lymphatic: Reports no additional hematologic/lymphatic complaints Allergic/Immunologic: Allergic/Immunologic: Reports no additional allergic/immunologic complaints [facility] Past Medical History Medical History Abnormal stress test (01/2021) Lexiscan stress showed no reversible ischemia and a fixed defect. Anxiety Atrial fibrillation Chronic anticoagulation Chronic constipation Chronic low back pain with sciatica Chronic wound of extremity 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 Dumont for quite some time. Status post excision with full-thickness skin graft on 11/27/2020. Deep venous thrombosis (2014) Dementia Depression Essential hypertension Gastroesophageal reflux Hypothyroidism Mild episode of recurrent major depressive disorder Mild intermittent asthma without complication Mixed hyperlipidemia Morbid obesity Obstructive sleep apnea (~2004) Intolerant to CPAP. Persistent atrial fibrillation Prediabetes Hemoglobin A1c was 6.2% on 01/09/2021. Pulmonary embolism (2014) Pulmonary hypertension Right ventricular systolic dysfunction Severe right ventricular enlargement with [id number] systolic d
--- NOTE | 2021-12-21 17:47 | PC.NURSE ---
patient has red, inflammed skin on her abdomen and groin. its red and excoriated with a small amount of drainage.
--- NOTE | 2021-12-21 18:00 | PC.NURSE ---
This patient, Lorraine Mazariegos, was admitted to [facility] Surg Room 320-01. Patient/family oriented to hospital policies and general routines including ID bracelet, bed and alarms, visiting hours, pain management, procedures, bathroom and other care routines, personal items, smoking policy, room service/diet, and visiting hours. Information on how to activate the Rapid Response Team has been discussed. Patient/Family are encouraged to report perceived risks to care and to ask questions if they do not understand what they are told or what they should do.
[2021-12-21] MEDS: GABAPENTIN 300 MG CAPSULE 600 MG PO (20:39)
[2021-12-21] MEDS: METOPROLOL TARTRATE 50 MG TAB 150 MG PO (20:40)
[2021-12-21] MEDS: RIVAROXABAN 20 MG TABLET PO (20:40)
[2021-12-21] MEDS: ATORVASTATIN 40 MG TABLET PO (20:41)
[2021-12-22 04:16] VITALS: BP 103/67; PULSE 65; RESP 17; TEMP 36.7; O2SAT 98
[2021-12-22] MEDS: LEVOTHYROXINE SODIUM 25 MCG TABLET PO (06:24)
[2021-12-22 06:59] LABS: Basophils Percent Auto 0.3 % (0.2-1.2); Eosinophils Absolute Auto 0.1 K/mm3 (0-0.3); Hematocrit 41.1 % (37.0-47.0); Hemoglobin 12.9 g/dL (12.0-15.0); Immature Granulocyte Absolute 0.06 K/mm3 (0.00-0.031); Immature Granulocyte Percent A 0.6 % (0-0.5); Lymphocytes Absolute Auto 1.02 K/mm3 (0.9-3.2); Lymphocytes Percent Auto 10.8 % (18.3-44.2); Mean Corpuscular HGB Conc 31.4 g/dl (32-36); Mean Corpuscular Hemoglobin 27.3 pg (26-34); Mean Corpuscular Volume 86.9 fl (80-100); Monocytes Absolute Auto 0.5 K/mm3 (0.1-0.6); Monocytes Percent Auto 5.2 % (2.6-8.5); Neutrophils Absolute Auto 7.8 K/mm3 (1.3-6.7); Neutrophils Percent Auto 82.1 % (45.5-73.1); Platelet Count Result 180 k/mm3 (150-375); Red Blood Count 4.73 M/mm3 (4.2-5.4); Red Cell Distribution Width 15.9 % (11.5-14.5); White Blood Count 9.4 K/mm3 (4.5-10.0)
[2021-12-22 07:08] LABS: Alanine Aminotransferase 15 U/L (6-35); Albumin Level 3.2 g/dL (3.5-5.1); Alkaline Phosphatase 110 U/L (38-126); Anion Gap 6 mmol/L (8-16); Aspartate Amino Transferase 23 U/L (14-36); Bilirubin,Total 0.9 mg/dL (0.2-1.3); Blood Urea Nitrogen 18 mg/dL (7-17); Calcium 8.7 mg/dL (8.4-10.2); Carbon Dioxide 30 mmol/L (22-30); Chloride 95 mmol/L (98-107); Estimated CRCL calculation 67 ml/min; Estimated Glomerular Filt Rate 55; Glucose 130 mg/dL (65-110); Lactate Dehydrogenase 120 U/L (120-246); Potassium 4.2 mmol/L (3.4-5.0); Sodium 131 mmol/L (137-145)
[2021-12-22 07:12] LABS: Lactic Acid Reflex 1.1 mmol/L (0.7-2.0)
[2021-12-22 07:17] LABS: CRP 18.8 mg/dL (<1.0)
[2021-12-22 07:47] LABS: Glucose Point of Care 125 mg/dl (65-105)
[2021-12-22 07:56] LABS: Thyroid Stimulating Hormone Reflex 0.447 uIU/mL (0.465-4.68)
[2021-12-22 08:50] LABS: Free T4 Free Thyroxine Reflex 1.57 ng/dL (0.78-2.19)
[2021-12-22] MEDS: GABAPENTIN 300 MG CAPSULE 600 MG PO ×2 (09:00→17:18)
[2021-12-22] MEDS: FUROSEMIDE 20 MG TABLET PO (09:00)
[2021-12-22] MEDS: METOPROLOL TARTRATE 50 MG TAB 150 MG PO ×2 (09:00→21:53)
[2021-12-22] MEDS: FAMOTIDINE 20 MG TABLET 40 MG PO (09:01)
[2021-12-22] MEDS: POTASSIUM CHLORIDE 10 MEQ TABLET.ER PO (09:01)
[2021-12-22] MEDS: TOLNAFTATE 1% POWDER 45 GM BTL 1 APPLIC TOPICAL ×2 (09:02→21:55)
[2021-12-22] MEDS: dilTIAZem HCL CD 180 MG CAP.ER.24H PO (09:02)
[2021-12-22 11:09] VITALS: O2SAT 93
[2021-12-22 11:31] LABS: Glucose Point of Care 160 mg/dl (65-105)
[2021-12-22] MEDS: DULoxetine HCL 60 MG CAPSULE.DR PO (13:32)
--- NOTE | 2021-12-22 13:36 | PCNSR ---
On 12/22/21, the student, Oly Negron, provided care and completed [facility] documentation on this patient. I have reviewed the student's documentation and agree with the findings.
[2021-12-22 13:43] VITALS: BP 120/86; PULSE 74; RESP 19; TEMP 36.3; O2SAT 98
--- NOTE | 2021-12-22 13:56 | PC.NURSE ---
notified of blood culture results.
--- NOTE | 2021-12-22 14:00 | PM.IMPN ---
Progress Note: A&P Assessment and Plan (1) Cellulitis: Code(s): L03.90 - Cellulitis, unspecified Status: Acute (2) Gastroesophageal reflux: Code(s): K21.9 - Gastro-esophageal reflux disease without esophagitis Status: Acute (3) Chronic constipation: Code(s): K59.09 - Other constipation Status: Acute (4) Intertrigo: Code(s): L30.4 - Erythema intertrigo Status: Acute (5) Vitamin B12 deficiency: Code(s): E53.8 - Deficiency of other specified B group vitamins Status: Acute (6) Fatigue: Code(s): R53.83 - Other fatigue Status: Acute (7) Narcolepsy: Code(s): G47.419 - Narcolepsy without cataplexy Status: Acute (8) Pulmonary hypertension: Code(s): I27.20 - Pulmonary hypertension, unspecified Status: Acute (9) Debility: Code(s): R53.81 - Other malaise Status: Acute (10) Urinary tract infection: Code(s): N39.0 - Urinary tract infection, site not specified Status: Acute (11) Morbid obesity: Code(s): E66.01 - Morbid (severe) obesity due to excess calories Status: Acute (12) Persistent atrial fibrillation: Code(s): I48.19 - Other persistent atrial fibrillation Status: Acute Plan 12/21/21 - RIGHT LOWER EXTREMITY IS RED AND WARM TO TOUCH.? - LEUKOCYTOSIS WITH WHITE COUNT OF 10.0 - BLOOD CULTURES PENDING - STARTED ON ANCEF? PER CELLULITIS NONDIABETIC. -? I WILL BE CHANGING TO IMIPENEM DUE TO THE UTI. -HX OF ESBL -? I WILL CHANGE HER ANTIBIOTICS TO IMIPENEM. - BLOOD AND URINE CULTURES ARE PENDING. -? HER BLOOD SUGAR WAS IN THE 170S.? THE PATIENT STATED THAT HER A1C WAS 6.2 LAST YEAR. -? WILL DO ACCU-CHEKS AC AND HS.? SLIDING SCALE INSULIN. -? SHE IS NOT ON ANY ORAL ? HYPOGLYCEMICS. -? RELATED TO INACTIVITY AND EXCESSIVE CALORIES -? MAY NEED A DIETITIAN CONSULT - MOST LIKELY RELATED TO HER INFECTION. -? PT AND OT EVALUATION IS GREATLY APPRECIATED. -? HER FEET ARE COLD TO TOUCH AND BLUISH COLOR.? I ORDERED A ARTERIAL DOPPLER. -? VENOUS DOPPLER NEGATIVE FOR DVT. -? CHECK THYROID LEVEL - CONTINUE WITH LEVOTHYROXINE - RATE IS CONTROLLED AT THIS TIME. -? CONTINUE WITH XARELTO - CONTINUE WITH? P.O. DILTIAZEM - CONTINUE WITH METOPROLOL - CONTINUE WITH LASIX - CONTINUE WITH METOPROLOL - CONTINUE WITH DILTIAZEM - CONTINUE WITH DULOXETINE - PT AND OT - H&H IS NORMAL - CONTINUE WITH? GABAPENTIN - CONTINUE DULOXETINE - CONTINUE WITH CURRENT HOME MEDICATIONS. -? CONTINUE WITH ATORVASTATIN. 12/22/21 66yo F admitted w RLE cellulitis and UTI reporting difficulty emptying bladder. blood cultures positive add VANCO to cover MRSA until results finalized cont Imipenem bladder scan post void may need renal US cont home meds monitor VS Subjective Date/time seen: 12/22/21 14:00 pt doing ok still w pain and swelling of RLE, reports intermittent difficulty urinating Review of Systems Review of Systems: All systems reviewed & are unremarkable except as noted in HPI and below Exam Narrative: GEN: NAD, AAOx3, cooperative morbildy obese, sitting on bedside commode HEENT: NCAT, MMM, EOMI Neck: no JVD Heart: S1S2 RRR Lungs: CTA B/l Abd: soft, NT, ND, bowel sounds normoactive Ext: moves all, no cyanosis, no clubbing, 1+ edema, erythema, TTP, and discoloration of RLE Neuro: normal cognition, no focal neurlogical deficits Psych: mood reduced and affect congruent Objective Data Vital Signs Vital Signs: Vital Signs - 24 hr 12/21/21 14:28 12/21/21 15:41 12/21/21 16:13 Temperature 99.9 F H 99.9 F H Pulse Rate 88 112 H Respiratory Rate 15 22 H Blood Pressure 132/85 99/63 L Pulse Oximetry 99 96 Oxygen Delivery 12/21/21 17:43 12/21/21 18:00 12/21/21 20:40 Temperature 98.5 F Pulse Rate 76 60 Respiratory Rate 16 Blood Pressure 97/67 L 114/68 Pulse Oximetry 95 Oxygen Delivery 12/21/21 20:00 12/22/21 04:16 12/22/21 11:09 Temperature 98.0
[2021-12-22 16:16] LABS: Glucose Point of Care 191 mg/dl (65-105)
[2021-12-22] MEDS: RIVAROXABAN 20 MG TABLET PO (17:18)
[2021-12-22 20:53] LABS: Glucose Point of Care 147 mg/dl (65-105)
[2021-12-22 21:53] VITALS: PULSE 80
[2021-12-22] MEDS: ATORVASTATIN 40 MG TABLET PO (21:53)
[2021-12-22 22:00] VITALS: BP 102/60; PULSE 89; RESP 20; TEMP 36.4; O2SAT 95
--- NOTE | 2021-12-23 | ECHO_ITS ---
Patient Info Name: Lorraine Mazariegos Age: 66 years : 1955 Gender: Female Ht: 63 in Wt: 317 lbs BSA: 2.63 m2 HR: 63 bpm BP: 122 / 75 mmHg Heart Rhythm: Sinus Rhythm Technical Quality: Fair Exam Date: 12/23/2021 4:23 PM Exam Location: [facility] Pulmonary Exam Room: 320 Patient Status: Inpatient Admit Date: 12/23/2021 Staff Ordering Physician: Brock Salvador MD Technical Services Coordinator: Cheri Felix RDCS Attending Provider: Brock Salvador MD Exam Type: CA echo doppler color flow Study Info Indications - bacteremia Complete two-dimensional, color flow and Doppler transthoracic echocardiogram is performed. Summary 1. Complete two-dimensional, color flow and Doppler transthoracic echocardiogram is performed. 2. Left ventricular chamber dimension is normal. 3. Left ventricular systolic function is normal, estimated at 60-65%. 4. There is mildly increased left ventricular wall thickness. 5. The left ventricular diastolic function is abnormal. 6. Right ventricular chamber dimension is moderately enlarged. 7. Left atrial chamber dimension is moderately enlarged. 8. Right atrial chamber dimension is mildly enlarged. 9. There is moderate aortic valve regurgitation. 10. There is mild mitral valve regurgitation. 11. The mitral valve annulus is moderately calcified. 12. There is mild tricuspid valve regurgitation. 13. Mild pulmonary hypertension, estimated pulmonary arterial systolic pressure is 40 mmHg. Left Ventricle Left ventricular chamber dimension is normal. Left ventricular systolic function is normal, estimated at 60-65%. There is mildly increased left ventricular wall thickness. The left ventricular diastolic function is abnormal. Right Ventricle Right ventricular chamber dimension is moderately enlarged. Right ventricular systolic function is normal. Left Atria Left atrial chamber dimension is moderately enlarged. Right Atria Right atrial chamber dimension is mildly enlarged. Atrial Septum Intact interatrial septum visualized by color flow imaging. Aortic Valve The aortic valve is trileaflet. There is mild aortic valve sclerosis. There is no aortic valve stenosis. There is moderate aortic valve regurgitation. Pulmonic Valve The pulmonic valve is normal. There is no pulmonic valve stenosis. There is trace pulmonic regurgitation. Mitral Valve The mitral valve has thickened leaflets. There is no mitral valve stenosis. There is mild mitral valve regurgitation. The mitral valve annulus is moderately calcified. Tricuspid Valve The tricuspid valve leaflets are normal. There is no significant tricuspid valve stenosis. There is mild tricuspid valve regurgitation. Mild pulmonary hypertension, estimated pulmonary arterial systolic pressure is 40 mmHg. Pericardium/Pleural The pericardium appears normal. There is no pericardial effusion. Inferior Vena Cava Normal inferior vena cava with >50% collapse upon inspiration consistent with normal right atrial pressure, 10 mmHg. Aorta The aortic root size at the sinus of Valsalva is normal. Left Ventricular Outflow Tract Name Value Normal LVOT 2D LVOT Diameter 2.1 cm LVOT Dopple
[2021-12-23 06:00] VITALS: BP 139/78; PULSE 85; RESP 20; TEMP 36.1; O2SAT 100
[2021-12-23] MEDS: LEVOTHYROXINE SODIUM 25 MCG TABLET PO (06:19)
[2021-12-23 08:14] LABS: Glucose Point of Care 163 mg/dl (65-105)
[2021-12-23 08:25] VITALS: PULSE 89
[2021-12-23] MEDS: FAMOTIDINE 20 MG TABLET 40 MG PO (08:25)
[2021-12-23] MEDS: METOPROLOL TARTRATE 50 MG TAB 150 MG PO ×2 (08:25→21:43)
[2021-12-23] MEDS: dilTIAZem HCL CD 180 MG CAP.ER.24H PO (08:25)
[2021-12-23] MEDS: GABAPENTIN 300 MG CAPSULE 600 MG PO ×2 (08:25→16:58)
[2021-12-23] MEDS: FUROSEMIDE 20 MG TABLET PO (08:26)
[2021-12-23] MEDS: TOLNAFTATE 1% POWDER 45 GM BTL 1 APPLIC TOPICAL ×2 (08:27→21:45)
[2021-12-23] MEDS: modafiniL (*CRX) 100 MG TABLET PO (08:27)
[2021-12-23 12:16] LABS: Glucose Point of Care 184 mg/dl (65-105)
[2021-12-23] MEDS: DULoxetine HCL 60 MG CAPSULE.DR PO (12:28)
[2021-12-23 14:40] VITALS: BP 122/75; PULSE 85; RESP 15; TEMP 36.1; O2SAT 100
--- NOTE | 2021-12-23 14:45 | PM.IMPN ---
Progress Note: A&P Assessment and Plan (1) Septicemia: Code(s): A41.9 - Sepsis, unspecified organism Status: Acute (2) Cellulitis: Code(s): L03.90 - Cellulitis, unspecified Status: Acute (3) Urinary tract infection: Code(s): N39.0 - Urinary tract infection, site not specified Status: Acute (4) Persistent atrial fibrillation: Code(s): I48.19 - Other persistent atrial fibrillation Status: Acute (5) Intertrigo: Code(s): L30.4 - Erythema intertrigo Status: Acute (6) Narcolepsy: Code(s): G47.419 - Narcolepsy without cataplexy Status: Acute (7) Pulmonary hypertension: Code(s): I27.20 - Pulmonary hypertension, unspecified Status: Acute (8) Debility: Code(s): R53.81 - Other malaise Status: Acute (9) Morbid obesity: Code(s): E66.01 - Morbid (severe) obesity due to excess calories Status: Acute Plan Patient presents with weakness found to have fever, tachycardia and leukocytosis consistent with sepsis. Urine culture growing E coli. Both blood cultures are growing Enterococcus faecalis. One blood cultures growing Staph epidermidis felt to be a contaminant. Patient currently on Primaxin and vancomycin. Fever has resolved. White count is normal now. She clinically feels much better. CRP higher yesterday which will need to be monitored. Etiology of the bacteremia is unclear. Could be related to the urine. Consider gallbladder or other GI source. Will check CT of the abdomen pelvis. Repeat blood cultures. TSH is mildly low but free T4 is normal. Continue Synthroid. Glucose noted. Continue sliding scale protocol. Last A1c was 6.2 in October. Lower extremity venous Dopplers negative for DVT. Cellulitis symptoms have all but resolved. Exam findings are concerning for peripheral tear disease but she has normal bilateral ABIs. She has diminished TBIs actually worse on the left than right. Her discoloration in her feet may be related to autonomic insufficiency. Continue to monitor. Subjective Date/time seen: 12/23/21 14:45 Interval history: 66yo female with pHTN, PAD and cAFib here for weakness. Assuming care. Chart reviewed. Patient denies any chest pain or shortness of breath. She is eating well. No nausea, vomiting or diarrhea. No cough. Denies abdominal pain or back pain. Walks with walker normally. Exam Narrative: AF 97.0 139/78 89 20 100% ra Gen - NARD Chest - Clear anteriorly and in the flanks. nml RR CV - irregularly irregular Abd - Soft, obese, NT Ext - 1+ pedal edema. Distal pulses difficult to palpate. Right lower extremity more edematous than left. Scant discoloration noted to the right ramírez. Not warm to touch. Neuro - Alert and appropriate Psych - Nml mood and affect Skin - Warm and dry. purple discoloration to the right toes (mild on the left). resolving erythema in the groin consistent with tinea Objective Data Vital Signs Vital Signs: Vital Signs - 24 hr 12/22/21 21:53 12/22/21 22:00 12/22/21 20:00 Temperature 97.5 F L Pulse Rate 80 89 Respiratory Rate 20 Blood Pressure 102/60 Pulse Oximetry 95 Oxygen Delivery Room Air 12/23/21 08:25 12/23/21 06:00 Temperature 97 F L Pulse Rate 89 85 Respiratory Rate 20 Blood Pressure 139/78 Pulse Oximetry 100 Oxygen Delivery Intake/Output Intake/Output: Intake & Output 12/20/21 12/21/21 12/22/21 12/23/21 23:59 23:59 23:59 23:59 Intake Total 1400 2152 1180 Output Total 300 Balance 1400 1852 1180 Meds/Results Medications: Active Medications Generic Name Dose Route Start Last Admin Trade Name Freq PRN Reason Stop Dose Admin Acetaminophen 650 mg 12/21/21 15:37 Acetaminophen 325 Mg Tablet PO Q4H PRN Mild Pain (1-3) or Fever Hydrocodone Bitart/Acetaminophen 1 tab 12/21/21 15:37 Hydrocodone/Acetaminophen (*Crx) 5-325 Mg Tablet PO Q4H PRN Pain Rate
[2021-12-23 16:51] LABS: Glucose Point of Care 148 mg/dl (65-105)
[2021-12-23] MEDS: RIVAROXABAN 20 MG TABLET PO (16:58)
[2021-12-23 21:29] VITALS: BP 125/81; PULSE 77; RESP 20; TEMP 36.6; O2SAT 100
[2021-12-23 21:43] VITALS: PULSE 77
[2021-12-23] MEDS: ATORVASTATIN 40 MG TABLET PO (21:45)
[2021-12-23 21:58] LABS: Glucose Point of Care 142 mg/dl (65-105)
[2021-12-23 22:42] VITALS: O2SAT 99
[2021-12-24] MEDS: LEVOTHYROXINE SODIUM 25 MCG TABLET PO (05:23)
[2021-12-24 06:00] VITALS: BP 117/59; PULSE 71; RESP 18; TEMP 36.6; O2SAT 95
[2021-12-24 07:12] LABS: Basophils Percent Auto 0.3 % (0.2-1.2); Eosinophils Absolute Auto 0.2 K/mm3 (0-0.3); Hematocrit 39.7 % (37.0-47.0); Hemoglobin 12.5 g/dL (12.0-15.0); Immature Granulocyte Absolute 0.01 K/mm3 (0.00-0.031); Immature Granulocyte Percent A 0.2 % (0-0.5); Lymphocytes Absolute Auto 1.02 K/mm3 (0.9-3.2); Lymphocytes Percent Auto 17.6 % (18.3-44.2); Mean Corpuscular HGB Conc 31.5 g/dl (32-36); Mean Corpuscular Hemoglobin 27.6 pg (26-34); Mean Corpuscular Volume 87.6 fl (80-100); Mean Platelet Volume 9.5 fl (7.4-10.4); Monocytes Absolute Auto 0.5 K/mm3 (0.1-0.6); Monocytes Percent Auto 7.8 % (2.6-8.5); Neutrophils Absolute Auto 4.1 K/mm3 (1.3-6.7); Neutrophils Percent Auto 70.1 % (45.5-73.1); Platelet Count Result 223 k/mm3 (150-375); Red Blood Count 4.53 M/mm3 (4.2-5.4); White Blood Count 5.8 K/mm3 (4.5-10.0)
[2021-12-24 07:32] LABS: Alanine Aminotransferase 17 U/L (6-35); Albumin Level 3.2 g/dL (3.5-5.1); Alkaline Phosphatase 93 U/L (38-126); Anion Gap 8 mmol/L (8-16); Aspartate Amino Transferase 22 U/L (14-36); Bilirubin,Total 0.7 mg/dL (0.2-1.3); Blood Urea Nitrogen 21 mg/dL (7-17); CRP 6.3 mg/dL (<1.0); Calcium 8.7 mg/dL (8.4-10.2); Carbon Dioxide 29 mmol/L (22-30); Chloride 97 mmol/L (98-107); Estimated CRCL calculation 67 ml/min; Estimated Glomerular Filt Rate 55; Glucose 176 mg/dL (65-110); Potassium 4.5 mmol/L (3.4-5.0); Sodium 134 mmol/L (137-145)
[2021-12-24 08:20] LABS: Glucose Point of Care 153 mg/dl (65-105)
[2021-12-24] MEDS: dilTIAZem HCL CD 180 MG CAP.ER.24H PO (08:46)
[2021-12-24 08:47] VITALS: PULSE 71
[2021-12-24] MEDS: FUROSEMIDE 20 MG TABLET PO (08:47)
[2021-12-24] MEDS: FAMOTIDINE 20 MG TABLET 40 MG PO (08:47)
[2021-12-24] MEDS: GABAPENTIN 300 MG CAPSULE 600 MG PO ×2 (08:47→17:22)
[2021-12-24] MEDS: POTASSIUM CHLORIDE 10 MEQ TABLET.ER PO (08:47)
[2021-12-24] MEDS: TOLNAFTATE 1% POWDER 45 GM BTL 1 APPLIC TOPICAL ×2 (08:47→21:56)
[2021-12-24] MEDS: METOPROLOL TARTRATE 50 MG TAB 150 MG PO ×2 (08:47→21:56)
[2021-12-24] MEDS: modafiniL (*CRX) 100 MG TABLET PO (08:52)
--- NOTE | 2021-12-24 09:07 | PM.IMPN ---
Progress Note: A&P Assessment and Plan (1) Septicemia: Code(s): A41.9 - Sepsis, unspecified organism Status: Acute (2) Cellulitis: Code(s): L03.90 - Cellulitis, unspecified Status: Acute (3) Urinary tract infection: Code(s): N39.0 - Urinary tract infection, site not specified Status: Acute (4) Persistent atrial fibrillation: Code(s): I48.19 - Other persistent atrial fibrillation Status: Acute (5) Intertrigo: Code(s): L30.4 - Erythema intertrigo Status: Acute (6) Narcolepsy: Code(s): G47.419 - Narcolepsy without cataplexy Status: Acute (7) Pulmonary hypertension: Code(s): I27.20 - Pulmonary hypertension, unspecified Status: Acute (8) Debility: Code(s): R53.81 - Other malaise Status: Acute (9) Morbid obesity: Code(s): E66.01 - Morbid (severe) obesity due to excess calories Status: Acute Plan Patient presents with weakness found to have fever, tachycardia and leukocytosis consistent with sepsis. Urine culture growing E coli. Both blood cultures are growing Enterococcus faecalis. One blood cultures growing Staph epidermidis felt to be a contaminant. Patient currently on Primaxin and vancomycin. Fever has resolved. CT Abd/Pelvis showing distended colon consistent with adynamic ileus but no pain, n/v/d. This has been noted in the past so could be chronic. Will follow clinically and radiographically. White count is normal now and CRP trending down. She clinically feels much better. Etiology of the bacteremia is unclear. Could be related to the urine. Bladder fistula? Consider GI source. Repeat blood cultures pending. TSH is mildly low but free T4 is normal. Continue Synthroid at same dose. Glucose stable and last A1c was 6.2 in October. Continue sliding scale protocol. Lower extremity venous Dopplers negative for DVT. Cellulitis symptoms improved. Exam findings are concerning for peripheral arterial disease but she has normal bilateral ABIs. She has diminished TBIs actually worse on the left than right. Her discoloration in her feet felt related to autonomic insufficiency. Continue to monitor. Continue IV abx. Increase activity. Start PT/OT. If repeat BCx remain negative, then plan PICC line. Check obstructive series. Will discuss with urology about possibly testing for fistula. Spoke with Urology who recommended repeating CT A/P with/without oral and IV contrast to help determine if there is a fistula. Subjective Date/time seen: 12/24/21 09:07 Interval history: 66yo female with pHTN, PAD and cAFib here for weakness. Slept well. Denies any right leg pain but toes feel 'tight'. Also complains of increasing swelling to the Left upper extremity since the IV was placed yesterday in the left AC fossa. No n/v or diarrhea. Not out of bed much Exam Narrative: AF 97.8 117/59 71 18 95% ra Gen - NARD Chest - Clear anteriorly and in the flanks. nml RR CV - irregularly irregular Abd - Soft, obese, NT Ext - 1+ right pedal edema. Neuro - Alert and appropriate Psych - Nml mood and affect Skin - Warm and dry. Right toes pink with resolution of purplish discoloration. right ramírez mildly erythematous with warmth. Objective Data Vital Signs Vital Signs: Vital Signs - 24 hr 12/23/21 14:40 12/23/21 21:29 12/23/21 21:43 Temperature 97.0 F L 97.9 F Pulse Rate 85 77 77 Respiratory Rate 15 20 Blood Pressure 122/75 125/81 Pulse Oximetry 100 100 Oxygen Delivery 12/23/21 22:25 12/23/21 22:42 12/24/21 06:00 Temperature 97.8 F Pulse Rate 71 Respiratory Rate 18 Blood Pressure 117/59 L Pulse Oximetry 99 95 Oxygen Delivery Room Air Room Air 12/24/21 08:47 Temperature Pulse Rate 71 Respiratory Rate Blood Pressure Pulse Oximetry Oxygen Delivery Intake/Output Intake/Output: Intake & Output 12/21/21 12/22/21 12/23/21 12/24/21 23:59 23:59 23:59 23:59 Intake Total 1400 215
[2021-12-24 11:50] LABS: Glucose Point of Care 187 mg/dl (65-105)
[2021-12-24] MEDS: DULoxetine HCL 60 MG CAPSULE.DR PO (13:30)
[2021-12-24 14:00] VITALS: BP 102/68; PULSE 84; RESP 18; TEMP 36.2; O2SAT 98
[2021-12-24 16:51] LABS: Glucose Point of Care 125 mg/dl (65-105)
[2021-12-24] MEDS: RIVAROXABAN 20 MG TABLET PO (17:22)
[2021-12-24] MEDS: AMPICILLIN SULB 3 GM/NS 100 ML 3 GM/100 ML VIAL IVPB (17:26)
[2021-12-24 21:56] VITALS: BP 100/71; PULSE 65; RESP 21; TEMP 35.7; O2SAT 100
[2021-12-24] MEDS: ATORVASTATIN 40 MG TABLET PO (21:56)
[2021-12-25] MEDS: AMPICILLIN SULB 3 GM/NS 100 ML 3 GM/100 ML VIAL IVPB ×4 (00:20→17:10)
[2021-12-25 00:57] LABS: Glucose Point of Care 121 mg/dl (65-105)
[2021-12-25 05:47] VITALS: BP 107/64; PULSE 54; RESP 20; TEMP 36; O2SAT 99
[2021-12-25] MEDS: LEVOTHYROXINE SODIUM 25 MCG TABLET PO (06:07)
[2021-12-25] MEDS: HYDROcodone/acetaminophen (*CRX) 5-325 MG TABLET 1 TAB PO (06:32)
[2021-12-25 06:59] LABS: Hematocrit 42.6 % (37.0-47.0); Hemoglobin 13.7 g/dL (12.0-15.0); Mean Corpuscular HGB Conc 32.2 g/dl (32-36); Mean Corpuscular Hemoglobin 27.8 pg (26-34); Mean Corpuscular Volume 86.4 fl (80-100); Mean Platelet Volume 9.2 fl (7.4-10.4); Platelet Count Result 244 k/mm3 (150-375); Red Blood Count 4.93 M/mm3 (4.2-5.4); Red Cell Distribution Width 15.9 % (11.5-14.5); White Blood Count 5.8 K/mm3 (4.5-10.0)
[2021-12-25 07:15] LABS: Anion Gap 10 mmol/L (8-16); Blood Urea Nitrogen 16 mg/dL (7-17); Calcium 8.8 mg/dL (8.4-10.2); Carbon Dioxide 25 mmol/L (22-30); Chloride 100 mmol/L (98-107); Estimated CRCL calculation 82 ml/min; Estimated Glomerular Filt Rate > 60; Glucose 151 mg/dL (65-110); Potassium 4.7 mmol/L (3.4-5.0); Sodium 135 mmol/L (137-145)
[2021-12-25 07:40] LABS: Glucose Point of Care 134 mg/dl (65-105)
[2021-12-25 08:15] VITALS: PULSE 86
[2021-12-25] MEDS: METOPROLOL TARTRATE 50 MG TAB 150 MG PO ×2 (08:15→20:27)
[2021-12-25] MEDS: FAMOTIDINE 20 MG TABLET 40 MG PO (08:15)
[2021-12-25] MEDS: GABAPENTIN 300 MG CAPSULE 600 MG PO ×2 (08:16→17:11)
[2021-12-25] MEDS: FUROSEMIDE 20 MG TABLET PO (08:16)
[2021-12-25] MEDS: dilTIAZem HCL CD 180 MG CAP.ER.24H PO (08:16)
[2021-12-25] MEDS: TOLNAFTATE 1% POWDER 45 GM BTL 1 APPLIC TOPICAL ×2 (08:16→20:29)
[2021-12-25] MEDS: modafiniL (*CRX) 100 MG TABLET PO (10:08)
[2021-12-25 11:31] LABS: Glucose Point of Care 186 mg/dl (65-105)
[2021-12-25] MEDS: DULoxetine HCL 60 MG CAPSULE.DR PO (12:06)
[2021-12-25 13:51] VITALS: BP 94/58; PULSE 85; RESP 20; TEMP 35.7; O2SAT 100
--- NOTE | 2021-12-25 15:40 | PC.NURSE ---
this nurse noted order for picc line placement. asked charge nurse for consent. charge nurse stated Maya is not here now. charge nurse called care [facility] and spoke with them on when pt is leaving. Manjeet stated pt wont be leaving till tuesday. charge nurse stated we can wait till tuesday to get picc line placed unless pt loses iv access.
[2021-12-25 16:21] LABS: Glucose Point of Care 128 mg/dl (65-105)
--- NOTE | 2021-12-25 16:43 | PM.IMPN ---
Progress Note: A&P Assessment and Plan (1) Septicemia: Code(s): A41.9 - Sepsis, unspecified organism Status: Acute (2) Cellulitis: Code(s): L03.90 - Cellulitis, unspecified Status: Acute (3) Urinary tract infection: Code(s): N39.0 - Urinary tract infection, site not specified Status: Acute (4) Persistent atrial fibrillation: Code(s): I48.19 - Other persistent atrial fibrillation Status: Acute (5) Intertrigo: Code(s): L30.4 - Erythema intertrigo Status: Acute (6) Narcolepsy: Code(s): G47.419 - Narcolepsy without cataplexy Status: Acute (7) Pulmonary hypertension: Code(s): I27.20 - Pulmonary hypertension, unspecified Status: Acute (8) Debility: Code(s): R53.81 - Other malaise Status: Acute (9) Morbid obesity: Code(s): E66.01 - Morbid (severe) obesity due to excess calories Status: Acute Plan Patient presents with weakness found to have fever, tachycardia and leukocytosis consistent with sepsis. Urine culture growing E coli. Both blood cultures are growing Enterococcus faecalis. One blood cultures growing Staph epidermidis and the other growing staph haemolytics felt to be a contaminant. Unclear if Enterococcus contaminant as well. Patient started on Primaxin and vancomycin. Fever resolved. CT Abd/Pelvis with contrast was performed to determine etiology of the bacteremia and this showed distended colon consistent with adynamic ileus but no pain, n/v/d. This has been noted in the past so felt to be chronic. Will follow clinically. White count is normal now and CRP trending down. She clinically feels much better. Etiology of the bacteremia is unclear. Could be related to the UTI. No obvious bladder fistula. Consider GI source. Repeat blood cultures NGTD. Abx adjusted to Unasyn. TSH is mildly low but free T4 is normal. Continue Synthroid at same dose. Glucose stable and last A1c was 6.2 in October. Continue sliding scale protocol. Lower extremity venous Dopplers negative for DVT. Cellulitis symptoms improved. Exam findings were concerning for peripheral arterial disease but she has normal bilateral ABIs. She has diminished TBIs actually worse on the left than right. Her discoloration in her feet felt related to autonomic insufficiency. Continue to monitor. Continue therapy. Close to 48 hours for negative repeat BCx so will have PICC line placed. Placement being arranged. Subjective Date/time seen: 12/25/21 16:43 Interval history: 66yo female with pHTN, PAD and cAFib here for weakness. Feels well. No complaints. Slept okay. Up to the chair today. No CP or SOB. No n/v. No diarrhea. Up walking in the halls with therapy. Exam Narrative: AF 96.3 94/58 85 20 100% ra Gen - NARD Chest - CTA bilaterally. nml RR CV - irregularly irregular Abd - Soft, obese, NT Ext - trace right pedal edema. Neuro - Alert and appropriate Psych - Nml mood and affect Skin - Warm and dry. Right >left acrocyanosis. Right ramírez with fading erythematous with warmth. Objective Data Vital Signs Vital Signs: Vital Signs - 24 hr 12/24/21 21:56 12/24/21 21:56 12/24/21 21:55 Temperature 96.2 F L Pulse Rate 65 65 Respiratory Rate 21 H Blood Pressure 100/71 Pulse Oximetry 100 Oxygen Delivery Room Air 12/25/21 05:47 12/25/21 08:15 12/25/21 08:10 Temperature 96.8 F L Pulse Rate 54 L 86 Respiratory Rate 20 Blood Pressure 107/64 Pulse Oximetry 99 Oxygen Delivery Room Air 12/25/21 10:36 12/25/21 13:51 Temperature 96.3 F L Pulse Rate 85 Respiratory Rate 20 Blood Pressure 94/58 L Pulse Oximetry 100 Oxygen Delivery Room Air Intake/Output Intake/Output: Intake & Output 12/22/21 12/23/21 12/24/21 12/25/21 23:59 23:59 23:59 23:59 Intake Total 2152 2040 2920 585 Output Total 061 433 6519 Balance 1852 1340 2920 -915 Meds/Results Medications: Active Medications Generi
[2021-12-25] MEDS: RIVAROXABAN 20 MG TABLET PO (17:11)
[2021-12-25 20:27] VITALS: PULSE 65
[2021-12-25] MEDS: ATORVASTATIN 40 MG TABLET PO (20:28)
[2021-12-25 22:00] VITALS: BP 102/70; PULSE 73; RESP 18; TEMP 37.1; O2SAT 98
[2021-12-26] VITALS (7 sets, daily range): BP systolic 88–126; BP diastolic 60–81; PULSE 58–86; RESP 17–20; TEMP 36.1–36.9; O2SAT 95–100
[2021-12-26] MEDS: AMPICILLIN SULB 3 GM/NS 100 ML 3 GM/100 ML VIAL IVPB ×5 (00:15→23:46)
[2021-12-26] MEDS: LEVOTHYROXINE SODIUM 25 MCG TABLET PO (06:15)
[2021-12-26 07:35] LABS: Glucose Point of Care 130 mg/dl (65-105)
[2021-12-26] MEDS: FAMOTIDINE 20 MG TABLET 40 MG PO (08:05)
[2021-12-26] MEDS: modafiniL (*CRX) 100 MG TABLET PO (08:05)
[2021-12-26] MEDS: METOPROLOL TARTRATE 50 MG TAB 150 MG PO ×2 (08:05→20:00)
[2021-12-26] MEDS: GABAPENTIN 300 MG CAPSULE 600 MG PO ×2 (08:06→16:58)
[2021-12-26] MEDS: FUROSEMIDE 20 MG TABLET PO (08:06)
[2021-12-26] MEDS: TOLNAFTATE 1% POWDER 45 GM BTL 1 APPLIC TOPICAL ×2 (08:06→20:00)
[2021-12-26] MEDS: dilTIAZem HCL CD 180 MG CAP.ER.24H PO (08:06)
[2021-12-26] MEDS: DULoxetine HCL 60 MG CAPSULE.DR PO (11:43)
[2021-12-26] MEDS: HYDROcodone/acetaminophen (*CRX) 5-325 MG TABLET 1 TAB PO ×2 (14:11→23:45)
[2021-12-26 16:40] LABS: Glucose Point of Care 101 mg/dl (65-105)
[2021-12-26] MEDS: RIVAROXABAN 20 MG TABLET PO (17:00)
--- NOTE | 2021-12-26 17:56 | PM.IMPN ---
Progress Note: A&P Assessment and Plan (1) Septicemia: Code(s): A41.9 - Sepsis, unspecified organism Status: Acute (2) Cellulitis: Code(s): L03.90 - Cellulitis, unspecified Status: Acute (3) Urinary tract infection: Code(s): N39.0 - Urinary tract infection, site not specified Status: Acute (4) Persistent atrial fibrillation: Code(s): I48.19 - Other persistent atrial fibrillation Status: Acute (5) Intertrigo: Code(s): L30.4 - Erythema intertrigo Status: Acute (6) Narcolepsy: Code(s): G47.419 - Narcolepsy without cataplexy Status: Acute (7) Pulmonary hypertension: Code(s): I27.20 - Pulmonary hypertension, unspecified Status: Acute (8) Debility: Code(s): R53.81 - Other malaise Status: Acute (9) Morbid obesity: Code(s): E66.01 - Morbid (severe) obesity due to excess calories Status: Acute Plan Patient presents with weakness and found to have fever, tachycardia and leukocytosis consistent with sepsis. Urine culture growing E coli. Both blood cultures are growing Enterococcus faecalis. One blood cultures growing Staph epidermidis and the other growing staph haemolytics felt to be a contaminant. Unclear if Enterococcus is a contaminant as well. Patient started on Primaxin and vancomycin. Fever resolved. CT Abd/Pelvis with contrast was performed to determine etiology of the bacteremia and this showed distended colon consistent with adynamic ileus but no pain or n/v/d. The distended colon has been noted in the past so felt to be chronic. Will follow clinically. White count is normal now and CRP trending down. She clinically feels much better. Etiology of the bacteremia is unclear. Could be related to the UTI. No obvious bladder fistula. Consider GI source. Repeat blood cultures NGTD. Abx adjusted to Unasyn. TSH is mildly low but free T4 is normal. Continue Synthroid at same dose. Glucose stable and last A1c was 6.2 in October. Continue sliding scale protocol. Lower extremity venous Dopplers negative for DVT. Cellulitis symptoms improved. Exam findings were concerning for peripheral arterial disease but she has normal bilateral ABIs and diminished TBIs actually worse on the left than right. Her discoloration in her feet felt related to autonomic insufficiency. BP documented at 88/68 but felt to be measurement error since patieint asymptomatic and no other changes to explain a low BP. Will repeat. Continue to monitor. Continue therapy. Plan for PIC line on Tuesday. Placement being arranged. Subjective Date/time seen: 12/26/21 17:56 Interval history: 66yo female with pHTN, PAD and cAFib here for weakness. Slept well. No n/v. no diarrhea. No CP or SOB. Eating okay. Walking okay. No leg or foot pain. Exam Narrative: AF 97.9 85 20 100% ra Gen - NARD Chest - CTA bilaterally. nml RR CV - irregularly irregular Abd - Soft, obese, NT Ext - trace right pedal edema. Neuro - Alert and appropriate Psych - Nml mood and affect Skin - Warm and dry. Right >left acrocyanosis. Right ramírez with no erythematous or warmth. Objective Data Vital Signs Vital Signs: Vital Signs - 24 hr 12/25/21 20:27 12/25/21 22:00 12/25/21 20:00 Temperature 98.7 F Pulse Rate 65 73 Respiratory Rate 18 Blood Pressure 102/70 Pulse Oximetry 98 Oxygen Delivery Room Air 12/26/21 05:46 12/26/21 08:05 12/26/21 08:10 Temperature 98.5 F Pulse Rate 85 86 Respiratory Rate 17 Blood Pressure 126/81 Pulse Oximetry 95 Oxygen Delivery Room Air 12/26/21 14:00 Temperature 97.9 F Pulse Rate 85 Respiratory Rate 20 Blood Pressure 88/68 L Pulse Oximetry 100 Oxygen Delivery Intake/Output Intake/Output: Intake & Output 12/23/21 12/24/21 12/25/21 12/26/21 23:59 23:59 23:59 23:59 Intake Total 2040 2920 1205 1700 Output Total 700 2300 Balance 1340 2920 -1095 1700 Meds/Results Medications: Active Me
[2021-12-26] MEDS: ATORVASTATIN 40 MG TABLET PO (20:00)
[2021-12-27 03:10] VITALS: BP 112/76; PULSE 77; RESP 16; TEMP 36; O2SAT 97
[2021-12-27 06:01] LABS: Basophils Percent Auto 0.6 % (0.2-1.2); Eosinophils Absolute Auto 0.1 K/mm3 (0-0.3); Eosinophils Percent Auto 2.7 % (0-4.4); Hematocrit 39.2 % (37.0-47.0); Hemoglobin 12.2 g/dL (12.0-15.0); Immature Granulocyte Absolute 0.05 K/mm3 (0.00-0.031); Lymphocytes Absolute Auto 1.37 K/mm3 (0.9-3.2); Lymphocytes Percent Auto 26.7 % (18.3-44.2); Mean Corpuscular HGB Conc 31.1 g/dl (32-36); Mean Corpuscular Hemoglobin 27.5 pg (26-34); Mean Corpuscular Volume 88.3 fl (80-100); Mean Platelet Volume 8.8 fl (7.4-10.4); Monocytes Absolute Auto 0.4 K/mm3 (0.1-0.6); Monocytes Percent Auto 7.6 % (2.6-8.5); Neutrophils Absolute Auto 3.2 K/mm3 (1.3-6.7); Neutrophils Percent Auto 61.4 % (45.5-73.1); Platelet Count Result 182 k/mm3 (150-375); Red Blood Count 4.44 M/mm3 (4.2-5.4); Red Cell Distribution Width 15.6 % (11.5-14.5); White Blood Count 5.1 K/mm3 (4.5-10.0)
[2021-12-27] MEDS: LEVOTHYROXINE SODIUM 25 MCG TABLET PO (06:04)
[2021-12-27] MEDS: AMPICILLIN SULB 3 GM/NS 100 ML 3 GM/100 ML VIAL IVPB ×3 (06:05→17:42)
[2021-12-27 06:29] LABS: Alanine Aminotransferase 13 U/L (6-35); Albumin Level 3.2 g/dL (3.5-5.1); Alkaline Phosphatase 103 U/L (38-126); Anion Gap 4 mmol/L (8-16); Aspartate Amino Transferase 16 U/L (14-36); Bilirubin,Total 0.5 mg/dL (0.2-1.3); Blood Urea Nitrogen 18 mg/dL (7-17); CRP 2.1 mg/dL (<1.0); Calcium 8.6 mg/dL (8.4-10.2); Carbon Dioxide 36 mmol/L (22-30); Chloride 98 mmol/L (98-107); Estimated CRCL calculation 74 ml/min; Estimated Glomerular Filt Rate > 60; Glucose 139 mg/dL (65-110); Phosphorus 3.8 mg/dL (2.5-4.5); Potassium 4.4 mmol/L (3.4-5.0); Sodium 138 mmol/L (137-145)
[2021-12-27 07:59] LABS: Glucose Point of Care 131 mg/dl (65-105)
[2021-12-27 07:59] LABS: Glucose Point of Care 166 mg/dl (65-105)
[2021-12-27] MEDS: GABAPENTIN 300 MG CAPSULE 600 MG PO ×2 (09:38→17:41)
[2021-12-27] MEDS: FUROSEMIDE 20 MG TABLET PO (09:39)
[2021-12-27] MEDS: dilTIAZem HCL CD 180 MG CAP.ER.24H PO (09:39)
[2021-12-27] MEDS: TOLNAFTATE 1% POWDER 45 GM BTL 1 APPLIC TOPICAL ×2 (09:39→21:07)
[2021-12-27] MEDS: METOPROLOL TARTRATE 50 MG TAB 150 MG PO ×2 (09:39→21:06)
[2021-12-27] MEDS: FAMOTIDINE 20 MG TABLET 40 MG PO (09:39)
[2021-12-27] MEDS: modafiniL (*CRX) 100 MG TABLET PO (09:42)
[2021-12-27 11:29] LABS: Glucose Point of Care 140 mg/dl (65-105)
[2021-12-27] MEDS: DULoxetine HCL 60 MG CAPSULE.DR PO (13:20)
[2021-12-27 14:00] VITALS: BP 109/62; PULSE 83; RESP 20; TEMP 36.2; O2SAT 100
--- NOTE | 2021-12-27 14:00 | PM.IMPN ---
Progress Note: A&P Assessment and Plan (1) Septicemia: Code(s): A41.9 - Sepsis, unspecified organism Status: Acute (2) Cellulitis: Code(s): L03.90 - Cellulitis, unspecified Status: Acute (3) Urinary tract infection: Code(s): N39.0 - Urinary tract infection, site not specified Status: Acute (4) Persistent atrial fibrillation: Code(s): I48.19 - Other persistent atrial fibrillation Status: Acute (5) Narcolepsy: Code(s): G47.419 - Narcolepsy without cataplexy Status: Acute (6) Pulmonary hypertension: Code(s): I27.20 - Pulmonary hypertension, unspecified Status: Acute (7) Debility: Code(s): R53.81 - Other malaise Status: Acute (8) Morbid obesity: Code(s): E66.01 - Morbid (severe) obesity due to excess calories Status: Acute Plan Patient presents with weakness and found to have fever, tachycardia and leukocytosis consistent with sepsis. Urine culture growing E coli. Both blood cultures are growing Enterococcus faecalis. One blood culture growing Staph epidermidis and the other growing staph haemolytics felt to be a contaminant. Unclear if Enterococcus is a contaminant as well. Patient started on Primaxin and vancomycin. Fever resolved. CT Abd/Pelvis with contrast was performed to determine etiology of the bacteremia and this showed distended colon consistent with adynamic ileus but she has no abd pain or n/v/d. The distended colon has been noted in the past so felt to be chronic. Will follow clinically. White count is normal now and CRP trending down. She clinically feels much better. Etiology of the bacteremia is unclear. Could be related to the UTI. No obvious bladder fistula. Consider GI source. Repeat blood cultures NGTD. Abx adjusted to Unasyn. TSH is mildly low but free T4 is normal. Continue Synthroid at same dose. Glucose stable and last A1c was 6.2 in October. Continue sliding scale protocol. Lower extremity venous Dopplers negative for DVT. Cellulitis symptoms improved. Exam findings were concerning for peripheral arterial disease but she has normal bilateral ABIs and diminished TBIs actually worse on the left than right. Her discoloration in her feet felt related to autonomic insufficiency (worse when cold). Continue therapy. Plan for PIC line tomorrow. DVT prophylaxis: Xarelto Code status: Full Diet: Heart healthy Disposition: SNF Placement being arranged Subjective Date/time seen: 12/27/21 14:00 Interval history: 66yo female with pHTN, PAD and cAFib here for weakness. Patietn feels well. Her bilateral shoulders and arms are bothering her. This is long standing and was told related to arthritis. No CP or SOB. No recent trauma. She is depressed about having to go the NH. Exam Narrative: AF 96.8 112/76 77 16 97% ra Gen - NARD Chest - CTA bilaterally. nml RR CV - irregularly irregular Abd - Soft, obese, NT Ext - trace right pedal edema. Pain with passive PARAMJIT to both shoulders worse on the right. +tinnels to the left wrist. Psych - depressed mood Skin - Warm and dry. Right >left foot acrocyanosis. Right ramírez with scant erythema Objective Data Vital Signs Vital Signs: Vital Signs - 24 hr 12/26/21 18:12 12/26/21 19:12 12/26/21 20:00 Temperature 97 F L Pulse Rate 58 L 60 Respiratory Rate 18 Blood Pressure 118/60 105/60 Pulse Oximetry 99 Oxygen Delivery 12/26/21 20:00 12/26/21 20:38 12/27/21 03:10 Temperature 96.8 F L Pulse Rate 77 Respiratory Rate 16 Blood Pressure 112/76 Pulse Oximetry 96 97 Oxygen Delivery Room Air Room Air 12/27/21 09:38 Temperature Pulse Rate Respiratory Rate Blood Pressure Pulse Oximetry Oxygen Delivery Room Air Intake/Output Intake/Output: Intake & Output 12/24/21 12/25/21 12/26/21 12/27/21 23:59 23:59 23:59 23:59 Intake Total 2920 1205 1700 880 Output Total 2300 Balance 2920 -1095 1700 880 Meds/Resul
[2021-12-27 16:28] LABS: Glucose Point of Care 94 mg/dl (65-105)
[2021-12-27] MEDS: RIVAROXABAN 20 MG TABLET PO (17:41)
[2021-12-27] MEDS: HYDROcodone/acetaminophen (*CRX) 5-325 MG TABLET 1 TAB PO (17:42)
[2021-12-27 21:06] VITALS: PULSE 76
[2021-12-27] MEDS: ATORVASTATIN 40 MG TABLET PO (21:06)
[2021-12-27 22:00] VITALS: BP 109/75; PULSE 76; RESP 19; TEMP 36.6; O2SAT 99
[2021-12-28] MEDS: AMPICILLIN SULB 3 GM/NS 100 ML 3 GM/100 ML VIAL IVPB ×4 (00:04→18:20)
[2021-12-28 06:00] VITALS: BP 115/86; PULSE 78; RESP 20; TEMP 36.5; O2SAT 100
[2021-12-28] MEDS: LEVOTHYROXINE SODIUM 25 MCG TABLET PO (06:05)
[2021-12-28 07:55] LABS: Glucose Point of Care 115 mg/dl (65-105)
[2021-12-28 08:00] VITALS: PULSE 78; RESP 20; O2SAT 100
[2021-12-28] MEDS: FAMOTIDINE 20 MG TABLET 40 MG PO (08:45)
[2021-12-28] MEDS: GABAPENTIN 300 MG CAPSULE 600 MG PO ×2 (08:45→18:19)
[2021-12-28] MEDS: METOPROLOL TARTRATE 50 MG TAB 150 MG PO ×2 (08:45→20:42)
[2021-12-28] MEDS: dilTIAZem HCL CD 180 MG CAP.ER.24H PO (08:46)
[2021-12-28] MEDS: FUROSEMIDE 20 MG TABLET PO (08:46)
[2021-12-28] MEDS: TOLNAFTATE 1% POWDER 45 GM BTL 1 APPLIC TOPICAL ×2 (08:46→20:43)
[2021-12-28] MEDS: modafiniL (*CRX) 100 MG TABLET PO (08:48)
--- NOTE | 2021-12-28 09:16 | PCOTNOTE ---
Attempted to see patient at this time, however patient was having bedside procedure.
[2021-12-28 11:49] LABS: Glucose Point of Care 156 mg/dl (65-105)
--- NOTE | 2021-12-28 13:34 | PCOTNOTE ---
Attempted to see patient this pm, however patient and sleeping soundly upon entering. Did not disturb for this reason. Will continue plan of care tomorrow.
[2021-12-28] MEDS: CENTRAL LINE FLUSH 10 ML IV PUSH ×2 (13:44→20:43)
[2021-12-28] MEDS: DULoxetine HCL 60 MG CAPSULE.DR PO (13:44)
[2021-12-28 14:00] VITALS: BP 108/60; PULSE 79; RESP 20; TEMP 37.1; O2SAT 96
[2021-12-28 16:49] LABS: Glucose Point of Care 115 mg/dl (65-105)
--- NOTE | 2021-12-28 16:55 | PM.IMPN ---
Progress Note: A&P Assessment and Plan (1) Septicemia: Code(s): A41.9 - Sepsis, unspecified organism Status: Acute (2) Cellulitis: Code(s): L03.90 - Cellulitis, unspecified Status: Acute (3) Urinary tract infection: Code(s): N39.0 - Urinary tract infection, site not specified Status: Acute (4) Persistent atrial fibrillation: Code(s): I48.19 - Other persistent atrial fibrillation Status: Acute (5) Narcolepsy: Code(s): G47.419 - Narcolepsy without cataplexy Status: Acute (6) Pulmonary hypertension: Code(s): I27.20 - Pulmonary hypertension, unspecified Status: Acute (7) Debility: Code(s): R53.81 - Other malaise Status: Acute (8) Morbid obesity: Code(s): E66.01 - Morbid (severe) obesity due to excess calories Status: Acute Plan Patient presents with weakness and found to have fever, tachycardia and leukocytosis consistent with sepsis. Urine culture growing E coli. Both blood cultures are growing Enterococcus faecalis. One blood culture growing Staph epidermidis and the other growing staph haemolytics felt to be a contaminant. Unclear if Enterococcus is a contaminant as well. Patient started on Primaxin and vancomycin. Fever resolved. CT Abd/Pelvis with contrast was performed to determine etiology of the bacteremia and this showed distended colon consistent with adynamic ileus but she has no abd pain or n/v/d. The distended colon has been noted in the past so felt to be chronic. Will follow clinically. White count is normal now and CRP trending down. She clinically feels much better. Etiology of the bacteremia is unclear. Could be related to the UTI. No obvious bladder fistula. Consider GI source. Repeat blood cultures NGTD. Abx adjusted to Unasyn. TSH is mildly low but free T4 is normal. Continue Synthroid at same dose. Glucose stable and last A1c was 6.2 in October. Continue sliding scale protocol. Lower extremity venous Dopplers negative for DVT. Cellulitis symptoms improved. Exam findings were concerning for peripheral arterial disease but she has normal bilateral ABIs and diminished TBIs actually worse on the left than right. Her discoloration in her feet felt related to autonomic insufficiency (worse when cold and better when laying down). Continue therapy. PICC line placed today. DVT prophylaxis: Xarelto Code status: Full Diet: Heart healthy Disposition: SNF Placement being arranged Subjective Date/time seen: 12/28/21 16:55 Interval history: 66yo female with pHTN, PAD and cAFib here for weakness and found to have sepsis. No issues overnight. PICC line placed today. No chest pain shortness of breath. Awaiting placement. Exam Narrative: AF 98.8 108/60 79 20 96% ra Gen - NARD Chest - CTA bilaterally. nml RR CV - irregularly irregular Abd - Soft, obese, NT Ext - trace pedal edema Psych - normal mood Skin - Warm and dry. Feet are warm and pink. Right ramírez with scant erythema Objective Data Vital Signs Vital Signs: Vital Signs - 24 hr 12/27/21 21:06 12/27/21 22:00 12/28/21 06:00 Temperature 97.8 F 97.7 F Pulse Rate 76 76 78 Respiratory Rate 19 20 Blood Pressure 109/75 115/86 Pulse Oximetry 99 100 Oxygen Delivery 12/28/21 08:00 12/28/21 14:00 Temperature 98.8 F Pulse Rate 78 79 Respiratory Rate 20 20 Blood Pressure 108/60 Pulse Oximetry 100 96 Oxygen Delivery Room Air Intake/Output Intake/Output: Intake & Output 12/25/21 12/26/21 12/27/21 12/28/21 23:59 23:59 23:59 23:59 Intake Total 1205 1700 1320 1080 Output Total 2300 300 Balance -1095 1700 1020 1080 Meds/Results Medications: Active Medications Generic Name Dose Route Start Last Admin Trade Name Octavioq PRN Reason Stop Dose Admin Acetaminophen 650 mg 12/21/21 15:37 Acetaminophen 325 Mg Tablet PO Q4H PRN Mild Pain (1-3) or Fever Hydrocodone Bitart/Acetaminophen 1 tab 12/21
[2021-12-28] MEDS: RIVAROXABAN 20 MG TABLET PO (18:19)
[2021-12-28 20:42] VITALS: PULSE 75
[2021-12-28] MEDS: ATORVASTATIN 40 MG TABLET PO (20:43)
[2021-12-28 21:42] VITALS: BP 111/68; PULSE 71; RESP 18; TEMP 37; O2SAT 97
[2021-12-29] MEDS: AMPICILLIN SULB 3 GM/NS 100 ML 3 GM/100 ML VIAL IVPB ×3 (00:21→11:24)
[2021-12-29 05:53] VITALS: BP 121/74; PULSE 87; RESP 18; TEMP 36.9; O2SAT 96
[2021-12-29] MEDS: LEVOTHYROXINE SODIUM 25 MCG TABLET PO (06:21)
[2021-12-29] MEDS: CENTRAL LINE FLUSH 10 ML IV PUSH (06:21)
[2021-12-29 07:56] LABS: Glucose Point of Care 118 mg/dl (65-105)
[2021-12-29] MEDS: GABAPENTIN 300 MG CAPSULE 600 MG PO (09:39)
[2021-12-29 09:40] VITALS: PULSE 65
[2021-12-29] MEDS: FAMOTIDINE 20 MG TABLET 40 MG PO (09:40)
[2021-12-29] MEDS: POTASSIUM CHLORIDE 10 MEQ TABLET.ER PO (09:40)
[2021-12-29] MEDS: FUROSEMIDE 20 MG TABLET PO (09:40)
[2021-12-29] MEDS: dilTIAZem HCL CD 180 MG CAP.ER.24H PO (09:40)
[2021-12-29] MEDS: TOLNAFTATE 1% POWDER 45 GM BTL 1 APPLIC TOPICAL (09:40)
[2021-12-29] MEDS: METOPROLOL TARTRATE 50 MG TAB 150 MG PO (09:40)
[2021-12-29] MEDS: modafiniL (*CRX) 100 MG TABLET PO (09:46)
[2021-12-29 10:06] LABS: EDCOVIDSCREEN Negative (Negative)
--- NOTE | 2021-12-29 10:33 | PM.DS ---
DS: Admitting Diagnosis Discharge Date 12/29/21 Admitting Diagnosis Weakness DS: Discharge Diagnosis Discharge Diagnosis (1) Septicemia: Code(s): A41.9 - Sepsis, unspecified organism Status: Acute (2) Cellulitis: Code(s): L03.90 - Cellulitis, unspecified Status: Acute (3) Urinary tract infection: Code(s): N39.0 - Urinary tract infection, site not specified Status: Acute (4) Persistent atrial fibrillation: Code(s): I48.19 - Other persistent atrial fibrillation Status: Acute (5) Narcolepsy: Code(s): G47.419 - Narcolepsy without cataplexy Status: Acute (6) Pulmonary hypertension: Code(s): I27.20 - Pulmonary hypertension, unspecified Status: Acute (7) Debility: Code(s): R53.81 - Other malaise Status: Acute (8) Morbid obesity: Code(s): E66.01 - Morbid (severe) obesity due to excess calories Status: Acute DS: Summary Hospital Course Reason for hospitalization: 66yo female with pHTN, PAD and cAFib here for weakness and found to have sepsis. Please see H&P for details Hospital Course: Patient presents with weakness and found to have fever, tachycardia and leukocytosis consistent with sepsis. Urine culture grew E coli. Both blood cultures grew Enterococcus faecalis. One blood culture grew Staph epidermidis and the other grew staph haemolytics felt to be a contaminant. Unclear if Enterococcus is a contaminant as well. Patient was started on Primaxin and vancomycin. Fever resolved. CT Abd/Pelvis with contrast was performed to determine etiology of the bacteremia and this showed distended colon consistent with adynamic ileus but she had no abd pain or n/v/d. The distended colon has been noted in the past so felt to be chronic. White count normalized and CRP trended down. Source of the bacteremia is unclear. Could be related to the UTI. No obvious bladder fistula. No obvious GI source. Repeat blood cultures NGTD. Abx adjusted to Unasyn. TSH is mildly low but free T4 was normal. We continued Synthroid at same dose. Glucose stable and last A1c was 6.2 in October. She was monitored with Accucheks covering with sliding scale protocol. Lower extremity venous Dopplers negative for DVT. Right lower extremity cellulitis symptoms improved. Exam findings were also concerning for peripheral arterial disease but she has normal bilateral ABIs and diminished TBIs actually worse on the left than right. Her discoloration in her feet felt related to autonomic insufficiency (worse when cold and better when laying down). She worked with PT/OT. PICC line placed for outpatient IV abx. She clinically feels much better. She overall did well and was able to be discharged to SNF on 12/29/21. Status at Discharge Cognitive/behavioral status at discharge: stable Time Spent with Patient Time attestation: Total time spent providing and/or coordinating discharge services: 38 minutes Time spent: Greater than 30 minutes Exam Narrative: AF 98.5 121/74 65 18 96% ra Gen - NARD Chest - CTA bilaterally. nml RR CV - irregularly irregular Abd - Soft, obese, NT Ext - trace dependent pedal edema Psych - normal mood Skin - Warm and dry. Feet are warm and pink. Right ramírez with scant erythema DS: Data Data Completed and Pending Labs on day of discharge: Labs from last 24 hours 12/29/21 12/29/21 12/28/21 09:48 07:51 16:35 POC Capillary Glucose 118 H 115 H SARS-CoV-2 IgG/IgM Ag?Rapid Negative 12/28/21 11:29 POC Capillary Glucose 156 H SARS-CoV-2 IgG/IgM Ag?Rapid Discharge Plan Discharge Attending physician on discharge: Brock Salvador Discharging Clinician: Brock Salvador Anticipated Discharge Date/Time: 12/29/21 10:42 Patient Disposition: SNF Activity: as tolerated Diet: heart healthy Discharge Instructions: Take precautions to avoid falls. Rise slowly from a lying or sitting position. Pause
[2021-12-29] MEDS: DULoxetine HCL 60 MG CAPSULE.DR PO (11:24)
[2021-12-29 12:22] LABS: Glucose Point of Care 91 mg/dl (65-105)
--- NOTE | 2021-12-29 13:14 | PC.NURSE ---
pharmacy would like antibiotic to be changed to Ampicillin 2 gram iv q6hr. I called [facility] [phone] and spoke with Juan Jose MEZA. He wanted to new order faxed to him so it was sent to [phone].
== END 2021-12-29 12:35 | DRG 690 ==
LOC: ANHED 13:52 → ANH3MEDSUR 17:41
PROVIDERS: Nurse Practitioner; Admitting Provider Chiropractor; Emergency Provider Emergency Medicine; PCP Family Medicine; Visit Provider Internal Medicine
DX: N39.0 Urinary tract infection, site not specified (principal); L03.115 Cellulitis of right lower limb; I48.19 Other persistent atrial fibrillation; Z68.43 Body mass index [BMI] 50.0-59.9, adult; K56.0 Paralytic ileus; B96.20 Unspecified Escherichia coli [E. coli] as the cause of diseases classified elsewhere; B95.2 Enterococcus as the cause of diseases classified elsewhere; G47.419 Narcolepsy without cataplexy; I27.20 Pulmonary hypertension, unspecified; R53.81 Other malaise; E66.01 Morbid (severe) obesity due to excess calories; Z20.822 Contact with and (suspected) exposure to COVID-19; E78.2 Mixed hyperlipidemia; B37.2 Candidiasis of skin and nail; G47.33 Obstructive sleep apnea (adult) (pediatric); F32.A Depression, unspecified; E03.9 Hypothyroidism, unspecified; K21.9 Gastro-esophageal reflux disease without esophagitis; L30.4 Erythema intertrigo; I73.9 Peripheral vascular disease, unspecified; K59.09 Other constipation; E53.8 Deficiency of other specified B group vitamins; I10 Essential (primary) hypertension; M19.012 Primary osteoarthritis, left shoulder; M19.011 Primary osteoarthritis, right shoulder; F03.90 Unspecified dementia, unspecified severity, without behavioral disturbance, psychotic disturbance, mood disturbance, and anxiety; F41.9 Anxiety disorder, unspecified; Z96.653 Presence of artificial knee joint, bilateral; Z90.49 Acquired absence of other specified parts of digestive tract; Z79.01 Long term (current) use of anticoagulants; Z98.84 Bariatric surgery status; Z90.710 Acquired absence of both cervix and uterus; Z86.711 Personal history of pulmonary embolism; Z86.718 Personal history of other venous thrombosis and embolism
CPT/HCPCS: 36415; 36569; 71045; 74019; 74176; 74178; 80048; 80053; 81001; 82948; 83605; 83615; 83735; 84100; 84439; 84443; 84480; 85025; 85027; 85610; 85730; 86140; 87040; 87077; 87086; 87088; 87186; 87426; 93005; 93306; 93923; 93970; 96361; 96365; 96366; 96367; 96375; 97110; 97161; 97166; 97530; 97535; 99285; A9270; C1751; C9803; G0378; J0131; J0295; J0690; J0743; J3370; J7030; J7050; Q9967; U0003; U0005

== ENCOUNTER 2022-09-19 12:08 | Emergency (ER) | payer MEDICARE, SELFPAY ==
[2022-09-19] VITALS (7 sets, daily range): BP systolic 106–141; BP diastolic 73–101; PULSE 65–81; RESP 16–20; TEMP 36.4; O2SAT 97–100
--- NOTE | 2022-09-19 14:07 | ED.GENADULT ---
HPI - General Adult General Chief complaint: Urogenital-Female Stated complaint: blood in urine/stool Time Seen by Provider: 09/19/22 13:29 History of Present Illness HPI narrative: 67-year-old female presented to the emergency department for evaluation of bleeding. Patient states she was having bleeding from an unknown area for the past day and a half. Patient had suspected it was vaginal. Patient does have a history of a total hysterectomy around 1979. Related Data Allergies Allergy/AdvReac Type Severity Reaction Status Date / Time metoclopramide Allergy Intermediate Hives Verified 09/19/22 13:24 Review of Systems Review of Systems: All systems reviewed & are unremarkable except as noted in HPI and below PMFSH Past Medical History Medical History Abnormal stress test (01/2021) Lexiscan stress showed no reversible ischemia and a fixed defect. Anxiety Atrial fibrillation Chronic anticoagulation Chronic constipation Chronic low back pain with sciatica Chronic wound of extremity 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 Dumont for quite some time. Status post excision with full-thickness skin graft on 11/27/2020. Deep venous thrombosis (2014) Dementia Depression Essential hypertension Gastroesophageal reflux Hypothyroidism Mild episode of recurrent major depressive disorder Mild intermittent asthma without complication Mixed hyperlipidemia Morbid obesity Obstructive sleep apnea (~2004) Intolerant to CPAP. Persistent atrial fibrillation Prediabetes Hemoglobin A1c was 6.2% on 01/09/2021. Pulmonary embolism (2014) Pulmonary hypertension Right ventricular systolic dysfunction Severe right ventricular enlargement with [id number] systolic dysfunction noted on echocardiogram dated 08/26/2014. Normal LV size and function with an EF of 65 to 70%. Severe pulmonary hypertension RVSP of 66 mmHg on echocardiogram dated 08/26/2014. Surgical History Surgical History History of appendectomy History of bariatric surgery Gastropexy for obesity in 1978 and 1983. History of bilateral knee replacement History of carpal tunnel release History of cholecystectomy History of colonoscopy with polypectomy History of dilation and curettage (1973) History of hysterectomy (1996) History of left breast biopsy History of tonsillectomy History of tubal ligation (1977) Presence of IVC filter Status post full thickness skin graft (11/27/20) Excision 3 cm bleeding varicosity lesion of the right lateral leg with full-thickness skin graft per Dr. Dumont. Family History Family History Mother Diabetes mellitus age 51 Family history of kidney disease Family history of mental disorder Father Heart disease of a PR age 55 Family history of coronary artery disease Family history of arthritis Sibling Blood clot in vein Family history of arthritis Grandparent Family history of malignant neoplasm Other Family history of alcoholism Hypertension Social History Social History Social History: The patient is and lives with her in [place]. She has 3 children. Retired. she has a Nonsmoker. she denies anyAlcohol or illicit substance abuse. Surrogate decision maker: Trae Mazariegos, . Code status: Full code Smoking status: Never smoker Second hand tobacco smoke exposure: No Alcohol intake: never Substance use: never Substance use type: does not use Living arrangements: with family Gender identity (if verbalized by the patient): Female Spiritual care concerns: No Exam Narrative: APPEARANCE: Well appearing, no pain, no distress, well-nourished. HEAD: normocephalic, atraumatic. EYES: PERRLA/EOMI, conjunctivae clear. N
[2022-09-19 14:24] LABS: Basophils Percent Auto 0.4 % (0.2-1.2); Eosinophils Absolute Auto 0.2 K/mm3 (0-0.3); Eosinophils Percent Auto 2.5 % (0-4.4); Hematocrit 40.8 % (37.0-47.0); Hemoglobin 12.9 g/dL (12.0-15.0); Immature Granulocyte Absolute 0.04 K/mm3 (0.00-0.031); Immature Granulocyte Percent A 0.5 % (0-0.5); Lymphocytes Absolute Auto 1.55 K/mm3 (0.9-3.2); Lymphocytes Percent Auto 20.1 % (18.3-44.2); Mean Corpuscular HGB Conc 31.6 g/dl (32-36); Mean Corpuscular Volume 91.7 fl (80-100); Mean Platelet Volume 9.5 fl (7.4-10.4); Monocytes Absolute Auto 0.5 K/mm3 (0.1-0.6); Neutrophils Absolute Auto 5.4 K/mm3 (1.3-6.7); Neutrophils Percent Auto 69.5 % (45.5-73.1); Platelet Count Result 258 k/mm3 (150-375); Red Blood Count 4.45 M/mm3 (4.2-5.4); Red Cell Distribution Width 13.6 % (11.5-14.5); White Blood Count 7.7 K/mm3 (4.5-10.0)
[2022-09-19 14:30] LABS: Appearance Urine Cloudy (Clear); Bacteria Urine 4+ /hpf; Bilirubin Urine Negative (Negative); Blood Urine Negative (Negative); Color Urine Yellow (Yellow); Glucose Urine UA Negative (Negative); Ketones Urine Negative (Negative); Leukocyte Esterase Ur 2+ LEU/UL (Negative); Nitrate Urine Positive (Negative); Protein Urine Negative (Negative); RBC Urine 0-2 /hpf (0-2); Specific Grav Ur 1.011 (1.001-1.035); Squamous Epithelial Cell Urine None seen /hpf (Few)
--- NOTE | 2022-09-19 14:30 | PC.NURSE ---
Telfa and 4x4 dressing applied to R inner thigh wound per Dr. Laguna verbal order.
[2022-09-19 14:37] LABS: INR 1.7; Prothrombin Time 21.4 Seconds (11.1-14.7)
[2022-09-19 14:38] LABS: Partial Thromboplastin Time 32.2 SECONDS (22.3-36.8)
[2022-09-19 14:41] LABS: Add Urine Microscopic? YES
[2022-09-19 14:56] LABS: Alanine Aminotransferase 17 U/L (6-35); Alkaline Phosphatase 129 U/L (38-126); Anion Gap 9 mmol/L (8-16); Aspartate Amino Transferase 20 U/L (14-36); Bilirubin,Total 0.8 mg/dL (0.2-1.3); Blood Urea Nitrogen 23 mg/dL (7-17); Calcium 8.9 mg/dL (8.4-10.2); Carbon Dioxide 29 mmol/L (22-30); Chloride 98 mmol/L (98-107); Estimated CRCL calculation 73 ml/min; Estimated Glomerular Filt Rate > 60; Glucose 150 mg/dL (65-110); Potassium 4.5 mmol/L (3.4-5.0); Sodium 136 mmol/L (137-145)
== END 2022-09-19 15:29 | disposition home or self-care (01) ==
PROVIDERS: Emergency Provider Emergency Medicine; PCP Family Medicine
DX: L98.9 Disorder of the skin and subcutaneous tissue, unspecified (principal); F03.90 Unspecified dementia, unspecified severity, without behavioral disturbance, psychotic disturbance, mood disturbance, and anxiety; I10 Essential (primary) hypertension; J45.20 Mild intermittent asthma, uncomplicated; E78.2 Mixed hyperlipidemia; I27.20 Pulmonary hypertension, unspecified; I48.19 Other persistent atrial fibrillation; R73.03 Prediabetes; E03.9 Hypothyroidism, unspecified; G47.33 Obstructive sleep apnea (adult) (pediatric); K21.9 Gastro-esophageal reflux disease without esophagitis; E66.01 Morbid (severe) obesity due to excess calories; Z68.43 Body mass index [BMI] 50.0-59.9, adult; Z96.653 Presence of artificial knee joint, bilateral; Z98.84 Bariatric surgery status; Z86.718 Personal history of other venous thrombosis and embolism; Z86.711 Personal history of pulmonary embolism; Z79.01 Long term (current) use of anticoagulants; Z90.49 Acquired absence of other specified parts of digestive tract; Z90.710 Acquired absence of both cervix and uterus
CPT/HCPCS: 36415; 80053; 81001; 85025; 85610; 85730; 87077; 87086; 87186; 99283

== ENCOUNTER 2022-12-07 10:35 | Emergency (ER) | payer MEDICARE, SELFPAY ==
[2022-12-07] VITALS (9 sets, daily range): BP systolic 116–120; BP diastolic 82–84; PULSE 60–94; RESP 13–22; TEMP 36.3; O2SAT 92–100
[2022-12-07 11:55] LABS: Basophils Percent Auto 0.6 % (0.2-1.2); Eosinophils Absolute Auto 0.3 K/mm3 (0-0.3); Eosinophils Percent Auto 4.6 % (0-4.4); Hematocrit 46.7 % (37.0-47.0); Hemoglobin 14.5 g/dL (12.0-15.0); Immature Granulocyte Absolute 0.03 K/mm3 (0.00-0.031); Immature Granulocyte Percent A 0.5 % (0-0.5); Lymphocytes Absolute Auto 1.05 K/mm3 (0.9-3.2); Lymphocytes Percent Auto 16.2 % (18.3-44.2); Mean Corpuscular Hemoglobin 28.2 pg (26-34); Mean Corpuscular Volume 90.9 fl (80-100); Mean Platelet Volume 9.3 fl (7.4-10.4); Monocytes Absolute Auto 0.5 K/mm3 (0.1-0.6); Neutrophils Absolute Auto 4.6 K/mm3 (1.3-6.7); Neutrophils Percent Auto 71.1 % (45.5-73.1); Platelet Count Result 244 k/mm3 (150-375); Red Blood Count 5.14 M/mm3 (4.2-5.4); Red Cell Distribution Width 14.2 % (11.5-14.5); White Blood Count 6.5 K/mm3 (4.5-10.0)
[2022-12-07 12:04] LABS: Appearance Urine Clear (Clear); Bacteria Urine 4+ /hpf; Bilirubin Urine Negative (Negative); Blood Urine Negative (Negative); Color Urine Yellow (Yellow); Glucose Urine UA Negative (Negative); Hyaline Casts Urine Present /lpf; Ketones Urine Negative (Negative); Leukocyte Esterase Ur 1+ LEU/UL (Negative); Nitrate Urine Positive (Negative); Non Pathogenic Casts 0-2; Protein Urine Negative (Negative); RBC Urine 0-2 /hpf (0-2); Specific Grav Ur 1.008 (1.001-1.035); Squamous Epithelial Cell Urine None seen /hpf (Few); pH Urine 5.5 (5.0-9.0)
[2022-12-07 12:05] LABS: Add Urine Microscopic? YES
[2022-12-07 12:06] LABS: Alanine Aminotransferase 17 U/L (6-35); Albumin Level 4.3 g/dL (3.5-5.1); Alkaline Phosphatase 136 U/L (38-126); Anion Gap 9 mmol/L (8-16); Aspartate Amino Transferase 18 U/L (14-36); Bilirubin,Total 0.6 mg/dL (0.2-1.3); Blood Urea Nitrogen 22 mg/dL (7-17); Calcium 9.2 mg/dL (8.4-10.2); Carbon Dioxide 30 mmol/L (22-30); Chloride 100 mmol/L (98-107); Estimated CRCL calculation 74 ml/min; Estimated Glomerular Filt Rate > 60; Glucose 126 mg/dL (65-110); Potassium 4.4 mmol/L (3.4-5.0); Sodium 139 mmol/L (137-145)
--- NOTE | 2022-12-07 12:42 | ED.EXTPRO ---
HPI - Extremity Problem General Chief complaint: Extremity Problem,Nontraumatic Stated complaint: varicose vein bleeding in leg Time Seen by Provider: 12/07/22 11:00 History of Present Illness HPI Narrative: Pt presents with generalized weakness and bleeding from wounds on her upper thighs near her buttocks. Pt says they bleed every day and it limits what she can do. Pt denies fever or chills or redness, Related Data Home Medications Medication Instructions Recorded Confirmed famotidine 40 mg tablet 20 mg PO DAILY 09/29/22 Allergies Allergy/AdvReac Type Severity Reaction Status Date / Time metoclopramide Allergy Intermediate Hives Verified 12/07/22 10:36 Review of Systems Review of Systems: All systems reviewed & are unremarkable except as noted in HPI and below PMFSH Past Medical History Medical History Abnormal stress test (01/2021) Lexiscan stress showed no reversible ischemia and a fixed defect. Anxiety Atrial fibrillation Chronic anticoagulation Chronic constipation Chronic low back pain with sciatica Chronic wound of extremity 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 Dumont for quite some time. Status post excision with full-thickness skin graft on 11/27/2020. Deep venous thrombosis (2014) Dementia Depression Essential hypertension Gastroesophageal reflux Hypothyroidism Mild episode of recurrent major depressive disorder Mild intermittent asthma without complication Mixed hyperlipidemia Morbid obesity Obstructive sleep apnea (~2004) Intolerant to CPAP. Persistent atrial fibrillation Prediabetes Hemoglobin A1c was 6.2% on 01/09/2021. Pulmonary embolism (2014) Pulmonary hypertension Right ventricular systolic dysfunction Severe right ventricular enlargement with [id number] systolic dysfunction noted on echocardiogram dated 08/26/2014. Normal LV size and function with an EF of 65 to 70%. Severe pulmonary hypertension RVSP of 66 mmHg on echocardiogram dated 08/26/2014. Surgical History Surgical History History of appendectomy History of bariatric surgery Gastropexy for obesity in 1978 and 1983. History of bilateral knee replacement History of carpal tunnel release History of cholecystectomy History of colonoscopy with polypectomy History of dilation and curettage (1973) History of hysterectomy (1996) History of left breast biopsy History of tonsillectomy History of tubal ligation (1977) Presence of IVC filter Status post full thickness skin graft (11/27/20) Excision 3 cm bleeding varicosity lesion of the right lateral leg with full-thickness skin graft per Dr. Dumont. Family History Family History Mother Diabetes mellitus age 51 Family history of kidney disease Family history of mental disorder Father Heart disease of a [place] age 55 Family history of coronary artery disease Family history of arthritis Sibling Blood clot in vein Family history of arthritis Grandparent Family history of malignant neoplasm Other Family history of alcoholism Hypertension Social History Social History Social History: The patient is and lives with her in [place]. She has 3 children. Retired. she has a Nonsmoker. she denies anyAlcohol or illicit substance abuse. Surrogate decision maker: Trae Mazariegos, . Code status: Full code Smoking status: Never smoker Second hand tobacco smoke exposure: No Alcohol intake: never Substance use: never Substance use type: does not use Living arrangements: with family Gender identity (if verbalized by the patient): Female Spiritual care concerns: No Exam Const: General: healthy appearing and no acute distress Nutritional Appearance: obese
--- NOTE | 2022-12-07 12:56 | PC.NURSE ---
Pt evaluated by Danica from wound clinic.
[2022-12-07] MEDS: TOLNAFTATE 1% POWDER 45 GM BTL 1 APPLIC TOPICAL (13:27)
== END 2022-12-07 13:37 | disposition home or self-care (01) ==
PROVIDERS: Emergency Provider Emergency Medicine; PCP Family Medicine
DX: N39.0 Urinary tract infection, site not specified (principal); L97.129 Non-pressure chronic ulcer of left thigh with unspecified severity; L97.119 Non-pressure chronic ulcer of right thigh with unspecified severity; I10 Essential (primary) hypertension; I48.19 Other persistent atrial fibrillation; E03.9 Hypothyroidism, unspecified; F03.90 Unspecified dementia, unspecified severity, without behavioral disturbance, psychotic disturbance, mood disturbance, and anxiety; Z86.718 Personal history of other venous thrombosis and embolism
CPT/HCPCS: 36415; 80053; 81001; 85025; 87077; 87086; 87186; 99283; A9270

== ENCOUNTER 2023-01-09 13:02 | Observation (INO) | payer MEDICARE, SELFPAY ==
[2023-01-09] VITALS (11 sets, daily range): BP systolic 105–125; BP diastolic 56–96; PULSE 65–105; RESP 12–20; TEMP 36.6–36.7; O2SAT 96–99; BMI 54.3
--- NOTE | ~2023-01-09 | US_ITS ---
EXAMINATION: US renal BI DATE: 01/11/2023 09:52 INDICATION: Acute kidney injury TECHNIQUE: Multiple grayscale and Doppler ultrasound images of the kidneys were obtained. COMPARISON: None. FINDINGS: The right kidney measures 10.6 x 4.7 x 5.0 cm. The left kidney is not visualized due to pat ient body habitus. The right kidney demonstrates normal parenchymal echogenicity. There is no hydrone phrosis. The bladder is decompressed by García catheter. IMPRESSION: 1. Unremarkable right kidney. Nonvisualization of the left kidney. Reviewed, dictated and finalized at location L.
--- NOTE | ~2023-01-09 | XR_ITS ---
Portable chest x-ray Comparison: 12/28/2021 Clinical History: Dyspnea Findings: Lungs are clear, without focal consolidation or pleural effusion. Cardiomediastinal silho uette is stable. Moderate degenerative change of the right glenohumeral joint noted. Impression: Clear lungs. Reviewed, dictated and finalized at location . Impression: Clear lungs.
--- NOTE | 2023-01-09 15:35 | ED.WEAKNESS ---
HPI - Weakness General Chief complaint: Weakness Stated complaint: weakness Time Seen by Provider: 01/09/23 15:22 History of Present Illness HPI Narrative: Patient is a 67-year-old female with history of AFib, CHF, PE/ DVT here with generalized weakness. Patient states that today she went to restorationism in an attempt to get back into the car after restorationism her legs gave out. She states that she lowered down onto the door frame and then that the floor. EMS was called for lift assist. Patient was unable to stand at that time and it was decided to bring her into the emergency department for evaluation. She does note some shortness of breath during this time stating that she felt like she was having a panic attack . No prodromal chest pain. She was having some dark spots in her bilateral vision, feeling as though she may pass out. Patient's states that she had a stomach bug yesterday and had some decreased p.o. intake. Patient endorses that she has not been drinking very much water recently. She also notes some dysuria and is concerned that she may have a UTI. She was treated recently for UTI, does not believe her symptoms improved while taking these antibiotics. She does endorse some wounds on her legs and knee seemed to be stable or improving. No fever chills. No chest pain. Related Data Allergies Allergy/AdvReac Type Severity Reaction Status Date / Time metoclopramide Allergy Intermediate Hives Verified 01/09/23 20:59 Review of Systems Review of Systems: CONSTITUTIONAL: Denies fever, chills, or sweats. EYES: Denies visual changes, redness, or discharge. ENT: Denies rhinorrhea, congestion, sore throat, or otalgia. CARDIOVASCULAR: Denies chest pain, palpitations, or edema. RESPIRATORY: Denies cough or dyspnea. GASTROINTESTINAL: Denies abdominal pain, nausea, vomiting, or diarrhea. GENITOURINARY: Denies dysuria or hematuria. SKIN: Denies rash or itching. MUSCULOSKELETAL: Denies back pain, joint pain, or myalgia. NEUROLOGIC: Denies headache, numbness, or weakness. PSYCHIATRIC: Denies anxiety or depression. [facility] Past Medical History Medical History Abnormal stress test (01/2021) Lexiscan stress showed no reversible ischemia and a fixed defect. Anxiety Atrial fibrillation Chronic anticoagulation Chronic constipation Chronic low back pain with sciatica Chronic wound of extremity 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 Dumont for quite some time. Status post excision with full-thickness skin graft on 11/27/2020. Deep venous thrombosis (2014) Dementia Depression Essential hypertension Gastroesophageal reflux Hypothyroidism Mild episode of recurrent major depressive disorder Mild intermittent asthma without complication Mixed hyperlipidemia Morbid obesity Obstructive sleep apnea (~2004) Intolerant to CPAP. Persistent atrial fibrillation Prediabetes Hemoglobin A1c was 6.2% on 01/09/2021. Pulmonary embolism (2014) Pulmonary hypertension Right ventricular systolic dysfunction Severe right ventricular enlargement with [id number] systolic dysfunction noted on echocardiogram dated 08/26/2014. Normal LV size and function with an EF of 65 to 70%. Severe pulmonary hypertension RVSP of 66 mmHg on echocardiogram dated 08/26/2014. Surgical History Surgical History History of appendectomy History of bariatric surgery Gastropexy for obesity in 1978 and 1983. History of bilateral knee replacement History of carpal tunnel release History of cholecystectomy History of colonoscopy with polypectomy History of dilation and curettage (1973) History of hysterectomy (1996) History of left breast biopsy History of tonsillectomy History of tubal ligation (1977) Presence of IVC filter Status post full thickness skin graft (11/27/20) Excision 3 cm bleeding varicosity lesion of the right latera
--- NOTE | 2023-01-09 15:39 | ECG_ITS ---
Measurements Intervals [place] Rate: 86 P: PA: 0 QRS: -34 QRSD: 109 T: 7 QT: 353 QTc: 424 Interpretive Statements ATRIAL FIBRILLATION LEFT AXIS DEVIATION LEFT VENTRICULAR HYPERTROPHY POOR R WAVE PROGRESSION, ANTERIOR LEADS BORDERLINE T WAVE ABNORMALITY- INFERIOR LEADS BASELINE ARTIFACT- I, II, AVR, AVL, AVF ABNORMAL ECG COMPARED TO ECG 12/21/2021 12:42:25 NO SIGNIFICANT CHANGES Electronically Signed On 01-09-2023 20:53:30 CDT by Glenroy Ashraf D.O.
[2023-01-09 16:28] LABS: Basophils Absolute Auto 0.1 K/mm3 (0.0-0.1); Basophils Percent Auto 0.6 % (0.2-1.2); Eosinophils Absolute Auto 0.3 K/mm3 (0-0.3); Eosinophils Percent Auto 2.7 % (0-4.4); Hematocrit 40.3 % (37.0-47.0); Hemoglobin 12.7 g/dL (12.0-15.0); Immature Granulocyte Absolute 0.05 K/mm3 (0.00-0.031); Immature Granulocyte Percent A 0.5 % (0-0.5); Lymphocytes Absolute Auto 1.62 K/mm3 (0.9-3.2); Lymphocytes Percent Auto 15.7 % (18.3-44.2); Mean Corpuscular HGB Conc 31.5 g/dl (32-36); Mean Corpuscular Hemoglobin 28.7 pg (26-34); Mean Platelet Volume 9.5 fl (7.4-10.4); Monocytes Absolute Auto 0.7 K/mm3 (0.1-0.6); Monocytes Percent Auto 6.6 % (2.6-8.5); Neutrophils Absolute Auto 7.6 K/mm3 (1.3-6.7); Neutrophils Percent Auto 73.9 % (45.5-73.1); Platelet Count Result 277 k/mm3 (150-375); Red Blood Count 4.43 M/mm3 (4.2-5.4); Red Cell Distribution Width 15.5 % (11.5-14.5); White Blood Count 10.3 K/mm3 (4.5-10.0)
[2023-01-09 16:40] LABS: Appearance Urine Clear (Clear); Bacteria Urine None Seen /hpf; Bilirubin Urine Negative (Negative); Blood Urine Negative (Negative); Color Urine Yellow (Yellow); Glucose Urine UA Negative (Negative); INR 2.1; Ketones Urine Negative (Negative); Leukocyte Esterase Ur Trace LEU/UL (Negative); Need Manual Microscopic Reviewed; Nitrate Urine Negative (Negative); Protein Urine Negative (Negative); Prothrombin Time 24.8 Seconds (11.1-14.7); RBC Urine 0-2 /hpf (0-2); Specific Grav Ur 1.012 (1.001-1.035); Squamous Epithelial Cell Urine Few /hpf (Few); Urobilinogen Urine 0.2 mg/dL (<2.0); WBC Urine 0-5 /hpf; pH Urine 5.5 (5.0-9.0)
[2023-01-09 16:41] LABS: Partial Thromboplastin Time 30.2 SECONDS (22.3-36.8)
[2023-01-09 16:42] LABS: Alanine Aminotransferase 16 U/L (6-35); Alkaline Phosphatase 135 U/L (38-126); Anion Gap 9 mmol/L (8-16); Aspartate Amino Transferase 25 U/L (14-36); Bilirubin,Total 0.7 mg/dL (0.2-1.3); Blood Urea Nitrogen 30 mg/dL (7-17); Calcium 8.8 mg/dL (8.4-10.2); Carbon Dioxide 25 mmol/L (22-30); Chloride 99 mmol/L (98-107); Estimated CRCL calculation 40 ml/min; Estimated Glomerular Filt Rate 30; Glucose 94 mg/dL (65-110); Magnesium 2.1 mg/dL (1.6-2.3); Potassium 5.2 mmol/L (3.4-5.0); Sodium 133 mmol/L (137-145)
[2023-01-09 16:44] LABS: Add Urine Microscopic? YES
[2023-01-09 16:50] LABS: NT Pro B Type Natriuretic Pept 3440 pg/mL (19.9-100)
[2023-01-09 16:52] LABS: Troponin I < 0.012 ng/mL (0.000-0.034)
[2023-01-09 17:04] LABS: SARS-CoV-2 RNA PCR Negative (Negative)
[2023-01-09] MEDS: FUROSEMIDE INJ 40 MG/4 ML VIAL IV PUSH (18:54)
[2023-01-09 19:18] LABS: Troponin I < 0.012 ng/mL (0.000-0.034)
--- NOTE | 2023-01-09 19:20 | PC.NURSE ---
Assumed care from DERRICK Nicholson at this time. Hospitalist in room talking with pt at this time.
--- NOTE | 2023-01-09 21:00 | ADMGEN ---
This patient, Lorraine Mazariegos, was admitted to 2 Medical Room 256-. Patient/family oriented to hospital policies and general routines including ID bracelet, bed and alarms, visiting hours, pain management, procedures, bathroom and other care routines, personal items, smoking policy, room service/diet, and visiting hours. Information on how to activate the Rapid Response Team has been discussed. Patient/Family are encouraged to report perceived risks to care and to ask questions if they do not understand what they are told or what they should do.
[2023-01-10] VITALS (14 sets, daily range): BP systolic 94–168; BP diastolic 54–129; PULSE 59–150; RESP 20; TEMP 36.2–36.4; O2SAT 92–100
--- NOTE | 2023-01-10 00:08 | PM.IMHP ---
H&P: HPI History of Present Illness Date/Time: 01/09/23 19:00 Chief Complaint: Weakness. Narrative: This is a pleasant 67-year-old female with multiple medical problems including coronary artery disease, paroxysmal atrial fibrillation on chronic anticoagulation, hypertension, hypothyroidism, sleep apnea, morbid obesity, prediabetes, DVT and PE, right-sided heart failure, severe pulmonary hypertension, and other comorbidities who presented to the emergency department via EMS from [facility] for evaluation of weakness. The patient provides the following history. At baseline her mobility is limited, she can ambulate around the home with a walker and occasionally needs assistance with a gait belt. She sleeps in a recliner which has an automatic lift. Today while getting dressed for [facility] she sat down the bed and was unable to get up without several people helping her. She also needed more help getting into the car to go to [facility]. She seemed to be doing okay during the service and when leaving [facility] she started to feel weak and lightheaded. Her legs buckled and she had a controlled fall onto her buttocks onto the ground. EMS was called for lift assist and she was brought in for evaluation. She was afebrile on arrival to the ED with stable vital signs. Labs were significant for a WBC count of 10.3, sodium 133, potassium 5.2, BUN 30, creatinine 1.70, normal troponin, proBNP 3440. UA showed trace leukocyte esterase, minimal wbc's, and no bacteria. Chest x-ray was clear. At baseline she has a normal creatinine with further questioning she reports that she did not have good oral intake yesterday as she was not feeling well with generalized malaise, fatigue, and nausea. She was recently started on antibiotics for urinary tract infection though symptoms have resolved. Specifically she denies urgency, hesitancy, and dysuria. She does admit that sometime she has difficulties urinating however and occasionally sits on the toilet for tender 15 minutes before she is able to urinate. She denies fever, chills, sweats, chest pain, cough, cold and flu symptoms, vomiting, and diarrhea. She is being admitted in this setting for further treatment and evaluation of acute kidney injury and generalized weakness. Review of Systems Review of Systems: Twelve systems were reviewed and are negative except for as per HPI. [facility] Past Medical History Medical History Abnormal stress test (01/2021) Lexiscan stress showed no reversible ischemia and a fixed defect. Anxiety Atrial fibrillation Chronic anticoagulation Chronic constipation Chronic low back pain with sciatica Chronic wound of extremity 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 Dumont for quite some time. Status post excision with full-thickness skin graft on 11/27/2020. Deep venous thrombosis (2014) Dementia Depression Essential hypertension Gastroesophageal reflux Hypothyroidism Mild episode of recurrent major depressive disorder Mild intermittent asthma without complication Mixed hyperlipidemia Morbid obesity Obstructive sleep apnea (~2004) Intolerant to CPAP. Persistent atrial fibrillation Prediabetes Hemoglobin A1c was 6.2% on 01/09/2021. Pulmonary embolism (2014) Pulmonary hypertension Right ventricular systolic dysfunction Severe right ventricular enlargement with [id number] systolic dysfunction noted on echocardiogram dated 08/26/2014. Normal LV size and function with an EF of 65 to 70%. Severe pulmonary hypertension RVSP of 66 mmHg on echocardiogram dated 08/26/2014. Surgical History Surgical History History of appendectomy History of bariatric surgery Gastropexy for obesity in 1978 and 1983. History of bilateral knee replacement History of carpal tunnel release History of cholecystectomy History of colonoscopy with polypectomy History of dilation and curettage
[2023-01-10] MEDS: SODIUM CHLORIDE 0.9% IV 1,000 ML 100 ML IV CONT (01:26)
[2023-01-10 01:43] LABS: Anion Gap 8 mmol/L (8-16); Blood Urea Nitrogen 32 mg/dL (7-17); Calcium 9.1 mg/dL (8.4-10.2); Carbon Dioxide 27 mmol/L (22-30); Chloride 100 mmol/L (98-107); Estimated CRCL calculation 37 ml/min; Estimated Glomerular Filt Rate 28; Glucose 148 mg/dL (65-110); Potassium 4.3 mmol/L (3.4-5.0); Sodium 135 mmol/L (137-145)
[2023-01-10 05:53] LABS: Hematocrit 38.9 % (37.0-47.0); Mean Corpuscular HGB Conc 30.8 g/dl (32-36); Mean Corpuscular Hemoglobin 28.5 pg (26-34); Mean Corpuscular Volume 92.4 fl (80-100); Mean Platelet Volume 9.4 fl (7.4-10.4); Platelet Count Result 244 k/mm3 (150-375); Red Blood Count 4.21 M/mm3 (4.2-5.4); Red Cell Distribution Width 15.4 % (11.5-14.5); White Blood Count 7.8 K/mm3 (4.5-10.0)
[2023-01-10 05:58] LABS: Alanine Aminotransferase 14 U/L (6-35); Albumin Level 3.5 g/dL (3.5-5.1); Alkaline Phosphatase 125 U/L (38-126); Anion Gap 6 mmol/L (8-16); Aspartate Amino Transferase 21 U/L (14-36); Bilirubin,Total 0.4 mg/dL (0.2-1.3); Blood Urea Nitrogen 32 mg/dL (7-17); Calcium 8.8 mg/dL (8.4-10.2); Carbon Dioxide 26 mmol/L (22-30); Chloride 103 mmol/L (98-107); Estimated CRCL calculation 39 ml/min; Estimated Glomerular Filt Rate 30; Glucose 116 mg/dL (65-110); Magnesium 2.1 mg/dL (1.6-2.3); Potassium 4.5 mmol/L (3.4-5.0); Sodium 135 mmol/L (137-145)
[2023-01-10] MEDS: LEVOTHYROXINE SODIUM 25 MCG TABLET PO (06:03)
[2023-01-10] MEDS: LACTATED RINGERS 1,000 ML 999 ML IV CONT (08:19)
[2023-01-10] MEDS: oxyBUTYnin CHLORIDE XL 5 MG TAB.ER.24 10 MG PO (08:19)
[2023-01-10] MEDS: FAMOTIDINE 20 MG TABLET 40 MG BY MOUTH (08:19)
[2023-01-10] MEDS: GABAPENTIN 300 MG CAPSULE 600 MG PO ×2 (08:19→21:11)
[2023-01-10] MEDS: MULTIVITAMINS /C LUTEIN (CENTRUM SILVER) TABLET *BKC 1 TAB PO (08:19)
[2023-01-10] MEDS: dilTIAZem HCL CD 180 MG CAP.24HR PO (08:20)
[2023-01-10] MEDS: DULoxetine HCL 60 MG CAPSULE.DR BY MOUTH (08:20)
[2023-01-10] MEDS: ATORVASTATIN 40 MG TABLET BY MOUTH (08:20)
[2023-01-10] MEDS: METOPROLOL TARTRATE 50 MG TAB 150 MG PO ×2 (08:20→21:11)
[2023-01-10] MEDS: MICONAZOLE NITRATE 2% CREAM 30 GM TUBE 1 APPLIC TOPICAL ×2 (08:21→17:36)
[2023-01-10] MEDS: TOLNAFTATE 1% POWDER 45 GM BTL 1 APPLIC TOPICAL ×2 (08:21→21:11)
--- NOTE | 2023-01-10 08:34 | PM.IMPN ---
Progress Note: A&P Assessment and Plan (1) Acute kidney injury: Code(s): N17.9 - Acute kidney failure, unspecified Status: Acute Assessment and Plan: Patient with acute kidney injury later discovered urinary retention. Received IV diuretics due to elevated potassium. Ordered fluid bolus and continued IV fluids. Add CK level. Ordered renal ultrasound. García catheter in place. (2) Generalized weakness: Code(s): R53.1 - Weakness Status: Acute Assessment and Plan: Patient is chronically ill, obese with limited mobility at baseline and recent acute weakness two falls the past few weeks. PT and OT for evaluation and treatment (3) Atrial fibrillation: Code(s): I48.91 - Unspecified atrial fibrillation Status: Acute Assessment and Plan: Chronic atrial fibrillation currently RVR with rate 100-125. Patient on diltiazem, metoprolol and rivaroxaban. Continue home medications. (4) Prediabetes: Code(s): R73.03 - Prediabetes Status: Chronic Assessment and Plan: Add A1c, will at fingerstick glucose if A1c above 6 (5) Essential (primary) hypertension: Code(s): I10 - Essential (primary) hypertension Status: Acute Assessment and Plan: Stable, normal blood pressures at this time. Blood pressure reviewed on 01/10 (6) Urinary retention: Code(s): R33.9 - Retention of urine, unspecified Status: Acute Assessment and Plan: García catheter inserted. Renal ultrasound ordered. Trending renal function labs. No obvious urinary tract infection at this time, culture in progress (7) Hyperkalemia: Code(s): E87.5 - Hyperkalemia Status: Acute Assessment and Plan: Mildly elevated in the emergency department, treated with IV Lasix and responded to normal. (8) Pulmonary hypertension: Code(s): I27.20 - Pulmonary hypertension, unspecified Status: Acute Assessment and Plan: History severe pulm HTN. Echo ordered (9) Morbid obesity: Code(s): E66.01 - Morbid (severe) obesity due to excess calories Status: Acute Assessment and Plan: Noted. Diet changed to carb consistent Time Spent With Patient Time with patient: 25 - 35 minutes Subjective Date/time seen: 01/10/23 08:34 Interval history: This is a 67-year-old female patient who was admitted to the hospital for generalized weakness stating that her legs felt like they were going to buckle out from underneath her. Patient found to have acute kidney injury with baseline normal renal function. She was also found to 800 mL in bladder on bladder scan and 1200 mL out with insertion García catheter. Patient has history of atrial fibrillation and is on diltiazem, metoprolol and rivaroxaban for such. Patient has a history right ventricular failure and severe pulmonary hypertension. IV Lasix was given the emergency department due to elevated potassium level. Patient reports this morning that she feels little tired and generally weak but no nausea, vomiting, abdominal pain, chest pain, difficulty breathing, fever chills. She does some redness to bilateral feet ankles. She states that she did feel sick about 1 week ago but that only lasted for a day or two. Review of Systems Review of Systems: All systems reviewed & are unremarkable except as noted in HPI and below Exam Narrative: General: Chronically ill, nontoxic-appearing female sitting up in bed. Weight: 139.1 kg. BMI: 54.3. HEENT: Normocephalic, atraumatic. PERRL, EOMI. Sclera anicteric. Tacky mucous membranes. Neck: Supple. Exam limited due to neck circumference. No apparent JVD Respiratory: Respirations are nonlabored. Lungs are clear to auscultation. Cardiovascular: Irregularly irregular rate and rhythm. Monitor shows atrial fibrillation with RVR 100-125 beats per minute this morning. Gastrointestinal: Abdomen is soft, morbidly obese, nontender, and nondistended with positive kathryn
[2023-01-10 09:44] LABS: Creatine Kinase 120 U/L (30-135)
[2023-01-10 10:28] LABS: Hemoglobin A1C 6.2 % (<5.7)
[2023-01-10 16:00] LABS: Anion Gap 10 mmol/L (8-16); Blood Urea Nitrogen 31 mg/dL (7-17); Calcium 8.8 mg/dL (8.4-10.2); Carbon Dioxide 26 mmol/L (22-30); Chloride 102 mmol/L (98-107); Estimated CRCL calculation 47 ml/min; Estimated Glomerular Filt Rate 37; Glucose 140 mg/dL (65-110); Potassium 4.7 mmol/L (3.4-5.0); Sodium 138 mmol/L (137-145)
[2023-01-10] MEDS: RIVAROXABAN 20 MG TABLET PO (17:36)
[2023-01-11] VITALS (17 sets, daily range): BP systolic 96–145; BP diastolic 71–93; PULSE 52–112; RESP 16–20; TEMP 36.1–36.4; O2SAT 93–100
[2023-01-11] MEDS: SODIUM CHLORIDE 0.9% IV 1,000 ML 100 ML IV CONT (00:30)
[2023-01-11 05:52] LABS: Hematocrit 36.4 % (37.0-47.0); Hemoglobin 11.3 g/dL (12.0-15.0); Mean Corpuscular Hemoglobin 28.6 pg (26-34); Mean Corpuscular Volume 92.2 fl (80-100); Mean Platelet Volume 9.2 fl (7.4-10.4); Platelet Count Result 221 k/mm3 (150-375); Red Blood Count 3.95 M/mm3 (4.2-5.4); Red Cell Distribution Width 15.6 % (11.5-14.5); White Blood Count 5.9 K/mm3 (4.5-10.0)
[2023-01-11 06:31] LABS: Alanine Aminotransferase 14 U/L (6-35); Albumin Level 3.2 g/dL (3.5-5.1); Alkaline Phosphatase 116 U/L (38-126); Anion Gap 9 mmol/L (8-16); Aspartate Amino Transferase 18 U/L (14-36); Bilirubin,Total 0.4 mg/dL (0.2-1.3); Blood Urea Nitrogen 26 mg/dL (7-17); Calcium 8.3 mg/dL (8.4-10.2); Carbon Dioxide 23 mmol/L (22-30); Chloride 106 mmol/L (98-107); Estimated CRCL calculation 60 ml/min; Estimated Glomerular Filt Rate 49; Glucose 120 mg/dL (65-110); Potassium 4.5 mmol/L (3.4-5.0); Sodium 138 mmol/L (137-145)
[2023-01-11] MEDS: DULoxetine HCL 60 MG CAPSULE.DR BY MOUTH (08:03)
[2023-01-11] MEDS: ATORVASTATIN 40 MG TABLET BY MOUTH (08:03)
[2023-01-11] MEDS: FAMOTIDINE 20 MG TABLET 40 MG BY MOUTH (08:03)
[2023-01-11] MEDS: MULTIVITAMINS /C LUTEIN (CENTRUM SILVER) TABLET *BKC 1 TAB PO (08:03)
[2023-01-11] MEDS: oxyBUTYnin CHLORIDE XL 5 MG TAB.ER.24 10 MG PO (08:03)
[2023-01-11] MEDS: GABAPENTIN 300 MG CAPSULE 600 MG PO ×2 (08:03→21:42)
[2023-01-11] MEDS: METOPROLOL TARTRATE 50 MG TAB 150 MG PO ×2 (08:04→21:42)
[2023-01-11] MEDS: dilTIAZem HCL CD 180 MG CAP.24HR PO (08:05)
[2023-01-11] MEDS: TOLNAFTATE 1% POWDER 45 GM BTL 1 APPLIC TOPICAL ×2 (08:06→21:43)
[2023-01-11] MEDS: MICONAZOLE NITRATE 2% CREAM 30 GM TUBE 1 APPLIC TOPICAL ×2 (08:06→18:23)
--- NOTE | 2023-01-11 14:26 | PC.NURSE ---
On 01/11/23, the student, [Carson Astudillo], provided care and completed [facility] documentation on this patient. I have reviewed the student's documentation and agree with the findings.
--- NOTE | 2023-01-11 14:53 | PM.IMPN ---
Progress Note: A&P Assessment and Plan (1) Acute kidney injury: Code(s): N17.9 - Acute kidney failure, unspecified Status: Acute Assessment and Plan: Patient with acute kidney injury later discovered urinary retention. Received IV diuretics due to elevated potassium. Ordered fluid bolus and continued IV fluids. Add CK level. Ordered renal ultrasound. García catheter in place. 01/11: creatinine down to 1.1, Potassium remains in normal range. DC IV fluids and DC García catheter today. Bladder scan for postvoid residual. renal ultrasound only able to evaluate right kidney. Check labs in the morning and if increase in renal function labs CT scan abdomen (2) Generalized weakness: Code(s): R53.1 - Weakness Status: Acute Assessment and Plan: PT and OT recommend 2 weeks of intense rehab, patient refusing rehabilitation placement. Will work with home health. Case Management aware. (3) Atrial fibrillation: Code(s): I48.91 - Unspecified atrial fibrillation Status: Acute Assessment and Plan: Chronic atrial fibrillation previously RVR with current rate 80-100. Patient on diltiazem, metoprolol and rivaroxaban. Continue home medications. (4) Prediabetes: Code(s): R73.03 - Prediabetes Status: Chronic Assessment and Plan: A1c 6.2. (5) Essential (primary) hypertension: Code(s): I10 - Essential (primary) hypertension Status: Acute Assessment and Plan: Stable, normal blood pressures at this time. Blood pressure reviewed on 01/11 (6) Urinary retention: Code(s): R33.9 - Retention of urine, unspecified Status: Acute Assessment and Plan: DC García check postvoid residuals renal ultrasound only evaluated right kidney. If retaining we will replace García catheter. If renal function increases after stopping IV fluids we will CT scan abdomen. (7) Hyperkalemia: Code(s): E87.5 - Hyperkalemia Status: Acute Assessment and Plan: Mildly elevated in the emergency department, treated with IV Lasix and responded to normal. (8) Pulmonary hypertension: Code(s): I27.20 - Pulmonary hypertension, unspecified Status: Acute Assessment and Plan: History severe pulm HTN. Echo ordered (9) Morbid obesity: Code(s): E66.01 - Morbid (severe) obesity due to excess calories Status: Acute Assessment and Plan: Noted. Diet changed to carb consistent Time Spent With Patient Time with patient: 25 - 35 minutes Subjective Date/time seen: 01/11/23 14:53 Interval history: Patient reports that she slept well. She denies any chest pain difficulty breathing nausea or vomiting. Patient denies abdominal pain. Review of labs shows resolution BENNY. Therapy is recommending skilled rehabilitation the patient is adamantly refusing. We will remove García catheter check bladder scans to make sure she is not retaining again. BENNY felt to be combination of dehydration and urinary retention. Renal ultrasound reviewed and only the right kidney was visible. IV fluids discontinued. If any increase in renal function with a.m. labs we will CT scan the abdomen. Review of Systems Review of Systems: All systems reviewed & are unremarkable except as noted in HPI and below Exam Narrative: General: No acute distress. I awakened patient from sleep for exam. HEENT: Normocephalic, atraumatic. PERRL, EOMI. Sclera anicteric. Tacky mucous membranes. Neck: Supple. Exam limited due to neck circumference. No apparent JVD Respiratory: Respirations are nonlabored. Lungs are clear to auscultation. Cardiovascular: Irregularly irregular rate and rhythm. Monitor shows atrial fibrillation 80-100 beats per minute this morning. Gastrointestinal: Abdomen is soft, morbidly obese, nontender, and nondistended with positive bowel sounds. Genitourinary: García catheter remains in place draining clear yellow urine Skin: Warm and d
[2023-01-11] MEDS: RIVAROXABAN 20 MG TABLET PO (18:23)
[2023-01-12] VITALS (7 sets, daily range): BP systolic 122–134; BP diastolic 85–103; PULSE 77–107; RESP 12–20; TEMP 36.1–36.9; O2SAT 98
--- NOTE | 2023-01-12 02:28 | PC.NURSE ---
Pt bladder scanned at 2315 because there has been no output since [place] removal at 1530, max volume at that time shows 236ml. Pt called to try to urinate at 0030 and was able to void 200ml, post void scan shows 54ml retained.
[2023-01-12 05:40] LABS: Hematocrit 37.4 % (37.0-47.0); Hemoglobin 11.6 g/dL (12.0-15.0); Mean Corpuscular Hemoglobin 28.6 pg (26-34); Mean Corpuscular Volume 92.3 fl (80-100); Mean Platelet Volume 9.1 fl (7.4-10.4); Platelet Count Result 211 k/mm3 (150-375); Red Blood Count 4.05 M/mm3 (4.2-5.4); Red Cell Distribution Width 15.5 % (11.5-14.5); White Blood Count 5.5 K/mm3 (4.5-10.0)
[2023-01-12 05:59] LABS: Alanine Aminotransferase 15 U/L (6-35); Albumin Level 3.4 g/dL (3.5-5.1); Alkaline Phosphatase 120 U/L (38-126); Anion Gap 9 mmol/L (8-16); Aspartate Amino Transferase 19 U/L (14-36); Bilirubin,Total 0.4 mg/dL (0.2-1.3); Blood Urea Nitrogen 22 mg/dL (7-17); Calcium 8.6 mg/dL (8.4-10.2); Carbon Dioxide 23 mmol/L (22-30); Chloride 105 mmol/L (98-107); Estimated CRCL calculation 71 ml/min; Estimated Glomerular Filt Rate > 60; Glucose 122 mg/dL (65-110); Potassium 4.2 mmol/L (3.4-5.0); Sodium 137 mmol/L (137-145)
[2023-01-12] MEDS: LEVOTHYROXINE SODIUM 25 MCG TABLET PO (06:30)
--- NOTE | 2023-01-12 06:31 | PC.NURSE ---
Addendum entered by Jorge Dyer RN 01/12/23 06:40: FILLING HAULER Zack Hobbs verbally notified 0635, continue with bladder scan as ordered Original Note: Pt voided 300ml, post void bladder scan max 360ml residual. 2nd post void bladder scan of 3 scans ordered.
[2023-01-12] MEDS: MULTIVITAMINS /C LUTEIN (CENTRUM SILVER) TABLET *BKC 1 TAB PO (09:21)
[2023-01-12] MEDS: GABAPENTIN 300 MG CAPSULE 600 MG PO (09:21)
[2023-01-12] MEDS: FAMOTIDINE 20 MG TABLET 40 MG BY MOUTH (09:21)
[2023-01-12] MEDS: oxyBUTYnin CHLORIDE XL 5 MG TAB.ER.24 10 MG PO (09:21)
[2023-01-12] MEDS: ATORVASTATIN 40 MG TABLET BY MOUTH (09:21)
[2023-01-12] MEDS: dilTIAZem HCL CD 180 MG CAP.24HR PO (09:21)
[2023-01-12] MEDS: DULoxetine HCL 60 MG CAPSULE.DR BY MOUTH (09:21)
[2023-01-12] MEDS: METOPROLOL TARTRATE 50 MG TAB 150 MG PO (09:21)
[2023-01-12] MEDS: MICONAZOLE NITRATE 2% CREAM 30 GM TUBE 1 APPLIC TOPICAL (09:22)
[2023-01-12] MEDS: TOLNAFTATE 1% POWDER 45 GM BTL 1 APPLIC TOPICAL (09:23)
--- NOTE | 2023-01-12 11:20 | PM.DS ---
DS: Admitting Diagnosis Discharge Date 01/12/2023 Admitting Diagnosis Acute kidney injury, hyperkalemia, generalized weakness DS: Summary Hospital Course Reason for hospitalization: patient was admitted due to generalized weakness with findings of hyperkalemia and acute kidney injury. Hospital Course: patient admitted after couple falls over the preceding week with findings consistent with acute kidney injury elevated potassium and inability to care for herself at home. Renal function improved with IV hydration And García catheter placement. patient found to be retaining large amounts of urine. Potassium also improved with IV hydration without need for more significant intervention. Patient worked with PT and OT who recommended acute rehabilitation stay. Patient declined inpatient rehabilitation or SNF but did agree to work with therapy through home health which was set up and patient was able to discharge home. patient was able to have catheter discontinue and void with about 100 mL postvoid residual. Status at Discharge Cognitive/behavioral status at discharge: Awake, alert, oriented and pleasant Functional status at discharge: uses cane/walker Overall status at discharge: patient is progressing back to baseline Time Spent with Patient Time attestation: Total time spent providing and/or coordinating discharge services: Time spent: Greater than 30 minutes Exam Narrative: General: No acute distress. I awakened patient from sleep for exam. HEENT: Normocephalic, atraumatic. PERRL, EOMI. Sclera anicteric. normal mucous membranes. Neck: Supple. Exam limited due to neck circumference. No apparent JVD Respiratory: Respirations are nonlabored. Lungs are clear to auscultation. Cardiovascular: Irregularly irregular rate and rhythm. Monitor shows atrial fibrillation 80-100 beats per minute this morning. Gastrointestinal: Abdomen is soft, morbidly obese, nontender, and nondistended with positive bowel sounds. Genitourinary: García catheter remains in place draining clear yellow urine Skin: Warm and dry. Lower legs are erythematous from just above the ankles to the toes, chronic vascular insufficiency finding. There are some chronic venous stasis ulcers on anterior right lower ramírez Extremities: No cyanosis or clubbing. Trace lower extremity edema bilaterally. No palpable knots or cords. Peripheral pulses intact. Large bunion on the left great toe. Neurological: Alert. Cranial nerves 2-12 are grossly intact. Generalized weakness without focal findings. 5-/5 strength in all 4 extremities Psychiatric: Pleasant and cooperative with appropriate mood and affect. DS: Data Data Completed and Pending Labs on day of discharge: Labs from last 24 hours 01/12/23 05:07 WBC 5.5 RBC 4.05 L Hgb 11.6 L Hct 37.4 MCV 92.3 MCH 28.6 MCHC 31.0 L RDW 15.5 H Plt Count 211 MPV 9.1 Sodium 137 Potassium 4.2 Chloride 105 Carbon Dioxide 23 Anion Gap 9 BUN 22 H Creatinine 0.90 Estim Creat Clear Calc 71 Estimated GFR > 60 Glucose 122 H Calcium 8.6 Total Bilirubin 0.4 AST 19 ALT 15 Alkaline Phosphatase 120 Total Protein 6.0 L Albumin 3.4 L Discharge Plan Discharge Attending physician on discharge: Wojciech Merchant Consulting providers: Zack Hobbs; Stewart Herbert; Ilda Rodgers; Glenroy Ashraf; Huy Saxena Discharging Clinician: Zack Hobbs Anticipated Discharge Date/Time: 01/12/23 15:00 Patient Disposition: Home Health Service Activity: as tolerated Diet: diabetic Discharge Instructions: Per Care Coordination Patient has been accepted to have [facility] for RN, PT, OT [phone] Use walker for ambulation. Patient Instructions: Antibiotic Form, Rivaroxaban (By mouth), Pain Management (DC) Stand Alone Forms: General Discharge Information Follow-up/Referrals: Roselia Cutler MD [Primary Care Provider] - 1 Week (Call to schedule appointmen
== END 2023-01-12 16:40 | disposition home health service (06) ==
LOC: ANHED 16:15 → ANH2MED 20:18
PROVIDERS: Nurse Practitioner; Physician Assistant; Admitting Provider Hospitalist; Emergency Provider Student in an Organized Health Care Education/Training Program; PCP Family Medicine; Visit Provider Hospitalist
DX: N17.9 Acute kidney failure, unspecified (principal); I48.91 Unspecified atrial fibrillation; R73.03 Prediabetes; R30.0 Dysuria; E87.5 Hyperkalemia; Z20.822 Contact with and (suspected) exposure to COVID-19; I10 Essential (primary) hypertension; I50.9 Heart failure, unspecified; R06.00 Dyspnea, unspecified; E66.01 Morbid (severe) obesity due to excess calories; Z68.43 Body mass index [BMI] 50.0-59.9, adult; E78.5 Hyperlipidemia, unspecified; E03.9 Hypothyroidism, unspecified; R94.31 Abnormal electrocardiogram [ECG] [EKG]; G47.33 Obstructive sleep apnea (adult) (pediatric); H53.9 Unspecified visual disturbance; R79.89 Other specified abnormal findings of blood chemistry; F03.90 Unspecified dementia, unspecified severity, without behavioral disturbance, psychotic disturbance, mood disturbance, and anxiety; F41.9 Anxiety disorder, unspecified; F32.A Depression, unspecified; K21.9 Gastro-esophageal reflux disease without esophagitis; Z86.711 Personal history of pulmonary embolism; Z86.718 Personal history of other venous thrombosis and embolism; Z79.01 Long term (current) use of anticoagulants; Z79.899 Other long term (current) drug therapy
CPT/HCPCS: 36415; 71045; 76775; 80048; 80053; 81001; 82550; 83036; 83735; 83880; 84484; 85025; 85027; 85610; 85730; 87635; 93005; 96361; 96374; 97110; 97161; 97165; 97530; 97535; 99285; A9270; G0378; J1940; J7030; J7120

== ENCOUNTER 2023-02-07 09:43 | Outpatient (CLI) | payer MEDICARE, SELFPAY ==
--- NOTE | ~2023-02-07 | XR_ITS ---
XR shoulder RT min 2V DATE: 02/07/2023 10:30 INDICATION: Fell one month ago. Right shoulder pain. TECHNIQUE: 6 views COMPARISON: 07/28/2018 right shoulder FINDINGS: There is diffuse osteopenia. There is severe right glenohumeral osteoarthritis. There is soft tissue calcification or fracture along the posterolateral aspect of the right humeral h ead and neck. Consider CT right shoulder examination for more definitive evaluation. No fracture or d islocation is noted otherwise. IMPRESSION: Cannot exclude cortical fracture versus soft tissue calcification along the posterolatera l right humeral head and neck; consider CT right shoulder examination for more definitive evaluation Severe right glenohumeral osteoarthritis Reviewed, dictated and finalized at location B. IMPRESSION: Cannot exclude cortical fracture versus soft tissue calcification a long the posterolateral right humeral head and neck; consider CT right shoulder examination for more definitive evaluation Severe right glenohumeral osteoarthritis
--- NOTE | ~2023-02-07 | XR_ITS ---
XR elbow RT min 3V DATE: 02/07/2023 10:30 INDICATION: Fell one month ago. Right elbow pain. TECHNIQUE: 5 views COMPARISON: None FINDINGS: There is osteopenia. Small bony densities project from the most proximal aspect of the olecranon process of the ulna which may be small spurs or small cortical fractures of uncertain age. No other fracture or dislocation or joint effusion is evident. IMPRESSION: Small spurs or small cortical fractures of the proximal superior aspect of the olecranon process; otherwise unremarkable examination Reviewed, dictated and finalized at location B. IMPRESSION: Small spurs or small cortical fractures of the proximal superior as pect of the olecranon process; otherwise unremarkable examination
== END 2023-02-07 09:44 | disposition home or self-care (01) ==
LOC: ANHIMG 09:51
PROVIDERS: PCP Family Medicine; Visit Provider Family Medicine
DX: M25.521 Pain in right elbow (principal); M19.011 Primary osteoarthritis, right shoulder
CPT/HCPCS: 73030; 73080

== ENCOUNTER 2023-05-05 19:00 | Emergency (ER) | payer MEDICARE, SELFPAY ==
[2023-05-05] VITALS (9 sets, daily range): BP systolic 74–127; BP diastolic 43–104; PULSE 102–160; RESP 24–40; TEMP 38.4–38.8; O2SAT 92–100
--- NOTE | ~2023-05-05 | CT_ITS ---
EXAMINATION: CT brain wo con DATE: 05/05/2023 20:28 INDICATION: altered mental status . TECHNIQUE: Computed tomography (CT) of the head was performed without intravenous contrast. The mA wa s adjusted according to patient size. Iterative reconstruction technique was employed. The dose-lengt h product was 681.00 mGy-cm. COMPARISON: 09/15/2021. FINDINGS: No acute intracranial hemorrhage or extra-axial fluid collection. No hydrocephalus, mass, or herniation. No acute ischemic infarct. Unremarkable dural venous sinus attenuation. No acute osseous abnormality. Hyperostosis. Small retention cyst or polyp in the left maxillary sinus, the remaining aerated spaces are clear. Mild atrophy and chronic white matter change. Atherosclerotic intracranial calcification. IMPRESSION: No acute intracranial process. 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
--- NOTE | ~2023-05-05 | CT_ITS ---
EXAMINATION: CT chest abdomen pelvis w con DATE: 05/05/2023 21:23 INDICATION: abdomina, pain, sepsis . TECHNIQUE: Computed tomography (CT) of the chest, abdomen, and pelvis was performed with 100 mL Omnip aque-350 intravenous contrast. Automated exposure control and iterative reconstruction technique were employed. The dose-length product was 2275.15 mGy-cm. COMPARISON: CT abdomen pelvis 12/24/2021. FINDINGS: CHEST: Thoracic aorta: No significant dilation. Mild arch calcification. Lung parenchyma and airways: Low lung volumes with bibasilar atelectasis. Thoracic inlet, axillae and chest wall: No thyroid or soft tissue mass. No axillary lymphadenopathy. Mediastinum: Patulous air and fluid-filled esophagus. Heart and pericardium: Mild cardiomegaly. Mitral calcification. Coronary artery calcifications: Moderate. Pleura: Small left pleural fluid collection. Thoracic bones: No acute osseous finding in the chest. ABDOMEN/PELVIS: Liver: Nondependent intrahepatic gas, likely portal venous gas. Simple right lobe cyst. Biliary/Gallbladder: Gallbladder is normal. Mild extrahepatic bile duct dilation, with no obstructing stone or mass. Pancreas: Atrophy. Spleen: Normal. Adrenals:No mass. Kidneys: Bilateral atrophy. Multiple bilateral simple renal cysts. GI tract: Surgical changes at the GE junction and left upper quadrant. Gastric dilation with pneumato sis. Dilated proximal and mid small bowel with pneumatosis, with intervening areas of decompressed sharri wel, no definite C-loop configuration or transition point. Chronic dilation of the transverse colon. Worsening dilation of the sigmoid with the suggestion of a transition point in the lower abdomen (axi al image [id number]). Appendix not visualized. Mesentery/Peritoneum: No ascites, mass, or free air. Retroperitoneum: No mass . IVC filter. Pelvis: The bladder is decompressed by a García catheter. Absent uterus. Soft Tissues: Large, wide necked right lower abdominal wall hernia containing nondilated loops of lar ge and small bowel. Abdominopelvic bones: No acute osseous finding in the abdomen/pelvis. IMPRESSION: Small left pleural effusion. Gastric and multifocal proximal and mid bowel obstruction, with gastric and small bowel pneumatosis a nd portal venous gas concerning for bowel wall ischemia. Worsening sigmoid dilation with the suggestion of a lower abdominal transition point as can be seen w ith sigmoid volvulus. Results reported telephonically to Dr. Kiran by Dr. Enciso at 9:50 PM on 04/27/2023. 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 Gastric and multifocal proximal and mid bowel obstruction, with gastric and sma ll bowel pneumatosis and portal venous gas concerning for bowel wall ischemia. Worsening sigmoid dilation with the suggestion of a lower abdominal transition point as can be seen with sigmoid volvulus. Results reported telephonically to Dr. Kiran by Dr. Enciso at 9:50 PM on .
--- NOTE | ~2023-05-05 | XR_ITS ---
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 RESULT: Lines, tubes, and devices: Surgical sutures and adi over the GE junction and left upper quadrant . Lungs and pleura: Low volumes with crowding, otherwise clear. Cardiomediastinal silhouette: Stable. Other: No acute osseous or upper abdominal finding. IMPRESSION: No acute cardiopulmonary process. Reviewed, dictated and finalized at location K. EL TRUCK MECHANIC
--- NOTE | 2023-05-05 19:24 | ECG_ITS ---
Measurements Intervals [place] Rate: 128 P: RI: 0 QRS: -30 QRSD: 107 T: 71 QT: 303 QTc: 443 Interpretive Statements ATRIAL FIBRILLATION WITH RAPID VENTRICULAR RESPONSE ANTEROSEPTAL MYOCARDIAL INFARCTION , OF INDETERMINATE AGE [40+ ms Q WAVE IN V1-V4] COMPARED TO ECG 01/09/2023 16:55:32 RAPID VENTRICULAR RESPONSE NOW PRESENT Electronically Signed On 05-06-2023 16:31:18 CABLE REPAIRER by Arnold Triplett M.D.
[2023-05-05] MEDS: SODIUM CHLORIDE 0.9% IV 1,000 ML 999 ML IV CONT ×3 (19:35→19:44)
[2023-05-05] MEDS: ACETAMINOPHEN 650 MG SUPPOSITORY (19:45)
[2023-05-05 19:57] LABS: Alveolar/Arterial O2 Gradient 58.4 mmHg; Base Excess ABG -6.4 mEq/l (+/-2.0); Fractional Inspired Oxygen 28 %; HCO3 ABG 15.4 mEq/l (22.0-26.0); Oxygen Saturation ABG 98.4 % (95.0-100.0); Oxyhemoglobin 96.8 % THb (90.0-100.0); PO2 ABG 114.1 mmHg (80.0-100.0); PO2 FiO2 Ratio Arterial Blood 4.07 %; Total Hemoglobin 14.6 g/dL (12.0-18.0); pH ABG 7.445 (7.350-7.450)
[2023-05-05 19:57] LABS: Appearance Urine Clear (Clear); Bacteria Urine None Seen /hpf; Bilirubin Urine Negative (Negative); Blood Urine Negative (Negative); Color Urine Dark Yellow (Yellow); Glucose Urine UA Negative (Negative); Ketones Urine Trace mg/dL (Negative); Leukocyte Esterase Ur Trace LEU/UL (Negative); Nitrate Urine Negative (Negative); Protein Urine Trace mg/dL (Negative); RBC Urine 0-2 /hpf (0-2); Specific Grav Ur 1.023 (1.001-1.035); Squamous Epithelial Cell Urine None seen /hpf (Few); WBC Urine 0-5 /hpf; pH Urine 5.5 (5.0-9.0)
[2023-05-05 20:00] LABS: Device NASAL CANNULA; Site Drawn LEFT BRACHIAL
[2023-05-05 20:02] LABS: Basophils Absolute Auto 0.1 K/mm3 (0.0-0.1); Basophils Percent Auto 0.6 % (0.2-1.2); Eosinophils Percent Auto 0.1 % (0-4.4); Hematocrit 43.9 % (37.0-47.0); Immature Granulocyte Absolute 0.05 K/mm3 (0.00-0.031); Immature Granulocyte Percent A 0.4 % (0-0.5); Lymphocytes Percent Auto 5.9 % (18.3-44.2); Mean Corpuscular HGB Conc 31.9 g/dl (32-36); Mean Corpuscular Hemoglobin 29.5 pg (26-34); Mean Corpuscular Volume 92.4 fl (80-100); Mean Platelet Volume 9.6 fl (7.4-10.4); Monocytes Absolute Auto 0.5 K/mm3 (0.1-0.6); Monocytes Percent Auto 3.6 % (2.6-8.5); Neutrophils Absolute Auto 12.1 K/mm3 (1.3-6.7); Neutrophils Percent Auto 89.4 % (45.5-73.1); Nucleated Red Blood Cells Perc 0.1 % (0.0-0.2); Platelet Count Result 256 k/mm3 (150-375); Red Blood Count 4.75 M/mm3 (4.2-5.4); Red Cell Distribution Width 14.7 % (11.5-14.5); White Blood Count 13.5 K/mm3 (4.5-10.0)
[2023-05-05 20:02] LABS: Add Urine Microscopic? YES
[2023-05-05 20:12] LABS: INR 3.2; Partial Thromboplastin Time 37.7 SECONDS (22.3-36.8); Prothrombin Time 35.8 Seconds (11.1-14.7)
[2023-05-05 20:14] LABS: Ethanol < 10 mg/dL (<10)
[2023-05-05 20:18] LABS: Magnesium 1.7 mg/dL (1.6-2.3)
[2023-05-05 20:25] LABS: NT Pro B Type Natriuretic Pept 6560 pg/mL (19.9-100)
[2023-05-05 20:26] LABS: Influenza A QL RT-PCR Negative (Negative); Influenza B QL RT-PCR Negative (Negative); RSV RNA, RT-PCR Negative (Negative); SARS-CoV-2 RNA PCR Negative (Negative)
[2023-05-05 20:31] LABS: Troponin I < 0.012 ng/mL (0.000-0.034)
[2023-05-05 20:32] LABS: Procalcitonin 5.2 ng/mL
[2023-05-05 20:50] LABS: Alanine Aminotransferase 19 U/L (6-35); Albumin Level 3.3 g/dL (3.5-5.1); Alkaline Phosphatase 95 U/L (38-126); Anion Gap 17 mmol/L (8-16); Aspartate Amino Transferase 30 U/L (14-36); Bilirubin,Total 0.9 mg/dL (0.2-1.3); Blood Urea Nitrogen 56 mg/dL (7-17); Carbon Dioxide 17 mmol/L (22-30); Chloride 97 mmol/L (98-107); Creatine Kinase 95 U/L (30-135); Estimated CRCL calculation 48 ml/min; Estimated Glomerular Filt Rate 37; Glucose 168 mg/dL (65-110); Lipase 417 U/L (23-300); Potassium 3.6 mmol/L (3.4-5.0); Sodium 131 mmol/L (137-145)
[2023-05-05 21:01] LABS: Lactic Acid Reflex 4.6 mmol/L (0.7-2.0)
[2023-05-05] MEDS: CEFEPIME 2 GM/NS 50 ML 2 GM/50 ML BAG IVPB (22:12)
[2023-05-05] MEDS: dilTIAZem HCl INJ 25 MG/5 ML VIAL 15 MG IV PUSH (22:18)
[2023-05-05] MEDS: dilTIAZem 100 MG/100 ML 100 MG/100 ML BAG IV CONT (22:21)
--- NOTE | 2023-05-05 22:24 | ED.GENADULT ---
HPI - General Adult General Chief complaint: Altered Mental Status Stated complaint: AMS, DOESN'T FEEL RIGHT Time Seen by Provider: 05/05/23 19:18 History of Present Illness HPI narrative: Patient is 67-year-old female presents emergency department with chief complaint of generalized weakness and fever. Patient apparently has not been feeling well and not acting her usual self on the patient did slid out of the chair at home and was unable to get out of the the position patient initially called for lift assist nurse use transport that time and then subsequently the family call [facility] and had the patient transported to the emergency department. Related Data Allergies Allergy/AdvReac Type Severity Reaction Status Date / Time metoclopramide Allergy Unknown Unknown,Hiv Verified 02/01/23 15:31 es sulfamethoxazole AdvReac Unknown Other Verified 02/10/23 14:00 [From Bactrim] trimethoprim [From Bactrim] AdvReac Unknown Other Verified 02/10/23 14:00 Review of Systems Review of Systems: A 10 system review of systems was completed on the patient and is negative except for what is stated in the HPI. Nursing and ancillary documentation was reviewed. [facility] Past Medical History Medical History Abnormal stress test (01/2021) Lexiscan stress showed no reversible ischemia and a fixed defect. Anxiety Atrial fibrillation Chronic anticoagulation Chronic constipation Chronic low back pain with sciatica Chronic renal insufficiency, stage III (moderate) Chronic wound of extremity 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 Dumont for quite some time. Status post excision with full-thickness skin graft on 11/27/2020. Deep venous thrombosis (2014) Dementia Depression Diabetes Essential hypertension Gastroesophageal reflux Hypothyroidism Mild episode of recurrent major depressive disorder Mild intermittent asthma without complication Mixed hyperlipidemia Morbid obesity Obstructive sleep apnea (~2004) Intolerant to CPAP. Persistent atrial fibrillation Prediabetes Hemoglobin A1c was 6.2% on 01/09/2021. Pulmonary embolism (2014) Pulmonary hypertension Right ventricular systolic dysfunction Severe right ventricular enlargement with [id number] systolic dysfunction noted on echocardiogram dated 08/26/2014. Normal LV size and function with an EF of 65 to 70%. Severe pulmonary hypertension RVSP of 66 mmHg on echocardiogram dated 08/26/2014. Surgical History Surgical History History of appendectomy History of bariatric surgery Gastropexy for obesity in 1978 and 1983. History of bilateral knee replacement History of carpal tunnel release History of cholecystectomy History of colonoscopy with polypectomy History of dilation and curettage (1973) History of hysterectomy (1996) History of left breast biopsy History of tonsillectomy History of tubal ligation (1977) Presence of IVC filter Status post full thickness skin graft (11/27/20) Excision 3 cm bleeding varicosity lesion of the right lateral leg with full-thickness skin graft per Dr. Dumont. Family History Family History Mother Family history of kidney disease Diabetes mellitus age 51 Family history of mental disorder Father Family history of arthritis Heart disease of a [place] age 55 Family history of coronary artery disease Hypertension Sibling Blood clot in vein Family history of alcoholism Grandparent Family history of malignant neoplasm Sibling Family history of arthritis Family history of malignant neoplasm Hypertension Social History Social History Social History: The patient is and lives with her in [place]. She has 3 children. 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
[2023-05-05] MEDS: VANCOMYCIN 1,250 MG/NS 250 ML 1,250 MG/250 ML BAG 166.67 MG IVPB (22:52)
[2023-05-05 22:57] LABS: Reflex Lactic Acid Yes or No Add Lactic
== END 2023-05-06 00:09 | disposition short-term general hospital (02) ==
PROVIDERS: Emergency Provider Emergency Medicine; PCP Family Medicine
DX: A41.9 Sepsis, unspecified organism (principal); R65.20 Severe sepsis without septic shock; I48.19 Other persistent atrial fibrillation; K55.9 Vascular disorder of intestine, unspecified; I12.9 Hypertensive chronic kidney disease with stage 1 through stage 4 chronic kidney disease, or unspecified chronic kidney disease; E11.22 Type 2 diabetes mellitus with diabetic chronic kidney disease; N18.30 Chronic kidney disease, stage 3 unspecified; F03.90 Unspecified dementia, unspecified severity, without behavioral disturbance, psychotic disturbance, mood disturbance, and anxiety; I27.20 Pulmonary hypertension, unspecified; J45.20 Mild intermittent asthma, uncomplicated; E03.9 Hypothyroidism, unspecified; E78.2 Mixed hyperlipidemia; E66.01 Morbid (severe) obesity due to excess calories; Z68.43 Body mass index [BMI] 50.0-59.9, adult; G47.33 Obstructive sleep apnea (adult) (pediatric); K21.9 Gastro-esophageal reflux disease without esophagitis; Z98.84 Bariatric surgery status; Z96.653 Presence of artificial knee joint, bilateral; Z86.711 Personal history of pulmonary embolism; Z86.718 Personal history of other venous thrombosis and embolism; Z90.49 Acquired absence of other specified parts of digestive tract; Z90.710 Acquired absence of both cervix and uterus; Z79.85 Long-term (current) use of injectable non-insulin antidiabetic drugs; Z79.01 Long term (current) use of anticoagulants; Z79.899 Other long term (current) drug therapy
CPT/HCPCS: 36415; 36600; 70450; 71045; 71260; 74177; 80053; 80307; 81001; 82550; 82805; 83605; 83690; 83735; 83880; 84145; 84484; 85025; 85610; 85730; 87040; 87147; 87181; 87186; 87637; 93005; 96361; 96365; 96366; 96367; 96368; 99285; A9270; J0692; J3370; J7030; Q9967